=== PATIENT | male | born 1950 | race Caucasian/White ===

== ENCOUNTER 2020-04-24 17:21 | Inpatient (IN) | payer MEDICARE, SELFPAY ==
--- NOTE | ~2020-04-24 | XR_ITS ---
EXAMINATION: XR chest 1V portable DATE: 04/24/2020 18:13 INDICATION: COPD presenting with weakness and shortness of breath TECHNIQUE: frontal view of the chest was obtained. COMPARISON: Chest radiograph dated 03/04/2018 FINDINGS: New patchy airspace opacities in the bilateral mid and medial lower lung zones. No pleural effusion o r pneumothorax. The cardiomediastinal silhouette is normal. Multiple old healed bilateral rib fractur e deformities and old healed fracture deformity right clavicle. IMPRESSION: 1. Bilateral patchy airspace opacities concerning for pneumonia. Reviewed, dictated and finalized at location [facility]
--- NOTE | 2020-04-24 17:35 | PC.NURSE ---
EKG done at 1732, shown to LINCOLN
--- NOTE | 2020-04-24 17:36 | ECG_ITS ---
Measurements Intervals [place] Rate: 110 P: 75 SC: 117 QRS: -53 QRSD: 88 T: 56 QT: 301 QTc: 409 Interpretive Statements SINUS TACHYCARDIA WITH SHORT SC INTERVAL ATRIAL TRIPLET AND ATRIAL PREMATURE COMPLEXES LEFT AXIS DEVIATION INCOMPLETE RIGHT BUNDLE BRANCH BLOCK BASELINE ARTIFACT- I, II, V3 ABNORMAL ECG Electronically Signed On 04-25-2020 7:22:26 QUALITY ASSURANCE CLERK by Braden Pham D.O.
[2020-04-24 17:38] VITALS: BP 136/74; PULSE 106; RESP 27; TEMP 38.7; O2SAT 91
--- NOTE | 2020-04-24 17:47 | ED.GENADULT ---
HPI - General Adult General Chief complaint: Weakness Stated complaint: weakness Time Seen by Provider: 04/24/20 17:29 History of Present Illness HPI narrative: Patient is a 70 y/o male complaining of severe generalized weakness starting 5 days ago. There is no alleviating or exacerbating factor. He also has fever and increasing SOB. He states that he has chronic cough due to COPD. He tested for COVID recently and it was negative. Related Data Home Medications Medication Instructions Recorded Confirmed bupropion HCl 150 mg 24 hr tablet, 150 mg PO QAM 05/20/19 extended release clonazepam 0.5 mg tablet 0.5 mg PO DAILY 05/20/19 albuterol sulfate 90 mcg/actuation 1 puff INHALATION Q4H PRN 05/31/19 aerosol inhaler aspirin 81 mg tablet,delayed 81 mg PO DAILY 05/31/19 release Allergies Allergy/AdvReac Type Severity Reaction Status Date / Time neomycin AdvReac Unknown SLOWS Verified 04/24/20 19:06 HEALING, REDNESS Review of Systems Constitutional: Constitutional: Denies chills, Reports fever(s), Denies headache(s) and Reports weakness Eyes: Eyes: Denies blurry vision ENT: Denies headache(s) and Denies neck pain Cardiovascular: Cardiovascular: Denies chest pain and Reports dyspnea Respiratory: Respiratory: Reports cough and Reports dyspnea Gastrointestinal: Gastrointestinal: Denies abdominal pain, Denies diarrhea, Denies nausea and Denies vomiting Genitourinary: Genitourinary: Denies hematuria and Denies dysuria Musculoskeletal: Musculoskeletal: Denies back pain and Denies neck pain Neurologic: Denies headache(s) and Reports weakness [facility] Past Medical History Medical History (Updated 04/24/20 @ 19:46 by Bri Rodriguez MD) Abnormal finding of blood chemistry, unspecified Abnormal screening cardiac CT Aneurysm of infrarenal abdominal aorta Anxiety with depression BMI 24.0-24.9, adult Bruit Chest pain COPD (chronic obstructive pulmonary disease) Diarrhea Encounter for Medicare annual wellness exam Hx of compression fracture of spine On [facility] drug therapy Pain of finger of left hand Thoracic spondylosis Trigger finger, left ring finger Surgical History Surgical History Hx of cholecystectomy Hx of hernia repair 06/02/2001. Family History Family History Father Carcinoma of colon Social History Social History Smoking status: Former smoker Alcohol intake: current Exam Const: General: no acute distress and well developed Orientation/consciousness: oriented to person, oriented to place, oriented to time, patient oriented x3 and lethargic HENMT: Head: normocephalic Ears: external ears normal General nose exam: Normal external nose present Eyes: General: appearance normal, both eyes and all related structures Conjunctivae: conjunctivae normal Neck: Neck: normal visual inspection and full ROM Chest: Chest palpation & inspection: normal inspection of the chest and no tenderness Resp: Effort & Inspection: normal respiratory effort Auscultation: clear to auscultation bilaterally Cardio: Rate: tachycardic Rhythm: regular rhythm GI: GI Palp: No abdominal tenderness and Yes Soft to palpation Skin: General skin exam: normal color and turgor normal Neuro: General: oriented to person, oriented to place, oriented to time, patient oriented x3 and other (slow to respond) Cognition (Neuro): normal cognition Extrem: General: normal to inspection, full ROM and no pedal edema Psych: Appearance: grossly normal Mental Status: mental status grossly normal Affect: normal affect Course Consultations Consultation #1: Discussed with Dr. Haskins, who agrees to admit. Date: 04/24/20 Time: 18:55 Vital Signs Vital signs: Vital Signs Temperature 38.7 C H 04/24/20 17:38 Pulse Rate 106 H 04/24/20 17:38 Res
[2020-04-24 17:49] LABS: Hematocrit 39.4 % (42.0-52.0); Immature Platelet Fraction Pct 32.2 % (0.9-11.2); Mean Corpuscular Hemoglobin 32.3 pg (26-34); Mean Corpuscular Volume 97.8 fl (80-100); Red Blood Count 4.03 M/mm3 (4.6-6.20); Red Cell Distribution Width 14.4 % (11.5-14.5)
[2020-04-24 17:53] LABS: Alveolar/Arterial O2 Gradient 100.9 mmHg; Base Excess ABG 0.7 mEq/l (+/-2.0); Fractional Inspired Oxygen 28 %; HCO3 ABG 23.2 mEq/l (22.0-26.0); Oxygen Content ABG 17.2 %vol (16.0-22.0); Oxygen Saturation ABG 93.7 % (95.0-100.0); Oxyhemoglobin 91.8 % THb (90.0-100.0); PCO2 ABG 31.1 mmHg (35.0-45.0); PO2 FiO2 Ratio Arterial Blood 2.21 %; Total Hemoglobin 13.3 g/dL (12.0-18.0); pH ABG 7.491 (7.350-7.450)
[2020-04-24 17:54] LABS: Device NASAL CANNULA; Modified Allen's Test Pass; Site Drawn RIGHT RADIAL
[2020-04-24 17:59] LABS: Alanine Aminotransferase 91 U/L (4-50); Albumin Level 3.9 g/dL (3.5-5.1); Alkaline Phosphatase 119 U/L (38-126); Anion Gap 12 mmol/L (8-16); Aspartate Amino Transferase 138 U/L (17-59); Bilirubin,Total 0.6 mg/dL (0.2-1.3); Blood Urea Nitrogen 41 mg/dL (9-20); Calcium 8.2 mg/dL (8.4-10.2); Carbon Dioxide 25 mmol/L (22-30); Chloride 99 mmol/L (98-107); Estimated CRCL calculation 43 ml/min; Estimated Glomerular Filt Rate 40; Glucose 144 mg/dL (75-110); Sodium 136 mmol/L (137-145)
[2020-04-24 18:00] LABS: Lactic Acid Reflex 1.9 mmol/L (0.7-2.1)
[2020-04-24 18:08] LABS: NT Pro B Type Natriuretic Pept 525 PG/ML (5-100)
[2020-04-24 18:15] LABS: Platelet Count Result 18 k/mm3 (150-375)
[2020-04-24 18:19] LABS: Band Neutrophils Percent 11 % (0-6); Lymphocytes Absolute Manual 1.28 K/mm3 (1.1-4.5); Monocytes Absolute Manual 4.32 K/mm3 (0.1-0.90); Monocytes Percent Manual 27 % (3-9); Neutrophils Percent Manual 54 % (46-73); Total Cells Counted 100
[2020-04-24 18:20] LABS: Platelet Estimate Decreased (Adequate)
[2020-04-24] MEDS: SODIUM CHLORIDE 0.9% IV 1,000 ML 999 ML IV CONT (18:43)
--- NOTE | 2020-04-24 19:48 | PC.NURSE ---
Pt transfered to floor with antibiotic running.
[2020-04-24 19:55] VITALS: BP 109/67; PULSE 99; RESP 20; TEMP 36.7; O2SAT 92; BMI 23.6
--- NOTE | 2020-04-24 21:01 | PC.NURSE ---
This patient, Mendoza Stevens, was admitted to [facility] Surg Room 326-01. Patient/family oriented to hospital policies and general routines including ID bracelet, bed and alarms, visiting hours, pain management, procedures, bathroom and other care routines, personal items, smoking policy, room service/diet, and visiting hours. Information on how to activate the Rapid Response Team has been discussed. Patient/Family are encouraged to report perceived risks to care and to ask questions if they do not understand what they are told or what they should do.
[2020-04-24] MEDS: SODIUM CHLORIDE 0.9% IV 1,000 ML 125 ML IV CONT (21:50)
[2020-04-24 23:03] VITALS: BP 119/56; PULSE 101; RESP 24; TEMP 38.2; O2SAT 95
--- NOTE | 2020-04-24 23:25 | PM.IMHP ---
H&P: HPI History of Present Illness Date/Time: 04/24/20 23:25 Chief complaint: copd, pneumonia, sepsis Narrative: This is a 70 year old male with known history of COPD, depression, and chronic thrombocytopenia who presented to the hospital with a complaint of increased shortness of breath, fever, productive cough of brownish sputum, and generalized weakness for the past 6 days. His had mentioned to ER staff that the patient was tested for COVID-19 this past week and tested negative. It is not known which type of COVID-19 test he had. The patient was found to be septic in the ER tonight with fever, tachycardia, tachypnea, and leukocytosis. CXR demonstrated bilateral patchy airspace opacities. He has been treated with IV antibiotics and IV fluids. The patient was swabbed for COVID-19 in the ER tonight. ABG demonstrated hypoxemia. On my encounter with him he denies any headache, chest pain, palpitations, abdominal pain, dysuria, hematuria, diarrhea, vomiting, nausea, LE swelling or rectal bleeding. No other complaints. The patient was admitted to the hospital for further care. 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 Family History Family History Father Carcinoma of colon Social History Social History Smoking packs per day: 3 Smoking cigarettes per day: 60.0 Years smoked: 30 Smoking pack-years: 90.00 Smoking status: Former smoker Tobacco type: cigarettes Alcohol intake: never Substance use: never Gender identity (if verbalized by the patient): Male Spiritual care concerns: No Meds Home Medications and Allergies Home Medications Medication Instructions Recorded Confirmed Type bupropion HCl 150 mg 24 hr tablet, 150 mg PO QAM 05/20/19 04/24/20 History extended release clonazepam 0.5 mg tablet 0.5 mg PO DAILY 05/20/19 04/24/20 History albuterol sulfate 90 mcg/actuation 2 puff INHALATION Q4H PRN 05/31/19 04/24/20 History aerosol inhaler fluticasone fur. 100 mcg-umeclid 1 inhalation INHALATION DAILY #60 06/28/19 04/24/20 Rx 62.5 mcg-vilant 25 mcg each inhalat.powder Allergies Allergy/AdvReac Type Severity Reaction Status Date / Time neomycin AdvReac Unknown SLOWS Verified 04/24/20 21:15 HEALING, REDNESS Vital Signs Vital Signs - 24 hr 04/24/20 17:38 04/24/20 23:03 Temperature 38.7 C H 38.2 C H Pulse Rate 106 H 101 H Respiratory Rate 27 H 24 H Blood Pressure 136/74 119/56 L Pulse Oximetry 91 95 Exam Const: General: cooperative, ill appearing, tired appearing and uncomfortable Nutritional Appearance: well nourished Orientation/consciousness: Other orientation findings (somnolent but arousable+ ) HENMT: Head: normal to inspection General nose exam: Normal external nose present Face and sinus: normal facial exam Mouth: Yes Normal oral and palatal mucosa present and Yes oropharynx normal Eyes: Pupils: Equal, round and reactive pupils present EOM: EOMs intact bilaterally Neck: Neck: supple and no JVD Thyroid: thyroid normal Lymphatic: lymphadenopathy not noted Resp: Effort & Inspection: tachypneic Auscult
[2020-04-24 23:26] VITALS: TEMP 38.2
[2020-04-24] MEDS: ACETAMINOPHEN 325 MG TABLET 650 MG PO (23:26)
[2020-04-25] VITALS (14 sets, daily range): BP systolic 95–128; BP diastolic 46–68; PULSE 65–108; RESP 16–20; TEMP 36.4–37.1; O2SAT 92–97; BMI 23.6
[2020-04-25] MEDS: SODIUM CHLORIDE 0.9% IV 500 ML 999 ML IV CONT (00:40)
--- NOTE | 2020-04-25 01:36 | ECG_ITS ---
Measurements Intervals [place] Rate: 78 P: 80 MS: 139 QRS: -36 QRSD: 88 T: 29 QT: 390 QTc: 445 Interpretive Statements SINUS RHYTHM FREQUENT ATRIAL PREMATURE COMPLEXES LEFT AXIS DEVIATION CANNOT RULE OUT SEPTAL INFARCT, AGE INDETERMINATE BASELINE ARTIFACT- V5 ABNORMAL ECG Electronically Signed On 04-25-2020 7:27:48 AWARD CLERK by Braden Pham D.O.
[2020-04-25 02:10] LABS: Hematocrit 33.3 % (42.0-52.0); Hemoglobin 11.1 g/dL (14.0-18.0); Immature Platelet Fraction Pct 32.7 % (0.9-11.2); Mean Corpuscular HGB Conc 33.3 g/dl (32-36); Mean Corpuscular Hemoglobin 32.6 pg (26-34); Mean Corpuscular Volume 97.9 fl (80-100); Red Cell Distribution Width 14.6 % (11.5-14.5); White Blood Count 22.7 K/mm3 (4.5-10.0)
[2020-04-25 02:12] LABS: Alveolar/Arterial O2 Gradient 46.2 mmHg; Base Excess ABG -2.3 mEq/l (+/-2.0); Fractional Inspired Oxygen 28 %; HCO3 ABG 18.9 mEq/l (22.0-26.0); Oxygen Saturation ABG 98.8 % (95.0-100.0); Oxyhemoglobin 97.2 % THb (90.0-100.0); PCO2 ABG 24.6 mmHg (35.0-45.0); PO2 ABG 124.4 mmHg (80.0-100.0); PO2 FiO2 Ratio Arterial Blood 4.44 %; Total Hemoglobin 14.5 g/dL (12.0-18.0)
[2020-04-25] MEDS: SODIUM CHLORIDE 0.9% IV 1,000 ML 125 ML IV CONT ×2 (02:12→12:36)
[2020-04-25 02:14] LABS: pH ABG 7.504 (7.350-7.450)
[2020-04-25 02:15] LABS: Device NASAL CANNULA; Modified Allen's Test Unable to perform; Site Drawn RIGHT RADIAL
[2020-04-25 02:22] LABS: Anion Gap 8 mmol/L (8-16); Blood Urea Nitrogen 39 mg/dL (9-20); Calcium 7.2 mg/dL (8.4-10.2); Carbon Dioxide 22 mmol/L (22-30); Chloride 106 mmol/L (98-107); Estimated CRCL calculation 48 ml/min; Estimated Glomerular Filt Rate 50; Glucose 132 mg/dL (75-110); Magnesium 2.3 mg/dL (1.6-2.3); Potassium 3.4 mmol/L (3.4-5.0); Sodium 136 mmol/L (137-145)
[2020-04-25 02:52] LABS: Platelet Count Result 15 k/mm3 (150-375)
[2020-04-25 02:53] LABS: Band Neutrophils Percent 1 % (0-6); Monocytes Absolute Manual 4.76 K/mm3 (0.1-0.90); Monocytes Percent Manual 21 % (3-9); Neutrophils Absolute Manual 17.02 K/mm3 (1.3-6.7); Neutrophils Percent Manual 74 % (46-73); Platelet Estimate Decreased (Adequate); Total Cells Counted 100
[2020-04-25 05:30] LABS: Influenza Control Positive
[2020-04-25] MEDS: ALBUTEROL SULFATE (*SP) AEROSOL 1 PUFF 2 PUFF INHALATION ×3 (08:46→16:22)
--- NOTE | 2020-04-25 13:15 | PM.CNCAR ---
Assessment and Plan Assessment and plan (1) SVT (supraventricular tachycardia): Code(s): I47.1 - Supraventricular tachycardia Status: Acute Assessment and Plan: Likely Insignificant self-limiting SVT is noted and occasional PVCs. He is hypokalemia, will replace as below. All driven by his underlying likely COVID infection and high adrenaline state. Eventual echocardiogram is reasonable either after he rules out for Coronavirus or when he recovers. No need for echocardiogram at this point unless his arrhythmia becomes more significant (2) Chest pain: Qualifiers: Chest pain type: unspecified Qualified Code(s): R07.9 - Chest pain, unspecified Code(s): R07.9 - Chest pain, unspecified Status: Acute Assessment and Plan: This is noncardiac chest pain (3) Suspected 2019 novel coronavirus infection: Code(s): Z20.828 - Contact with and (suspected) exposure to other viral communicable diseases Status: Acute (4) Hypokalemia: Code(s): E87.6 - Hypokalemia Status: Acute Assessment and Plan: Will replace with 40 mEq p.o. x1 potassium chloride. (5) Aneurysm of infrarenal abdominal aorta: Code(s): I71.4 - Abdominal aortic aneurysm, without rupture Status: Acute History of Present Illness History of Present Illness Consult date/time: 04/25/20 13:15 Requesting physician: Aurora Up PA-C Consult reason: Other (SVT, bigeminy) Reason For Visit: copd, pneumonia, sepsis Narrative: Date of service 04/25/2020 History: Patient is a 70-year-old male who has COPD, depression, thrombocytopenia. Present hospital because of shortness of breath fever cough and weakness x6 days. Reportedly tested negative for COVID last week. Details of this are not known. Chest x-ray is concerning for infiltrate consistent with pneumonia. Presumed Coronavirus until proven otherwise. 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 He has short runs of what appears to be SVT. Patient states that last couple weeks he was having some left-sided chest pain as worse with moving his arm. Not worsened with cardio activity. He himself denies any chest pain at present. Does have shortness of breath and cough. No syncope, presyncope, paroxysmal nocturnal dyspnea, orthopnea, edema or palpitations. Review of Systems Review of Systems: All systems reviewed & are unremarkable except as noted in HPI and below Constitutional: Constitutional: Reports weakness Eyes: Eyes: Denies blurry vision ENT: Reports Normal hearing present Cardiovascular: Cardiovascular: Reports chest pain Respiratory: Respiratory: Reports dyspnea Gastrointestinal: Gastrointestinal: Denies abdominal pain Genitourinary: Genitourinary: Denies dysuria Musculoskeletal: Musculoskeletal: Denies neck pain Integumentary/Breasts: Skin/Breast: Denies dry skin Neurologic: Denies headache(s) Psychiatric: Psychiatric: Denies anxiety and Denies confusion Endocrine: Endocrine: Denies fatigue Hematologic/Lymphatic: Hematologic/Lymphatic: Denies easy bleeding Allergic/Immunologic: Allergic/Immunologic: Denies GI upset with certain foods PMFSH Past Medical History Medical History Abnormal finding of blood chemistry, unspecified Abnormal screening cardiac CT Aneurysm of infrarenal abdominal aorta Anxiety with depression BMI 24.0-24.9, adult Bruit Chest pain COPD (chronic obstructive pulmonary disease) Diarrhea Encounter for Medicare annual wellness exam Hx of compression fracture of spine On [employer] drug therapy Pain of finger of left hand Thoracic spondylosis Trigger finger, left ring finger Surgical History Surgical History Hx of cholecystectomy Hx of hernia repair 06/02/2001. Family History Family History (Reviewed 04/25/20 @ 1
--- NOTE | 2020-04-25 15:22 | WPDONCCN ---
Assessment and Plan Assessment and plan (1) Thrombocytopenia: Code(s): D69.6 - Thrombocytopenia, unspecified Status: Acute Assessment and Plan: Etiology is multifactorial that includes underlying viremia along with splenic sequestration and possibly autoimmune process. I will start him on dexamethasone with the 10 mg IV bolus now and then continue this every 6 hours at 4 mg. I will also provide ppi support. in addition, I will also check for DIC. (2) Leukocytosis: Code(s): D72.829 - Elevated white blood cell count, unspecified Status: Acute Assessment and Plan: Etiology is probably due to infection and inflammatory process. I will continue monitor CBC on daily basis and review the manual differential. (3) Normocytic anemia: Code(s): D64.9 - Anemia, unspecified Status: Acute Assessment and Plan: Due to current infection (4) Suspected 2019 novel coronavirus infection: Code(s): Z20.828 - Contact with and (suspected) exposure to other viral communicable diseases Status: Acute Assessment and Plan: he does have multiple classic symptoms of COVID-19 infection. Current viral test is pending. He continues to be in respiratory isolation HPI Data of Consult Date/Time: 04/25/20 15:22 Requesting Physician: Aurora Up PA-C Primary Care Provider: Javier Syed MD Consult Narrative Narrative: Mendoza Stevens is a 70 year old male presenting with Febrile illness, productive cough, shortness of breath. Upon my interview with the patient, he was complain of diffuse arthralgias, productive cough of yellow to white sputum and dyspnea on exertion. He is currently on oxygen at 2 liters/minute. At times he appears to be more drowsy and cannot get comfortable. He initially did not recognize me at the start. According to the record, he was admitted through the ER last night with viral pneumonia that may be consistent with COVID-19 infection/pneumonia. He has been ill for the past several days presenting with the above symptoms. He recently was exposed to his daughter who also had viral infection but he could not tell me if she was positive for COVID-19. They came together due to the patient's father dying. Historically, patient does have chronic thrombocytopenia with the platelet count ranging between 50 -60k with leukopenia and neutropenia. He did undergo extensive workup over the past 5 years including bone marrow biopsy, liver and spleen ultrasound and extensive laboratory workup. 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 He is currently on no medical therapy and only follows up with me twice a year. Review of Systems Review of Systems: All systems reviewed & are unremarkable except as noted in HPI and below Constitutional: Constitutional: Denies anorexia, Reports fatigue, Reports fever(s), Reports malaise, Reports night sweats, Reports snoring, Reports weakness and Denies weight loss Eyes: Eyes: Reports blurry vision ENT: Denies dysphagia, Denies epistaxis, Denies mouth lesions, Denies mouth pain, Denies odynophagia, Denies disequilibrium and Denies sore throat Cardiovascular: Cardiovascular: Reports chest pain, Denies leg edema, Reports dyspnea and Reports dyspnea on exertion Respiratory: Respiratory: Reports cough, Reports excessive phlegm production, Reports dyspnea and Reports snoring Gastrointestinal: Gastrointestinal: Denies abdominal pain, Denies constipation, Denies dysphagia, Denies diarrhea, Denies nausea, Denies odynophagia and Denies vomiting Genitourinary: Genitourinary: Denies hematuria and Denies dysuria Musculoskeletal: Musculoskeletal: Reports myalgias, Reports arthralgias and Reports muscle weakness Integumentary/Breasts: Skin/Breast: Denies rash and Denies unusual bruising Neurologic: Denies confusion, Denies disequilibrium and Reports weakness Psychiatr
--- NOTE | 2020-04-25 16:10 | PM.IMPN ---
Progress Note: A&P Assessment and Plan (1) Acute respiratory failure with hypoxemia: Code(s): J96.01 - Acute respiratory failure with hypoxia Status: Acute Assessment and Plan: Patient now on 1 L satting at 94% -due to pneumonia, differential bacterial verses COVID-19. Influenza negative -chest x-ray shows bilateral patchy airspace opacities concerning for pneumonia -patient has an increased white blood cell count and a lot of sputum production, continue ceftriaxone and azithromycin at this time -wean oxygen as tolerated -sputum culture sent -if he test negative for COVID-19, consider CTA of the chest (2) Pneumonia: Qualifiers: Laterality: bilateral Lung location: unspecified part of lung Pneumonia type: due to unspecified organism Qualified Code(s): J18.9 - Pneumonia, unspecified organism Code(s): J18.9 - Pneumonia, unspecified organism Status: Acute Assessment and Plan: Bacterial versus COVID-19 -await COVID swab -sputum cultures pending -continue ceftriaxone azithromycin this time -consider CTA if COVID-19 is negative (3) Sepsis: Code(s): A41.9 - Sepsis, unspecified organism Status: Acute Assessment and Plan: Due to pneumonia -patient had tachycardia, leukocytosis and fever on admission (4) JOE (acute kidney injury): Code(s): N17.9 - Acute kidney failure, unspecified Status: Acute Assessment and Plan: Improving with IV hydration -will stop fluids until COVID-19 test comes back since the patient has slight crackles on exam -blood pressure is stable now but if he becomes hypotensive may need to restart fluids (5) Leukocytosis: Code(s): D72.829 - Elevated white blood cell count, unspecified Status: Acute Assessment and Plan: Due to above (6) Normocytic anemia: Code(s): D64.9 - Anemia, unspecified Status: Acute Assessment and Plan: Hemoglobin stable, last hemoglobin 11.1 (7) Thrombocytopenia: Code(s): D69.6 - Thrombocytopenia, unspecified Status: Acute Assessment and Plan: He has a history of this according to Dr. Syed notes -sees Dr. Pardo -Will consult them since pt is down to 15,000 (8) Suspected 2019 novel coronavirus infection: Code(s): Z20.828 - Contact with and (suspected) exposure to other viral communicable diseases Status: Acute Assessment and Plan: As above (9) Elevated liver enzymes: Code(s): R74.8 - Abnormal levels of other serum enzymes Status: Acute Assessment and Plan: Likely d/t COVID -Trend -May consider hepatitis screen or imaging if COVID is negative -home meds reviewed (10) COPD (chronic obstructive pulmonary disease): Qualifiers: COPD type: unspecified COPD Qualified Code(s): J44.9 - Chronic obstructive pulmonary disease, unspecified Code(s): J44.9 - Chronic obstructive pulmonary disease, unspecified Status: Acute Assessment and Plan: No wheezing today -Will switch to xopenex since pt is having tachycardia (11) Anxiety with depression: Code(s): F41.8 - Other specified anxiety disorders Status: Acute Assessment and Plan: Chronic and stable (12) SVT (supraventricular tachycardia): Code(s): I47.1 - Supraventricular tachycardia Status: Acute Assessment and Plan: Could be due to acute infection and albuterol use -cardiology consulted, potassium replaced -patient has no palpitations or chest pain -continue telemetry -consider beta-blockade if he continues to have SVT (13) Bigeminy: Code(s): I49.8 - Other specified cardiac arrhythmias Status: Acute Assessment and Plan: Potassium replace, monitor on tele Time Spent With Patient Time with patient: 25 - 35 minutes Subjective Date/time seen: 04/25/20 16:10 Interval history: Pt is a
[2020-04-25] MEDS: buPROPion HCL XL (24 HR) 150 MG TABCR PO (16:16)
[2020-04-25] MEDS: POTASSIUM CHLORIDE 20 MEQ TABLET 40 MEQ PO (16:16)
[2020-04-25] MEDS: clonazePAM (*CRX) 0.5 MG TABLET PO (16:16)
[2020-04-25] MEDS: DEXAMETHASONE SOD PHOS INJ 4 MG/ML VIAL 10 MG IV PUSH (17:03)
[2020-04-25] MEDS: guaiFENesin/DEXTROMETHORPHAN 10 ML UDC 5 ML PO (20:28)
[2020-04-25] MEDS: PANTOPRAZOLE 40 MG TABLET PO (20:29)
[2020-04-25 21:15] LABS: SARS-CoV-2 RNA PCR Positive
[2020-04-25] MEDS: LEVALBUTEROL HFA (*SP) 15 GM INHALER 2 PUFF INHALATION (22:15)
[2020-04-26] VITALS (7 sets, daily range): BP systolic 92–117; BP diastolic 54–63; PULSE 70–98; RESP 18–20; TEMP 36.3–37.5; O2SAT 93–96
[2020-04-26] MEDS: guaiFENesin/DEXTROMETHORPHAN 10 ML UDC 5 ML PO (05:09)
[2020-04-26 07:08] LABS: Hematocrit 31.8 % (42.0-52.0); Hemoglobin 10.3 g/dL (14.0-18.0); Immature Reticulocyte Fraction 4.7 % (3.0-15.9); Mean Corpuscular HGB Conc 32.4 g/dl (32-36); Mean Corpuscular Hemoglobin 31.8 pg (26-34); Mean Corpuscular Volume 98.1 fl (80-100); Red Blood Count 3.24 M/mm3 (4.6-6.20); Red Cell Distribution Width 14.6 % (11.5-14.5); Reticulocyte Hemoglobin Conten 30.4 pg (28.2-35.7); Reticulocyte Percent 0.43 % (0.7-4.3); Reticulocytes Absolute 0.01 B/L (32.2-175.7); White Blood Count 10.7 K/mm3 (4.5-10.0)
[2020-04-26 07:10] LABS: Platelet Count Result 12 k/mm3 (150-375)
[2020-04-26 07:11] LABS: INR 1.2; Lactate Dehydrogenase 1131 U/L (313-618); Prothrombin Time 15.8 Seconds (11.1-14.7)
[2020-04-26 07:20] LABS: Alanine Aminotransferase 148 U/L (4-50); Alkaline Phosphatase 95 U/L (38-126); Anion Gap 8 mmol/L (8-16); Aspartate Amino Transferase 183 U/L (17-59); Bilirubin,Total 0.4 mg/dL (0.2-1.3); Blood Urea Nitrogen 41 mg/dL (9-20); Calcium 7.8 mg/dL (8.4-10.2); Carbon Dioxide 24 mmol/L (22-30); Chloride 106 mmol/L (98-107); Estimated CRCL calculation 55 ml/min; Estimated Glomerular Filt Rate 60; Glucose 154 mg/dL (75-110); Potassium 3.8 mmol/L (3.4-5.0); Sodium 138 mmol/L (137-145)
[2020-04-26 07:21] LABS: Immunoglobulin G 1589 mg/dL (700-1600)
[2020-04-26 07:32] LABS: Band Neutrophils Percent 3 % (0-6); Lymphocytes Absolute Manual 0.42 K/mm3 (1.1-4.5); Monocytes Absolute Manual 0.42 K/mm3 (0.1-0.90); Monocytes Percent Manual 4 % (3-9); Neutrophils Absolute Manual 9.84 K/mm3 (1.3-6.7); Neutrophils Percent Manual 89 % (46-73); Total Cells Counted 100
[2020-04-26 07:33] LABS: Platelet Estimate Decreased (Adequate)
[2020-04-26 07:49] LABS: Partial Thromboplastin Time 46.2 SECONDS (22.3-36.8)
[2020-04-26 07:59] LABS: Alanine Aminotransferase 150 U/L (4-50); Alkaline Phosphatase 93 U/L (38-126); Aspartate Amino Transferase 184 U/L (17-59); Bilirubin,Total 0.4 mg/dL (0.2-1.3); CRP 22.8 mg/dL (<1.0); Magnesium 2.9 mg/dL (1.6-2.3)
[2020-04-26 08:04] LABS: Fibrinogen 268 mg/dl (215-510)
[2020-04-26 08:05] LABS: Erythrocyte Sedimentation Rate > 140 mm/hr (0-20)
[2020-04-26] MEDS: buPROPion HCL XL (24 HR) 150 MG TABCR PO (08:13)
[2020-04-26] MEDS: PANTOPRAZOLE 40 MG TABLET PO ×2 (08:13→20:56)
[2020-04-26] MEDS: clonazePAM (*CRX) 0.5 MG TABLET PO ×2 (08:25→16:57)
[2020-04-26] MEDS: DEXAMETHASONE SOD PHOS INJ 4 MG/ML VIAL IV PUSH ×4 (08:27→23:32)
[2020-04-26] MEDS: LEVALBUTEROL HFA (*SP) 15 GM INHALER 2 PUFF INHALATION ×3 (08:46→16:20)
--- NOTE | 2020-04-26 10:34 | WPDONCPN ---
Progress Note: A&P Assessment and Plan (1) Thrombocytopenia: Code(s): D69.6 - Thrombocytopenia, unspecified Status: Acute Assessment and Plan: autoimmune vs myelosuppressive effects of COVID 19 viremia 1. Will order IVIG for treating thrombocytopenia 2. continue with Dex 4 q 6 for now 3. Daily CBC 4. Plt precautions 5. Cannot receive anticoagulation due to increase risk of hemorrhage with plt count of 12k 6. If IVIG not successful, will transfuse plts 7. NO signs of DIC or hemolysis (2) Leukocytosis: Code(s): D72.829 - Elevated white blood cell count, unspecified Status: Acute Assessment and Plan: improving continue to monitor (3) Normocytic anemia: Code(s): D64.9 - Anemia, unspecified Status: Chronic Assessment and Plan: stable continue to monitor no signs of hemolysis or bleeding due to COVID19 viremia Time Spent With Patient Time with patient: 15 - 25 minutes Review of Systems Review of Systems All systems reviewed & are unremarkable except as noted in HPI and below Constitutional Constitutional: Denies anorexia, Reports fatigue, Denies fever(s), Reports malaise, Reports night sweats, Denies snoring, Reports weakness and Denies weight loss Eyes Eyes: Reports blurry vision ENT Denies dysphagia, Denies epistaxis, Denies mouth lesions, Denies mouth pain, Denies odynophagia, Denies disequilibrium and Denies sore throat Cardiovascular Cardiovascular: Reports chest pain, Denies leg edema, Reports dyspnea and Reports dyspnea on exertion Respiratory Respiratory: Reports cough, Reports excessive phlegm production, Reports dyspnea, Reports dyspnea on exertion and Reports snoring Gastrointestinal Gastrointestinal: Denies abdominal pain, Denies constipation, Denies dysphagia, Denies diarrhea, Denies nausea, Denies odynophagia and Denies vomiting Genitourinary Genitourinary: Denies hematuria and Denies dysuria Musculoskeletal Musculoskeletal: Reports myalgias, Reports arthralgias and Reports muscle weakness Integumentary/Breasts Skin/Breast: Denies rash and Denies unusual bruising Neurologic Denies confusion, Denies disequilibrium and Reports weakness Psychiatric Psychiatric: Reports anxiety, Denies confusion and Reports depression Endocrine Endocrine: Reports fatigue Hematologic/Lymphatic Hematologic/Lymphatic: Denies easy bleeding, Denies easy bruising and Denies lymphadenopathy Exam Const: General: alert, awake, in distress, anxious, diaphoretic, ill appearing, tired appearing and uncomfortable; No healthy appearing, no acute distress or confusion Nutritional Appearance: well nourished Orientation/consciousness: patient oriented x3 and No confusion HENMT: Head: normocephalic and atraumatic Ears: external ears normal General nose exam: Normal external nose present and Normal nares present Face and sinus: sinuses nontender Mouth: Yes Normal oral and palatal mucosa present and Yes moist mucous membranes Teeth and gingiva: dentition normal Throat: uvula midline Eyes: Conjunctivae: conjunctivae normal Pupils: Equal, round and reactive pupils present EOM: EOMs intact bilaterally Neck: Neck: full ROM, no lymphadenopathy and supple Chest: Chest palpation & inspection: normal inspection of the chest Resp: Effort & Inspection: normal respiratory effort Auscultation: rhonchi Cardio: Rate: tachycardic Rhythm: regular rhythm Heart sounds: S1 normal heart sound present and S2 normal heart sound present Peripheral pulses: Peripheral pulses 2+ throughout GI: Auscultation: normal bowel sounds Rectal Exam: deferred : General: Yes no CVA tenderness Back/Spine/Pelvis: Back: no CVA tenderness Skin: General skin exam: no rashes or lesions noted, turgor normal and no ecchymosis Rashes: no rashes Neuro: General: patient oriented x3, gait normal, tone normal, moves all extremities and No confusion Cranial nerves: Yes CN's II-XII intact bilaterally and Yes Equal, round and re
[2020-04-26] MEDS: BENZONATATE 100 MG CAPSULE PO ×2 (12:18→16:55)
--- NOTE | 2020-04-26 13:25 | PM.IMPN ---
Progress Note: A&P Assessment and Plan (1) Pneumonia due to COVID-19 virus: Code(s): U07.1 - COVID-19; J12.89 - Other viral pneumonia Status: Acute Assessment and Plan: Tested positive 04/24/20 -symptoms started 04/19/20 -will continue Decadron -at this time, I am not going to start Remdesivir. The patient is improving on current treatment and is only on 1 L of oxygen I suspect this will be discontinued today. He is feeling much better today and recent studies have shown questionable efficacy of Remdesivir -wean oxygen as tolerated -pt had significant leukocytosis on admission which has improved with abx. Spoke with oncology, will continue abx at this time for possible bacterial infection (2) Acute respiratory failure with hypoxemia: Code(s): J96.01 - Acute respiratory failure with hypoxia Status: Acute Assessment and Plan: Patient now on 1 L satting at 94% -due to pneumonia -chest x-ray shows bilateral patchy airspace opacities concerning for pneumonia -patient has an increased white blood cell count and a lot of sputum production, continue ceftriaxone and azithromycin at this time -wean oxygen as tolerated -sputum culture reviewed. Moderate yeast--likelynot causing acute infx since he is improving with current therapy -if he test negative for COVID-19, consider CTA of the chest (3) Pneumonia: Qualifiers: Laterality: bilateral Lung location: unspecified part of lung Pneumonia type: due to unspecified organism Qualified Code(s): J18.9 - Pneumonia, unspecified organism Code(s): J18.9 - Pneumonia, unspecified organism Status: Acute Assessment and Plan: Bacterial versus COVID-19 -COVID + -continue ceftriaxone azithromycin this time (4) Sepsis: Code(s): A41.9 - Sepsis, unspecified organism Status: Acute Assessment and Plan: Resolved. Due to pneumonia -patient had tachycardia, leukocytosis and fever on admission (5) JOE (acute kidney injury): Code(s): N17.9 - Acute kidney failure, unspecified Status: Acute Assessment and Plan: Improved with IV hydration which has now been stopped (6) Leukocytosis: Code(s): D72.829 - Elevated white blood cell count, unspecified Status: Acute Assessment and Plan: Due to above (7) Normocytic anemia: Code(s): D64.9 - Anemia, unspecified Status: Chronic Assessment and Plan: Hemoglobin stable, last hemoglobin 10.3 (8) Thrombocytopenia: Code(s): D69.6 - Thrombocytopenia, unspecified Status: Chronic Assessment and Plan: He has a history of this according to Dr. Syed notes -sees Dr. Pardo -Plan for IVIG today -last count 12,000 but no bleeding (9) Suspected 2019 novel coronavirus infection: Code(s): Z20.828 - Contact with and (suspected) exposure to other viral communicable diseases Status: Acute Assessment and Plan: As above (10) Elevated liver enzymes: Code(s): R74.8 - Abnormal levels of other serum enzymes Status: Acute Assessment and Plan: Likely d/t COVID -Trend -home meds reviewed (11) COPD (chronic obstructive pulmonary disease): Qualifiers: COPD type: unspecified COPD Qualified Code(s): J44.9 - Chronic obstructive pulmonary disease, unspecified Code(s): J44.9 - Chronic obstructive pulmonary disease, unspecified Status: Chronic Assessment and Plan: No wheezing today -Will switch to xopenex since pt is having tachycardia (12) Anxiety with depression: Code(s): F41.8 - Other specified anxiety disorders Status: Acute Assessment and Plan: Chronic and stable (13) SVT (supraventricular tachycardia): Code(s): I47.1 - Supraventricular tachycardia Status: Acute Assessment and Plan: Could be due to acute infection and albuterol
[2020-04-26] MEDS: polyethylene glycoL 3350 17 GM POWD.PACK PO (13:45)
--- NOTE | 2020-04-26 19:39 | ECG_ITS ---
Measurements Intervals [place] Rate: 92 P: 24 LA: 100 QRS: -17 QRSD: 89 T: 43 QT: 335 QTc: 416 Interpretive Statements SINUS RHYTHM WITH SHORT LA INTERVAL CANNOT RULE OUT SEPTAL INFARCT, AGE INDETERMINATE ABNORMAL ECG Electronically Signed On 04-27-2020 8:03:28 [employer] by Braden Pham D.O.
[2020-04-26] MEDS: guaiFENesin 12 HR 600 MG TABCR PO (20:57)
[2020-04-27] VITALS (9 sets, daily range): BP systolic 99–120; BP diastolic 58–71; PULSE 64–92; RESP 16–18; TEMP 36.7–37.4; O2SAT 93–96
[2020-04-27] MEDS: DEXAMETHASONE SOD PHOS INJ 4 MG/ML VIAL IV PUSH ×3 (05:38→21:37)
[2020-04-27 06:40] LABS: Hematocrit 28.4 % (42.0-52.0); Hemoglobin 9.5 g/dL (14.0-18.0); Immature Platelet Fraction Pct 47.8 % (0.9-11.2); Mean Corpuscular HGB Conc 33.5 g/dl (32-36); Mean Corpuscular Hemoglobin 32.3 pg (26-34); Mean Corpuscular Volume 96.6 fl (80-100); Red Blood Count 2.94 M/mm3 (4.6-6.20); Red Cell Distribution Width 14.8 % (11.5-14.5)
[2020-04-27 06:55] LABS: Alanine Aminotransferase 148 U/L (4-50); Albumin Level 2.8 g/dL (3.5-5.1); Alkaline Phosphatase 98 U/L (38-126); Anion Gap 7 mmol/L (8-16); Aspartate Amino Transferase 156 U/L (17-59); Bilirubin,Total 0.4 mg/dL (0.2-1.3); Blood Urea Nitrogen 40 mg/dL (9-20); CRP 7.2 mg/dL (<1.0); Calcium 7.9 mg/dL (8.4-10.2); Carbon Dioxide 24 mmol/L (22-30); Chloride 105 mmol/L (98-107); Estimated CRCL calculation 60 ml/min; Estimated Glomerular Filt Rate > 60; Glucose 161 mg/dL (75-110); Magnesium 2.5 mg/dL (1.6-2.3); Sodium 136 mmol/L (137-145)
[2020-04-27 07:14] LABS: Platelet Count Result 20 k/mm3 (150-375)
[2020-04-27 07:19] LABS: Band Neutrophils Percent 3 % (0-6); Lymphocytes Absolute Manual 0.32 K/mm3 (1.1-4.5); Monocytes Absolute Manual 0.24 K/mm3 (0.1-0.90); Monocytes Percent Manual 3 % (3-9); Neutrophils Absolute Manual 7.44 K/mm3 (1.3-6.7); Neutrophils Percent Manual 90 % (46-73); Platelet Estimate Decreased (Adequate); Total Cells Counted 100
[2020-04-27 07:51] LABS: Erythrocyte Sedimentation Rate > 140 mm/hr (0-20)
[2020-04-27] MEDS: BENZONATATE 100 MG CAPSULE PO ×3 (09:34→17:45)
[2020-04-27] MEDS: guaiFENesin 12 HR 600 MG TABCR PO ×2 (09:34→21:37)
[2020-04-27] MEDS: PANTOPRAZOLE 40 MG TABLET PO ×2 (09:35→21:37)
[2020-04-27] MEDS: clonazePAM (*CRX) 0.5 MG TABLET PO ×2 (09:35→18:54)
[2020-04-27] MEDS: buPROPion HCL XL (24 HR) 150 MG TABCR PO (09:35)
[2020-04-27] MEDS: guaiFENesin/DEXTROMETHORPHAN 10 ML UDC 5 ML PO (09:42)
[2020-04-27] MEDS: LEVALBUTEROL HFA (*SP) 15 GM INHALER 2 PUFF INHALATION ×3 (10:04→22:10)
--- NOTE | 2020-04-27 10:31 | WPDONCPN ---
Progress Note: A&P Assessment and Plan (1) Pneumonia due to COVID-19 virus: Code(s): U07.1 - COVID-19; J12.89 - Other viral pneumonia Status: Acute Assessment and Plan: clinically improving CRP decreasing recheck LDH continue with supportive care and ABX (2) Thrombocytopenia: Code(s): D69.6 - Thrombocytopenia, unspecified Status: Chronic Assessment and Plan: improving after IVIG will redose another IVIG today to get plt count to his baseline will cut back on the steroids a bit (3) Normocytic anemia: Code(s): D64.9 - Anemia, unspecified Status: Chronic Assessment and Plan: stable recheck CBC in AM (4) Leukocytosis: Code(s): D72.829 - Elevated white blood cell count, unspecified Status: Acute Review of Systems Review of Systems All systems reviewed & are unremarkable except as noted in HPI and below Constitutional Constitutional: Denies anorexia, Reports fatigue, Denies fever(s), Reports malaise, Reports weakness and Denies weight loss ENT Denies dysphagia, Denies epistaxis, Denies mouth lesions, Denies mouth pain, Denies odynophagia, Denies disequilibrium and Denies sore throat Cardiovascular Cardiovascular: Denies leg edema and Reports dyspnea on exertion Respiratory Respiratory: Reports cough, Reports excessive phlegm production, Reports dyspnea, Reports dyspnea on exertion and Reports snoring Gastrointestinal Gastrointestinal: Denies abdominal pain, Denies constipation, Denies dysphagia, Denies diarrhea, Denies nausea, Denies odynophagia and Denies vomiting Genitourinary Genitourinary: Denies hematuria and Denies dysuria Musculoskeletal Musculoskeletal: Reports myalgias, Reports arthralgias and Reports muscle weakness Integumentary/Breasts Skin/Breast: Denies rash and Denies unusual bruising Neurologic Denies confusion, Denies disequilibrium and Reports weakness Psychiatric Psychiatric: Reports anxiety, Denies confusion and Reports depression Endocrine Endocrine: Reports fatigue Hematologic/Lymphatic Hematologic/Lymphatic: Denies easy bleeding, Denies easy bruising and Denies lymphadenopathy Exam Const: General: alert, awake, diaphoretic, ill appearing and tired appearing; No healthy appearing, no acute distress or confusion Nutritional Appearance: well nourished Orientation/consciousness: patient oriented x3 and No confusion HENMT: Head: normocephalic and atraumatic Ears: external ears normal General nose exam: Normal external nose present and Normal nares present Face and sinus: sinuses nontender Mouth: Yes Normal oral and palatal mucosa present and Yes moist mucous membranes Teeth and gingiva: dentition normal Throat: uvula midline Eyes: Conjunctivae: conjunctivae normal Pupils: Equal, round and reactive pupils present EOM: EOMs intact bilaterally Neck: Neck: full ROM, no lymphadenopathy and supple Chest: Chest palpation & inspection: normal inspection of the chest Resp: Effort & Inspection: normal respiratory effort Auscultation: rhonchi Cardio: Rhythm: regular rhythm Heart sounds: S1 normal heart sound present and S2 normal heart sound present Peripheral pulses: Peripheral pulses 2+ throughout GI: Auscultation: normal bowel sounds Rectal Exam: deferred : General: Yes no CVA tenderness Back/Spine/Pelvis: Back: no CVA tenderness Skin: General skin exam: no rashes or lesions noted, turgor normal and no ecchymosis Rashes: no rashes Neuro: General: patient oriented x3, gait normal, tone normal, moves all extremities and No confusion Cranial nerves: Yes CN's II-XII intact bilaterally and Yes Equal, round and reactive pupils present Cognition (Neuro): normal cognition Speech: normal speech Gait exam (Neuro): Normal gait present Motor exam (neuro): Abnormal motor strength present and Abnormal muscle tone present Sensory Exam: normal sensation Extrem: General: full ROM and no clubbing, cyanosis or edema Psych: Appearance: abigail
--- NOTE | 2020-04-27 13:29 | PM.IMPN ---
Progress Note: A&P Assessment and Plan (1) Pneumonia due to COVID-19 virus: Code(s): U07.1 - COVID-19; J12.89 - Other viral pneumonia Status: Acute Assessment and Plan: Tested positive 04/24/20 -symptoms started 04/19/20 -will continue Decadron -at this time, I am not going to start Remdesivir. The patient is improving on current off oxygen today. He is feeling much better today and recent studies have shown questionable efficacy of Remdesivir -home o2 tomorrow -pt had significant leukocytosis on admission which has improved with abx. Spoke with oncology, will continue abx at this time for possible bacterial infection (2) Acute respiratory failure with hypoxemia: Code(s): J96.01 - Acute respiratory failure with hypoxia Status: Acute Assessment and Plan: Pt now on room air -due to pneumonia -chest x-ray shows bilateral patchy airspace opacities concerning for pneumonia -patient had an increased white blood cell count and a lot of sputum production, continue ceftriaxone and azithromycin at this time -wean oxygen as tolerated -sputum culture reviewed. Moderate yeast--likely not causing acute infx since he is improving with current therapy (3) Pneumonia: Qualifiers: Laterality: bilateral Lung location: unspecified part of lung Pneumonia type: due to unspecified organism Qualified Code(s): J18.9 - Pneumonia, unspecified organism Code(s): J18.9 - Pneumonia, unspecified organism Status: Acute Assessment and Plan: Bacterial versus COVID-19 -COVID + -continue ceftriaxone azithromycin this time (4) Sepsis: Code(s): A41.9 - Sepsis, unspecified organism Status: Acute Assessment and Plan: Resolved. Due to pneumonia -patient had tachycardia, leukocytosis and fever on admission (5) JOE (acute kidney injury): Code(s): N17.9 - Acute kidney failure, unspecified Status: Acute Assessment and Plan: Improved with IV hydration which has now been stopped (6) Leukocytosis: Code(s): D72.829 - Elevated white blood cell count, unspecified Status: Acute Assessment and Plan: Due to above (7) Normocytic anemia: Code(s): D64.9 - Anemia, unspecified Status: Chronic Assessment and Plan: Hemoglobin stable, last hemoglobin 10.3 (8) Thrombocytopenia: Code(s): D69.6 - Thrombocytopenia, unspecified Status: Chronic Assessment and Plan: He has a history of this according to Dr. Syed notes -sees Dr. Pardo -Plan for IVIG again today -last count 20,000 but no bleeding (9) Suspected 2019 novel coronavirus infection: Code(s): Z20.828 - Contact with and (suspected) exposure to other viral communicable diseases Status: Acute Assessment and Plan: As above (10) Elevated liver enzymes: Code(s): R74.8 - Abnormal levels of other serum enzymes Status: Acute Assessment and Plan: Likely d/t COVID -Trend -home meds reviewed (11) COPD (chronic obstructive pulmonary disease): Qualifiers: COPD type: unspecified COPD Qualified Code(s): J44.9 - Chronic obstructive pulmonary disease, unspecified Code(s): J44.9 - Chronic obstructive pulmonary disease, unspecified Status: Chronic Assessment and Plan: No wheezing today -continue xopenex (12) Anxiety with depression: Code(s): F41.8 - Other specified anxiety disorders Status: Acute Assessment and Plan: Chronic and stable (13) SVT (supraventricular tachycardia): Code(s): I47.1 - Supraventricular tachycardia Status: Acute Assessment and Plan: Continues despite stopping albuterol and improvement with infection -completely asymptomatic -cardiology contacted, they plan to review the case -patient has no palpitations or chest pain -continue telemetry -consider bet
--- NOTE | 2020-04-27 14:08 | PM.PNCARD ---
Progress Note: A&P Additional Plan 70-year-old man with: Episodes of self-limited SVT by report. ( Not on the chart) As per Dr. Montoya note from consultation I would not have a reason to alter his plan to simply observe this and not initiate specific antiarrhythmic treatment. Primary service today was asking for a follow-up note in this regard. If there are further more problematic runs of SVT that might alter this plan the staff are asked to place them on the chart for review. Jass Olivares MD [facility] Subjective Date/time seen: Date of service:04/27/20 14:08 Interval history: Follow-up note in this 70-year-old man admitted with carballo virus pneumonia. Patient has by report episodes of asymptomatic SVT on telemetry. Because of the COVID infection patient was not seen and examined. Objective Data Vital Signs Vital Signs: Vital Signs - 24 hr 04/26/20 16:00 04/26/20 20:00 04/27/20 00:00 Temperature 37.1 C 37.5 C 37.3 C Pulse Rate 92 92 87 Respiratory Rate 20 18 18 Blood Pressure 107/54 L 108/59 L 99/58 L Pulse Oximetry 94 96 95 04/27/20 04:00 04/27/20 08:00 04/27/20 10:04 Temperature 36.8 C 36.9 C Pulse Rate 64 84 Respiratory Rate 16 18 Blood Pressure 110/64 108/65 Pulse Oximetry 94 94 94 04/27/20 12:00 Temperature 36.7 C Pulse Rate 84 Respiratory Rate 16 Blood Pressure 115/68 Pulse Oximetry 93 Intake/Output Intake/Output: Intake & Output 04/24/20 04/25/20 04/26/20 04/27/20 23:59 23:59 23:59 23:59 Intake Total 1300 3670 2460 720 Output Total 750 575 450 Balance 1300 2920 1885 270 Meds/Results Medications: Active Medications Generic Name Dose Route Start Last Admin Trade Name Freq PRN Reason Stop Dose Admin Acetaminophen 650 mg 04/24/20 23:05 04/24/20 23:26 Acetaminophen 325 Mg Tablet PO 650 mg Q4H PRN Administration Mild Pain (1-3) or Fever Benzonatate 100 mg 04/26/20 13:00 04/27/20 09:34 Benzonatate 100 Mg Capsule PO 100 mg TID MICHAELA Administration Bupropion HCl 150 mg 04/25/20 13:35 04/27/20 09:35 Bupropion Hcl Xl (24 Hr) 150 Mg Tabcr PO 150 mg QAM MICHAELA Administration Clonazepam 0.5 mg 04/26/20 09:00 04/27/20 09:35 Clonazepam (*Crx) 0.5 Mg Tablet PO 0.5 mg BID MICHAELA Administration Dexamethasone Sodium Phosphate 4 mg 04/27/20 14:00 Dexamethasone Sod Phos Inj 4 Mg/Ml Vial IV PUSH Q8HR MICHAELA Guaifenesin 600 mg 04/26/20 21:00 04/27/20 09:34 Guaifenesin 12 Hr 600 Mg Tabcr PO 600 mg Q12HR MICHAELA Administration Guaifenesin/Dextromethorphan 5 ml 04/24/20 23:07 04/27/20 09:42 Guaifenesin/Dextromethorphan 10 Ml Udc PO 5 ml Q4H PRN Administration Cough Ceftriaxone Sodium/Dextrose 1 gm in 50 mls @ 100 mls/hr 04/25/20 18:00 04/26/20 17:25 Rocephin 1 Gm/D5w 50 Ml IVPB Infused Q24H MICHAELA Infusion Azithromycin 500 mg in 250 mls @ 250 mls/hr 04/25/20 18:00 04/26/20 17:55 Zithromax IVPB Infused Q24H MICHAELA Infusion Immune Globulin 38 gm/ N/A 380 mls @ 23 mls/hr 04/27/20 14:00 IVPB 04/28/20 06:31 ONCE ONE Levalbuterol HCl 2 puff 04/25/20 15:01 04/26/20 08:46 Levalbuterol Hfa (*Sp) 15 Gm Inhaler INHALATION 2 puff Q6HRT PRN Administration Shortness Of Breath Levalbuterol HCl 2 puff 04/26/20 12:00 04/27/20 10:04 Levalbuterol Hfa (*Sp) 15 Gm Inhaler INHALATION 2 puff QIDRT MICHAELA Administration Pantoprazole Sodium 40 mg 04/25/20 21:00 04/27/20 09:35 Pantoprazole 40 Mg Tablet PO 40 mg Q12HR MICHAELA Administration Polyethylene Glycol 17 gm 04/26/20 13:45 04/27/20 09:36 Polyethylene Glycol 3350 17 Gm Powd.Pack PO Not Given QAM [facility] Radiology Results: ITS Impressions Chest X-Ray 04/24/20 18:14 IMPRESSION: 1. Bilateral patchy airspace opacities concerning for pneumonia. Labs Labs: Laboratory Results - last 24 hr 04/27/20 04/27/20 06:29 06:29 WBC 8.0 RBC 2.94 L Hgb 9.5 L Hct 28.4 L MCV 96.6 MCH 32.3
--- NOTE | 2020-04-27 14:44 | PCRCNOTE ---
Window of time for administration has passed. See next scheduled administration.
[2020-04-27 20:15] LABS: Legionella pneumophila Ag Ur Not Detected (Not Detected)
[2020-04-28] VITALS (8 sets, daily range): BP systolic 115–133; BP diastolic 68–78; PULSE 71–90; RESP 16–20; TEMP 36.3–37.1; O2SAT 93–97
--- NOTE | 2020-04-28 01:08 | PC.NURSE ---
Pt having asymptomatic runs of SVT between 15-20 beats. Vital signs stable. Copy of rhythms placed on chart per cardiology's request.
[2020-04-28] MEDS: DEXAMETHASONE SOD PHOS INJ 4 MG/ML VIAL IV PUSH (06:04)
[2020-04-28 06:31] LABS: Basophils Percent Auto 0.6 % (0.2-1.2); Hemoglobin 10.1 g/dL (14.0-18.0); Immature Granulocyte Absolute 0.39 K/mm3 (0.00-0.031); Immature Granulocyte Percent A 5.9 % (0-0.5); Immature Platelet Fraction Pct 43.2 % (0.9-11.2); Lymphocytes Percent Auto 7.5 % (18.3-44.2); Mean Corpuscular HGB Conc 33.7 g/dl (32-36); Mean Corpuscular Hemoglobin 32.7 pg (26-34); Mean Corpuscular Volume 97.1 fl (80-100); Monocytes Absolute Auto 0.6 K/mm3 (0.1-0.6); Monocytes Percent Auto 9.4 % (2.6-8.5); Neutrophils Absolute Auto 5.1 K/mm3 (1.3-6.7); Neutrophils Percent Auto 76.6 % (45.5-73.1); Platelet Count Result 35 k/mm3 (150-375); Red Blood Count 3.09 M/mm3 (4.6-6.20); Red Cell Distribution Width 14.9 % (11.5-14.5); White Blood Count 6.6 K/mm3 (4.5-10.0)
[2020-04-28 06:49] LABS: Alanine Aminotransferase 167 U/L (4-50); Alkaline Phosphatase 99 U/L (38-126); Anion Gap 6 mmol/L (8-16); Aspartate Amino Transferase 136 U/L (17-59); Bilirubin,Total 0.4 mg/dL (0.2-1.3); Blood Urea Nitrogen 35 mg/dL (9-20); CRP 4.3 mg/dL (<1.0); Calcium 8.1 mg/dL (8.4-10.2); Carbon Dioxide 26 mmol/L (22-30); Chloride 105 mmol/L (98-107); Estimated CRCL calculation 66 ml/min; Estimated Glomerular Filt Rate > 60; Glucose 164 mg/dL (75-110); Lactate Dehydrogenase 952 U/L (313-618); Magnesium 2.4 mg/dL (1.6-2.3); Sodium 137 mmol/L (137-145)
[2020-04-28] MEDS: LEVALBUTEROL HFA (*SP) 15 GM INHALER 2 PUFF INHALATION ×2 (08:43→12:14)
--- NOTE | 2020-04-28 10:16 | WPDONCPN ---
Progress Note: A&P Assessment and Plan (1) Pneumonia due to COVID-19 virus: Code(s): U07.1 - COVID-19; J12.89 - Other viral pneumonia Status: Acute Assessment and Plan: clinically improving CRP decreasing recheck LDH continue with supportive care and ABX (2) Thrombocytopenia: Code(s): D69.6 - Thrombocytopenia, unspecified Status: Chronic Assessment and Plan: improving after IVIG CBC not back at the time of this dictation continue with CBC will cut back on steroids to once a day when discharge, Dex 4 mg daily x 3 then stop (3) Normocytic anemia: Code(s): D64.9 - Anemia, unspecified Status: Chronic Assessment and Plan: stable recheck CBC in AM (4) Leukocytosis: Code(s): D72.829 - Elevated white blood cell count, unspecified Status: Acute (5) Thrush of mouth and esophagus: Code(s): B37.81 - Candidal esophagitis; B37.0 - Candidal stomatitis Status: Acute Assessment and Plan: due to steroids add nystatin Review of Systems Review of Systems All systems reviewed & are unremarkable except as noted in HPI and below Constitutional Constitutional: Denies anorexia, Reports fatigue, Denies fever(s), Reports malaise, Reports weakness and Denies weight loss Eyes Eyes: Reports blurry vision ENT Denies dysphagia, Reports hoarseness, Denies epistaxis, Reports mouth lesions, Denies mouth pain, Reports odynophagia, Denies disequilibrium and Denies sore throat Cardiovascular Cardiovascular: Denies leg edema, Reports dyspnea and Reports dyspnea on exertion Respiratory Respiratory: Reports cough, Reports excessive phlegm production, Reports dyspnea, Reports dyspnea on exertion and Reports snoring Gastrointestinal Gastrointestinal: Denies abdominal pain, Denies constipation, Denies dysphagia, Denies diarrhea, Denies nausea, Denies odynophagia and Denies vomiting Genitourinary Genitourinary: Denies hematuria and Denies dysuria Musculoskeletal Musculoskeletal: Reports myalgias, Reports arthralgias and Reports muscle weakness Integumentary/Breasts Skin/Breast: Denies rash and Denies unusual bruising Neurologic Denies confusion, Denies disequilibrium and Reports weakness Psychiatric Psychiatric: Reports anxiety, Denies confusion and Reports depression Endocrine Endocrine: Reports fatigue Hematologic/Lymphatic Hematologic/Lymphatic: Denies easy bleeding, Denies easy bruising and Denies lymphadenopathy Exam Const: General: alert, awake, diaphoretic, ill appearing and tired appearing; No healthy appearing, no acute distress or confusion Nutritional Appearance: well nourished Orientation/consciousness: patient oriented x3 and No confusion HENMT: Head: normocephalic and atraumatic Ears: external ears normal General nose exam: Normal external nose present and Normal nares present Face and sinus: sinuses nontender Mouth: Yes moist mucous membranes, Yes dry mucous membranes and Yes tongue abnormal with white coating Teeth and gingiva: dentition normal Throat: uvula midline and posterior oropharynx abnormal exudates Eyes: Conjunctivae: conjunctivae normal Pupils: Equal, round and reactive pupils present EOM: EOMs intact bilaterally Neck: Neck: full ROM, no lymphadenopathy and supple Chest: Chest palpation & inspection: normal inspection of the chest Resp: Effort & Inspection: normal respiratory effort Auscultation: rhonchi Cardio: Rate: tachycardic Rhythm: regular rhythm Heart sounds: S1 normal heart sound present and S2 normal heart sound present Peripheral pulses: Peripheral pulses 2+ throughout GI: Auscultation: normal bowel sounds Rectal Exam: deferred : General: Yes no CVA tenderness Back/Spine/Pelvis: Back: no CVA tenderness Skin: General skin exam: no rashes or lesions noted, turgor normal and no ecchymosis Rashes: no rashes Neuro: General: patient oriented x3, gait normal, tone normal, moves all extremities and No confusion Cranial ne
[2020-04-28] MEDS: clonazePAM (*CRX) 0.5 MG TABLET PO (10:18)
[2020-04-28] MEDS: guaiFENesin 12 HR 600 MG TABCR PO (10:19)
[2020-04-28] MEDS: PANTOPRAZOLE 40 MG TABLET PO (10:19)
[2020-04-28] MEDS: BENZONATATE 100 MG CAPSULE PO ×2 (10:19→14:40)
[2020-04-28] MEDS: buPROPion HCL XL (24 HR) 150 MG TABCR PO (10:19)
[2020-04-28] MEDS: guaiFENesin/DEXTROMETHORPHAN 10 ML UDC 5 ML PO (10:20)
--- NOTE | 2020-04-28 11:24 | PCRCNOTE ---
Home oxygen evaluation complete. Pt. does not require home oxygen. Yolanda and Aurora Up PA-C both notified of the results.
--- NOTE | 2020-04-28 12:45 | PM.PNCARD ---
Progress Note: A&P Assessment and Plan (1) SVT (supraventricular tachycardia): Code(s): I47.1 - Supraventricular tachycardia Status: Acute Assessment and Plan: Insignificant self-limiting SVT is noted and occasional PVCs/brief run of VT. All driven by his underlying likely COVID infection and high adrenaline state. Hypokalemia resolved. Eventual echocardiogram is reasonable when he recovers. No need for echocardiogram at this point unless his arrhythmia becomes more significant. If sustained SVT, or pt develops a fib, will treat arrhythmia more aggressively. (2) Chest pain: Qualifiers: Chest pain type: unspecified Qualified Code(s): R07.9 - Chest pain, unspecified Code(s): R07.9 - Chest pain, unspecified Status: Acute Assessment and Plan: This is noncardiac chest pain (3) Hypokalemia: Code(s): E87.6 - Hypokalemia Status: Acute Assessment and Plan: REsolved. (4) Pneumonia due to COVID-19 virus: Code(s): U07.1 - COVID-19; J12.89 - Other viral pneumonia Status: Acute Assessment and Plan: Improving, treatment per hospitalists. Subjective Date/time seen: 04/28/20 12:45 Interval history: Patient admitted with carballo pneumonia we are seeing him for his PSVT. 04/27/2020: Follow-up note in this 70-year-old man admitted with carballo virus pneumonia. Patient has by report episodes of asymptomatic SVT on telemetry. Because of the COVID infection patient was not seen and examined. Because the episodes are brief, no treatment recommended. 04/28/2020: On room air, steroids being weaned. Telemetry shows brief runs of SVT rate 160s, usually lasting 4-6 seconds. One brief run of nonsustained V-tach lasting about 6 beats. Review of Systems Review of Systems: Narrative: Review of systems obtained from the chart. ROS unobtainable: Yes unobtainable due to medical condition Constitutional: Constitutional: Reports fatigue Cardiovascular: Cardiovascular: Denies chest pain Respiratory: Respiratory: Reports cough, Reports dyspnea and Reports dyspnea on exertion Gastrointestinal: Gastrointestinal: Denies abdominal pain Genitourinary: Genitourinary: Denies dysuria Musculoskeletal: Musculoskeletal: Reports myalgias Neurologic: Denies confusion Psychiatric: Psychiatric: Reports anxiety Exam Narrative: Exam Narrative: Not personally examined; see the physical exams of hospitalist/Consultants. Objective Data Vital Signs Vital Signs: Vital Signs - 24 hr 04/27/20 16:00 04/27/20 16:29 04/27/20 20:00 Temperature 99.4 F 98.1 F Pulse Rate 81 83 76 Respiratory Rate 16 16 18 Blood Pressure 112/67 120/71 Pulse Oximetry 94 93 96 04/27/20 22:17 04/28/20 00:00 04/28/20 04:00 Temperature 98.8 F 97.8 F Pulse Rate 78 71 Respiratory Rate 18 16 Blood Pressure 121/76 123/71 Pulse Oximetry 96 94 95 04/28/20 08:00 04/28/20 08:44 04/28/20 11:00 Temperature 97.3 F L Pulse Rate 74 87 Respiratory Rate 20 Blood Pressure 115/68 Pulse Oximetry 95 95 95 04/28/20 11:03 04/28/20 11:05 04/28/20 12:00 Temperature 97.8 F Pulse Rate 90 80 76 Respiratory Rate 18 Blood Pressure 133/78 Pulse Oximetry 93 97 95 Intake/Output Intake/Output: Intake & Output 04/25/20 04/26/20 04/27/20 04/28/20 23:59 23:59 23:59 23:59 Intake Total 3670 2460 1270 820 Output Total 750 575 450 900 Balance 2920 1885 820 -80 Meds/Results Medications: Active Medications Generic Name Dose Route Start Last Admin Trade Name Freq PRN Reason Stop Dose Admin Acetaminophen 650 mg 04/24/20 23:05 04/24/20 23:26 Acetaminophen 325 Mg Tablet PO 650 mg Q4H PRN Administration Mild Pain (1-3) or Fever Benzonatate 100 mg 04/26/20 13:00 04/28/20 10:19 Benzonatate 100 Mg Capsule PO 100 m
--- NOTE | 2020-04-28 13:03 | PM.DS ---
DS: Admitting Diagnosis Admitting Diagnosis Admitting Diagnosis: copd, pneumonia, sepsis DS: Discharge Diagnosis Discharge Diagnosis (1) Pneumonia due to COVID-19 virus: Code(s): U07.1 - COVID-19; J12.89 - Other viral pneumonia Status: Acute Assessment and Plan: Tested positive 04/24/20 -symptoms started 04/19/20 -will continue Decadron outpatient x3 more days -no Remdesivir required during hospitalization -home o2 evaluation showed he did not need any oxygen at -pt had significant leukocytosis on admission which has improved with abx. Spoke with oncology, antibiotics continued after discharge (2) Acute respiratory failure with hypoxemia: Code(s): J96.01 - Acute respiratory failure with hypoxia Status: Acute Assessment and Plan: Patient required oxygen during his stay but now on room air and home oxygen evaluation does not show any need for O2. -due to pneumonia -chest x-ray shows bilateral patchy airspace opacities concerning for pneumonia -patient had an increased white blood cell count and a lot of sputum production, continue cefdinir and azithromycin -sputum culture reviewed. Moderate yeast--likely not causing acute infx since he is improving with current therapy (3) Pneumonia: Qualifiers: Laterality: bilateral Lung location: unspecified part of lung Pneumonia type: due to unspecified organism Qualified Code(s): J18.9 - Pneumonia, unspecified organism Code(s): J18.9 - Pneumonia, unspecified organism Status: Acute Assessment and Plan: Bacterial versus COVID-19 -COVID + -as above (4) Sepsis: Code(s): A41.9 - Sepsis, unspecified organism Status: Acute Assessment and Plan: Resolved. Due to pneumonia -patient had tachycardia, leukocytosis and fever on admission (5) JOE (acute kidney injury): Code(s): N17.9 - Acute kidney failure, unspecified Status: Acute Assessment and Plan: Improved with IV hydration which has now been stopped (6) Leukocytosis: Code(s): D72.829 - Elevated white blood cell count, unspecified Status: Acute Assessment and Plan: Due to above (7) Normocytic anemia: Code(s): D64.9 - Anemia, unspecified Status: Chronic Assessment and Plan: Hemoglobin stable, last hemoglobin 10.1 at discharge (8) Thrombocytopenia: Code(s): D69.6 - Thrombocytopenia, unspecified Status: Chronic Assessment and Plan: He has a history of this according to Dr. Syed notes -platelet counts was 18,000 on admission -sees Dr. Pardo who also saw him here in the hospital -received IVIG while hospitalized and platelets [id number] on discharge (9) Suspected 2019 novel coronavirus infection: Code(s): Z20.828 - Contact with and (suspected) exposure to other viral communicable diseases Status: Acute Assessment and Plan: As above (10) Elevated liver enzymes: Code(s): R74.8 - Abnormal levels of other serum enzymes Status: Acute Assessment and Plan: Likely d/t COVID -will likely improve as viral illness resolves (11) COPD (chronic obstructive pulmonary disease): Qualifiers: COPD type: unspecified COPD Qualified Code(s): J44.9 - Chronic obstructive pulmonary disease, unspecified Code(s): J44.9 - Chronic obstructive pulmonary disease, unspecified Status: Chronic Assessment and Plan: No wheezing today (12) Anxiety with depression: Code(s): F41.8 - Other specified anxiety disorders Status: Acute Assessment and Plan: Chronic and stable (13) SVT (supraventricular tachycardia): Code(s): I47.1 - Supraventricular tachycardia Status: Acute Assessment and Plan: Noted durring hospitalization and improved -completely asymptomatic -cardiology contacted, no additional tx needed -pat
[2020-04-28] MEDS: NYSTATIN 100,000 UNITS/ML SUSP 5 ML ORAL.SUSP PO (14:40)
[2020-04-30 04:15] LABS: Ionized Calcium 4.9 mg/dL (4.8-5.6)
[2020-04-30 11:03] LABS: Pneumococcal Antigen Urine Not Detected (Not Detected)
--- NOTE | 2020-05-01 11:15 | PC.NURSE ---
Blood cx are negative.
== END 2020-04-28 16:05 | disposition home or self-care (01) | DRG 871 ==
LOC: ANHED 17:53 → ANH3MEDSUR 19:45
PROVIDERS: Family Medicine; Internal Medicine Medical Oncology; Admitting Provider Internal Medicine; Emergency Provider Emergency Medicine; PCP Internal Medicine; Visit Provider Physician Assistant
DX: A41.89 Other specified sepsis (principal); J96.01 Acute respiratory failure with hypoxia; U07.1 COVID-19; J12.89 Other viral pneumonia; N17.9 Acute kidney failure, unspecified; I47.1 Supraventricular tachycardia; B37.81 Candidal esophagitis; B37.0 Candidal stomatitis; R65.20 Severe sepsis without septic shock; D69.6 Thrombocytopenia, unspecified; J44.9 Chronic obstructive pulmonary disease, unspecified; F41.8 Other specified anxiety disorders; E87.6 Hypokalemia
CPT/HCPCS: 36415; 36600; 71045; 80048; 80053; 80076; 82248; 82330; 82784; 82805; 83605; 83615; 83735; 83880; 85025; 85046; 85055; 85384; 85610; 85652; 85730; 86140; 87040; 87070; 87205; 87449; 87635; 87804; 87899; 93005; 94618; 94640; 96374; 97110; 97116; 97161; 97165; 99285; A9270; C9803; J0456; J0696; J1100; J1459; J7030; U0003

== ENCOUNTER 2020-05-02 16:52 | Emergency (ER) | payer MEDICARE, SELFPAY ==
[2020-05-02] VITALS (13 sets, daily range): BP systolic 98–117; BP diastolic 64–72; PULSE 77–83; RESP 13–20; TEMP 36.8; O2SAT 95–97
--- NOTE | ~2020-05-02 | XR_ITS ---
EXAMINATION: XR chest 1V portable DATE: 05/02/2020 18:17 INDICATION: COVID positive. Weakness and confusion. TECHNIQUE: frontal view of the chest was obtained. COMPARISON: Chest radiograph dated 04/24/2020 FINDINGS: Significant interval improvement in prior patchy airspace opacities in the bilateral mid and lower no pulmonary edema, pleural effusion or pneumothorax. Lung zones. New oblique bandlike opacity most con sistent with discoid atelectasis in the left lower lung zone. The cardiomediastinal silhouette is nor mal. Multiple old bilateral rib fracture deformities and old right clavicle fracture deformity. Plate and screw fixation for anterior spinal fusion in the lower cervical spine. IMPRESSION: 1. Significant improvement in bilateral lung disease with residual mild patchy opacity in the right m idlung zone most likely improving pneumonia. 2. New band of discoid atelectasis in the left lower lung zone. Reviewed, dictated and finalized at location A. [employer] IMPRESSION: 1. Significant improvement in bilateral lung disease with residual mild patchy opacity in the right midlung zone most likely improving pneumonia. 2. New band of discoid atelectasis in the left lower lung zone.
--- NOTE | 2020-05-02 17:32 | ECG_ITS ---
Measurements Intervals [place] Rate: 81 P: 25 WI: 107 QRS: -20 QRSD: 96 T: -74 QT: 379 QTc: 442 Interpretive Statements SINUS RHYTHM WITH SHORT WI INTERVAL INCOMPLETE RIGHT BUNDLE BRANCH BLOCK CANNOT RULE OUT SEPTAL INFARCT, AGE INDETERMINATE BORDERLINE ST-T WAVE ABNORMALITY- INF/HIGH LAT LEADS BASELINE ARTIFACT- I, II, AVR, AVL AVF, V3, V6 ABNORMAL ECG Electronically Signed On 05-02-2020 19:50:28 [employer] by Braden Pham D.O.
[2020-05-02 17:43] LABS: Hematocrit 31.3 % (42.0-52.0); Hemoglobin 10.4 g/dL (14.0-18.0); Immature Platelet Fraction Pct 25.4 % (0.9-11.2); Mean Corpuscular HGB Conc 33.2 g/dl (32-36); Mean Corpuscular Hemoglobin 32.7 pg (26-34); Mean Corpuscular Volume 98.4 fl (80-100); Mean Platelet Volume 14.1 fl (7.4-10.4); Platelet Count Result 122 k/mm3 (150-375); Red Blood Count 3.18 M/mm3 (4.6-6.20); White Blood Count 11.9 K/mm3 (4.5-10.0)
[2020-05-02 17:53] LABS: Atypical Lymphocytes Present; Lymphocytes Absolute Manual 2.97 K/mm3 (1.1-4.5); Metamyelocytes Percent 1 %; Monocytes Absolute Manual 2.14 K/mm3 (0.1-0.90); Monocytes Percent Manual 18 % (3-9); Neutrophils Percent Manual 56 % (46-73); Platelet Estimate Decreased (Adequate); Total Cells Counted 100
--- NOTE | 2020-05-02 17:55 | ED.GENADULT ---
HPI - General Adult General Chief complaint: Weakness Stated complaint: Weakness, Dark Stool Time Seen by Provider: 05/02/20 17:10 Source: patient History of Present Illness HPI narrative: Patient is a 70 y/o male complaining of severe weakness for last 4-5 days. He states that he was recently hospitalized for COVID and discharged on 04/28/20. He has been weak since he left the hospital. There is no alleviating or exacerbating factor. He has no chest pain, SOB or abdominal pain. He did notice dark stool for several days. Related Data Home Medications Medication Instructions Recorded Confirmed bupropion HCl 150 mg 24 hr tablet, 150 mg PO QAM 05/20/19 04/24/20 extended release clonazepam 0.5 mg tablet 0.5 mg PO BID 05/20/19 04/26/20 albuterol sulfate 90 mcg/actuation 2 puff INHALATION Q4H PRN 05/31/19 04/24/20 aerosol inhaler Allergies Allergy/AdvReac Type Severity Reaction Status Date / Time neomycin AdvReac Unknown SLOWS Verified 05/02/20 17:18 HEALING, REDNESS Review of Systems Constitutional: Constitutional: Denies chills, Denies fever(s), Denies headache(s) and Reports weakness Eyes: Eyes: Denies blurry vision ENT: Denies headache(s) and Denies neck pain Cardiovascular: Cardiovascular: Denies chest pain and Denies dyspnea Respiratory: Respiratory: Reports cough and Denies dyspnea Gastrointestinal: Gastrointestinal: Denies abdominal pain, Reports melena, Denies diarrhea, Denies nausea and Denies vomiting Genitourinary: Genitourinary: Denies hematuria and Denies dysuria Musculoskeletal: Musculoskeletal: Denies back pain and Denies neck pain Neurologic: Denies headache(s) and Reports weakness [facility] Past Medical History Medical History Abnormal finding of blood chemistry, unspecified Abnormal screening cardiac CT Aneurysm of infrarenal abdominal aorta Anxiety with depression BMI 24.0-24.9, adult Bruit Chest pain COPD (chronic obstructive pulmonary disease) Diarrhea Encounter for Medicare annual wellness exam Hx of compression fracture of spine On [facility]p drug therapy Pain of finger of left hand Thoracic spondylosis Trigger finger, left ring finger Surgical History Surgical History Hx of cholecystectomy Hx of hernia repair 06/02/2001. Family History Family History Father Carcinoma of colon Social History Social History Smoking packs per day: 3 Smoking cigarettes per day: 60.0 Years smoked: 30 Smoking pack-years: 90.00 Smoking status: Former smoker Tobacco type: cigarettes Alcohol intake: never Substance use: never Gender identity (if verbalized by the patient): Male Spiritual care concerns: No Exam Const: General: no acute distress and well developed Orientation/consciousness: oriented to person, oriented to place, oriented to time and patient oriented x3 HENMT: Head: normocephalic Ears: external ears normal General nose exam: Normal external nose present Eyes: General: appearance normal, both eyes and all related structures Conjunctivae: conjunctivae normal Neck: Neck: normal visual inspection and full ROM Chest: Chest palpation & inspection: normal inspection of the chest and no tenderness Resp: Effort & Inspection: normal respiratory effort Auscultation: clear to auscultation bilaterally Cardio: Rate: regular rate Rhythm: regular rhythm GI: GI Palp: No abdominal tenderness and Yes Soft to palpation Skin: General skin exam: normal color and turgor normal Neuro: General: oriented to person, oriented to place, oriented to time and patient oriented x3 Cognition (Neuro): normal cognition Extrem: General: normal to inspection, full ROM and no pedal edema Psych: Appearance: grossly normal Mental Status: mental status grossly
[2020-05-02 17:56] LABS: Alanine Aminotransferase 165 U/L (4-50); Albumin Level 2.9 g/dL (3.5-5.1); Alkaline Phosphatase 97 U/L (38-126); Anion Gap 6 mmol/L (8-16); Aspartate Amino Transferase 84 U/L (17-59); Bilirubin,Total 0.4 mg/dL (0.2-1.3); Blood Urea Nitrogen 30 mg/dL (9-20); Calcium 7.9 mg/dL (8.4-10.2); Carbon Dioxide 25 mmol/L (22-30); Chloride 105 mmol/L (98-107); Estimated CRCL calculation 61 ml/min; Estimated Glomerular Filt Rate > 60; Glucose 163 mg/dL (75-110); Sodium 136 mmol/L (137-145)
[2020-05-02] MEDS: SODIUM CHLORIDE 0.9% IV 1,000 ML 999 ML IV CONT (18:21)
[2020-05-02 19:15] LABS: Hematocrit 31.2 % (42.0-52.0); Hemoglobin 10.1 g/dL (14.0-18.0)
[2020-05-02 20:11] LABS: Add Urine Microscopic? NO; Appearance Urine Clear (Clear); Bilirubin Urine Negative (Negative); Blood Urine Negative (Negative); Color Urine Yellow (Yellow); Glucose Urine UA Negative (Negative); Ketones Urine Negative (Negative); Leukocyte Esterase Ur Negative LEU/UL (Negative); Nitrate Urine Negative (Negative); Protein Urine Negative (Negative); Specific Grav Ur 1.017 (1.001-1.035); Urobilinogen Urine Negative mg/dL (<2.0)
== END 2020-05-02 21:31 | disposition home or self-care (01) ==
PROVIDERS: Emergency Provider Emergency Medicine; PCP Internal Medicine
DX: U07.1 COVID-19 (principal); R53.1 Weakness; R19.5 Other fecal abnormalities; F41.9 Anxiety disorder, unspecified; F32.9 Major depressive disorder, single episode, unspecified; J44.9 Chronic obstructive pulmonary disease, unspecified
CPT/HCPCS: 36415; 71045; 80053; 81003; 85014; 85018; 85025; 85055; 93005; 96360; 96361; 99283; J7030

== ENCOUNTER 2020-08-07 16:09 | Emergency (ER) | payer MEDICARE, SELFPAY ==
[2020-08-07 16:16] VITALS: BP 114/67; PULSE 62; RESP 20; TEMP 36.4; O2SAT 100
[2020-08-07 16:30] LABS: Hematocrit 32.8 % (42.0-52.0); Hemoglobin 10.8 g/dL (14.0-18.0); Immature Platelet Fraction Pct 31.6 % (0.9-11.2); Mean Corpuscular HGB Conc 32.9 g/dl (32-36); Mean Corpuscular Hemoglobin 33.1 pg (26-34); Mean Corpuscular Volume 100.6 fl (80-100); Platelet Count Result 36 k/mm3 (150-375); Red Blood Count 3.26 M/mm3 (4.6-6.20); Red Cell Distribution Width 14.6 % (11.5-14.5); White Blood Count 5.8 K/mm3 (4.5-10.0)
[2020-08-07 16:45] LABS: Neutrophils Percent Manual 62 % (46-73); Total Cells Counted 100
[2020-08-07 16:46] LABS: Lymphocytes Absolute Manual 1.33 K/mm3 (1.1-4.5); Lymphocytes Percent Manual 23 % (18-44); Monocytes Absolute Manual 0.87 K/mm3 (0.1-0.90); Monocytes Percent Manual 15 % (3-9); Neutrophils Absolute Manual 4.93 K/mm3 (1.3-6.7); Platelet Estimate Decreased (Adequate)
--- NOTE | 2020-08-07 18:48 | PC.NURSE ---
pt noted to have left the waiting room, not found in waiting room when rounding on patients.
== END 2020-08-07 22:00 | disposition left against medical advice (07) ==
LOC: ANHED 19:00
PROVIDERS: Emergency Medicine; PCP Internal Medicine
DX: D69.6 Thrombocytopenia, unspecified (principal)
CPT/HCPCS: 36415; 85025; 85055; 99199

== ENCOUNTER 2020-09-29 08:44 | Emergency (ER) | payer MEDICARE, SELFPAY ==
--- NOTE | ~2020-09-29 | XR_ITS ---
XR chest 2V DATE: 09/29/2020 09:06 INDICATION: Midsternal chest pain TECHNIQUE: AP and lateral views COMPARISON: 05/02/2020 portable AP chest FINDINGS: Multiple old bilateral healed fracture deformities and old healed fracture deformity of the right clavicular shaft. Status post anterior cervical spine surgical fusion. Prominent degenerative spurring of the thoracic spine. Cardiomegaly. Aortic calcification and mild tortuosity. No hilar or mediastinal enlargement. There is discoid atelectasis or more likely scarring in the lung bases. No pulmonary infiltrate or consolidation, pleural effusion or pulmonary vascular congestion or pneumo thorax. IMPRESSION: Cardiomegaly Discoid atelectasis or scarring at the lung bases Reviewed, dictated and finalized at location A.
[2020-09-29 08:48] VITALS: BP 145/75; PULSE 67; RESP 15; TEMP 36.4; O2SAT 99
--- NOTE | 2020-09-29 08:51 | ECG_ITS ---
Measurements Intervals [place] Rate: 66 P: 75 WV: 118 QRS: -21 QRSD: 90 T: 22 QT: 412 QTc: 433 Interpretive Statements SINUS RHYTHM WITH SHORT [place] INTERVAL INCOMPLETE RIGHT BUNDLE BRANCH BLOCK BASELINE ARTIFACT- I, III, AVR, AVL, AVF, V1, V3-V4 BORDERLINE ECG Electronically Signed On 09-29-2020 8:59:13 CDT by Braden Pham D.O.
[2020-09-29 09:05] LABS: Basophils Absolute Auto 0.1 K/mm3 (0.0-0.1); Basophils Percent Auto 2.2 % (0.2-1.2); Eosinophils Percent Auto 0.5 % (0-4.4); Hematocrit 35.3 % (42.0-52.0); Hemoglobin 11.3 g/dL (14.0-18.0); Immature Granulocyte Absolute 0.03 K/mm3 (0.00-0.031); Immature Granulocyte Percent A 0.5 % (0-0.5); Lymphocytes Absolute Auto 1.84 K/mm3 (0.9-3.2); Lymphocytes Percent Auto 31.2 % (18.3-44.2); Mean Corpuscular Hemoglobin 32.8 pg (26-34); Mean Corpuscular Volume 102.6 fl (80-100); Monocytes Absolute Auto 1.4 K/mm3 (0.1-0.6); Monocytes Percent Auto 24.1 % (2.6-8.5); Neutrophils Absolute Auto 2.4 K/mm3 (1.3-6.7); Neutrophils Percent Auto 41.5 % (45.5-73.1); Platelet Count Result 45 k/mm3 (150-375); Red Blood Count 3.44 M/mm3 (4.6-6.20); Red Cell Distribution Width 15.4 % (11.5-14.5); White Blood Count 5.9 K/mm3 (4.5-10.0)
--- NOTE | 2020-09-29 09:06 | PC.NURSE ---
Pt returned from CXR via cart, c/o epigastric pain following eating this am, +upper abd pain and tenderness, denies N/V/hx GERD. Hx COPD, denies heart conditions. NSR on monitor, no resp distress
[2020-09-29 09:09] VITALS: BP 156/87; PULSE 63; RESP 14; O2SAT 100
[2020-09-29 09:09] LABS: Anion Gap 4 mmol/L (8-16); Blood Urea Nitrogen 28 mg/dL (9-20); Calcium 8.4 mg/dL (8.4-10.2); Carbon Dioxide 28 mmol/L (22-30); Chloride 107 mmol/L (98-107); Estimated CRCL calculation 62 ml/min; Estimated Glomerular Filt Rate > 60; Glucose 100 mg/dL (75-110); Potassium 4.4 mmol/L (3.4-5.0); Sodium 139 mmol/L (137-145)
[2020-09-29 09:14] LABS: Partial Thromboplastin Time 31.8 SECONDS (22.3-36.8)
[2020-09-29 09:15] LABS: Anisocytosis 1+ (NORMAL); Platelet Estimate Decreased (Adequate); Poikilocytosis 1+ (NORMAL)
--- NOTE | 2020-09-29 09:15 | ED.CHESTPAIN ---
HPI - Chest Pain General Chief Complaint: Chest Pain Stated Complaint: chest pain Time Seen by Provider: 09/29/20 08:49 Source: patient Mode of arrival: ambulatory Limitations: no limitations History of Present Illness HPI narrative: This is a 70 year old male with history of COPD and anxiety who presents for evaluation of tightness across his lower chest. This pain started 1 hour ago after he finished eating. His pain has been constant but nonradiating. HE has not taken anything for pain. His denies associated sob, cough,fever, nausea or vomiting. His PCP reports he had a negative cardiac evaluation 1 year ago. Patient states he has never had pain like this before. Pain is 6/10. Related Data Home Medications Medication Instructions Recorded Confirmed bupropion HCl 150 mg 24 hr tablet, 150 mg PO QAM 05/20/19 05/22/20 extended release cholecalciferol (vitamin D3) 25 25 mcg PO DAILY 05/22/20 05/22/20 mcg (1,000 unit) capsule Allergies Allergy/AdvReac Type Severity Reaction Status Date / Time neomycin AdvReac Unknown SLOWS Verified 09/29/20 13:07 HEALING, REDNESS Review of Systems Review of Systems: All systems reviewed & are unremarkable except as noted in HPI and below PMFSH Past Medical History Medical History Abnormal finding of blood chemistry, unspecified Abnormal screening cardiac CT Acute kidney injury due to COVID-19 Aneurysm of infrarenal abdominal aorta Anxiety Anxiety with depression BMI 22.0-22.9, adult BMI 24.0-24.9, adult Bruit Chest pain COPD (chronic obstructive pulmonary disease) Diarrhea Encounter for Medicare annual wellness exam Hearing loss Hx of compression fracture of spine On mcfp drug therapy Pain of finger of left hand Thoracic spondylosis Trigger finger, left ring finger Uses hearing aid Surgical History Surgical History Hx of cholecystectomy Hx of hernia repair 06/02/2001. Family History Family History Father Carcinoma of colon Social History Social History Smoking packs per day: 3 Smoking cigarettes per day: 60.0 Years smoked: 30 Smoking pack-years: 90.00 Smoking status: Former smoker (quit >30 years ago) Tobacco type: cigarettes Alcohol intake: never Substance use: never Gender identity (if verbalized by the patient): Male Spiritual care concerns: No Exam Const: General: alert Orientation/consciousness: patient oriented x3 Eyes: Pupils: Equal, round and reactive pupils present EOM: EOMs intact bilaterally Resp: Effort & Inspection: normal respiratory effort and no retractions Auscultation: clear to auscultation bilaterally Cardio: Rate: regular rate Rhythm: regular rhythm Heart sounds: no murmurs GI: GI Palp: Yes Soft to palpation, Yes Tenderness to palpation present (GI) (RUQ, epigastric, LUQ, worse at LUQ) and No Guarding due to palpation present (GI) Auscultation: normal bowel sounds Skin: General skin exam: normal color Rashes: no rashes Neuro: General: patient oriented x3, moves all extremities and CN's II-XI intact bilaterally Extrem: General: no pedal edema Course Reevaluation(s) Reevaluation #1: I went to reassess patient and he was asleep. He states his pain has completely subsided. I discussed with patient labs. He is aware of his thrombocytopenia. I discussed that he will need to 3 hour troponin. I explained that I am unable to rule out CT completely without repeat troponin and he states he understands. He states he has to leave to go to his father's . He wants to come back for 3 hour. I discussed it will be another ER visit. I also spoke with Dr. Syed who states he can follow up with patient on Thursday. Patient states he is going to be out of town on Mo
[2020-09-29] MEDS: BELLADONNA ALK/PHENOB ELIX 10 ML, MAG HYDROX/ALUMINUM HYD/SIMETH 30 ML, LIDOCAINE HCL 2... PO (09:16)
[2020-09-29 09:19] LABS: D Dimer 0.42 ug/mL (<0.48)
[2020-09-29] MEDS: ONDANSETRON INJ 4 MG/2 ML VIAL IV PUSH (09:20)
[2020-09-29] MEDS: SODIUM CHLORIDE 0.9% IV 1,000 ML 999 ML IV CONT (09:20)
[2020-09-29] MEDS: PANTOPRAZOLE SODIUM IV 40 MG VIAL IV PUSH (09:20)
[2020-09-29 09:22] LABS: Troponin I < 0.012 ng/mL (0.000-0.034)
[2020-09-29 09:31] LABS: Alanine Aminotransferase 16 U/L (4-50); Albumin Level 4.1 g/dL (3.5-5.1); Alkaline Phosphatase 70 U/L (38-126); Aspartate Amino Transferase 25 U/L (17-59); Bilirubin,Total 0.4 mg/dL (0.2-1.3); Lipase 197 U/L (23-300)
[2020-09-29 10:35] VITALS: BP 131/70; PULSE 61; RESP 16; O2SAT 99
== END 2020-09-29 10:43 | disposition left against medical advice (07) ==
LOC: ANHED 09:18
PROVIDERS: Emergency Provider General Practice; PCP Internal Medicine
DX: R07.89 Other chest pain (principal); R10.13 Epigastric pain; J44.9 Chronic obstructive pulmonary disease, unspecified; Z86.16 Personal history of COVID-19; Z87.891 Personal history of nicotine dependence; D69.6 Thrombocytopenia, unspecified; I45.10 Unspecified right bundle-branch block
CPT/HCPCS: 36415; 71046; 80048; 80076; 83690; 84484; 85025; 85055; 85380; 85610; 85730; 93005; 96361; 96374; 96375; 99284; A9270; C9113; J2405; J7030

== ENCOUNTER 2020-09-29 13:02 | Emergency (ER) | payer MEDICARE, SELFPAY ==
[2020-09-29] VITALS (8 sets, daily range): BP systolic 99–109; BP diastolic 49–62; PULSE 63–71; RESP 13–19; TEMP 36.3; O2SAT 93–98
--- NOTE | 2020-09-29 13:14 | ECG_ITS ---
Measurements Intervals [place] Rate: 66 P: 72 MS: 125 QRS: -23 QRSD: 88 T: 4 QT: 409 QTc: 430 Interpretive Statements SINUS RHYTHM INCOMPLETE RIGHT BUNDLE BRANCH BLOCK BORDERLINE ST-T WAVE ABNORMALITY- INFERIOR LEADS BORDERLINE ECG Electronically Signed On 09-29-2020 17:14:44 CDT by Braden Pham D.O.
--- NOTE | 2020-09-29 13:29 | PC.NURSE ---
Pt was here earlier for cardiac workup, had to leave to attend father's , here for repeat trop and EKG per Dr. Greer. Pt is asymptomatic at this time, denies CP/SOB/N/V, NSR on monitor
--- NOTE | 2020-09-29 13:29 | ED.GENADULT ---
HPI - General Adult General Chief complaint: Unspecified Stated complaint: returning for additional blood work Time Seen by Provider: 09/29/20 13:14 Source: patient Mode of arrival: ambulatory Limitations: no limitations History of Present Illness HPI narrative: This is a 70 year old male who presents for additional blood work. He was seen in ER early today for evaluation of substernal , epigastric abdominal pain. His pain subsided during his last ED stay. His pain has not returned. It was recommended that he get additional labs prior to discharge of last ED visit, but he had to leave to get this his father's . He has returned for additional evaluation. He has no complaints currently. Related Data Home Medications Medication Instructions Recorded Confirmed bupropion HCl 150 mg 24 hr tablet, 150 mg PO QAM 05/20/19 05/22/20 extended release cholecalciferol (vitamin D3) 25 25 mcg PO DAILY 05/22/20 05/22/20 mcg (1,000 unit) capsule Allergies Allergy/AdvReac Type Severity Reaction Status Date / Time neomycin AdvReac Unknown SLOWS Verified 09/29/20 13:07 HEALING, REDNESS Review of Systems Review of Systems: All systems reviewed & are unremarkable except as noted in HPI and below PMFSH Past Medical History Medical History Abnormal finding of blood chemistry, unspecified Abnormal screening cardiac CT Acute kidney injury due to COVID-19 Aneurysm of infrarenal abdominal aorta Anxiety Anxiety with depression BMI 22.0-22.9, adult BMI 24.0-24.9, adult Bruit Chest pain COPD (chronic obstructive pulmonary disease) Diarrhea Encounter for Medicare annual wellness exam Hearing loss Hx of compression fracture of spine On half-way drug therapy Pain of finger of left hand Thoracic spondylosis Trigger finger, left ring finger Uses hearing aid Surgical History Surgical History Hx of cholecystectomy Hx of hernia repair 06/02/2001. Family History Family History Father Carcinoma of colon Social History Social History Smoking packs per day: 3 Smoking cigarettes per day: 60.0 Years smoked: 30 Smoking pack-years: 90.00 Smoking status: Former smoker (quit >30 years ago) Tobacco type: cigarettes Alcohol intake: never Substance use: never Gender identity (if verbalized by the patient): Male Spiritual care concerns: No Exam Narrative: Exam Narrative: GENERAL: Well-appearing, well-nourished, and in no acute distress. HEAD: Normocephalic, atraumatic EYES: PERRLA and EOMI, conjunctiva clear without discharge THROAT:Mucous membranes moist, Oropharynx normal without erythema, exudate, peritonsillar swelling or fluctuance RESPIRATORY: No respiratory distress, Airway patent, Respirations non-labored, Clear to auscultation without rales, rhonchi or wheeze HEART: Regular rate and rhythm. No murmur heard. Normal peripheral pulses. ABDOMEN: Soft, nontender, nondistended, normal active bowel sounds. No masses. No rebound or guarding, No organomegaly. EXTREMITIES: No edema, normal strength with full range of motion. SKIN: Warm, dry, normal color without rash NEURO: Alert and oriented x3. CN 2-12 grossly intact. No focal deficits. PSYCH: Normal mood and affect. Course Reevaluation(s) Reevaluation #1: PAtient states he has no pain or complaints. He will follow up with PCP Date: 09/29/20 Time: 14:38 Vital Signs Vital signs: Vital Signs Temperature 97.3 F L 09/29/20 13:08 Pulse Rate 71 09/29/20 13:08 Respiratory Rate 18 09/29/20 13:08 Blood Pressure 109/55 L 09/29/20 13:08 Pulse Oximetry 98 09/29/20 13:08 Temperature 97.3 F L 09/29/20 13:08 Pulse Rate 67 09/29/20 14:45 Respiratory Rate 18 09/29/20 14:45 Blood Pressure 109
[2020-09-29 14:08] LABS: Troponin I < 0.012 ng/mL (0.000-0.034)
== END 2020-09-29 15:04 | disposition home or self-care (01) ==
PROVIDERS: Emergency Provider General Practice; PCP Internal Medicine
DX: K21.9 Gastro-esophageal reflux disease without esophagitis (principal); R07.9 Chest pain, unspecified; J44.9 Chronic obstructive pulmonary disease, unspecified; Z86.16 Personal history of COVID-19; F41.8 Other specified anxiety disorders; Z87.891 Personal history of nicotine dependence; I45.10 Unspecified right bundle-branch block; R94.31 Abnormal electrocardiogram [ECG] [EKG]
CPT/HCPCS: 36415; 71046; 80048; 80076; 83690; 84484; 85025; 85055; 85380; 85610; 85730; 93005; 96361; 96374; 96375; 99284; A9270; C9113; J2405; J7030

== ENCOUNTER → 2020-10-20 07:57 | Outpatient (CLI) | payer MEDICARE, SELFPAY ==
--- NOTE | ~2020-10-20 | US_ITS ---
EXAMINATION: US abdomen limited DATE: 10/20/2020 08:18 INDICATION: Indigestion, abdominal aortic aneurysm without rupture TECHNIQUE: Multiple grayscale and Doppler ultrasound images of the abdomen were obtained. COMPARISON: 05/08/2015 FINDINGS: The head and body of the pancreas are normal. The pancreatic tail is obscured by bowel gas. The liver is normal with normal echogenicity and echotexture. No surface nodularity. Normal hepatope doris flow in the main portal vein. The normal common bile duct measures 5 mm. Incidental note is made of cysts of the right kidney measuring up to 4.9 cm. IMPRESSION: 1. Fusiform aneurysm of the distal abdominal aorta measuring up to 3.2 cm. Reviewed, dictated and finalized at location A.
== END ==
PROVIDERS: Visit Provider Internal Medicine
DX: I71.4 Abdominal aortic aneurysm, without rupture (principal)
CPT/HCPCS: 76705

== ENCOUNTER 2020-11-01 07:42 | Outpatient (CLI) | payer MEDICARE, SELFPAY ==
--- NOTE | 2020-11-01 07:58 | ECHO_ITS ---
Patient Info Name: Mendoza Stevens Age: 70 years : 1950 Gender: Male Ht: 72 in Wt: 195 lbs BSA: 2.13 m2 HR: 61 bpm BP: 135 / 86 mmHg Technical Quality: Good Exam Date: 11/01/2020 8:17 AM Exam Location: [facility] Patient Status: Outpatient Admit Date: 11/01/2020 Staff Ordering Physician: Javier Syed MD Marine Electronics Repairer: Maricarmen Faustin RDCS Attending Provider: Javier Syed MD Referring Physician: Kunal POWER; Exam Type: CA echo doppler color flow Study Info Indications R07.9 - Chest pain, unspecified Complete two-dimensional, color flow and Doppler transthoracic echocardiogram is performed. Summary 1. Complete two-dimensional, color flow and Doppler transthoracic echocardiogram is performed. 2. Left ventricular chamber dimension is normal. 3. Left ventricular systolic function is normal, estimated at 60-65%. 4. The left ventricular diastolic function is normal. 5. E/e' 7 is not elevated. 6. Global longitudinal strain is normal at -19.4%. 7. Left atrial chamber dimension is mildly enlarged. 8. Right atrial chamber dimension is mildly enlarged. 9. There is trace mitral valve regurgitation. 10. There is mild tricuspid valve regurgitation. 11. Mild pulmonary hypertension, estimated pulmonary arterial systolic pressure is 43 mmHg. 12. There is trace pulmonic regurgitation. Left Ventricle E/e' 7 is not elevated. Global longitudinal strain is normal at -19.4%. Left ventricular chamber dimension is normal. Left ventricular systolic function is normal, estimated at 60-65%. The left ventricular diastolic function is normal. Right Ventricle Right ventricular systolic function is normal and with normal TAPSE 3.0 cm. Right ventricular chamber dimension is normal. Left Atria Left atrial chamber dimension is mildly enlarged. Right Atria Right atrial chamber dimension is mildly enlarged. Aortic Valve The aortic valve is trileaflet. There is no aortic valve stenosis. There is no aortic valve regurgitation. Pulmonic Valve There is trace pulmonic regurgitation. Mitral Valve There is no mitral valve stenosis. There is trace mitral valve regurgitation. Tricuspid Valve There is mild tricuspid valve regurgitation. Mild pulmonary hypertension, estimated pulmonary arterial systolic pressure is 43 mmHg. Pericardium/Pleural There is no pericardial effusion. Inferior Vena Cava Normal inferior vena cava with >50% collapse upon inspiration consistent with normal right atrial pressure, 5 mmHg. Aorta The aortic root size at the sinus of Valsalva is normal. Left Ventricular Outflow Tract Name Value Normal LVOT 2D LVOT Diameter 2.2 cm LVOT Doppler LVOT Peak Gradient 3 mmHg LVOT Mean Gradient 2 mmHg LVOT VTI 22 cm LVOT VTI/AV VTI Ratio 0.9 LVOT Stroke Volume 85 ml LVOT CO 4.9 l/min LVOT CI 2.3 l/min/m2 Pulmonic Valve
== END 2020-11-01 07:43 | disposition home or self-care (01) ==
LOC: ANHCARD 07:45
PROVIDERS: PCP Internal Medicine; Visit Provider Internal Medicine
DX: R07.9 Chest pain, unspecified (principal); I27.20 Pulmonary hypertension, unspecified; I07.1 Rheumatic tricuspid insufficiency
CPT/HCPCS: 93306

== ENCOUNTER 2020-11-06 08:01 | Outpatient (CLI) | payer MEDICARE, SELFPAY ==
--- NOTE | ~2020-11-06 | NM_ITS ---
EXAMINATION: NM donna stress w perfusion DATE: 11/06/2020 10:56 CDT INDICATION: Chest pain TECHNIQUE: Rest images were obtained following intravenous administration of 11.2 mCi Tc99m tetrofosm in (Myoview). The patient was infused intravenously with Lexiscan (regadenoson). Then, 33 mCi Tc99m t etrofosmin (Myoview) was administered intravenously, and stress images were obtained. Data was recons tructed into short axis and horizontal and vertical long axis SPECT images. Gated SPECT images were a lso obtained. COMPARISON: 06/06/2019. FINDINGS: There is no definite reversible or fixed perfusion abnormality to suggest ischemia or infar ction. There is no segmental wall motion abnormality. Left ventricular ejection fraction measures 7 2%. IMPRESSION: 1. No definite ischemia or infarct. 2. Normal left ventricular ejection fraction measuring 72%. Reviewed, dictated and finalized at location B.
--- NOTE | 2020-11-06 08:37 | EST_ITS ---
Patient Info Name: Mendoza Stevens Age: 70 years : 1950 Gender: Male Ht: 72 in Wt: 190 lbs BSA: 2.10 m2 Exam Date: 11/06/2020 9:11 AM Exam Location: [facility] Patient Status: Outpatient Admit Date: 11/06/2020 Staff Ordering Physician: Javier Syed MD Attending Provider: Javier Syed MD Exercise Technologist: Esperanza Jimenez CT Exercise Physician: Braden Pham DO Exam Type: CA stress donna w NM Study Info A regadenoson stress test was performed. Summary 1. 1. Negative lexiscan stress test for ischemic ST changes by ECG criteria. 2. 2. Baseline hypertension. 3. 3. Nuclear scan to follow and will be reported separately. Please correlate with it. 4. 4. Patient informed of the above results. Protocol: Lexiscan Stress ECG Details Stage: REST Duration (min): 0 min : 12 sec HR (bpm): --- SBP (mmHg): --- DBP (mmHg): --- Stage: REST Duration (min): 0 min : 54 sec HR (bpm): 54 SBP (mmHg): 151 DBP (mmHg): 90 Stage: REST Duration (min): 8 min : 8 sec HR (bpm): 60 SBP (mmHg): 151 DBP (mmHg): 90 Stage: STAGE 1 Duration (min): 0 min : 59 sec HR (bpm): 77 SBP (mmHg): 147 DBP (mmHg): 90 Stage: RECOVERY Duration (min): 1 min : 0 sec HR (bpm): 84 SBP (mmHg): 147 DBP (mmHg): 90 Stage: RECOVERY Duration (min): 2 min : 0 sec HR (bpm): 79 SBP (mmHg): 147 DBP (mmHg): 90 Stage: RECOVERY Duration (min): 2 min : 22 sec HR (bpm): 75 SBP (mmHg): 138 DBP (mmHg): 83 Rest HR: 60 bpm Peak HR: 85 bpm Rest Sys BP: 151 mmHg Peak Sys BP: 147 mmHg Max Pred HR: 151 bpm % Max Pred HR: 56 % Target HR: 128 bpm Max RPP: 12,495 bpm*mmHg Termination Reason: Completed protocol Cardiac Symptoms: Shortness of breath Total Time: 1 min : 0 sec Rest Lee BP: 90 mmHg Peak Lee BP: 90 mmHg Total Dose: 0.4 mg Resting ECG Sinus rhythm, IRBBB. Stress ECG No ST changes. Arrhythmias None. Report Signatures
== END 2020-11-06 08:02 | disposition home or self-care (01) ==
PROVIDERS: PCP Internal Medicine; Visit Provider Internal Medicine
DX: R07.9 Chest pain, unspecified (principal)
CPT/HCPCS: 78452; 93017; A9502; J2785

== ENCOUNTER 2021-03-06 07:52 | Outpatient (CLI) | payer MEDICARE, SELFPAY ==
--- NOTE | ~2021-03-06 | MR_ITS ---
EXAMINATION: MR lumbar spine wo con DATE: 03/06/2021 08:33 INDICATION: Lumbago TECHNIQUE: Magnetic resonance imaging (MRI) of the lumbar spine was performed without intravenous con trast. Sequences included sagittal T2-weighted FSE, sagittal T2-weighted FS FSE, sagittal T1-weighted FSE, and axial T2-weighted FSE. COMPARISON: None FINDINGS: There is prominent metallic magnetic field artifact centered at the left side of the upper sacrum whi ch is of indeterminate etiology. Alignment is normal. Normal bone marrow signal. Chronic compression fracture with 30% anterior vertebral body height loss at T12, 20% anterior vertebral body height loss at L1 and L2. Moderate disc height loss at L2-L3, T11-T12 and T12-L1, mild disc height loss with an nular fissure at L5-S1 and minimal disc height loss at L3-L4 also with annular fissure. Additional an nular fissure without significant disc height loss at L4-L5. The conus medullaris terminates at L2. T here is normal signal in the caudal spinal cord. Severe central canal stenosis at L3-L4 with taut lizbeth earance to the nerve roots of the cauda equina cephalad to the stenosis and with lax appearance cauda l to the stenosis. Bilateral renal cysts, the largest on the right measuring 5 cm . Paravertebral sof t tissues are otherwise unremarkable. The following disc levels are specifically discussed: T12-L1: Disc is mildly bulging. There is mild bilateral facet joint osteoarthritis. There is mild lef t and minimal right neural foraminal stenosis. There is minimal central canal stenosis. L1-L2: Disc is mildly bulging. There is mild bilateral facet joint osteoarthritis. There is mild bila teral neural foraminal stenosis. There is mild central canal stenosis. L2-L3: Disc is mildly bulging. There is mild bilateral facet joint osteoarthritis. There is moderate right and mild to moderate left neural foraminal stenosis. There is mild central canal stenosis. L3-L4: Disc is bulging no right foraminal zone to annular fissure. There is moderate left and severe right facet joint osteoarthritis. There is moderate to severe bilateral, right greater than left neur al foraminal stenosis. There is severe central canal stenosis. L4-L5: Disc is mildly bulging. There is mild left and moderate right facet joint osteoarthritis. Ther e is moderate bilateral neural foraminal stenosis. There is mild central canal stenosis. L5-S1: Disc is minimally bulging with annular fissure. There is mild left and moderate right facet felipa int osteoarthritis. There is mild left and moderate right neural foraminal stenosis. There is no cent ral canal stenosis. IMPRESSION: 1. Moderate lumbar spondylosis most notable for severe central canal and moderate to severe bilateral neural foraminal stenosis at L3-L4. Reviewed, dictated and finalized at location B. IMPRESSION: 1. Moderate lumbar spondylosis most notable for severe central canal and modera te to severe bilateral neural foraminal stenosis at L3-L4.
== END 2021-03-06 07:53 | disposition home or self-care (01) ==
PROVIDERS: PCP Internal Medicine; Visit Provider Nurse Practitioner Family
DX: M47.817 Spondylosis without myelopathy or radiculopathy, lumbosacral region (principal); M48.07 Spinal stenosis, lumbosacral region; M47.815 Spondylosis without myelopathy or radiculopathy, thoracolumbar region; M48.05 Spinal stenosis, thoracolumbar region
CPT/HCPCS: 72148

== ENCOUNTER 2022-04-11 10:30 | Outpatient (CLI) | payer MEDICARE, SELFPAY ==
[2022-04-11 11:24] LABS: SARS-CoV-2 RNA PCR Negative
[2022-04-12 09:39] LABS: Influenza A QL RT-PCR Negative (Negative); Influenza B QL RT-PCR Negative (Negative)
== END 2022-04-11 10:31 | disposition home or self-care (01) ==
PROVIDERS: PCP Internal Medicine; Visit Provider Internal Medicine
DX: R50.9 Fever, unspecified (principal); Z20.822 Contact with and (suspected) exposure to COVID-19
CPT/HCPCS: 36415; 86710; 87502; U0003; U0005

== ENCOUNTER 2022-12-24 07:34 | Outpatient (CLI) | payer MEDICARE, SELFPAY ==
--- NOTE | ~2022-12-24 | US_ITS ---
Ultrasound of the Abdominal Aorta INDICATION: Abdominal aortic aneurysm TECHNIQUE: Grayscale, color Doppler, and pulsed Doppler images of the aorta and common iliac arteries were obtained. COMPARISON: 06/08/2019 FINDINGS: Maximum vascular dimensions are as follows: Proximal aorta: 3.0 cm Mid aorta: Not visualized due to overlying bowel gas Distal aorta: 2.2 cm Right common iliac artery: 1.0 cm Left common iliac artery: 1.0 cm There is an abdominal aortic aneurysm which measures 3.2 cm in maximum diameter. IMPRESSION: Abdominal aortic aneurysm measures 3.2 cm in maximum diameter, similar to prior exam. Reviewed, dictated and finalized at [facility].
== END 2022-12-24 07:35 | disposition home or self-care (01) ==
PROVIDERS: PCP Internal Medicine; Visit Provider Internal Medicine
DX: I71.40 Abdominal aortic aneurysm, without rupture, unspecified (principal)
CPT/HCPCS: 76775

== ENCOUNTER → 2023-04-16 09:16 | Outpatient (CLI) | payer MEDICARE, SELFPAY ==
--- NOTE | ~2023-04-16 | US_ITS ---
EXAMINATION: US abdomen limited DATE: 04/16/2023 09:29 INDICATION: Splenomegaly. TECHNIQUE: Multiple grayscale and Doppler ultrasound images of the abdomen were obtained. COMPARISON: Abdomen ultrasound 10/20/2020 FINDINGS: The spleen measures 10.8 x 4.5 cm. Calcifications in the spleen are consistent with old gra nulomatous disease. IMPRESSION: 1. Normal size of the spleen. Reviewed, dictated and finalized at location A. 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
== END ==
PROVIDERS: PCP Internal Medicine; Visit Provider Internal Medicine Medical Oncology
DX: R16.1 Splenomegaly, not elsewhere classified (principal)
CPT/HCPCS: 76705

== ENCOUNTER 2023-06-09 03:57 | Day surgery (SDC) | payer MEDICARE, SELFPAY ==
[2023-05-18 11:29] VITALS: BMI 26.6
--- NOTE | 2023-06-05 10:17 | SUR.PREOP ---
Patient called regarding upcoming procedure. Message left on voicemail regarding appointment times.
--- NOTE | 2023-06-08 15:00 | PM.HPGS ---
History of Present Illness History of Present Illness Consent: Risks, benefits, and alternatives have been discussed and questions answered. Patient agrees to proceed with procedure. Chief complaint: hx of colon polyps Narrative: Mendoza Stevens is a 73 year old male Referred for colon cancer screening. His last colonoscopy was 5 or 6 years ago. He has a history of having had polyps prior to that. Review of Systems Review of Systems: All systems reviewed & are unremarkable except as noted in HPI and below PMFSH Past Medical History Medical History Abnormal finding of blood chemistry, unspecified Abnormal screening cardiac CT Acute kidney injury due to COVID-19 Aneurysm of infrarenal abdominal aorta Anxiety Anxiety with depression Bigeminy BMI 25.0-25.9,adult BMI 26.0-26.9,adult Bruit Chest pain Chronic low back pain COPD (chronic obstructive pulmonary disease) COVID-19 virus infection Diarrhea Elevated glucose Elevated liver enzymes Encounter for Medicare annual wellness exam Encounter for routine adult health examination without abnormal findings Fever Generalized weakness Hearing loss Hx of colonic polyps Hx of compression fracture of spine Hx of multiple trauma Leukocytosis Myelodysplasia (myelodysplastic syndrome) Normocytic anemia 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 Family History Family History Father Carcinoma of colon Social History Social History Smoking packs per day: 3 Smoking cigarettes per day: 60.0 Years smoked: 30 Smoking pack-years: 90.00 Smoking status: Never smoker Tobacco type: cigarettes Second hand tobacco smoke exposure: Yes Alcohol intake: never Substance use: never Substance use type: does not use Lack of Transportation: No Lack of Food: Never True Current Housing: I Have Housing Concerned About Future Housing: No Difficulty Paying Gas/Electric Bills: No Difficulty Paying for Meds: No Currently Unemployed: No Living arrangements: other Additional living arrangements comments: with sp Gender identity (if verbalized by the patient): Male Spiritual care concerns: No Meds Home Medications and Allergies Home Medications Medication Instructions Recorded Confirmed Type Home Nebulizer Machine #1 ea 05/28/22 06/09/23 Rx albuterol sulfate 90 mcg/actuation 2 puff inhalation Q4H PRN 09/04/22 06/09/23 Rx aerosol inhaler shortness of breath or wheezing #8.5 grams umeclidinium 62.5 mcg-vilanterol 1 inh inhalation DAILY 12/12/22 06/09/23 History 25 mcg/actuation powdr for inhalation (Anoro Ellipta) clonazepam 0.5 mg tablet 0.5 mg PO BID PRN anxiety #60 tabs 04/06/23 06/09/23 Rx bupropion HCl 150 mg 24 hr tablet, 150 mg PO QAM #90 tabs 04/13/23 06/09/23 Rx extended release trazodone 100 mg tablet See Rx Instructions PO QHS #90 tabs 06/09/23 06/09/23 Rx Allergies Allergy/AdvReac Type Severity Reaction Status Date / Time neomycin AdvReac Unknown SLOWS Verified 06/09/23 08:42 HEALING, REDNESS Exam Resp: Auscultation: clear to auscultation bilaterally Cardio: Rate: regular rate Rhythm: regular rhythm GI: GI Palp: Yes Soft to palpation and No Tenderness to palpation present (GI) Assessment and Plan Assessment and plan (1) Hx of colonic polyps: Code(s): Z86.010 - Personal history of colonic poly
[2023-06-09 08:31] VITALS: BP 133/72; PULSE 67; RESP 20; TEMP 36.2; O2SAT 95
[2023-06-09] MEDS: LACTATED RINGERS 1,000 ML 150 ML IV CONT (08:41)
--- NOTE | 2023-06-09 08:54 | WPDANESEPPF ---
Anes - Initial Pre Proc Eval Procedure: Operation Date: 06/09/23 09:30 Proposed Procedures p Colonoscopy - Antoni Li MD Date/Time: 06/09/23 08:54 Surgeon: Antoni Li MD Pre Op Diagnosis: hx of colon polyps Patient Data Age: 73 Gender: M Height: 1.8 m Weight: 87.5 kg Last Vital Signs Temp 97.1 F L 06/09/23 08:31 Pulse 67 06/09/23 08:31 Resp 20 06/09/23 08:31 BP 133/72 06/09/23 08:31 Pulse Ox 95 06/09/23 08:31 O2 Del Method Room Air 06/09/23 08:31 Allergies Allergy/AdvReac Type Severity Reaction Status Date / Time neomycin AdvReac Unknown SLOWS Verified 06/09/23 08:42 HEALING, REDNESS Home Medications Medication Instructions Recorded Confirmed Type Home Nebulizer Machine #1 ea 05/28/22 06/09/23 Rx albuterol sulfate 90 mcg/actuation 2 puff inhalation Q4H PRN 09/04/22 06/09/23 Rx aerosol inhaler shortness of breath or wheezing #8.5 grams umeclidinium 62.5 mcg-vilanterol 1 inh inhalation DAILY 12/12/22 06/09/23 History 25 mcg/actuation powdr for inhalation (Anoro Ellipta) clonazepam 0.5 mg tablet 0.5 mg PO BID PRN anxiety #60 tabs 04/06/23 06/09/23 Rx bupropion HCl 150 mg 24 hr tablet, 150 mg PO QAM #90 tabs 04/13/23 06/09/23 Rx extended release trazodone 100 mg tablet See Rx Instructions PO QHS #90 tabs 06/09/23 06/09/23 Rx Patient hx anesthesia problems: none Family hx anesthesia problems: none Results Review: All pre-operative results and documents have been reviewed as part of the pre-operative evaluation. [facility] Past Medical History Medical History (Updated 04/28/23 @ 09:[address] [facility]) Abnormal finding of blood chemistry, unspecified Abnormal screening cardiac CT Acute kidney injury due to COVID-19 Aneurysm of infrarenal abdominal aorta Anxiety Anxiety with depression Bigeminy BMI 25.0-25.9,adult BMI 26.0-26.9,adult Bruit Chest pain Chronic low back pain COPD (chronic obstructive pulmonary disease) COVID-19 virus infection Diarrhea Elevated glucose Elevated liver enzymes Encounter for Medicare annual wellness exam Encounter for routine adult health examination without abnormal findings Fever Generalized weakness Hearing loss Hx of colonic polyps Hx of compression fracture of spine Hx of multiple trauma Leukocytosis Myelodysplasia (myelodysplastic syndrome) Normocytic anemia 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 Family History Family History Father Carcinoma of colon Social History Social History Smoking packs per day: 3 Smoking cigarettes per day: 60.0 Years smoked: 30 Smoking pack-years: 90.00 Smoking status: Never smoker Tobacco type: cigarettes Second hand tobacco smoke exposure: Yes Alcohol intake: never Substance use: never Substance use type: does not use Lack of Transportation: No Lack of Food: Never True Current Housing: I Have Housing Concerned About Future Housing: No Difficulty Paying Gas/Electric Bills: No Difficulty Paying for Meds: No Currently Unemployed: No Living arrangements: other Additional living arrangements comments: with sp Gender identity (if verbalized by the patient): Male Spiritual care concerns: No Anes - Eval Final PreProcedure Day of Procedure 06/09/23 08:54 Patient weight: normal Heart: regular rate and rhythm Lungs: clear to auscultation Airway: Mallampati scal
[2023-06-09 09:38] VITALS: BP 95/65; PULSE 64; RESP 20; O2SAT 96
[2023-06-09 09:48] VITALS: BP 101/60; PULSE 59; RESP 20; O2SAT 59
[2023-06-09 09:58] VITALS: BP 115/60; PULSE 60; RESP 26; O2SAT 96
== END 2023-06-09 10:07 | disposition home or self-care (01) ==
PROVIDERS: PCP Internal Medicine; Visit Provider Internal Medicine Gastroenterology
PROC: 0DJD8ZZ Inspection of Lower Intestinal Tract, Via Natural or Artificial Opening Endoscopic (ICD-10-PCS; CPT 45378; principal; 2023-06-09 09:30)
DX: Z12.11 Encounter for screening for malignant neoplasm of colon (principal); K63.5 Polyp of colon; K57.30 Diverticulosis of large intestine without perforation or abscess without bleeding; F41.8 Other specified anxiety disorders; J44.9 Chronic obstructive pulmonary disease, unspecified; D46.9 Myelodysplastic syndrome, unspecified; Z79.51 Long term (current) use of inhaled steroids
CPT/HCPCS: 45385; 88305; J2704; J7120

== ENCOUNTER 2024-01-25 07:58 | Outpatient (CLI) | payer MEDICARE, SELFPAY ==
--- NOTE | ~2024-01-25 | NM_ITS ---
EXAMINATION: NM donna stress w perfusion DATE: 01/25/2024 10:40 INDICATION: Shortness of breath. Abnormal findings on diagnostic imaging. TECHNIQUE: Rest images were obtained following intravenous administration of 10.3 mCi Tc99m tetrofosm in (Myoview). The patient was infused intravenously with Lexiscan (Regadenoson). Then, 31.5 mCi Tc99m tetrofosmin (Myoview) was administered intravenously, and stress images were obtained initially in t he supine position with repeat stress images obtained in the prone position. Data was reconstructed i nto short axis and horizontal and vertical long axis SPECT images. Gated SPECT images were also obtai armando. COMPARISON: None. FINDINGS: There is likely attenuation artifact most prominent along the posterior wall and to a lesse r degree along the anterior wall both which normalize on the post stress imaging obtained in the pron e position with there are no definite perfusion defects to suggest ischemia or infarction. There is normal left ventricular chamber size, wall motion and ejection fraction. Left ventricular ejection f raction measures 67%. IMPRESSION: 1. Normal myocardial perfusion during stress. 2. Left ventricular ejection fraction measuring 67%. Reviewed, dictated and finalized at location A.
--- NOTE | 2024-01-25 08:03 | EST_ITS ---
Patient Info Name: Mendoza Stevens Age: 73 years : 1950 Gender: Male Ht: 71 in Wt: 190 lbs BSA: 2.09 m2 HR: 51 bpm BP: 123 / 80 mmHg Exam Date: 01/25/2024 9:16 AM Exam Location: [facility] Patient Status: Outpatient Admit Date: 01/25/2024 Staff Ordering Physician: Javier Syed MD Attending Provider: Javier Syed MD Exercise Technologist: Rahel Redmond [facility] Exercise Physician: Braden Pham DO Exam Type: CA stress donna w NM Study Info A regadenoson stress test was performed. Summary 1. 1. Negative lexiscan stress test for ischemic ST changes by ECG criteria. 2. 2. Stable hemodynamics throughout the test. 3. 3. Nuclear scan to follow and will be reported separately. Please correlate with it. 4. 4. Patient informed of the above results. Protocol: Lexiscan Stress ECG Details Stage: REST Duration (min): 1 min : 10 sec HR (bpm): 52 SBP (mmHg): 123 DBP (mmHg): 80 Stage: REST Duration (min): 7 min : 35 sec HR (bpm): 55 SBP (mmHg): 123 DBP (mmHg): 80 Stage: STAGE 1 Duration (min): 1 min : 0 sec HR (bpm): 66 SBP (mmHg): 130 DBP (mmHg): 67 Stage: RECOVERY Duration (min): 1 min : 0 sec HR (bpm): 75 SBP (mmHg): 130 DBP (mmHg): 67 Stage: RECOVERY Duration (min): 2 min : 0 sec HR (bpm): 74 SBP (mmHg): 130 DBP (mmHg): 67 Stage: RECOVERY Duration (min): 3 min : 0 sec HR (bpm): 73 SBP (mmHg): 117 DBP (mmHg): 68 Stage: RECOVERY Duration (min): 3 min : 9 sec HR (bpm): 73 SBP (mmHg): 117 DBP (mmHg): 68 Rest HR: 55 bpm Peak HR: 76 bpm Rest Sys BP: 123 mmHg Peak Sys BP: 130 mmHg Max Pred HR: 148 bpm % Max Pred HR: 51 % Target HR: 126 bpm Max RPP: 9,880 bpm*mmHg Termination Reason: Completed protocol Cardiac Symptoms: Shortness of breath Total Time: 1 min : 0 sec Rest Lee BP: 80 mmHg Peak Lee BP: 67 mmHg Total Dose: 0.4 mg Resting ECG Sinus bradycardia, cannot r/o septal infarct, age indeterminate. Stress ECG No ST changes. Arrhythmias None. Report Signatures
== END 2024-01-25 07:59 | disposition home or self-care (01) ==
PROVIDERS: PCP Internal Medicine; Visit Provider Internal Medicine
DX: R93.1 Abnormal findings on diagnostic imaging of heart and coronary circulation (principal)
CPT/HCPCS: 78452; 93017; A9502; J2785

== ENCOUNTER 2024-08-12 08:57 | Outpatient (CLI) | payer MEDICARE, SELFPAY ==
--- NOTE | ~2024-08-12 | XR_ITS ---
Clinical Indication: Shortness of breath PA and lateral views of the chest: Comparison: 09/29/2020 Findings: There are linear areas of bibasilar scarring. The lungs are otherwise clear, without eviden ce of focal consolidation or pleural effusion. Cardiomediastinal silhouette is within normal limits. Probable chronic bilateral rib fracture deformities. Impression: Linear bibasilar scarring, otherwise clear lungs. Probable chronic bilateral rib fracture deformities. Correlate for history of recent trauma or acute pain. Reviewed, dictated and finalized at location . Impression: Linear bibasilar scarring, otherwise clear lungs. Probable chronic bilateral rib fracture deformities. Correlate for history of r ecent trauma or acute pain.
--- OUTSIDE RECORDS SUMMARY | 2024-08-12 09:24 | XMS_ITS | Clinical Summary ---
Author Organization [facility] Address [address] [place] [address] Care Team Providers Care Mixer Wet Pour Name Role Phone Javier Syed MD Primary Care Provider [phone] Immunizations Name Administration Dates Next Due MODERNA COVID-19 (12+) MRNA, LNP-S, PF, 100 MCG/ 0.5 ML DOSE 08/10/2020,07/13/2020 Social History Tobacco Use Types Packs/Day Years Used Date Smoking Tobacco: Never Assessed Sex and Gender Information Value Date Recorded Sex Assigned at Not on file Legal Sex Male 4:03 PM CDT Gender Identity Not on file Sexual Orientation Not on file Plan of Treatment Health Maintenance Due Date Last Done Comments Colorectal Cancer Screening Colonoscopy (10 Years) 1950 Hepatitis C 1968 Zoster Vaccines (1 of 2) 2001 COVID-19 Vaccine ( season) 2024 08/10/2020, 07/13/2020 Influenza Adult (#1) 2024 04/29/2023, 05/18/2019, 06/08/2018, Additional history exists DTaP, Tdap and Td Vaccines (2 - Td or Tdap) 10/21/2025 10/22/2015 RSV Immunization or 60+ Years (1 - 1-dose 75+ series) 2026 Pneumococcal Vaccine: 65+ Years Completed 04/29/2023, 04/18/2016 Meningococcal B Vaccine Aged Out No l onger eligible based on patient's age to complete this topic Meningococcal Vaccine Aged Out No miroslava sridhar eligible based on patient's age to complete this topic RSV Immunizations Under 20 Months Aged Out No longer eligible based on patient's age to complete this topic Care Teams Mixer Wet Pour Relationship Specialty Start Date End Date Javier Syed MD [address] [place] [id number] PCP - General INTERNAL MEDICINE 01/14/24
--- OUTSIDE RECORDS SUMMARY | 2024-08-12 09:25 | XMS_ITS | Referral Summary ---
Author Organization [facility] al Address [address] [place] [address] Care Team Providers Care School Attendance Secretary Name Role Phone Javier Syed MD Primary Care Provider [phone] Teo Pardo DO Unavailable [phone] Allergies Active Allergy Reactions Criticality Noted Date Comments Neomycin Other (See comments) Reaction: EXFOLIATIVE DERMAT, Medications buPROPion XL (WELLBUTRIN XL) 150 mg 24 hr tablet TK 1 T PO QD 3 01/02/2018 Active albuterol HFA (PROVENTIL HFA,VENTOLIN HFA,PROAIR HFA) 90 mcg/actuation inhaler Inhale 2 puffs every 6 (six) hours as needed 04/23/2020 Active clonazePAM (KlonoPIN) 0.5 mg tablet TAKE 1 TABLET BY MOUTH EVERY DAY NEEDED FOR ANXIETY 05/02/2020 Active traZODone (DESYREL) 100 mg tablet Take 1 tablet (100 mg total) by mouth 2 (two) times a day 05/22/2020 Active umeclidinium-vi lanteroL (ANORO ELLIPTA) 62.5-25 mcg/actuation blister with device Inhale 1 puff daily 09/24/2022 Active Active Problems Problem Noted Date Diagnosed Date Pancytopenia 04/17/2019 Other hemochromatosis 03/02/2018 Immunizations Immunization Administration Dates Next Due Influenza, Trivalent, High D ose, Split, Preservative Free, Intramuscular 06/08/2018,04/17/2016 Moderna SARS-CoV-2 Monovalent Vaccination (12+ Y RS) 07/13/2020 Pneumococcal Polysaccharide PPV23 04/18/2016 Tdap 10/22/2015 Social History Tobacco Use Types Packs/Day Years Used Date Smoking Tobacco: Former Smokeless Tobacco: Never AUDIT-C Answer Date Recorded Q1: How often do you have a drink containing alcohol? Never 04/08/2024 Q2: How many drinks containi ng alcohol do you have on a typical day when you are drinking? Patient does not drink Q3: How often do you have si x or more drinks on one occasion? Never 04/08/2024 Sex and Gender Information Value Date Recorded Sex Assigned at Not on file Legal Sex Male 8:46 PM PLEATING MACHINE OPERATOR Gender Identity Male 03/08/2018 10:31 AM CDT Sexual Orientation Not on file Last Filed Vital Signs Vital Sign Reading Time Taken Comments Blood Pressure 111/71 04/08/2024 11:12 AM PLEATING MACHINE OPERATOR Pulse 76 04/08/2024 11:12 AM PLEATING MACHINE OPERATOR Temperature 36.5 C (97.7 F) 04/08/2024 11:12 AM PLEATING MACHINE OPERATOR Respiratory Rate 18 04/08/2024 11:1 2 AM PLEATING MACHINE OPERATOR Oxygen Saturation 93% 04/08/2024 11: 12 AM PLEATING MACHINE OPERATOR Inhaled Oxygen Concentration - - Weight 90.6 kg (199 lb 11.8 oz) 024 11:12 AM PLEATING MACHINE OPERATOR Height 180.3 cm (5' 11 ) 04/10/2023 1:09 PM PLEATING MACHINE OPERATOR Body Mass Index 27.86 04/10/2023 1:09 PM PLEATING MACHINE OPERATOR Plan of Treatment Not on file Insurance MEDICARE AETNA MEDICARE Care Teams School Attendance Secretary Relationship Specialty Start Date End Date Javier Syed MD [address] [facility] [address] [facility] [address] [place] [address] PCP - General 07/24/16 Teo Pardo DO [address] [place] [address] Medical Oncologist/Pig Handler Hematology and Oncology 07/13/20
--- OUTSIDE RECORDS SUMMARY | 2024-08-12 09:25 | XMS_ITS | Encounter Summary ---
Author Organization [facility] Address [address] [facility] [place] [address] Care Team Providers Care Information Director Name Role Phone Javier Syed MD Primary Care Provider [phone] Joanne Kaba RN Unavailable Unavailable Reason for Visit * Reason Onset Date Comments Appointment 04/13/2023 Encounter Details Date Type Department Care Team (Late st Contact Info) Description 04/13/2023 Telephone [facility] - Pulmonology [address] [place] [address], [facility] [place] [id number] Alicia Herrera, DO [address] [place] [address] OF [facility] [place] [address] Appointment Social History Tobacco Use Types Packs/Day Years Used Date Smoking Tobacco: Former Cigarettes 2 27 0 06/01/1969 - 06/01/1996 Smokeless Tobacco: Never Alcohol Use Standard Drinks/Week Comments Not Currently 0 (1 standard drink = 0.6 oz pur e alcohol) Sex and Gender Information Value Date Recorded Sex Assigned at Not on file Gender Identity Not on file Sexual Orientation Not on file documented as of this encounter Miscellaneous Notes * Telephone Encounter - Maira Mathis - 04/13/2023 9:35 AM CST Current Provider name: Alicia Herrera Reason for call: Pt would like a call back regarding a sooner appt due to coughing up redish/brown del cid over the past week. Patient Call Back number: [phone] E REDUCTION COORDINATOR documented in this encounter Plan of Treatment Not on file documented as of this encounter Goals Goal Patient Goal Type Associated Problems Recent Progress Patient-Stated? Author Medication Management General On track( 1:35 PM CDT) No Joanne Kaba, RN Note: Expected end date: ongoing Interventions: Take all medications as prescribed Let your doctor know right away about any changes in your medications Make sure to request a refill of your medication at least one week prior to your last dose Safety General On track( 1:35 PM CDT) No Joanne Kaba, RN Note: Expected end date: ongoing Interventions: Your nurse will assess your risk for falls/injury each visit Make sure appropriate safety devices are available and within reach Be aware of medications that could predispose you to falling Wear non-skid/rubber sole footwear Use some light at night in your room documented as of this encounter Visit Diagnoses Not on filedocumented in this encounter Care Teams Information Director Relationship Specialty Start Date End Date Javier Syed MD [address] [place] [address] PCP - General 06/04/18 Joanne Kaba, RN Registered Nurse 11/01/19 documented as of this encounter
--- OUTSIDE RECORDS SUMMARY | 2024-08-12 09:25 | XMS_ITS | Referral Summary ---
Author Organization [facility] Address [address] [facility] [place] [address] Care Team Providers Care Treasury Specialist Name Role Phone Javier Syed MD Primary Care Provider [phone] Joanne Kaba RN Unavailable Unavailable Source Comments [facility],non-owned Affiliates and Associated Physician Practices is amultiple site organization consisting of ambulatory clinics and hospital sitesin [place], [place], [place] and [place]. This disclosure is being madepursuant to the Care Everywhere program and may not contain all information available regarding this patient. Last updated 18.[facility] Encounters Date Type Department Care Team Description 06/07/2024 Travel 06/07/2024 2:00 PM AUTOMOBILE LEASING SUPERVISOR Office Visit [facility] - Pulmonology [address] [place] [address] [place] [address] Camilla Purvis MD Mixed simple and mucopurulent chronic bronchitis (HCC) (Primary Dx); Encounter for vaccination; Former smoker; Ggtmy-5-glfejakdgvd deficiency carrier from Last 3 Months Allergies Active Allergy Reactions Criticality Noted Date Comments Neomycin Swelling 06/08/2018 Medications * Be aware that medications may not be up to date on this document. Alwaysverify current medications with the patient. Medication Sig Dispensed Refills Start Date End Date Status buPROPion XL 24hr (WELLBUTRIN-XL) 150 MG tablet Take 1 (one) tablet by mouth once daily 1 04/07/2018 Active clonazePAM (KLONOPIN) 0.5 MG tablet 1 (one) tablet 2 times daily as needed 11/21/2019 Active traZODone (DESYREL) 50 MG tablet TAKE 1 TO 3 TABLETS BY MOUTH AT BEDTIME 07/13/2020 Active ibuprofen (MOTRIN) 600 MG tablet Take 1 (one) tablet by mouth as needed 08/07/2020 Active umeclidinium-vilantero l (Anoro Ellipta) 62.5-25 MCG/ACT inhaler Inhale 1 (one) puff by mouth once daily 60 Each 11 06/07/2024 Active albuterol HFA (Proventil; Ventolin; Proair) 108 (90 Base) MCG/ACT inhaler Inhale 2 (two) puffs by mouth every 6 hours as needed 18 g 11 06/07/2024 Active Active Problems Problem Noted Date Diagnosed Date Other urticaria 10/15/2020 Overview (10/16/2020): PMHx: Asthma-COPD overlap syndrome, Autoimmune thrombocytopenia, 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 Assessment & Plan (10/16/2020 8:51 AM CDT): - Ongoing for years, flaring several times a month with no obvious identifiable triggers, could be related to underlying hemotologic disease, will work up additional possible triggers - Lab workup as below - Once lab work completed, start Zyrtec 10 mg bid - Will hold off on topical steroid for now given patient complaint of thin skin, easy bruising at baseline - Recommend OTC CeraVe anti-itch cream Acute respiratory disease due to COVID-19 virus 05/03/2020 Nwpuw-3-mdnhuqdfhxi deficiency carrier 0 Overview (11/01/2019): SZ Elevated liver enzymes 11/01/2019 Resolved Problems Problem Noted Date Diagnosed Date Resolved Date Asthma-COPD overlap syndrome 07/23/2018 03/05/2021 Immunizations Name Administration Dates Next Due Covid Moderna primary monova lent 12+ yr 0.5mL 07/13/2020 INFLUENZA VACCINE 05/18/2019,06/08/2018 INFLUENZA VACCINE, HIGH-DOSE , QUADR. (FLUZONE HIGH-DOSE QUADRIVALENT; 65Y+), 0.7 ML (HD-IIV4) 05/18/2019,06/08/2018,04/17/2016 INFLUENZA VACCINE, QUADR. (F LUZONE; FLULAVAL; FLUARIX; AFLURIA QUADRIVALENT; 6MO+), 0.5 ML (IIV4) 04/29/2023 PNEUMOCOCCAL PCV20 CONJ VAC IM 04/29/2023 PNEUMOCOCCAL PPSV23 04/18/2016 TDAP (7yrs+) 10/22/2015 Social History Tobacco Use Types Packs/Day Years Used Date Smoking Tobacco: Former Cigarettes 2 27 0 06/01/1969 - 06/01/1996 Smokeless Tobacco: Never Tobacco Cessation:Counseling Given: Not Answered Alcohol Use Standard Drinks/Week Comments Not Currently 0 (1 standard drink = 0.6 oz pur e alcohol) Sex and Gender Information Value Date Recorded Sex Assigned at Not on file Gender Identity Not on file Sexual Orientation Not on file Last Filed Vital Signs Vital Sign Reading Time Taken Comments Blood Pressure 128/79 06/07/2024 1:50 PM AUTOMOBILE LEASING SUPERVISOR Pulse 73 06/07/2024 1:50 PM AUTOMOBILE LEASING SUPERVISOR Temperature 36.6 C (97.8 F) 03/05/2021 2:21 PM CDT Respiratory Rate 17 06/07/2024 1:50 PM AUTOMOBILE LEASING SUPERVISOR Oxygen Saturation 94% 06/07/2024 1:50 PM AUTOMOBILE LEASING SUPERVISOR Inhaled Oxygen Concentration - - Weight 92.3 kg (203 lb 6.4 oz) 06/07/2024 1:50 P M AUTOMOBILE LEASING SUPERVISOR Height 180.3 cm (5' 11 ) 06/07/2024 1:50 PM AUTOMOBILE LEASING SUPERVISOR Body Mass Index 28.37 06/07/2024 1:50 PM AUTOMOBILE LEASING SUPERVISOR Plan of Treatment Not on file Goals Goal Patient Goal Type Associated Problems [...] to your last dose Safety General On track(06/02/2 020 1:35 PM CDT) No Joanne Kaba, RN Note: Expected end date: ongoing Interventions: Your nurse will assess your risk for falls/injury each visit Make sure appropriate safety devices are available and within reach Be aware of medications that could predispose you to falling Wear non-skid/rubber sole footwear Use some light at night in your room Care Teams Treasury Specialist Relationship Specialty Start Date End Date Javier Syed MD [address] [place] [id number] PCP - General 06/04/18 Joanne Kaba, RN Registered Nurse 11/01/19
--- OUTSIDE RECORDS SUMMARY | 2024-08-12 09:25 | XMS_ITS | Clinical Summary ---
Author Organization [facility] al Address [address] [place] [address] Care Team Providers Care Simulation Tech Name Role Phone Javier Syed MD Primary Care Provider [phone] Teo Pardo DO Unavailable [phone] Allergies Active Allergy Reactions Criticality Noted Date [...] 07/13/2020 Pneumococcal Polysaccharide PPV23 04/18/2016 Tdap 10/22/2015 Family History Medical History Relation Name Comments Cancer Father Family history of malignant neoplasm - (Added by TW Conv) Heart disease Father Family history of cardiac disorder - (Added by TW Conv) Heart disease Mother Family history of cardiac disorder - (Added by TW Conv) Relation Name Status Comments Father Mother Social History Tobacco Use Types Packs/Day Years [...] on file Legal Sex Male 8:46 PM TABLE WORKER PACKAGER Gender Identity Male 03/08/2018 10:31 AM CDT Sexual Orientation Not on file Obstetrics History Last Filed Vital Signs Vital Sign Reading Time Taken Comments Blood Pressure 111/71 04/08/2024 11:12 AM TABLE WORKER PACKAGER Pulse 76 04/08/2024 11:12 AM TABLE WORKER PACKAGER Temperature 36.5 C (97.7 F) 04/08/2024 11:12 AM TABLE WORKER PACKAGER Respiratory Rate 18 04/08/2024 11:1 2 AM TABLE WORKER PACKAGER Oxygen Saturation 93% 04/08/2024 11: 12 AM TABLE WORKER PACKAGER Inhaled Oxygen Concentration - - Weight 90.6 kg (199 lb 11.8 oz) 024 11:12 AM TABLE WORKER PACKAGER Height 180.3 cm (5' 11 ) 04/10/2023 1:09 PM TABLE WORKER PACKAGER Body Mass Index 27.86 04/10/2023 1:09 PM TABLE WORKER PACKAGER Plan of Treatment Health Maintenance Due Date Last Done Comments Colon Cancer Screening-Colonoscopy 1950 Depression Screening 1950 Fall Risk Assessment 1950 Hepatitis C Screening 1950 Hepatitis B Screening 1969 Zoster Vaccine (1 of 2) 2001 Abdominal Aortic Aneurysm (A AA) Screen 2016 10/22/2015 Well Visit 65+ 2016 Pneumococcal vaccine 65+ (2 of 2 - PCV) 04/18/2017 04/18/2016 Covid-19 Vaccine (3 - 2024-25 season) 01/31/202405/2021, 07/13/2020 Influenza Vaccine (#1) 2024 , 06/08/2018, 04/17/2016 DTaP/Tdap/Td Vaccine (2 - Td or Tdap) 10/21/2025 Insurance MEDICARE AET MEDICARE Care Teams Simulation Tech Relationship Specialty Start Date End Date Javier Syed MD [address] [facility] [address] [facility] [address] [place] [address] PCP - General 07/24/16 Teo Pardo DO [address] [place] [address] Medical Oncologist/Movers Hematology and Oncology 07/13/20
--- OUTSIDE RECORDS SUMMARY | 2024-08-12 09:25 | XMS_ITS | Clinical Summary ---
Author Organization [facility] Address [address] [place] [address] Care Team Providers Care Certified Medication Technician Name Role Phone Javier Syed MD Primary Care Provider [phone] Joanne Kaba RN Unavailable Unavailable Source Comments [facility],non-owned Affiliates and Associated Physician Practices is amultiple site organization consisting of ambulatory clinics and hospital sitesin [place], [place], [place] and [place]. This disclosure is being madepursuant to the Care Everywhere program and may not contain all information available regarding this patient. Last updated 18.[facility] Allergies Active Allergy Reactions Criticality Noted Date [...] respiratory disease due to COVID-19 virus 05/03/2020 Uiowj-7-dxrctuyezio deficiency carrier 0 Overview (11/01/2019): SZ Elevated liver enzymes 11/01/2019 Resolved Problems Problem Noted Date Diagnosed Date Resolved Date Asthma-COPD overlap syndrome 07/23/2018 03/05/2021 Encounters Date Type Department Care Team Description 06/07/2024 2:00 PM CASH MANAGER Office Visit [facility] - Pulmonology [address] [place] [address], [place] [id number] Camilla Purvis MD Mixed simple and mucopurulent chronic bronchitis (HCC) (Primary Dx); Encounter for vaccination; Former smoker; Qdfqh-5-yjfsejpnxok deficiency carrier 06/07/2024 Travel from Last 3 Months Immunizations Name Administration Dates Next Due Covid Moderna primary monova lent 12+ yr 0.5mL 07/13/2020 INFLUENZA VACCINE 05/18/2019,06/08/2018 INFLUENZA VACCINE, HIGH-DOSE , QUADR. (FLUZONE HIGH-DOSE QUADRIVALENT; 65Y+), 0.7 ML (HD-IIV4) 05/18/2019,06/08/2018,04/17/2016 INFLUENZA VACCINE, QUADR. (F LUZONE; FLULAVAL; FLUARIX; AFLURIA QUADRIVALENT; 6MO+), 0.5 ML (IIV4) 04/29/2023 PNEUMOCOCCAL PCV20 CONJ VAC IM 04/29/2023 PNEUMOCOCCAL PPSV23 04/18/2016 TDAP (7yrs+) 10/22/2015 Family History Medical History Relation Name Comments None Known Brother None Known Father None Known Maternal Aunt None Known Maternal Grandfather None Known Maternal Grandmother None Known Maternal Uncle None Known Mother None Known Other None Known Paternal Aunt None Known Paternal Grandfather None Known Paternal Grandmother None Known Paternal Uncle None Known Sister Asthma Neg Hx CVA Neg Hx Cancer - Breast Neg Hx Cancer - Other Neg Hx Cancer - Skin, Melanoma Neg Hx Cancer - Skin, Non Melanoma Neg Hx Eczema Neg Hx Hemophilia Neg Hx Psoriasis Neg Hx Relation Name Status Comments Brother Father Maternal Aunt Maternal Grandfather Maternal Grandmother Maternal Uncle Mother Other Paternal Aunt Paternal Grandfather Paternal Grandmother Paternal Uncle Sister Social History Tobacco Use Types Packs/Day Years [...] Comments Blood Pressure 128/79 06/07/2024 1:50 PM CASH MANAGER Pulse 73 06/07/2024 1:50 PM CASH MANAGER Temperature 36.6 C (97.8 F) 03/05/2021 2:21 PM CDT Respiratory Rate 17 06/07/2024 1:50 PM CASH MANAGER Oxygen Saturation 94% 06/07/2024 1:50 PM CASH MANAGER Inhaled Oxygen Concentration - - Weight 92.3 kg (203 lb 6.4 oz) 06/07/2024 1:50 P M CASH MANAGER Height 180.3 cm (5' 11 ) 06/07/2024 1:50 PM CASH MANAGER Body Mass Index 28.37 06/07/2024 1:50 PM CASH MANAGER Plan of Treatment Health Maintenance Due Date Last Done Comments COLOGUARD (AGES 45-75) - COLON CA SCREENING 1951 COLON MONITORING 1951 COLONOSCOPY - COLON CA SCREENING 1951 CT COLONOGRAPHY - COLON CA SCREENING 1950 Colorectal Cancer Screening 1950 FIT - COLON CA SCREENING 1950 FLEX SIG - COLON CA SCREENING 1950 LIPID TESTING 1950 MEDICARE AWV 12 MONTHS 1950 HEPATITIS C SCREENING 03/08/1969 ZOSTER VACCINE (1 of 2) 2001 Respiratory Syncytial Virus (RSV) Vaccine Pt: or over 60 yrs (1 - Risk 60-74 years 1-dose series) 2011 AAA SCREENING 2016 COVID-19 VACCINE ( season) 2024 08/10/2020, 07/13/2020 INFLUENZA VACCINE (#1) 2024 , 05/18/2019, 05/18/2019, Additional history exists DEPRESSION SCREENING 06/01/2024 DTAP/TDAP/TD VACCINES (2 - Td or Tdap) 10/21/2025 10/22/2015 PNEUMOCOCCAL VACCINE 50+ Completed 04/29/2023, 04/01 HEPATITIS B VACCINE Aged Out No longe r eligible based on patient's age to complete this topic HIB VACCINE Aged Out No longer eligi ble based on patient's age to complete this topic HPV VACCINE Aged Out No longer eligi ble based on patient's age to complete this topic MENINGOCOCCAL (Group B) VACCINE SHARED DECISION-MAKING Aged Out No longer eligible based on patient's age to complete this topic MENINGOCOCCAL GROUPS A/C/Y/W VACCINE Aged Out No longer eligible based on patient's age to complete this topic Goals Goal Patient Goal Type Associated Problems Recent Progress Patient-Stated? Author Medication Management General On track( 020 1:35 PM CDT) No Joanne Kaba, RN Note: Expected end date: ongoing Interventions: Take all medications as prescribed Let your doctor know right away about any changes in your medications Make sure to request a refill of your medication at least one week prior to your last dose Safety General On track( 020 1:35 PM CDT) Joanne Lemos RN Note: Expected end date: ongoing Interventions: Your nurse will assess your risk for falls/injury each visit Make sure appropriate safety devices are available and within reach Be aware of medications that could predispose you to falling Wear non-skid/rubber sole footwear Use some light at night in your room Care Teams Certified Medication Technician Relationship Specialty Start Date End Date Javier Syed MD [address] [place] [address] PCP - General 06/04/18 Joanne Kaba, RN Registered Nurse 11/01/19
--- OUTSIDE RECORDS SUMMARY | 2024-08-12 09:25 | XMS_ITS | Patient Health Summary ---
Author Organization [facility] Address [address] [place] [address] Care Team Providers Care General Warehouse Worker Name Role Phone Javier Syed MD Primary Care Provider [phone] Joanne Kaba RN Unavailable Unavailable Note from [facility] [place],non-owned Affiliates and Associated Physician Practices is amultiple site organization consisting of ambulatory clinics and hospital sitesin [place], [place], [place] and [place]. This disclosure is being madepursuant to the Care Everywhere program and may not contain all information available regarding this patient. Last updated 18.[facility] Allergies * Neomycin(Swelling) Medications * Be aware that medications may not be up to date on this document. Alwaysverify current medications with the patient. * buPROPion XL 24hr (WELLBUTRIN-XL) 150 MG tablet(Started 04/07/2018) Take 1 (one) tablet by mouth once daily 1 refill left * clonazePAM (KLONOPIN) 0.5 MG tablet(Started 11/21/2019) 1 (one) tablet 2 times daily as needed * traZODone (DESYREL) 50 MG tablet(Started 07/13/2020) TAKE 1 TO 3 TABLETS BY MOUTH AT BEDTIME * ibuprofen (MOTRIN) 600 MG tablet(Started 08/07/2020) Take 1 (one) tablet by mouth as needed * umeclidinium-vilanterol (Anoro Ellipta) 62.5-25 MCG/ACT inhaler(Started 06/07/2024) Inhale 1 (one) puff by mouth once daily 11 refills by 06/07/2025 * albuterol HFA (Proventil; Ventolin; Proair) 108 (90 Base) MCG/ACT inhaler (Started 06/07/2024) Inhale 2 (two) puffs by mouth every 6 hours as needed 11 refills by 06/07/2025 Active Problems Problem Noted Date Diagnosed Date Other urticaria 10/15/2020 Acute respiratory disease due to COVID-19 virus 05/03/2020 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 (FLUZONE HIGH-DOSE QUADRIVALENT; 65Y+), 0.7 ML (HD-IIV4)(Given 05/18/2019, 06/08/2018, 04/17/2016) * INFLUENZA VACCINE, QUADR. (FLUZONE; FLULAVAL; FLUARIX; AFLURIA QUADRIVALENT; 6MO+), 0.5 ML (IIV4)(Given 04/29/2023) * PNEUMOCOCCAL PCV20 CONJ VAC IM(Given 04/29/2023) * PNEUMOCOCCAL PPSV23(Given 04/18/2016) * TDAP (7yrs+)(Given 10/22/2015) Social History Tobacco Use Types Packs/Day Years [...] Comments Blood Pressure 128/79 06/07/2024 1:50 PM MARKET DEVELOPMENT MANAGER Pulse 73 06/07/2024 1:50 PM MARKET DEVELOPMENT MANAGER Temperature 36.6 C (97.8 F) 03/05/2021 2:21 PM CDT Respiratory Rate 17 06/07/2024 1:50 PM MARKET DEVELOPMENT MANAGER Oxygen Saturation 94% 06/07/2024 1:50 PM MARKET DEVELOPMENT MANAGER Inhaled Oxygen Concentration - - Weight 92.3 kg (203 lb 6.4 oz) 06/07/2024 1:50 P M MARKET DEVELOPMENT MANAGER Height 180.3 cm (5' 11 ) 06/07/2024 1:50 PM MARKET DEVELOPMENT MANAGER Body Mass Index 28.37 06/07/2024 1:50 PM MARKET DEVELOPMENT MANAGER Procedures * SIX MINUTE WALK(Performed 12/17/2022) Performed for Chronic obstructive pulmonary disease, unspecified COPD type (HCC) * COMPLETE PFT W/WO BRONCHODILATOR(Performed 12/17/2022) Performed for Chronic obstructive pulmonary disease, unspecified COPD type (HCC) * XR LUMBAR SPINE 2 OR 3VW(Performed 10/22/2021) Performed for Chronic right-sided low back pain, unspecified whether sciatica present * CT NERVE BLOCK L OR S UNILAT(Performed 08/09/2021) Performed for Foraminal stenosis of lumbar region * CT LUMBAR SPINE WO CONTRAST(Performed 05/14/2021) Performed for Chronic right SI joint pain * XR LUMBAR SPINE 2 OR 3VW(Performed 04/16/2021) Performed for Back pain, unspecified back location, unspecified back pain laterality, unspecified chronicity * XR CHEST 2VW(Performed 11/23/2019) Performed for Chronic cough * FERRITIN(Performed 11/01/2019) Performed for Eaost-0-rrsunlgkamw deficiency carrier, Elevated liver enzymes * TRANSFERRIN(Performed 11/01/2019) Performed for Ideoe-9-jfglasfkspc deficiency carrier, Elevated liver enzymes * IRON BLOOD(Performed 11/01/2019) Performed for Nxioa-0-aohsdwpbnhc deficiency carrier, Elevated liver enzymes * GGT(Performed 11/01/2019) Performed for Tabmy-7-hzacszoykwc deficiency carrier, Elevated liver enzymes * CBC W AUTO DIFFERENTIAL(Performed 11/01/2019) Performed for Zvpox-0-gkpguwxskdn deficiency carrier, Elevated liver enzymes * COMPREHENSIVE METABOLIC PANEL(Performed 11/01/2019) Performed for Rrymk-6-scqttmebvlk deficiency carrier * COMPREHENSIVE METABOLIC PANEL(Performed 05/19/2019) * PT-INR(Performed 05/19/2019) Performed for Abnormal LFTs * XR PELVIS AP W INLET OUTLET(Performed 07/16/2016) * XR CLAVICLE RIGHT 2VW(Performed 07/16/2016) * CT CHEST WO CONTRAST(Performed 05/22/2016) * XR CLAVICLE RIGHT 2VW(Performed 04/16/2016) * XR PELVIS AP W INLET OUTLET(Performed 04/16/2016) * XR THORACIC SPINE 2VW(Performed 04/14/2016) * BASIC METABOLIC PANEL (CALCIUM TOTAL)(Performed 04/02/2016) * CBC W AUTO DIFFERENTIAL(Performed 04/02/2016) * CBC W AUTO DIFFERENTIAL(Performed 04/02/2016) * FL DUNG SURGERY(Performed 04/01/2016) * PT-INR [facility](Performed 04/01/2016) * TYPE + SCREEN PANEL(Performed 04/01/2016) * BASIC METABOLIC PANEL (CALCIUM TOTAL)(Performed 03/25/2016) * CBC W AUTO DIFFERENTIAL(Performed 03/25/2016) * CBC W AUTO DIFFERENTIAL(Performed 03/25/2016) * XR THORACIC SPINE 2VW(Performed 03/04/2016) * XR CLAVICLE RIGHT 2VW(Performed 01/23/2016) * XR PELVIS AP W INLET OUTLET(Performed 01/23/2016) * XR THORACOLUMBAR SPINE 2VW(Performed 01/02/2016) * XR CLAVICLE RIGHT 2VW(Performed 12/12/2015) * XR PELVIS AP W INLET OUTLET(Performed 12/12/2015) * PT-INR [facility](Performed 11/27/2015) * PTT [facility](Performed 11/26/2015) * CBC W AUTO DIFFERENTIAL(Performed 11/26/2015) * CBC W AUTO DIFFERENTIAL(Performed 11/26/2015) * XR THORACOLUMBAR SPINE 2VW(Performed 11/26/2015) * TYPE + SCREEN PANEL(Performed 11/26/2015) * BASIC METABOLIC PANEL (CALCIUM TOTAL)(Performed 11/26/2015) * PHOSPHORUS BLOOD(Performed 11/26/2015) * MAGNESIUM BLOOD(Performed 11/26/2015) * BASIC METABOLIC PANEL (CALCIUM TOTAL)(Performed 11/25/2015) * PHOSPHORUS BLOOD(Performed 11/25/2015) * MAGNESIUM BLOOD(Performed 11/25/2015) * POTASSIUM BLOOD(Performed 11/24/2015) * BASIC METABOLIC PANEL (CALCIUM TOTAL)(Performed 11/24/2015) * PHOSPHORUS BLOOD(Performed 11/24/2015) * MAGNESIUM BLOOD(Performed 11/24/2015) * VAS BILATERAL VENOUS DUPLEX LE(Performed 11/23/2015) * BASIC METABOLIC PANEL (CALCIUM TOTAL)(Performed 11/23/2015) * PHOSPHORUS BLOOD(Performed 11/23/2015) * MAGNESIUM BLOOD(Performed 11/23/2015) * XR ABDOMEN KUB PORTABLE(Performed 11/22/2015) * XR CLAVICLE RIGHT 2VW(Performed 11/22/2015) * XR PELVIS 3VW OR MORE(Performed 11/22/2015) * BASIC METABOLIC PANEL (CALCIUM TOTAL)(Performed 11/22/2015) * PHOSPHORUS BLOOD(Performed 11/22/2015) * MAGNESIUM BLOOD(Performed 11/22/2015) * BASIC METABOLIC PANEL (CALCIUM TOTAL)(Performed 11/21/2015) * CBC W/O DIFFERENTIAL(Performed 11/21/2015) * XR CHEST 1VW PORTABLE(Performed 11/20/2015) * XR CHEST 1VW PORTABLE(Performed 11/20/2015) * PHOSPHORUS BLOOD(Performed 11/20/2015) * MAGNESIUM BLOOD(Performed 11/20/2015) * BASIC METABOLIC PANEL (CALCIUM TOTAL)(Performed 11/20/2015) * PHOSPHORUS BLOOD(Performed 11/20/2015) * MAGNESIUM BLOOD(Performed 11/20/2015) * BASIC METABOLIC PANEL (CALCIUM TOTAL)(Performed 11/20/2015) * XR CHEST 1VW PORTABLE(Performed 11/19/2015) * BASIC METABOLIC PANEL (CALCIUM TOTAL)(Performed 11/19/2015) * XR ABDOMEN KUB PORTABLE(Performed 11/18/2015) * XR CHEST 1VW PORTABLE(Performed 11/18/2015) * BASIC METABOLIC PANEL (CALCIUM TOTAL)(Performed 11/18/2015) * XR CHEST 1VW PORTABLE(Performed 11/18/2015) * XR CHEST 1VW PORTABLE(Performed 11/17/2015) * BASIC METABOLIC PANEL (CALCIUM TOTAL)(Performed 11/17/2015) * CBC W AUTO DIFFERENTIAL(Performed 11/17/2015) * CBC W AUTO DIFFERENTIAL(Performed 11/17/2015) * XR CHEST 1VW PORTABLE(Performed 11/17/2015) * XR ABDOMEN KUB PORTABLE(Performed 11/16/2015) * VAS BILATERAL VENOUS DUPLEX LE(Performed 11/16/2015) * XR CHEST 1VW PORTABLE(Performed 11/16/2015) * EKG 12-LEAD(Performed 11/16/2015) * BASIC METABOLIC PANEL (CALCIUM TOTAL)(Performed 11/15/2015) * PHOSPHORUS BLOOD(Performed 11/15/2015) * MAGNESIUM BLOOD(Performed 11/15/2015) * CBC W/O DIFFERENTIAL(Performed 11/15/2015) * XR CLAVICLE RIGHT 2VW(Performed 11/15/2015) * XR PELVIS 3VW OR MORE(Performed 11/15/2015) * XR CHEST 1VW PORTABLE(Performed 11/15/2015) * BASIC METABOLIC PANEL (CALCIUM TOTAL)(Performed 11/15/2015) * PHOSPHORUS BLOOD(Performed 11/15/2015) * MAGNESIUM BLOOD(Performed 11/15/2015) * CBC W/O DIFFERENTIAL(Performed 11/15/2015) * XR CHEST 1VW PORTABLE(Performed 11/14/2015) * BASIC METABOLIC PANEL (CALCIUM TOTAL)(Performed 11/14/2015) * PHOSPHORUS BLOOD(Performed 11/14/2015) * MAGNESIUM BLOOD(Performed 11/14/2015) * CBC W/O DIFFERENTIAL(Performed 11/14/2015) * XR ABDOMEN KUB PORTABLE(Performed 11/13/2015) * XR CHEST 1VW PORTABLE(Performed 11/13/2015) * BASIC METABOLIC PANEL (CALCIUM TOTAL)(Performed 11/13/2015) * MAGNESIUM BLOOD(Performed 11/13/2015) * PHOSPHORUS BLOOD(Performed 11/13/2015) * CBC W/O DIFFERENTIAL(Performed 11/13/2015) * XR CHEST 1VW PORTABLE(Performed 11/12/2015) * XR CHEST 1VW PORTABLE(Performed 11/12/2015) * BASIC METABOLIC PANEL (CALCIUM TOTAL)(Performed 11/12/2015) * PHOSPHORUS BLOOD(Performed 11/12/2015) * MAGNESIUM BLOOD(Performed 11/12/2015) * CBC W/O DIFFERENTIAL(Performed 11/12/2015) * XR CHEST 1VW PORTABLE(Performed 11/11/2015) * XR CHEST 1VW PORTABLE(Performed 11/11/2015) * BASIC METABOLIC PANEL (CALCIUM TOTAL)(Performed 11/11/2015) * PHOSPHORUS BLOOD(Performed 11/11/2015) * MAGNESIUM BLOOD(Performed 11/11/2015) * CBC W/O DIFFERENTIAL(Performed 11/11/2015) * XR CHEST 1VW PORTABLE(Performed 11/10/2015) * BASIC METABOLIC PANEL (CALCIUM TOTAL)(Performed 11/10/2015) * BASIC METABOLIC PANEL (CALCIUM TOTAL)(Performed 11/09/2015) * PHOSPHORUS BLOOD(Performed 11/09/2015) * MAGNESIUM BLOOD(Performed 11/09/2015) * CBC W/O DIFFERENTIAL(Performed 11/09/2015) * XR CHEST 1VW PORTABLE(Performed 11/09/2015) * VAS BILATERAL VENOUS DUPLEX LE(Performed 11/09/2015) * XR CHEST 1VW PORTABLE(Performed 11/09/2015) * BASIC METABOLIC PANEL (CALCIUM TOTAL)(Performed 11/09/2015) * MAGNESIUM BLOOD(Performed 11/09/2015) * PHOSPHORUS BLOOD(Performed 11/09/2015) * CBC W/O DIFFERENTIAL(Performed 11/09/2015) * XR CHEST 1VW PORTABLE(Performed 11/08/2015) * XR THORACOLUMBAR SPINE 2VW(Performed 11/08/2015) * CT CHEST W CONTRAST(Performed 11/08/2015) * XR CLAVICLE RIGHT 2VW(Performed 11/08/2015) * XR PELVIS 3VW OR MORE(Performed 11/08/2015) * XR CHEST 1VW PORTABLE(Performed 11/08/2015) * BASIC METABOLIC PANEL (CALCIUM TOTAL)(Performed 11/08/2015) * PHOSPHORUS BLOOD(Performed 11/08/2015) * MAGNESIUM BLOOD(Performed 11/08/2015) * CBC W/O DIFFERENTIAL(Performed 11/08/2015) * XR ABDOMEN KUB PORTABLE(Performed 11/07/2015) * VAS BILATERAL VENOUS DUPLEX LE(Performed 11/07/2015) * XR CHEST 1VW PORTABLE(Performed 11/07/2015) * BASIC METABOLIC PANEL (CALCIUM TOTAL)(Performed 11/07/2015) * PHOSPHORUS BLOOD(Performed 11/07/2015) * MAGNESIUM BLOOD(Performed 11/07/2015) * CBC W/O DIFFERENTIAL(Performed 11/07/2015) * XR CHEST 1VW PORTABLE(Performed 11/06/2015) * BASIC METABOLIC PANEL (CALCIUM TOTAL)(Performed 11/06/2015) * MAGNESIUM BLOOD(Performed 11/06/2015) * PHOSPHORUS BLOOD(Performed 11/06/2015) * CBC W/O DIFFERENTIAL(Performed 11/06/2015) * CALCIUM IONIZED WHOLE BLOOD(Performed 11/06/2015) * BLOOD GASES ARTERIAL(Performed 11/06/2015) * XR CHEST 1VW PORTABLE(Performed 11/05/2015) * BASIC METABOLIC PANEL (CALCIUM TOTAL)(Performed 11/05/2015) * PHOSPHORUS BLOOD(Performed 11/05/2015) * MAGNESIUM BLOOD(Performed 11/05/2015) * CBC W/O DIFFERENTIAL(Performed 11/05/2015) * CALCIUM IONIZED WHOLE BLOOD(Performed 11/05/2015) * BLOOD GASES ARTERIAL(Performed 11/05/2015) * BLOOD GASES ARTERIAL(Performed 11/04/2015) * XR CHEST 1VW PORTABLE(Performed 11/04/2015) * PHOSPHORUS BLOOD(Performed 11/04/2015) * BASIC METABOLIC PANEL (CALCIUM TOTAL)(Performed 11/04/2015) * MAGNESIUM BLOOD(Performed 11/04/2015) * CBC W/O DIFFERENTIAL(Performed 11/04/2015) * CALCIUM IONIZED WHOLE BLOOD(Performed 11/04/2015) * BLOOD GASES ARTERIAL(Performed 11/04/2015) * BLOOD GASES ARTERIAL(Performed 11/03/2015) * XR CHEST 1VW PORTABLE(Performed 11/03/2015) * BASIC METABOLIC PANEL (CALCIUM TOTAL)(Performed 11/03/2015) * MAGNESIUM BLOOD(Performed 11/03/2015) * PHOSPHORUS BLOOD(Performed 11/03/2015) * CBC W/O DIFFERENTIAL(Performed 11/03/2015) * BLOOD GASES ARTERIAL(Performed 11/03/2015) * CALCIUM IONIZED WHOLE BLOOD(Performed 11/03/2015) * EKG 12-LEAD(Performed 11/03/2015) * XR CHEST 1VW PORTABLE(Performed 11/02/2015) * XR ABDOMEN KUB PORTABLE(Performed 11/02/2015) * XR CHEST 1VW PORTABLE(Performed 11/02/2015) * BASIC METABOLIC PANEL (CALCIUM TOTAL)(Performed 11/02/2015) * MAGNESIUM BLOOD(Performed 11/02/2015) * PHOSPHORUS BLOOD(Performed 11/02/2015) * CBC W/O DIFFERENTIAL(Performed 11/02/2015) * CALCIUM IONIZED WHOLE BLOOD(Performed 11/02/2015) * BLOOD GASES ARTERIAL(Performed 11/02/2015) * CBC W/O DIFFERENTIAL(Performed 11/01/2015) * XR CLAVICLE RIGHT 2VW(Performed 11/01/2015) * XR PELVIS 3VW OR MORE(Performed 11/01/2015) * XR CHEST 1VW PORTABLE(Performed 11/01/2015) * BASIC METABOLIC PANEL (CALCIUM TOTAL)(Performed 11/01/2015) * PHOSPHORUS BLOOD(Performed 11/01/2015) * MAGNESIUM BLOOD(Performed 11/01/2015) * CALCIUM IONIZED WHOLE BLOOD(Performed 11/01/2015) * BLOOD GASES ARTERIAL(Performed 11/01/2015) * CBC W/O DIFFERENTIAL(Performed 11/01/2015) * XR THORACIC SPINE 3VW(Performed 10/31/2015) * XR CHEST 1VW PORTABLE(Performed 10/31/2015) * PHOSPHORUS BLOOD(Performed 10/31/2015) * BASIC METABOLIC PANEL (CALCIUM TOTAL)(Performed 10/31/2015) * MAGNESIUM BLOOD(Performed 10/31/2015) * CALCIUM IONIZED WHOLE BLOOD(Performed 10/31/2015) * BLOOD GASES ARTERIAL(Performed 10/31/2015) * CBC W/O DIFFERENTIAL(Performed 10/31/2015) * XR CHEST 1VW PORTABLE(Performed 10/30/2015) * TYPE + SCREEN PANEL(Performed 10/30/2015) * CROSSMATCH RBC LEUKOREDUCED(Performed 10/30/2015) * BASIC METABOLIC PANEL (CALCIUM TOTAL)(Performed 10/30/2015) * PHOSPHORUS BLOOD(Performed 10/30/2015) * MAGNESIUM BLOOD(Performed 10/30/2015) * CBC W/O DIFFERENTIAL(Performed 10/30/2015) * CALCIUM IONIZED WHOLE BLOOD(Performed 10/30/2015) * BLOOD GASES ARTERIAL(Performed 10/30/2015) * CT HEAD WO CONTRAST(Performed 10/29/2015) * CULTURE SPUTUM+GRAM STAIN(Performed 10/29/2015) * CULTURE BLOOD(Performed 10/29/2015) * CULTURE BLOOD(Performed 10/29/2015) * CULTURE URINE(Performed 10/29/2015) * CBC W/O DIFFERENTIAL(Performed 10/29/2015) * XR CHEST 1VW PORTABLE(Performed 10/29/2015) * BASIC METABOLIC PANEL (CALCIUM TOTAL)(Performed 10/29/2015) * PHOSPHORUS BLOOD(Performed 10/29/2015) * MAGNESIUM BLOOD(Performed 10/29/2015) * CBC W/O DIFFERENTIAL(Performed 10/29/2015) * CALCIUM IONIZED WHOLE BLOOD(Performed 10/29/2015) * BLOOD GASES ARTERIAL(Performed 10/29/2015) * XR CHEST 1VW PORTABLE(Performed 10/28/2015) * VITAMIN B12(Performed 10/28/2015) * HEPATIC FUNCTION PANEL(Performed 10/28/2015) * BASIC METABOLIC PANEL (CALCIUM TOTAL)(Performed 10/28/2015) * PHOSPHORUS BLOOD(Performed 10/28/2015) * MAGNESIUM BLOOD(Performed 10/28/2015) * CBC W/O DIFFERENTIAL(Performed 10/28/2015) * BLOOD GASES ARTERIAL(Performed 10/28/2015) * CALCIUM IONIZED WHOLE BLOOD(Performed 10/28/2015) * XR CHEST 1VW PORTABLE(Performed 10/27/2015) * XR ABDOMEN KUB PORTABLE(Performed 10/27/2015) * BLOOD GASES ARTERIAL(Performed 10/27/2015) * XR CHEST 1VW PORTABLE(Performed 10/27/2015) * XR CHEST 1VW PORTABLE(Performed 10/27/2015) * XR CHEST 1VW PORTABLE(Performed 10/27/2015) * BASIC METABOLIC PANEL (CALCIUM TOTAL)(Performed 10/27/2015) * MAGNESIUM BLOOD(Performed 10/27/2015) * PHOSPHORUS BLOOD(Performed 10/27/2015) * CALCIUM IONIZED WHOLE BLOOD(Performed 10/27/2015) * CBC W/O DIFFERENTIAL(Performed 10/27/2015) * BLOOD GASES ARTERIAL(Performed 10/27/2015) * BLOOD GASES ARTERIAL(Performed 10/26/2015) * XR CHEST 1VW PORTABLE(Performed 10/26/2015) * XR CHEST 1VW PORTABLE(Performed 10/26/2015) * BASIC METABOLIC PANEL (CALCIUM TOTAL)(Performed 10/26/2015) * CBC W AUTO DIFFERENTIAL(Performed 10/26/2015) * CBC W AUTO DIFFERENTIAL(Performed 10/26/2015) * BLOOD GASES ARTERIAL(Performed 10/26/2015) * CROSSMATCH RBC LEUKOREDUCED(Performed 10/26/2015) * CROSSMATCH RBC LEUKOREDUCED(Performed 10/26/2015) * TYPE + SCREEN PANEL(Performed 10/26/2015) * XR CHEST 1VW PORTABLE(Performed 10/26/2015) * MAGNESIUM BLOOD(Performed 10/25/2015) * PHOSPHORUS BLOOD(Performed 10/25/2015) * BASIC METABOLIC PANEL (CALCIUM TOTAL)(Performed 10/25/2015) * CBC W/O DIFFERENTIAL(Performed 10/25/2015) * CALCIUM IONIZED WHOLE BLOOD(Performed 10/25/2015) * BLOOD GASES ARTERIAL(Performed 10/25/2015) * XR CHEST 1VW PORTABLE(Performed 10/25/2015) * CULTURE SPUTUM+GRAM STAIN(Performed 10/25/2015) * XR PELVIS 1 OR 2VW(Performed 10/25/2015) * BASIC METABOLIC PANEL (CALCIUM TOTAL)(Performed 10/25/2015) * CBC W/O DIFFERENTIAL(Performed 10/25/2015) * BLOOD GASES ARTERIAL(Performed 10/25/2015) * FL DUNG SURGERY(Performed 10/25/2015) * BLOOD GASES ART COMPLETE [facility] OR(Performed 10/25/2015) * BLOOD GASES ART COMPLETE [facility] OR(Performed 10/25/2015) * BASIC METABOLIC PANEL (CALCIUM TOTAL)(Performed 10/25/2015) * PTT [facility](Performed 10/25/2015) * PT-INR [facility](Performed 10/25/2015) * CBC W/O DIFFERENTIAL(Performed 10/25/2015) * BLOOD GASES ARTERIAL(Performed 10/25/2015) * XR CHEST 1VW PORTABLE(Performed 10/25/2015) * BASIC METABOLIC PANEL (CALCIUM TOTAL)(Performed 10/25/2015) * MAGNESIUM BLOOD(Performed 10/25/2015) * PHOSPHORUS BLOOD(Performed 10/25/2015) * CBC W/O DIFFERENTIAL(Performed 10/25/2015) * CALCIUM IONIZED WHOLE BLOOD(Performed 10/25/2015) * BLOOD GASES ARTERIAL(Performed 10/25/2015) * BASIC METABOLIC PANEL (CALCIUM TOTAL)(Performed 10/24/2015) * CBC W/O DIFFERENTIAL(Performed 10/24/2015) * BLOOD GASES ARTERIAL(Performed 10/24/2015) * XR ABDOMEN KUB PORTABLE(Performed 10/24/2015) * US RETROPERITONEAL COMPLETE(Performed 10/24/2015) * CREATININE URINE RANDOM(Performed 10/24/2015) * URINALYSIS REFLEX TO MICROSCOPIC NO CULTURE(Performed 10/24/2015) * OSMOLALITY URINE(Performed 10/24/2015) * SODIUM URINE RANDOM(Performed 10/24/2015) * OSMOLALITY BLOOD(Performed 10/24/2015) * CK + CKMB PANEL(Performed 10/24/2015) * TROPONIN I(Performed 10/24/2015) * BASIC METABOLIC PANEL (CALCIUM TOTAL)(Performed 10/24/2015) * CBC W/O DIFFERENTIAL(Performed 10/24/2015) * BLOOD GASES ARTERIAL(Performed 10/24/2015) * CK + CKMB PANEL(Performed 10/24/2015) * TROPONIN I(Performed 10/24/2015) * BASIC METABOLIC PANEL (CALCIUM TOTAL)(Performed 10/24/2015) * CBC W/O DIFFERENTIAL(Performed 10/24/2015) * BLOOD GASES ARTERIAL(Performed 10/24/2015) * XR CHEST 1VW PORTABLE(Performed 10/24/2015) * CK + CKMB PANEL(Performed 10/24/2015) * TROPONIN I(Performed 10/24/2015) * BASIC METABOLIC PANEL (CALCIUM TOTAL)(Performed 10/24/2015) * MAGNESIUM BLOOD(Performed 10/24/2015) * PHOSPHORUS BLOOD(Performed 10/24/2015) * CBC W/O DIFFERENTIAL(Performed 10/24/2015) * BLOOD GASES ARTERIAL(Performed 10/24/2015) * CALCIUM IONIZED WHOLE BLOOD(Performed 10/24/2015) * BASIC METABOLIC PANEL (CALCIUM TOTAL)(Performed 10/23/2015) * TROPONIN I(Performed 10/23/2015) * CK + CKMB PANEL(Performed 10/23/2015) * CBC W/O DIFFERENTIAL(Performed 10/23/2015) * BLOOD GASES ARTERIAL(Performed 10/23/2015) * TROPONIN I(Performed 10/23/2015) * CBC W/O DIFFERENTIAL(Performed 10/23/2015) * CK + CKMB PANEL(Performed 10/23/2015) * BASIC METABOLIC PANEL (CALCIUM TOTAL)(Performed 10/23/2015) * BLOOD GASES ARTERIAL(Performed 10/23/2015) * BASIC METABOLIC PANEL (CALCIUM TOTAL)(Performed 10/23/2015) * XR ABDOMEN KUB PORTABLE(Performed 10/23/2015) * BLOOD GASES ARTERIAL(Performed 10/23/2015) * URINALYSIS REFLEX TO MICROSCOPIC NO CULTURE(Performed 10/23/2015) * DRUG ABUSE PANEL 10-20+ETHANOL URINE NO CONFIRM(Performed 10/23/2015) * XR CHEST 1VW PORTABLE(Performed 10/23/2015) * BLOOD GASES ARTERIAL(Performed 10/23/2015) * XR CHEST 1VW PORTABLE(Performed 10/23/2015) * BASIC METABOLIC PANEL (CALCIUM TOTAL)(Performed 10/23/2015) * LACTIC ACID BLOOD(Performed 10/23/2015) * MAGNESIUM BLOOD(Performed 10/23/2015) * PHOSPHORUS BLOOD(Performed 10/23/2015) * DIFFERENTIAL MANUAL(Performed 10/23/2015) * CBC W AUTO DIFFERENTIAL(Performed 10/23/2015) * CBC W AUTO DIFFERENTIAL(Performed 10/23/2015) * BLOOD GASES ARTERIAL(Performed 10/23/2015) * CALCIUM IONIZED WHOLE BLOOD(Performed 10/23/2015) * XR CHEST 1VW PORTABLE(Performed 10/23/2015) * ECHO COMPLETE(Performed 10/23/2015) * EKG 12-LEAD(Performed 10/23/2015) * CT CHEST WO CONTRAST(Performed 10/22/2015) * XR PELVIS AP W INLET OUTLET(Performed 10/22/2015) * XR TIBIA FIBULA RIGHT 2VW(Performed 10/22/2015) * XR TIBIA FIBULA LEFT 2VW(Performed 10/22/2015) * XR PELVIS 1 OR 2VW(Performed 10/22/2015) * XR CHEST 1VW PORTABLE(Performed 10/22/2015) * CT THORACIC SPINE WO CONTRAST(Performed 10/22/2015) * CT CERVICAL SPINE WO CONTRAST(Performed 10/22/2015) * CT FACIAL BONES WO CONTRAST(Performed 10/22/2015) * CT HEAD WO CONTRAST(Performed 10/22/2015) * CT CHEST ABDOMEN PELVIS W CONT(Performed 10/22/2015) * CT LUMBAR SPINE WO CONTRAST(Performed 10/22/2015) * TYPE + SCREEN PANEL(Performed 10/22/2015) * CROSSMATCH RBC LEUKOREDUCED(Performed 10/22/2015) * PREPARE PLATELET PHERESIS UNIT(S)(Performed 10/22/2015) * TROPONIN I(Performed 10/22/2015) * DIFFERENTIAL MANUAL(Performed 10/22/2015) * CBC W AUTO DIFFERENTIAL(Performed 10/22/2015) * PT-INR [facility](Performed 10/22/2015) * ALCOHOL ETHYL BLOOD(Performed 10/22/2015) * BASIC METABOLIC PANEL (CALCIUM TOTAL)(Performed 10/22/2015) * LACTIC ACID BLOOD(Performed 10/22/2015) * CBC W AUTO DIFFERENTIAL(Performed 10/22/2015) * EKG 12-LEAD(Performed 10/22/2015) Results * Six Minute Walk Test [facility] PFT Lab (12/17/2022 2:49 PM CDT) Impressions David Orozco MD - 12/17/2022 2:49 PM CDT [facility] DEPARTMENT OF PULMONARY, CRITICAL CARE, AND SLEEP MEDICINE SIX MINUTE WALK TEST Mendoza Stevens 12/17/2022 Interpretation: The patient walked for 6 minutes on room air and covered total distance of 509 meters. On the Jemima scale at baseline, reported dyspnea was 0 and fatigue was 0. At the end of the study, the Jemima reported dyspnea was 3 and fatigue was 2. There were additional symptoms of leg pain reported and oxygen saturation remained above 95% throughout the test. IMPRESSION: 1. Total 6 minute walk distance is 509 meters, which is above the lower limit of normal of 396 meters for this patient. 2. There is no available study for comparison. Eliana Ho MD Pulmonary & Critical Care Fellow, PGY-4 Division of Pulmonary, Critical Care and Sleep Medicine [facility] I have personally reviewed the pulmonary function test data and made adjustment to the interpretation where necessary. David Orozco MD 12/26/2022 Narrative David Orozco MD - 12/17/2022 2:49 PM CDT Eliana Ho MD 12/17/2022 3:59 PM Meka Hinojosa MD RESPIRATORY THERAPY ORDERABLES * Complete PFT w/wo Bronchodilator [facility] PFT Lab (12/17/2022 2:42 PM CDT) Impressions David Orozco MD - 12/17/2022 2:42 PM CDT [facility] DEPARTMENT OF PULMONARY, CRITICAL CARE, AND SLEEP MEDICINE PULMONARY FUNCTION TEST Please see technologist's comments mentioned in the report. INTERPRETATION: SPIROMETRY: FVC: normal. FEV1: decreased. FEV1/FVC ratio is decreased. BRONCHODILATOR RESPONSE: There is no significant response to bronchodilator therapy, however this does not mean the patient would not benefit from bronchodilator therapy. FLOW-VOLUME LOOPS: Inspection of the flow-volume loops shows scooping of the expiratory limbs. LUNG VOLUMES: Lung volumes by body plethysmography show normal total lung volume and normal residual volume DIFFUSION CAPACITY DLCO: Unadjusted for Hb and COHb is decreased (58% predicted). DLCO: Corrected for Hb and COHb is not performed. IMPRESSION: 1. Mild obstructive ventilatory limitation. 2. There is moderately decreased uncorrected DLCO. 3. No significant bronchodilator response, however this does not preclude the use of bronchodilators. 4. There is no previous study available for comparison. Eliana Ho MD Pulmonary & Critical Care Fellow, PGY-4 Division of Pulmonary, Critical Care and Sleep Medicine [facility] I have personally reviewed the pulmonary function test data and made adjustment to the interpretation where necessary. David Orozco MD 12/26/2022 Narrative David Orozco MD - 12/17/2022 2:42 PM CDT Eliana Ho MD 12/17/2022 3:58 PM Meka Hinojosa MD RESPIRATORY THERAPY ORDERABLES * XR LUMBAR SPINE 2 OR 3VW (10/22/2021 9:18 AM CDT) Only the most recent of2 resultswithin the time period is included. Anatomical Region Laterality Modality Spine Radiographic Zayda ging 10/22/2021 9:18 AM CDT Impressions 10/22/2021 9:25 AM CDT Impression: Degenerative changes. Report dictated by Sae Ibrahim DO (assistant professor of radiology) IDr. JULIUS MD have personally reviewed and interpreted this examination/study. This report was electronically signed by JULIUS STACY MD on 10/22/2021 9:25 AM . Narrative 10/22/2021 9:25 AM CDT Exam: XR LUMBAR SPINE 2 OR 3VW Date: 10/22/2021 9:18 AM History: M54.50: Chronic right-sided low back pain, unspecified whether sciatica present G89.29: Chronic right-sided low back pain, unspecified whether sciatica present COMPARISON: Radiograph of the lumbar spine dated 04/16/2021. CT of the lumbar spine dated 05/14/2020 Findings: Redemonstrated screw fixation of the left sacroiliac joint, the screw appears intact. There is no fracture or subluxation. There is mild disc space narrowing at L5-S1 and mild to moderate narrowing at L2-3 with endplate sclerosis. There are large bridging osteophytes/syndesmophytes at L2-3 and smaller 1's at other levels. Facet arthropathy in the mid to lower lumbar spine. Baastrup's disease is present. Right upper quadrant cholecystectomy clips are present. Procedure Note Julius Stacy MD - 10/22/2021 Exam: XR LUMBAR SPINE 2 OR 3VW Date: 10/22/2021 9:18 AM History: M54.50: Chronic right-sided low back pain, unspecified whether sciatica present G89.29: Chronic right-sided low back pain, unspecified whether sciatica present COMPARISON: Radiograph of the lumbar spine dated 04/16/2021. CT of the lumbar spine dated 05/14/2020 Findings: Redemonstrated screw fixation of the left sacroiliac joint, the screw appears intact. There is no fracture or subluxation. There is mild disc space narrowingat L5-S1 and mild to moderate narrowing at L2-3 with endplate sclerosis. There are large bridging osteophytes/syndesmophytes at L2-3 and smaller 1's at other levels. Facet arthropathy in the mid to lower lumbar spine. Baastrup's disease is present. Right upper quadrant cholecystectomyclips are present. Impression: Degenerative changes. Report dictated by Sae Ibrahim DO (assistant professor of radiology) IDr. JULIUS MD have personally reviewed and interpreted this examination/study. This report was electronically signed by JULIUS STACY MD on10/22/2021 9:25 AM . Burt Pemberton MD DIAGNOSTIC IMAGING O RDERABLES * CT NERVE BLOCK L OR S UNILAT (08/09/2021 11:40 AM MARKET DEVELOPMENT MANAGER) Anatomical Region Laterality Modality Spine Computed Tomogra phy Narrative 08/16/2021 4:50 PM CDT History: Patient with mass effect neck pain radiating to the right L5-S1 site for transforaminal nerve root injection Operators: 1. Dr. Perez, Attending Physician Anesthesia: Local with 3 mL of 1% lidocaine. Procedure: 1. CT guided right L5-S1 transforaminal nerve root steroid injection. Procedure details: The procedure, risks, and possible complications were explained to the patient in detail, and informed consent was obtained. The patient was placed prone on the procedure table. The lower back was prepped and draped in the usual sterile manner. Pre-procedure CT scan was done in the region of interest, and the needle entry site was marked on the neck. After injection of 1% lidocaine for local anesthesia, a 22-gauge 3.5-inch spinal needle was advanced below the pedicle. Contrast was injected and confirmed proper positioning as it was seen outlining the nerve root with no vascular filling. Subsequently, a mixture of 1 mL dexamethasone (10 mg/mL) was injected. The needle was removed, and sterile dressing was applied. The patient tolerated the procedure well and was transferred to the holding area in stable condition. There were no immediate complications associated with the procedure. Impression: Right L5-S1 transforaminal nerve root steroid injection under CT scan guidance. IDr. Perez performed/was present throughout the procedure. *Reading Radiologist: Camilo Perez on 08/16/2021 at 4:50 PM Burt Pemberton MD CT ORDERABLES * CT LUMBAR SPINE WO CONTRAST (05/14/2021 9:34 AM MARKET DEVELOPMENT MANAGER) Only the most recent of2 resultswithin the time period is included. Anatomical Region Laterality Modality Spine Computed Tomogra phy 05/14/2021 3:51 PM MARKET DEVELOPMENT MANAGER Impressions 05/14/2021 5:16 PM MARKET DEVELOPMENT MANAGER IMPRESSION: 1.No acute fracture of the lumbar spine. 2.Severe degenerative spinal canal stenosis at the level of L3-4. 3.Advanced neural foraminal stenosis of the lower lumbar spine most prominent at L5-S1 on the right. 4.Post surgical changes of the left SI joint. Report dictated by Sae Ibrahim DO (assistant professor of radiology) This report was approved by Sae Ibrahim on 05/14/2021 5:16 PM . IDr. PASCALE have personally reviewed and interpreted this examination/study. This report was electronically signed by PASCALE DUMONT on 05/14/2021 5:16 PM . 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 G89.29: Chronic right SI joint pain TECHNIQUE: CT of the lumbar spine was performed without contrast according to standard protocol. FINDINGS: CT lumbar spine dated 10/22/2015 A cannulated screw traverses the left sacroiliac joint. Trace retrolisthesis of L2 on L3 and possibly L4 on L5. Vertebral bodies are normal in height without evidence of acute fracture. There is advanced degenerative disc disease. Severe degenerative spinal canal stenosis at the level of L3-4 secondary to broad-based posterior disc bulge, ligamentum flavum thickening, and facet arthropathy. There is advanced facet osteoarthritis at multiple levels. Moderate neural foraminal stenosis at L3-4 and L4-5 bilaterally. Moderate left and severe right neural foraminal stenosis at L5-S1 on the right. Multiple bilateral large renal cysts, largest measuring 3.1 cm in the anterior right renal midpole (series 4, image 49). Nonspecific perinephric fat stranding is present. The abdominal aorta and its branches are atherosclerotic. Procedure Note Pascale Dumont MD - 05/14/2021 CT LUMBAR SPINE WO CONTRAST DATE: 05/14/2021 9:35 AM EXAMINATION: Computed tomography (CT) of the lumbar spine withoutcontrast HISTORY: M53.3: Chronic right SI joint pain. G89.29: Chronic right SI joint pain TECHNIQUE: CT of the lumbar spine was performed without contrastaccording to standard protocol. FINDINGS: CT lumbar spine dated 10/22/2015 A cannulated screw traverses the left sacroiliac joint. Trace retrolisthesis of L2 on L3 and possibly L4 on L5. Vertebral bodies are normal in height without evidence of acute fracture. There isadvanced degenerative disc disease. Severe degenerative spinal canal stenosis at the level of L3-4 secondary to broad-based posterior disc bulge, ligamentum flavum thickening, and facet arthropathy. There is advanced facet osteoarthritis at multiple levels. Moderate neural foraminal stenosis at L3-4 and L4-5 bilaterally. Moderate left and severe right neural foraminal stenosis at L5-S1 on the right. Multiple bilaterallarge renal cysts, largest measuring 3.1 cm in the anterior right renalmidpole (series 4, image 49). Nonspecific perinephric fat stranding is present. The abdominal aorta and its branches are atherosclerotic. IMPRESSION: 1.No acute fracture of the lumbar spine. 2.Severe degenerative spinal canal stenosis at the level of L3-4. 3.Advanced neural foraminal stenosis of the lower lumbar spine most prominent at L5-S1 on the right. 4.Post surgical changes of the left SI joint. Report dictated by Sae Ibrahim DO (assistant professor of radiology) This report was approved by Sae Ibrahim on 05/14/2021 5:16 PM. I, Dr. PASCALE DUMONT have personally reviewed and interpreted this examination/study. This report was electronically signed by PASCALE DUMONT on 05/14/2021 5:16 PM . Burt Pemberton MD CT ORDERABLES * XR CHEST 2VW (11/23/2019 2:59 PM CDT) Anatomical Region Laterality Modality Chest Radiographic Zayda ging 11/23/2019 3:01 PM CDT Impressions 11/24/2019 3:47 PM CDT IMPRESSION: No acute pulmonary process. Report dictated by Nyla Yeager MD (assistant professor of radiology). Dr. SOBIA Benjamin M.D. have personally reviewed and interpreted this examination/study. This report was electronically signed by SOBIA SADLER M.D. on 11/24/2019 3:47 PM . Narrative 11/24/2019 3:47 PM CDT EXAMINATION: XR CHEST 2VW, 11/23/2019 2:59 PM HISTORY: R05: Chronic cough COMPARISON: Chest radiograph dated 11/20/2015; CT chest dated 05/22/2016 FINDINGS: Interval removal of the thoracic spinal fusion hardware. Cervical spinal hardware is partially visualized. Mild right lower lung atelectasis/fibrosis is noted. There is no focal consolidation, pleural effusion, or pneumothorax. The cardiac silhouette is normal. The aorta is atherosclerotic and tortuous. Degenerative changes are noted in the thoracic spine and shoulders. Bilateral chronic rib fractures are noted. Procedure Note Sobia Sadler MD - 11/24/2019 EXAMINATION: XR CHEST 2VW, 11/23/2019 2:59 PM HISTORY: R05: Chronic cough COMPARISON: Chest radiograph dated 11/20/2015; CT chest dated 05/22/2016 FINDINGS: Interval removal of the thoracic spinal fusion hardware. Cervical spinal hardware is partially visualized. Mild right lower lung atelectasis/fibrosis is noted. There is no focal consolidation, pleural effusion, or pneumothorax. The cardiac silhouette is normal. The aorta is atherosclerotic and tortuous. Degenerativechanges are noted in the thoracic spine and shoulders. Bilateral chronic rib fractures are noted. IMPRESSION: No acute pulmonary process. Report dictated by Nyla Yeager MD (assistant professor of radiology). I, Dr. SOBIA SADLER M.D. have personally reviewed and interpretedthis examination/study. This report was electronically signed by SOBIA SADLER M.D. on 11/24/2019 3:47 PM . Jonh Lemus MD DIAGNOSTIC IMAGI NG ORDERABLES * TRANSFERRIN (11/01/2019 11:11 AM CDT) [facility] Transferrin 192 174 - 382 mg/dL 11/01/2019 12:25 PM [facility] Transferrin Saturation % 47 16 - 50 % 11/01/2019 12:25 PM [facility] Blood BLOOD SPECIMEN / Unknown Lab Venipuncture / Unknown 11/01/2019 11:11 AM CDT 11/01/2019 11:41 AM CDT Arron Manzanares MD LAB - CHEMISTRY [facility]HEL[facility]ILLARREAL [facility] Organization Address City/State/ZIP Co de Phone Number [address] [address] [phone] * (ABNORMAL) CBC WITH DIFFERENTIAL (11/01/2019 11:11 AM CDT) Only the most recent of15 resultswithin the time period is included. [facility] WBC 3.5 3.5 - 10.5 10 3/uL 11/01/2019 12:19 PM [facility] RBC 3.42(L) 4.30 - 5.70 10 6/uL 11/01/2019 12:19 PM [facility] Hemoglobin 11.1(L) 13.5 - 17.5 g/dL 11/01/2019 12:19 PM [facility] Hematocrit 34.4(L) 39.0 - 50.0 % 11/01/2019 12:19 PM [facility] MCV 100.6(H) 81.0 - 97.0 fL 11/01/2019 12:19 PM [facility] MCH 32.5 28.0 - 34.0 pg 11/01/2019 12:19 PM [facility] MCHC 32.3 32.0 - 36.0 g/dL 11/01/2019 12:19 PM [facility] Platelet Count 50(L) 150 - 400 10 3/uL 11/01/2019 12:19 PM [facility] Comment:Checked by periphera l smear. RDW-SD 51.1(H) 36.0 - 50.0 fL 11/01/2019 12:19 PM [facility] RDW-CV 14.0 11.2 - 14.8 % 11/01/2019 12:19 PM [facility] MPV 14.2(H) 9.3 - 12.8 fL 11/01/2019 12:19 PM [facility] nRBC Absolute 0.00 0 10 3/uL 11/01/2019 12:19 PM [facility] nRBC Auto 0.0 0 /100 WBC 11/01/2019 12:19 PM [facility] Neutrophils % 48.2 35.0 - 70.0 % 11/01/2019 12:19 PM [facility] Lymphocytes % 29.3 19.7 - 55.1 % 11/01/2019 12:19 PM [facility] Monocytes % 18.5(H) 3.0 - 15.0 % 11/01/2019 12:19 PM [facility] Eosinophils % 0.6 0.0 - 6.0 % 11/01/2019 12:19 PM [facility] Basophil % 2.8(H) 0.0 - 1.5 % 11/01/2019 12:19 PM [facility] Neutrophils Absolute 1.7 1.6 - 7.0 10 3/uL 11/01/2019 12:19 PM [facility] Lymphocyte Absolute 1.0 0.8 - 2.9 10 3/uL 11/01/2019 12:19 PM [facility] Monocytes Absolute 0.65 0.14 - 0.66 10 3/uL 11/01/2019 12:19 PM [facility] Eosinophils Absolute 0.02 0.00 - 0.45 10 3/uL 11/01/2019 12:19 PM [facility] Basophils Absolute 0.10(H) 0.00 - 0.06 10 3/uL 11/01/2019 12:19 PM [facility] Immature Granulocytes % 0.6 0.0 - 1.0 % 11/01/2019 12:19 PM [facility] Blood BLOOD SPECIMEN / Unknown Lab Venipuncture / Unknown 11/01/2019 11:11 AM CDT 11/01/2019 11:41 AM CDT Arron Manzanares MD LAB - HEMATOLOGY ORD ERABLES [facility] [address] [place] [address] [phone] * (ABNORMAL) COMPREHENSIVE METABOLIC PANEL (11/01/2019 11:11 AM CDT) Only the most recent of2 resultswithin the time period is included. BUN 19 7 - 26 mg/dL 11/01/2019 12:37 PM [facility] Creatinine 1.0 0.6 - 1.2 mg/dL 11/01/2019 12:37 PM [facility] Sodium 140 136 - 145 mmol/L 11/01/2019 12:37 PM [facility] Potassium 4.4 3.5 - 4.5 mmol/L 11/01/2019 12:37 PM [facility] Chloride 109(H) 98 - 107 mmol/L 11/01/2019 12:37 PM [facility] CO2 24 22 - 29 mmol/L 11/01/2019 12:37 PM [facility] Glucose 88 70 - 115 mg/dL 11/01/2019 12:37 PM [facility] Calcium 8.8 8.4 - 10.2 mg/dL 11/01/2019 12:37 PM [facility] Protein Total 7.8 6.0 - 8.3 g/dL 11/01/2019 12:37 PM [facility] Albumin 3.6 3.4 - 5.0 g/dL 11/01/2019 12:37 PM [facility] Bilirubin Total 0.6 0.2 - 1.2 mg/dL 11/01/2019 12:37 PM [facility] Alkaline Phosphatase 120 40 - 150 Units/L 11/01/2019 12:37 PM [facility] ALT 14 0 - 55 Units/L 11/01/2019 12:37 PM T [facility] AST 20 5 - 34 Units/L 11/01/2019 12:37 PM [facility] Anion Gap 11 8 - 18 11/01/2019 12:37 PM [facility] BUN/Creatinine Ratio 19 7 - 23 11/01/2019 12:37 PM [facility] Osmolality Calculated 292 270 - 300 mOsm/kg 11/01/2019 12:37 PM [facility] Albumin/Globulin Ratio 0.9(L) 1.1 - 2.3 11/01/2019 12:37 PM [facility] eGFR >60 >60 mL/min/1.7 3 m2 11/01/2019 12:37 PM [facility] Blood BLOOD SPECIMEN / Unknown Lab Venipuncture / Unknown 11/01/2019 11:11 AM CDT 11/01/2019 11:41 AM CDT Jonh Lemus MD LAB - CHEMISTRY ORDERABLES [address] [address], [facility] [phone] * IRON BLOOD (11/01/2019 11:11 AM CDT) Iron 113 50 - 175 mcg/dL 11/01/2019 12:25 PM T [facility] Blood BLOOD SPECIMEN / Unknown Lab Venipuncture / Unknown 11/01/2019 11:11 AM CDT 11/01/2019 11:41 AM CDT Arron Manzanares MD LAB - CHEMISTRY MICHELLE VILLARREAL [address] [address], [facility] [phone] * GGT (11/01/2019 11:11 AM CDT) GGT 23 9 - 64 Units/L 11/01/2019 12:37 PM T [facility] Blood BLOOD SPECIMEN / Unknown Lab Venipuncture / Unknown 11/01/2019 11:11 AM CDT 11/01/2019 11:41 AM CDT Arron Manzanares MD LAB - CHEMISTRY MICHELLE VILLARREAL [address] [address], [facility] [phone] * FERRITIN (11/01/2019 11:11 AM CDT) Ferritin 160 22 - 275 ng/mL 11/01/2019 12:45 PM CDT [facility] Blood BLOOD SPECIMEN / Unknown Lab Venipuncture / Unknown 11/01/2019 11:11 AM CDT 11/01/2019 11:41 AM CDT Arron Manzanares MD LAB - CHEMISTRY MICHELLE VILLARREAL Performing Organization Address [facility] Co de Phone Number [address] [address], [facility] [phone] * PT-INR (05/19/2019 2:02 PM MARKET DEVELOPMENT MANAGER) INR 1.0 0.8 - 1.2 [facility] INSURANCE BILL Comment: Reference interval is for non-anticoagulated patients. . Suggested INR therapeutic range for Vitamin K antagonist therapy: Standard Dose (moderate intensity therapeutic range): 2.0 - 3.0 Higher intensity therapeutic range 2.5 - 3.5 PT 10.7 9.1 - 12.0 sec [facility] INSURANCE BILL Blood BLOOD SPECIMEN / Unknown 05/19/2019 2:02 PM MARKET DEVELOPMENT MANAGER 05/19/2019 Narrative [facility] INSURANCE BILL - 05/20/2019 7:08 AM MARKET DEVELOPMENT MANAGER A courtesy copy of this report has been sent to [facility] in [place] *I*KunalP Resulting Agency Comment Lab Testing performed at: [facility] [address] [facility] [phone] Jonh Lemus MD LAB - COAGULATIO N ORDERABLES [facility] INSURANCE BILL [address] [place] [address] * XR PELVIS AP W INLET OUTLET (07/16/2016 9:41 AM MARKET DEVELOPMENT MANAGER) Only the most recent of5 resultswithin the time period is included. Anatomical Region Laterality Modality Other Impressions 07/16/2016 10:09 AM MARKET DEVELOPMENT MANAGER IMPRESSION: 1. Status post closed reduction and percutaneous pinning of a left sacral alar fracture and left sacroiliac joint, unchanged in alignment. 2. Healed left superior and inferior pubic rami fractures. 3. Unchanged piece of heterotopic ossification adjacent to the left greater trochanter. This report was electronically signed by JULIUS STACY MD on 07/16/2016 10:09 AM . Narrative 07/16/2016 10:09 AM MARKET DEVELOPMENT MANAGER Exam: XR PELVIS AP W INLET/OUTLET VIEWS History: Pelvic Ring Injury Comparison: 04/16/2016 Findings: The patient has undergone closed reduction and percutaneous pinning of the left sacroiliac joint and a left sacral alar fracture with a single intact screw. Left superior and inferior pubic rami fractures are unchanged in alignment and appear healed with bridging callus. A piece of bone consistent with heterotopic ossification measuring 4.4 cm in diameter is again seen adjacent to the greater tuberosity of the left femur. There is mild degenerative change in both hips. No acute pelvic fracture is seen. The sacroiliac joints and pubic symphysis are not widened. Procedure Note Julius Stacy MD - 08/28/2017 Exam: XR PELVIS AP W INLET/OUTLET VIEWS History: Pelvic Ring Injury Comparison: 04/16/2016 Findings: The patient has undergone closed reduction and percutaneous pinning of theleft sacroiliac joint and a left sacral alar fracture with a single intactscrew. Left superior and inferior pubic rami fractures are unchanged inalignment and appear healed with bridging callus. A piece of bone consistent with heterotopic ossificationmeasuring 4.4 cm in diameter is again seen adjacent to the greatertuberosity of the left femur. There is mild degenerative change in bothhips. No acute pelvic fracture is seen. The sacroiliac joints and pubic symphysis are not widened. IMPRESSION IMPRESSION: 1. Status post closed reduction and percutaneous pinning of a left sacralalar fracture and left sacroiliac joint, unchanged in alignment. 2. Healed left superior and inferior pubic rami fractures. 3. Unchanged piece of heterotopic ossification adjacent to the leftgreater trochanter. This report was electronically signed by JULIUS STACY MD on 07/16/201610:09 AM . Sahra Mcintyre MD DIAGNOSTIC IMAGING O RDERABLES * XR CLAVICLE RIGHT 2VW (07/16/2016 9:40 AM MARKET DEVELOPMENT MANAGER) Only the most recent of8 resultswithin the time period is included. Anatomical Region Laterality Modality Upper Extremity, Chest Other Impressions 07/16/2016 10:53 AM MARKET DEVELOPMENT MANAGER IMPRESSION: Healing right clavicle mid shaft fracture, unchanged. Report dictated by Simone Hernandes M.D. (resident). This report was approved by Simone Hernandes M.D. on 07/16/2016 10:47 AM . IDr. JULIUS MD have personally reviewed and interpreted this examination/study. This report was electronically signed by JULIUS STACY MD on 07/16/2016 10:53 AM . Narrative 07/16/2016 10:53 AM MARKET DEVELOPMENT MANAGER EXAMINATION: XR CLAVICLE RIGHT DATE: 07/16/2016 9:41 AM HISTORY: Right Clavicle Fracture COMPARISON: Right clavicle radiographs dated 04/16/2016. FINDINGS: A right mid shaft clavicle fracture is unchanged in alignment with progressive callus formation indicative of healing. No new fracture is identified. Instrumented spinal fusion hardware is seen in the cervical spine. Osteoarthritis is seen at the acromioclavicular joint and glenohumeral joint. Healing right-sided rib fractures are noted. Procedure Note Julius Stacy MD - 08/28/2017 EXAMINATION: XR CLAVICLE RIGHT DATE: 07/16/2016 9:41 AM HISTORY: Right Clavicle Fracture COMPARISON: Right clavicle radiographs dated 04/16/2016. FINDINGS: A right mid shaft clavicle fracture is unchanged in alignment withprogressive callus formation indicative of healing. No new fracture isidentified. Instrumented spinal fusion hardware is seen in the cervicalspine. Osteoarthritis is seen at the acromioclavicular joint and glenohumeral joint. Healing right-sided ribfractures are noted. IMPRESSION IMPRESSION: Healing right clavicle mid shaft fracture, unchanged. Report dictated by Simone Hernandes M.D. (resident). This report was approved by Simone Hernandes M.D. on 07/16/2016 10:47 AM. I, Dr. JULIUS STACY MD have personally reviewed and interpreted thisexamination/study. This report was electronically signed by JULIUS STACY MD on 07/16/201610:53 AM . Sahra Mcintyre MD DIAGNOSTIC IMAGING O RDERABLES * CT CHEST WO CONTRAST (05/22/2016 11:48 AM MARKET DEVELOPMENT MANAGER) Only the most recent of2 resultswithin the time period is included. Anatomical Region Laterality Modality Chest Other Impressions 05/22/2016 12:42 PM MARKET DEVELOPMENT MANAGER Impression: 1. Resolution of ground glass opacities and nodular opacities within the lungs consistent with resolved traumatic or inflammatory process. Pneumothorax and effusions have also resolved and there is minimal residual pleural parenchymal scarring. 2. Multiple healing fractures throughout the ribs and spine. This report was electronically signed by LIZABETH KITCHEN M.D. on 05/22/2016 12:42 PM . Narrative 05/22/2016 12:42 PM MARKET DEVELOPMENT MANAGER Exam: CT CHEST WO CONTRAST Date: 05/22/2016 11:49 AM History: f/u on ggo and lung nodule Technique: Multislice helical without intravenous contrast using the standard protocol of the chest. Findings: Comparison is made to 11/08/2015. Linear atelectasis or scarring is present within both lower lobes as well as minimal subpleural scarring in the left upper lobe. No pulmonary nodule, mass or consolidation is seen. Pneumothorax and effusions from the prior trauma have resolved. The airway is patent. The heart size is normal without pericardial effusion. Mild atherosclerotic calcification is present within the coronary arteries and thoracic aorta. The thoracic aorta is normal in caliber. No significant adenopathy is seen within the chest. Minimal gynecomastia is noted. Limited images of the upper abdomen reveal surgical clips from prior cholecystectomy. Simple cysts are seen within both kidneys. Visualized portions of the spleen, pancreas and bowel are normal. Multiple healing rib fractures are seen bilaterally. Healing right clavicle fracture is also partially imaged. Since the prior CT examination, spinal fusion hardware has been removed. T3 and T4 compression fractures are more sclerotic, consistent with evolution. Deformity of the T8 vertebral body is also indicative of healing fracture. The T9 vertebral body fractures not as well seen, also consistent with healing. Multiple screw ghosts are seen within the thoracic spine. Degenerative changes are seen throughout the thoracic spine. Procedure Note Liza Kitchen MD - 08/28/2017 Exam: CT CHEST WO CONTRAST Date: 05/22/2016 11:49 AM History: f/u on ggo and lung nodule Technique: Multislice helical without intravenous contrast using thestandard protocol of the chest. Findings: Comparison is made to 11/08/2015. Linear atelectasis or scarring is present within both lower lobes as wellas minimal subpleural scarring in the left upper lobe. No pulmonarynodule, mass or consolidation is seen. Pneumothorax and effusions from theprior trauma have resolved. The airway is patent. The heart size is normal without pericardial effusion. Mildatherosclerotic calcification is present within the coronary arteries andthoracic aorta. The thoracic aorta is normal in caliber. No significantadenopathy is seen within the chest. Minimal gynecomastia is noted. Limited images of the upper abdomen reveal surgical clips from priorcholecystectomy. Simple cysts are seen within both kidneys. Visualizedportions of the spleen, pancreas and bowel are normal. Multiple healing rib fractures are seen bilaterally. Healing rightclavicle fracture is also partially imaged. Since the prior CTexamination, spinal fusion hardware has been removed. T3 and S8pgwuwfrxjxn fractures are more sclerotic, consistent with evolution. Deformity of the T8 vertebral body is also indicative ofhealing fracture. The T9 vertebral body fractures not as well seen, alsoconsistent with healing. Multiple screw ghosts are seen within thethoracic spine. Degenerative changes are seen throughout the thoracic spine. IMPRESSION Impression: 1. Resolution of ground glass opacities and nodular opacities within thelungs consistent with resolved traumatic or inflammatory process.Pneumothorax and effusions have also resolved and there is minimalresidual pleural parenchymal scarring. 2. Multiple healing fractures throughout the ribs and spine. This report was electronically signed by LIZABETH KITCHEN M.D. on05/22/2016 12:42 PM . Meka Hinojosa MD CT ORDERABLES * XR THORACIC SPINE 2VW (04/14/2016 9:04 AM MARKET DEVELOPMENT MANAGER) Only the most recent of2 resultswithin the time period is included. Anatomical Region Laterality Modality Spine Other Impressions 04/14/2016 9:47 AM MARKET DEVELOPMENT MANAGER IMPRESSION: Interval removal of spinal fusion hardware from the thoracic spine. This report was electronically signed by JULIUS STACY MD on 04/14/2016 9:47 AM . Narrative 04/14/2016 9:47 AM MARKET DEVELOPMENT MANAGER Exam: XR SPINE THORACIC 2 VWS History: s/p hardware removal Comparison: 03/04/2016 Findings: Since the prior study, there has been removal of instrumented posterior thoracic spinal fusion hardware from T6 to T10. Previously described T8 and T9 vertebral body fractures dating back to 10/22/2015 are grossly unchanged in alignment. No new fracture is seen. There is no subluxation. There is anterior flowing ossification across multiple disc spaces. Procedure Note Julius Stacy MD - 08/29/2017 Exam: XR SPINE THORACIC 2 VWS History: s/p hardware removal Comparison: 03/04/2016 Findings: Since the prior study, there has been removal of instrumented posteriorthoracic spinal fusion hardware from T6 to T10. Previously described T8and T9 vertebral body fractures dating back to 10/22/2015 are grosslyunchanged in alignment. No new fracture is seen. There is no subluxation. There is anterior flowing ossificationacross multiple disc spaces. IMPRESSION IMPRESSION: Interval removal of spinal fusion hardware from the thoracicspine. This report was electronically signed by JULIUS STACY MD on04/14/2016 9:47 AM . Jeremy Solorio DO DIAGNOSTIC IMAGING O RDERABLES * (ABNORMAL) BASIC METABOLIC PANEL (CALCIUM TOTAL) (04/02/2016 2:52 AM CDT) Only the most recent of49 resultswithin the time period is included. BUN 22 7 - 26 mg/dL [facility] Creatinine 1.0 0.6 - 1.2 mg/dL [facility] Sodium 136 136 - 145 mmol/L [facility] Potassium 3.9 3.5 - 4.5 mmol/L [facility] Chloride 104 98 - 107 mmol/L [facility] CO2 24 22 - 29 mmol/L [facility] Glucose 111 70 - 115 mg/dL [facility] Calcium 8.2(L) 8.4 - 10.2 mg/dL [facility] Anion Gap 12 8 - 18 [facility] BUN/Creatinine Ratio 22 7 - 23 [facility] Osmolality Calculated 286 270 - 300 mOsm/kg [facility] eGFR >60 >60 mL/min/1.7 3 m2 [facility] Blood specimen (specimen) BLOOD SPECIMEN / Unknown 04/02/2016 2:52 AM CDT 04/02/2016 3:19 AM CDT Leno Roca MD LAB - CHEMISTRY MICHELLE VILLARREAL [facility] Organization Address City/State/ZIP Co de Phone Number [facility] [address] [place] [address] * [place] DUNG SURGERY (04/01/2016 3:49 PM CDT) Only the most recent of2 resultswithin the time period is included. Anatomical Region Laterality Modality Other Narrative 04/01/2016 3:51 PM CDT Fluoroscopy was used for this exam. Please see the Operative report. Procedure Note ProviderSkyler MD - 08/29/2017 Fluoroscopy was used for this exam. Please see the Operative report. Leno Roca MD FLUOROSCOPY ORDERABL ES * PT-INR [facility] (04/01/2016 11:58 AM CDT) Only the most recent of4 resultswithin the time period is included. PT 13.7 12.1 - 14.8 Seconds [facility] INR 1.1 See Comment [facility] Comment: Suggested therapeutic range for low-intensity coumadin therapy for venous thromboembolism prophylaxis is an INR of 2.0-3.0. For high risk patients (Mitral Valve Prosthesis, Atrial Fibrillation, history of TIA/stroke), suggested prophylactic therapeutic range is an INR of 2.5-3.5. Blood specimen (specimen) BLOOD SPECIMEN / Unknown 04/01/2016 11:58 AM CDT 04/01/2016 12:07 PM CDT Narrative [facility] - 04/01/2016 12:26 PM CDT Is patient on Heparin, Argatroban or Dabigatran?->N Leno Roca MD LAB - COAGULATION OR DERABLES [address] [phone] * TYPE + SCREEN PANEL (04/01/2016 11:58 AM CDT) Only the most recent of5 resultswithin the time period is included. Typem O POS [facility] Antibody Screen NEG [facility] Comment: RESULTS NOT CROSSING LIS INTERFACE This is an appended report. These results have been appended to a previously final verified report. Blood specimen (specimen) 04/01/2016 11:58 AM CDT 04/01/2016 12:17 PM CDT Leno Roca MD LAB - BLOOD BANK ORD ERABLES Performing Organization Address City/[facility] Co de Phone Number [facility] [address] [place] [address] * XR THORACOLUMBAR SPINE 2VW (01/02/2016 3:08 PM CDT) Only the most recent of3 resultswithin the time period is included. Anatomical Region Laterality Modality Spine Other Impressions 01/03/2016 8:42 AM CDT Impression: Unchanged appearance of spinal fusion from T6 to T10 for T8 and T9 vertebral body fractures. Unchanged mild anterior compression deformity of T12. Report dictated by Kal Rosario MD (resident). This report was approved by Kal Rosario on 01/03/2016 8:26 AM . I, Dr. JULIUS STACY MD have personally reviewed and interpreted this examination/study. This report was electronically signed by JULIUS STACY MD on 01/03/2016 8:42 AM . Narrative 01/03/2016 8:42 AM CDT Exam: XR SPINE THORACOLUMBAR 2 VWS Exam Date: 01/02/2016 3:08 PM History: FOLLOW UP Comparison: Thoracolumbar radiographs dated 11/26/2015. Findings: The patient is status post instrumented posterior spinal fusion from T6 to T10. The hardware appears intact and unchanged in configuration. The known T8 and T9 vertebral body fractures are not well-seen on this study. No new fracture or subluxation is identified. There is an unchanged mild anterior compression deformity of T12. Multilevel degenerative disc disease and bridging ossification anteriorly across multiple disc spaces consistent with diffuse idiopathic skeletal hyperostosis. Surgical clips overlie the gallbladder fossa. Procedure Note Guillermo Sutton MD - 08/29/2017 Exam: XR SPINE THORACOLUMBAR 2 VWS Exam Date: 01/02/2016 3:08 PM History: FOLLOW UP Comparison: Thoracolumbar radiographs dated 11/26/2015. Findings: The patient is status post instrumented posterior spinal fusion from T6 toT10. The hardware appears intact and unchanged in configuration. The knownT8 and T9 vertebral body fractures are not well-seen on this study. No newfracture or subluxation is identified. There is an unchanged mild anterior compression deformity ofT12. Multilevel degenerative disc disease and bridging ossificationanteriorly across multiple disc spaces consistent with diffuse idiopathicskeletal hyperostosis. Surgical clips overlie the gallbladder fossa. IMPRESSION Impression: Unchanged appearance of spinal fusion from T6 to T10 for T8 and Z2mmoldlmxc body fractures. Unchanged mild anterior compression deformity of T12. Report dictated by Kal Rosario MD (resident). This report was approved by Kal Rosario on 01/03/2016 8:26 AM . I, Dr. JULIUS STACY MD have personally reviewed and interpreted thisexamination/study. This report was electronically signed by JULIUS STACY MD on 01/03/20168:42 AM . Leno Roca MD DIAGNOSTIC IMAGING O RDERABLES * (ABNORMAL) PTT [facility] (11/26/2015 11:52 PM CDT) Only the most recent of2 resultswithin the time period is included. APTT 41.2(H) 23.0 - 38.4 Seconds [facility] Comment:Suggested therapeuti c range for full dose I.V. heparin therapy for venous thromboembolism is 66.0-91.0 seconds. Blood specimen (specimen) BLOOD SPECIMEN / Unknown 11/26/2015 11:52 PM CDT 11/27/2015 12:08 AM CDT Narrative [facility] - 11/27/2015 12:30 AM CDT Is patient on Heparin, Argatroban or Dabigatran?->N lovenox Jayy Lobato MD LAB - COAGULATIO N ORDERABLES Performing Organization Address City/[facility]/ZIP Co de Phone Number [address] [phone] * PHOSPHORUS BLOOD (11/26/2015 3:24 AM CDT) Only the most recent of32 resultswithin the time period is included. Phosphorus 4.0 2.3 - 4.7 mg/dL [facility] Blood specimen (specimen) BLOOD SPECIMEN / Unknown 11/26/2015 3:24 AM CDT 11/26/2015 3:52 AM CDT Jayy Lobato MD LAB - CHEMISTRY ORDERABLES Performing Organization Address [facility]/ZIP Co de Phone Number [address] [phone] * MAGNESIUM BLOOD (11/26/2015 3:24 AM CDT) Only the most recent of32 resultswithin the time period is included. Magnesium 2.1 1.6 - 2.6 mg/dL [facility] Blood specimen (specimen) BLOOD SPECIMEN / Unknown 11/26/2015 3:24 AM CDT 11/26/2015 3:52 AM CDT Jayy Lobato MD LAB - CHEMISTRY ORDERABLES Performing Organization Address City/[facility]/ZIP Co de Phone Number [address] [phone] * POTASSIUM BLOOD (11/24/2015 7:39 AM CDT) Potassium 4.3 3.5 - 4.5 mmol/L [facility] Blood specimen (specimen) BLOOD SPECIMEN / Unknown 11/24/2015 7:39 AM CDT 11/24/2015 7:41 AM CDT Jayy Lobato MD LAB - CHEMISTRY ORDERABLES [address] [phone] * VAS BILATERAL VENOUS DUPLEX LE (11/23/2015 10:14 AM CDT) Only the most recent of4 resultswithin the time period is included. Anatomical Region Laterality Modality Other Jayy Lobato MD VASCULAR LAB ORD ERABLES * XR ABDOMEN KUB PORTABLE (11/22/2015 5:40 PM CDT) Only the most recent of9 resultswithin the time period is included. Anatomical Region Laterality Modality Other Impressions 11/23/2015 9:21 AM CDT IMPRESSION: A feeding tube terminates in the pylorus/proximal duodenum. Dictated by Baldo Dorsey MD (assistant professor of radiology). Dr. DAVION Benjamin M.D. have personally reviewed and interpreted this examination/study. This report was electronically signed by DAVION GAMEZ M.D. on 11/23/2015 9:21 AM . Narrative 11/23/2015 9:21 AM CDT EXAMINATION: Abdomen, AP view HISTORY: Feeding tube placement. COMPARISON: Comparison is made with a study from 11/18/2015. FINDINGS/ Procedure Note Davion Gamez MD - 08/29/2017 EXAMINATION: Abdomen, AP view HISTORY: Feeding tube placement. COMPARISON: Comparison is made with a study from 11/18/2015. FINDINGS/ IMPRESSION IMPRESSION: A feeding tube terminates in the pylorus/proximal duodenum. Dictated by Baldo Dorsey MD (assistant professor of radiology). Dr. DAVION Benjamin M.D. have personally reviewed and interpreted thisexamination/study. This report was electronically signed by DAVION GAMEZ M.D. on 11/23/20159:21 AM . Jayy Lobato MD DIAGNOSTIC IMAGI NG ORDERABLES * XR PELVIS 3VW OR MORE (11/22/2015 8:40 AM CDT) Only the most recent of4 resultswithin the time period is included. Anatomical Region Laterality Modality Pelvis Other Impressions 11/22/2015 4:16 PM CDT Impression: The patient is status post internal fixation of a left sacroiliac fixation screw for a left sacroiliac fracture. The left inferior pubic ramus fracture and a left puboacetabular fracture are grossly unchanged. The left L5 transverse process fracture is not well seen. Hip joint spaces are preserved. There is no diastasis at the pubic symphysis. Heterotopic ossification at the left greater trochanter is redemonstrated. The chronic fracture deformity of the proximal left femoral shaft is unchanged. No new fracture identified. Hardware is intact without evidence of failure. Report dictated by Tyra Fang MD (assistant professor of radiology). This report was approved by Tyra Fang M.D. on 11/22/2015 2:[address] SAHRA Benjamin M.D. have personally reviewed and interpreted this examination/study. This report was electronically signed by SAHRA TILLEY M.D. on 11/22/2015 4:16 PM . Narrative 11/22/2015 4:16 PM CDT Exam: PX PELVIS 3 VW MIN Date: 11/22/2015 8:40 AM History: Fracture follow-up Comparison: 11/15/2015. Findings/ Procedure Note Sahra Tilley MD - 08/29/2017 Exam: PX PELVIS 3 VW MIN Date: 11/22/2015 8:40 AM History: Fracture follow-up Comparison: 11/15/2015. Findings/ IMPRESSION Impression: The patient is status post internal fixation of a left sacroiliac fixationscrew for a left sacroiliac fracture. The left inferior pubic ramusfracture and a left puboacetabular fracture are grossly unchanged. Theleft L5 transverse process fracture is not well seen. Hip joint spaces are preserved. There is no diastasis atthe pubic symphysis. Heterotopic ossification at the left greatertrochanter is redemonstrated. The chronic fracture deformity of theproximal left femoral shaft is unchanged. No new fracture identified. Hardware is intact without evidence of failure. Report dictated by Tyra Fang MD (assistant professor of radiology). This report was approved by Tyra Fang M.D. on 11/22/2015 2:39 PM. I, Dr. SAHRA TILLEY M.D. have personally reviewed and interpreted thisexamination/study. This report was electronically signed by SAHRA TILLEY M.D. on 11/22/20154:16 PM . Jayy Lobato MD DIAGNOSTIC IMAGI NG ORDERABLES * (ABNORMAL) CBC W/O DIFFERENTIAL (11/21/2015 7:38 AM CDT) Only the most recent of34 resultswithin the time period is included. WBC 6.4 3.5 - 10.5 10 3/uL [facility] RBC 2.75(L) 4.30 - 5.70 10 6/uL [facility] Hemoglobin 8.6(L) 13.5 - 17.5 g/dL [facility] Hematocrit 26.2(L) 39.0 - 50.0 % [facility] MCV 95.3 81.0 - 97.0 fL [facility] MCH 31.3 28.0 - 34.0 pg [facility] MCHC 32.8 32.0 - 36.0 g/dL [facility] Platelet Count 312 150 - 400 10 3/uL [facility] RDW-SD 54.4(H) 36.0 - 50.0 fL [facility] RDW-CV 15.5(H) 11.2 - 14.8 % [facility] MPV 10.1 9.3 - 12.8 fL [facility] Blood specimen (specimen) BLOOD SPECIMEN / Unknown 11/21/2015 7:38 AM CDT 11/21/2015 7:44 AM CDT Jayy Lobato MD LAB - HEMATOLOGY ORDERABLES [address] [phone] * XR CHEST 1VW PORTABLE (11/20/2015 4:04 PM CDT) Only the most recent of46 resultswithin the time period is included. Anatomical Region Laterality Modality Chest Other Impressions 11/21/2015 4:43 PM CDT IMPRESSION: The tracheostomy tube, anterior cervical and posterior thoracic spinal fusion instrumentation, and enteric tubes are in unchanged position. Left basilar atelectasis/airspace disease with an associated small left pleural effusion has decreased. Bilateral linear opacities, right greater than left, are unchanged and likely represent atelectasis/airspace disease. A small right pleural effusion/pleural hematoma is unchanged. There is no pneumothorax. The cardiomediastinal silhouette is normal. Multiple bilateral rib fractures are redemonstrated. Dictated by Baldo Dorsey MD (assistant professor of radiology). This report was approved by Baldo Dorsey on 11/21/2015 3:48 PM . I, Dr. NEGRA ZAVALA M.D. have personally reviewed and interpreted this examination/study. This report was electronically signed by NEGRA ZAVALA M.D. on 11/21/2015 4:43 PM . Narrative 11/21/2015 4:43 PM CDT EXAMINATION: Chest, AP portable view HISTORY: History of being run over by a tractor with prior chest tube. COMPARISON: Comparison is made with chest radiograph from 11/20/2015. FINDINGS/ Procedure Note Negra Zavala MD - 08/29/2017 EXAMINATION: Chest, AP portable view HISTORY: History of being run over by a tractor with prior chest tube. COMPARISON: Comparison is made with chest radiograph from 11/20/2015. FINDINGS/ IMPRESSION IMPRESSION: The tracheostomy tube, anterior cervical and posterior thoracic spinalfusion instrumentation, and enteric tubes are in unchanged position. Left basilar atelectasis/airspace disease with an associated small leftpleural effusion has decreased. Bilateral linear opacities, right greaterthan left, are unchanged and likely represent atelectasis/airspacedisease. A small right pleural effusion/pleural hematoma is unchanged. There is no pneumothorax. Thecardiomediastinal silhouette is normal. Multiple bilateral rib fracturesare redemonstrated. Dictated by Baldo Dorsey MD (assistant professor of radiology). This report was approved by Baldo Dorsey on 11/21/2015 3:48 PM . I, Dr. NEGRA ZAVALA M.D. have personally reviewed and interpreted thisexamination/study. This report was electronically signed by NEGRA ZAVALA M.D. on 11/21/20154:43 PM . Jayy Lobato MD DIAGNOSTIC IMAGI NG ORDERABLES * EKG 12-LEAD (11/16/2015 12:00 AM CDT) Only the most recent of4 resultswithin the time period is included. EKG [facility] Comment: Exam Date/Time: Nov 16 2015 08:36:58 Test Reason : To Check QTc interval Blood Pressure : / mmHG Vent. Rate : 090 BPM Atrial Rate : 090 BPM P-R Int : 106 ms QRS Dur : 072 ms QT Int : 368 ms P-R-T Axes : 069 000 013 degrees QTc Int : 450 ms Sinus rhythm with short RI Otherwise normal ECG When compared with ECG of 03-NOV-2015 08:56, No significant change was found nstchanges has resolved Confirmed by Gen Rogers, Mahogany ([id number]), editorial writer Angie Cortes ([id number]) on 12/08/2015 7:30:36 AM Referred By: REFERRING NO Confirmed By:Mahogany Rogers M.D. 11/16/2015 Jayy Lobato MD ECG ORDERABLES [facility] * CT CHEST W CONTRAST (11/08/2015 5:20 PM CDT) Anatomical Region Laterality Modality Chest Other Impressions 11/09/2015 9:50 AM CDT IMPRESSION: 1. No evidence of traumatic aortic injury. 2. Small right pneumothorax. New apically directed right chest tube. 3. Increased large left pleural effusion and slight decrease in small right pleural effusion with associated atelectasis. 4. Mild pulmonary edema, new since the prior study. 5. Multiple spinal and rib fractures. Interval instrumented posterior spinal fusion from T6 through T10. Dictated by Mariia Pineda M.D. (assistant professor of radiology). I, Dr. DAVION GAMEZ M.D. have personally reviewed and interpreted this examination/study. This report was electronically signed by DAVION GAMEZ M.D. on 11/09/2015 9:50 AM . Narrative 11/09/2015 9:50 AM CDT EXAMINATION: Computed tomography (CT) of the chest with contrast HISTORY: thoracic aortic hematoma, follow up from original trauma. Was run over by a tractor on 10/22/2015. TECHNIQUE: CT of the chest was performed following the uneventful administration of 100 mL of Omnipaque 350 intravenous contrast according to standard protocol. COMPARISON: Comparison is made with a prior study dated 10/22/2015. FINDINGS: A tracheostomy tube ends in the proximal thoracic trachea. There has been interval placement of an apically directed right chest tube. A small right pneumothorax is present. There is no left pneumothorax. A small right pleural effusion with associated atelectasis is decreased. A large left pleural effusion with associated atelectasis has increased. There has been interval development of groundglass opacities with smooth septal line thickening bilaterally indicative of pulmonary edema. A nodular opacity in the left upper lobe measuring 9 mm is likely inflammatory (series 6 image 28). There is no supraclavicular, axillary, mediastinal or hilar lymphadenopathy. There are few locules of gas within the right anterior inferior mediastinal fat (series 5 image 84). The left-sided aortic arch is normal in course and caliber. There is no evidence of traumatic aortic injury. The pulmonary arteries are normal in course and caliber. The remaining enhanced vascular structures are normal. The heart size is normal. There is no pericardial effusion. The visualized portions of the liver, spleen, pancreas, adrenal glands, and stomach are normal. The gallbladder is surgically absent. Bilateral renal cysts are present. An enteric tube ends in the body of the stomach. Fractures of the right 1st-12th ribs and left 1st through seventh ribs are unchanged. Multiple of these rib fractures are segmental. A comminuted right midclavicular fracture is unchanged. A fracture of the right T1 transverse process is redemonstrated. A mild T4 compression fracture with less than 25 percent vertebral height loss as well as a possible minimal compression fracture of the T3 vertebral body are not changed. There has been interval instrumented posterior spinal fusion from T6 through T10 across oblique fractures involving the T8 and T9 vertebral bodies. Flowing ossification along the anterior longitudinal ligament in the thoracic spine is consistent with diffuse intrahepatic skeletal hyperostosis (DISH). Procedure Note Davion Gamez MD - 08/29/2017 EXAMINATION: Computed tomography (CT) of the chest with contrast HISTORY: thoracic aortic hematoma, follow up from original trauma. Was runover by a tractor on 10/22/2015. TECHNIQUE: CT of the chest was performed following the uneventfuladministration of 100 mL of Omnipaque 350 intravenous contrast accordingto standard protocol. COMPARISON: Comparison is made with a prior study dated 10/22/2015. FINDINGS: A tracheostomy tube ends in the proximal thoracic trachea. There has beeninterval placement of an apically directed right chest tube. A smallright pneumothorax is present. There is no left pneumothorax. A smallright pleural effusion with associated atelectasis is decreased. A large left pleural effusion with associatedatelectasis has increased. There has been interval development ofgroundglass opacities with smooth septal line thickening bilaterallyindicative of pulmonary edema. A nodular opacity in the left upper lobe measuring 9 mm is likely inflammatory(series 6 image 28). There is no supraclavicular, axillary, mediastinal orhilar lymphadenopathy. There are few locules of gas within the rightanterior inferior mediastinal fat (series 5 image 84). The left-sided aortic arch is normal in course and caliber. There is noevidence of traumatic aortic injury. The pulmonary arteries are normal incourse and caliber. The remaining enhanced vascular structures are normal.The heart size is normal. There is no pericardial effusion. The visualized portions of the liver, spleen, pancreas, adrenal glands,and stomach are normal. The gallbladder is surgically absent. Bilateralrenal cysts are present. An enteric tube ends in the body of thestomach. Fractures of the right 1st-12th ribs and left 1st through seventh ribs areunchanged. Multiple of these rib fractures are segmental. A comminutedright midclavicular fracture is unchanged. A fracture of the right [id number] process is redemonstrated. A mild T4 compression fracture with less than 25 percent vertebral heightloss as well as a possible minimal compression fracture of the S0jpmbyruoo body are not changed. There has been interval instrumentedposterior spinal fusion from T6 through T10 across oblique fractures involving the T8 and T9 vertebral bodies. Flowingossification along the anterior longitudinal ligament in the thoracicspine is consistent with diffuse intrahepatic skeletal hyperostosis(DISH). IMPRESSION IMPRESSION: 1. No evidence of traumatic aortic injury. 2. Small right pneumothorax. New apically directed right chest tube. 3. Increased large left pleural effusion and slight decrease in smallright pleural effusion with associated atelectasis. 4. Mild pulmonary edema, new since the prior study. 5. Multiple spinal and rib fractures. Interval instrumented posteriorspinal fusion from T6 through T10. Dictated by Mariia Pineda M.D. (assistant professor of radiology). I, Dr. DAVION GAMEZ M.D. have personally reviewed and interpreted thisexamination/study. This report was electronically signed by DAVION GAMEZ M.D. on 11/09/20159:50 AM . Jayy Lobato MD CT ORDERABLES * (ABNORMAL) CALCIUM IONIZED WHOLE BLOOD (11/06/2015 12:36 AM CDT) Only the most recent of15 resultswithin the time period is included. Ionized Calcium Whole Blood 1.14 mmol/L [facility] Adjusted Ionized Calcium 1.18(L) 1.19 - 1.34 mmol/L [facility] pH Whole Blood 7.48(H) 7.35 - 7.45 [facility] Blood specimen (specimen) BLOOD SPECIMEN / Unknown 11/06/2015 12:36 AM CDT 11/06/2015 12:40 AM CDT Jayy Lobato MD LAB - CHEMISTRY ORDERABLES [address] [phone] * (ABNORMAL) BLOOD GASES ART (11/06/2015 12:36 AM CDT) Only the most recent of29 resultswithin the time period is included. pH Arterial 7.46(H) 7.35 - 7.45 [facility] pCO2 Arterial 34(L) 35 - 45 mmHg [facility] pO2 Arterial 206(H) 71 - 95 mmHg [facility] HCO3 Arterial 23.5 22.0 - 26.0 mmol/L [facility] TCO2 Arterial 24.5(L) 25.0 - 29.0 mmol/L [facility] Base Excess Arterial -0.2 -2.0 - 2.0 mmol/L [facility] Hemoglobin Arterial 6.8(L) 13.5 - 17.5 g/dL [facility] Oxyhemoglobin Arterial 98.6 95.0 - 100.0 % [facility] Carboxyhemoglobin 0.3 0.0 - 3.0 % [facility] Methemoglobin 0.3 0.0 - 2.0 % [facility] FI O2 Arterial 70.0 % [facility] Blood specimen (specimen) BLOOD SPECIMEN / Unknown 11/06/2015 12:36 AM CDT 11/06/2015 12:40 AM CDT Narrative [facility] - 11/06/2015 12:43 AM CDT FIO2->70 Jayy Lobato MD LAB - BLOOD GASE S ORDERABLES Performing Organization Address City/State/[facility] Co de Phone Number [address] [phone] * XR THORACIC SPINE 3VW (10/31/2015 8:40 AM CDT) Anatomical Region Laterality Modality Spine Other Impressions 10/31/2015 4:05 PM CDT IMPRESSION: The image quality is poor, particularly on the lateral images. T6-T10 posterior instrumented spinal fusion with pedicle screws and paired vertical rods is demonstrated for T8 and T9 fractures. The instrumentation is intact. Skin wily superimpose the thoracic spine. The anterior aspects of the mid to lower thoracic spine are grossly aligned. The posterior aspects of the vertebral bodies are not clearly imaged on the lateral views. The patient's known T8 and T9 vertebral body fractures are better characterized on a CT thoracic spine dated 10/22/2015. Multilevel bridging syndesmophytes are seen. Dictated by Sahra Mehta MD (assistant professor of radiology). This report was approved by Sahra Mehta on 10/31/2015 3:[address] JULIUS Benjamin MD have personally reviewed and interpreted this examination/study. This report was electronically signed by JULIUS STACY MD on 10/31/2015 4:05 PM . Narrative 10/31/2015 4:05 PM CDT EXAMINATION: PX SPINE THORACIC 3 VWS DATE: 10/31/2015 8:40 AM HISTORY: Thoracic fixation COMPARISON: CT thoracic spine dated 10/22/2015. FINDINGS/ Procedure Note Julius Stacy MD - 08/29/2017 EXAMINATION: PX SPINE THORACIC 3 VWS DATE: 10/31/2015 8:40 AM HISTORY: Thoracic fixation COMPARISON: CT thoracic spine dated 10/22/2015. FINDINGS/ IMPRESSION IMPRESSION: The image quality is poor, particularly on the lateral images. T6-[id number] instrumented spinal fusion with pedicle screws and pairedvertical rods is demonstrated for T8 and T9 fractures. The instrumentationis intact. Skin wily superimpose the thoracic spine. The anterior aspects of the mid to lower thoracic spine are grosslyaligned. The posterior aspects of the vertebral bodies are not clearlyimaged on the lateral views. The patient's known T8 and T9 vertebral bodyfractures are better characterized on a CT thoracic spine dated 10/22/2015. Multilevel bridging syndesmophytes areseen. Dictated by Sahra Mehta MD (assistant professor of radiology). This report was approved by Sahra Mehta on 10/31/2015 3:[address] JULIUS Benjamin MD have personally reviewed and interpreted thisexamination/study. This report was electronically signed by JULIUS STACY MD on 10/31/20154:05 PM . Jayy Lobato MD DIAGNOSTIC IMAGI NG ORDERABLES * CROSSMATCH RBC LEUKOREDUCED (10/30/2015 12:58 AM CDT) Only the most recent of4 resultswithin the time period is included. Unit RBC-WBCD [id number] returned [facility]LO[facility] [employer] [employer] (BEAKER) Unit RBC-WBCD [id number] returned [facility] [employer] [employer] [employer] (BEAKER) 10/30/2015 12:5 8 AM CDT 10/30/2015 1:20 AM CDT Narrative [facility] [employer] (BEAKER) - 10/30/2015 12:58 AM CDT # of Units->2 Jayy Lobato MD LAB - BLOOD BANK ORDERABLES [facility]LO[facility] [employer] [employer] (BEAKER) * CT HEAD WO CONTRAST (10/29/2015 10:46 PM CDT) Only the most recent of2 resultswithin the time period is included. Anatomical Region Laterality Modality Head Other Impressions 10/30/2015 12:05 PM CDT IMPRESSION: 1. No acute intracranial process. If altered mental status persists, brain MRI could be considered for further evaluation. 2. Moderate diffuse paranasal sinus disease and bilateral mastoid effusions. This report was approved by Jess Reynolds M.D. on 10/30/2015 9:29 AM . I, Dr. BLADE LLAMAS M.D. have personally reviewed and interpreted this examination/study. This report was electronically signed by BLADE LLAMAS M.D. on 10/30/2015 12:05 PM . Narrative 10/30/2015 12:05 PM CDT EXAMINATION: Computed tomography (CT) of the head without contrast HISTORY: 65-year-old male with altered mental status. TECHNIQUE: CT of the head was performed without contrast according to standard protocol. FINDINGS: The comparison was made to prior head CT from 10/22/2015. No acute intra- or extra-axial fluid collections are identified. There is mild cerebral volume loss with associated ex vacuo ventricular dilatation. The basilar cisterns are patent. No mass effect or midline shift is seen. The louise-white matter differentiation is normal. Periventricular white matter hypoattenuation is indicative of chronic small vessel ischemic disease. There is vascular calcification of the carotid siphons. Other than moderate diffuse paranasal sinus disease and bilateral mastoid effusions, the visualized portions of the orbits, paranasal sinuses, and mastoids appear normal. No acute fracture is identified. Procedure Note Tran, Blade N, MD - 08/29/2017 EXAMINATION: Computed tomography (CT) of the head without contrast HISTORY: 65-year-old male with altered mental status. TECHNIQUE: CT of the head was performed without contrast according tostandard protocol. FINDINGS: The comparison was made to prior head CT from 10/22/2015. No acute intra- or extra-axial fluid collections are identified. There ismild cerebral volume loss with associated ex vacuo ventricular dilatation.The basilar cisterns are patent. No mass effect or midline shift is seen.The louise-white matter differentiation is normal. Periventricular white matter hypoattenuation isindicative of chronic small vessel ischemic disease. There is vascularcalcification of the carotid siphons. Other than moderate diffuseparanasal sinus disease and bilateral mastoid effusions, the visualized portions of the orbits, paranasalsinuses, and mastoids appear normal. No acute fracture is identified. IMPRESSION IMPRESSION: 1. No acute intracranial process. If altered mental status persists, brainMRI could be considered for further evaluation. 2. Moderate diffuse paranasal sinus disease and bilateral mastoideffusions. This report was approved by Jess Reynolds M.D. on 10/30/2015 9:29 AM. I, Dr. BLADE LLAMAS M.D. have personally reviewed and interpreted thisexamination/study. This report was electronically signed by BLADE LLAMAS M.D. on 10/30/201512:05 PM . Jayy Lobato MD CT ORDERABLES * (ABNORMAL) CULTURE SPUTUM+GRAM STAIN (10/29/2015 9:11 PM CDT) Only the most recent of2 resultswithin the time period is included. Culture Sputum PSEUDOMONAS AERUGINOSA(A) [facility] Comment:Moderate Growth Pseu domonas Aeruginosa Gram Stain Few Epithelial Cells [facility] Gram Stain Many Polymorphonuclear Cells [facility] Gram Stain Rare Gram Positive bacilli [facility] Sputum specimen (specimen) SPUTUM / Unknown 10/29/2015 9:11 PM CDT 10/29/2015 9:16 PM CDT Narrative [facility] - 11/01/2015 11:15 AM CDT Specimen Type->Sputum Gram Stains are routinely screened for the presence of Polymorphonuclear Cells. Organism Antibiotic Method Susceptibility Pseudomonas aeruginosa Amikacin SUSCEPTIBILITY <=2: Sensitive Pseudomonas aeruginosa Cefepime SUSCEPTIBILITY 2: Sensitive Pseudomonas aeruginosa Ceftazidime SUSCEPTIBILITY 4: Sensitive Pseudomonas aeruginosa Ciprofloxacin SUSCEPTIBILITY <=0.25: Sensitive Pseudomonas aeruginosa Gentamicin SUSCEPTIBILITY <=1: Sensitive Pseudomonas aeruginosa Imipenem SUSCEPTIBILITY <=0.25: Sensitive Pseudomonas aeruginosa Piperacillin-tazobactam SUSCEPT IBILITY 8: Sensitive Pseudomonas aeruginosa Tobramycin SUSCEPTIBILITY <=1: Sensitive Jayy Lobato MD LAB - MICROBIOLO GY ORDERABLES Performing Organization Address [facility] Co de Phone Number [address] [phone] * CULTURE BLOOD (10/29/2015 9:00 PM CDT) Only the most recent of2 resultswithin the time period is included. Culture Blood No Growth at 5 days [facility] Blood specimen (specimen) (Venous, Peripheral) 10/29/2015 9:00 PM CDT 10/29/2015 9:13 PM CDT Narrative [facility] - 11/03/2015 9:15 PM CDT Draw 15 minutes after Culture 1 from a different site Jayy Lobato MD LAB - MICROBIOLO GY ORDERABLES Performing Organization Address [facility] Co de Phone Number [address] [phone] * CULTURE URINE (10/29/2015 8:52 PM CDT) Culture Urine No Growth of >100 CFU/ml after 48 Hours [facility] Urine specimen (specimen) (Urine, Escamilla Cath) 10/29/2015 8:52 PM CDT 10/29/2015 9:09 PM CDT Narrative [facility] - 11/01/2015 11:51 AM CDT Specimen Type->Urine Jayy Lobato MD LAB - MICROBIOLO GY ORDERABLES Performing Organization Address [facility]/ZIP Co de Phone Number [address] [phone] * (ABNORMAL) HEPATIC FUNCTION PANEL (10/28/2015 12:28 AM CDT) Protein Total 5.1(L) 6.0 - 8.3 g/dL [facility] Albumin 2.1(L) 3.4 - 5.0 g/dL [facility] Bilirubin Total 0.5 0.2 - 1.2 mg/dL [facility] Bilirubin Conjugated 0.2 0.0 - 0.5 mg/dL [facility] Bilirubin Unconjugated 0.3 Unconjugated Bilirubin is a calculated value: Reference ranges have not been established. mg/dL [facility] Alkaline Phosphatase 72 40 - 150 Units/L [facility] ALT 9 0 - 55 Units/L [facility] AST 26 5 - 34 Units/L [facility] Albumin/Globulin Ratio 0.7(L) 1.1 - 2.3 [facility] Blood specimen (specimen) BLOOD SPECIMEN / Unknown 10/28/2015 12:28 AM CDT 10/28/2015 2:26 AM CDT Jayy Lobato MD LAB - CHEMISTRY ORDERABLES [address] [phone] * (ABNORMAL) VITAMIN B12 (10/28/2015 12:28 AM CDT) Pathologist [facility] Vitamin B12 852(H) 213 - 816 pg/mL [facility] Blood specimen (specimen) BLOOD SPECIMEN / Unknown 10/28/2015 12:28 AM CDT 10/28/2015 2:26 AM CDT Jayy Lobato MD LAB - CHEMISTRY ORDERABLES Performing Organization Address City/[facility]/ZIP Co de Phone Number [address] [phone] * XR PELVIS 1 OR 2VW (10/25/2015 2:59 PM CDT) Only the most recent of2 resultswithin the time period is included. Anatomical Region Laterality Modality Pelvis Other Impressions 10/25/2015 4:06 PM CDT Impression: There has been interval internal fixation of a left sacral alar fracture with a surgical screw traversing the left sacroiliac joint. A left inferior pubic ramus fracture, a left L5 transverse process fracture, and a left puboacetabular fracture are redemonstrated. Heterotopic ossification related to prior intramedullary nailing or a chronic fracture of the left greater trochanter is again seen at the superior aspect of the left greater trochanter. The hip joint spaces are preserved. There is no diastasis at the pubic symphysis. The bones are osteopenic. Dictated by Miguel Mathew MD (assistant professor of radiology) This report was approved by Jonh Mathew on 10/25/2015 3:[address] NEGRA Benjamin M.D. have personally reviewed and interpreted this examination/study. This report was electronically signed by NEGRA ZAVALA M.D. on 10/25/2015 4:06 PM . Narrative 10/25/2015 4:06 PM CDT Exam: PX PELVIS 1 OR 2 VW Date: 10/25/2015 2:59 PM History: post op Comparison: 10/22/2015 Findings/ Procedure Note Negra Zavala MD - 08/29/2017 Exam: PX PELVIS 1 OR 2 VW Date: 10/25/2015 2:59 PM History: post op Comparison: 10/22/2015 Findings/ IMPRESSION Impression: There has been interval internal fixation of a left sacral alar fracturewith a surgical screw traversing the left sacroiliac joint. A leftinferior pubic ramus fracture, a left L5 transverse process fracture, thelma left puboacetabular fracture are redemonstrated. Heterotopic ossification related to prior intramedullarynailing or a chronic fracture of the left greater trochanter is again seenat the superior aspect of the left greater trochanter. The hip jointspaces are preserved. There is no diastasis at the pubic symphysis. The bones are osteopenic. Dictated by Miguel Mathew MD (assistant professor of radiology) This report was approved by Jonh Mathew on 10/25/2015 3:18 PM . I, Dr. NEGRA ZAVALA M.D. have personally reviewed and interpreted thisexamination/study. This report was electronically signed by NEGRA ZAVALA M.D. on 10/25/20154:06 PM . Jayy Lobato MD DIAGNOSTIC IMAGI NG ORDERABLES * (ABNORMAL) BLOOD GASES ART COMPLETE [facility] OR (10/25/2015 9:35 AM CDT) Only the most recent of2 resultswithin the time period is included. pH Arterial 7.32(L) 7.35 - 7.45 [facility] pCO2 Arterial 49(H) 35 - 45 mmHg [facility] pO2 Arterial 73 71 - 95 mmHg [facility] HCO3 Arterial 24.7 22.0 - 26.0 mmol/L [facility] TCO2 Arterial 26.2 25.0 - 29.0 mmol/L [facility] Base Excess Arterial -1.5 -2.0 - 2.0 mmol/L [facility] Hemoglobin Arterial 7.9(L) 13.5 - 17.5 g/dL [facility] Oxyhemoglobin Arterial 92.6(L) 95.0 - 100.0 % [facility] Carboxyhemoglobin 0.1 0.0 - 3.0 % [facility] Methemoglobin 0.1 0.0 - 2.0 % [facility] FI O2 Arterial 60.0 % [facility] Ionized Calcium Whole Blood 1.13 mmol/L [facility] Adjusted Ionized Calcium 1.09(L) 1.19 - 1.34 mmol/L [facility] Sodium Whole Blood 138 135 - 145 mmol/L [facility] Potassium Whole Blood 4.3 3.5 - 5.5 mmol/L [facility] Chloride Whole Blood 107 101 - 111 mmol/L [facility] Glucose Whole Blood 125(H) 70 - 110 mg/dL [facility] Lactic Acid Whole Blood 0.8 0.5 - 3.4 mmol/L [facility] Blood specimen (specimen) 10/25/2015 9:35 AM CDT 10/25/2015 9:35 AM CDT Narrative [facility] - 10/25/2015 9:37 AM CDT FIO2->100 Jayy Lobato MD LAB - BLOOD GASE S ORDERABLES [facility] [address] [place] [address], [facility] [phone] * US RETROPERITONEAL COMPLETE (10/24/2015 3:03 PM CDT) Anatomical Region Laterality Modality Abdomen Other Impressions 10/24/2015 3:09 PM CDT IMPRESSION: Normal renal size without hydronephrosis. Dictated by Sobia Whitlock MD. (Resident) This report was approved by Sobia Whitlock M.D. on 10/24/2015 3:08 PM . I, Dr. BRIGITTE JUDGE M.D. have personally reviewed and interpreted this examination/study. This report was electronically signed by BRIGITTE JUDGE M.D. on 10/24/2015 3:09 PM . Narrative 10/24/2015 3:09 PM CDT EXAMINATION: Retroperitoneal ultrasound HISTORY: 65-year-old male with elevated creatinine. COMPARISON: Comparison is made with CT of the chest, abdomen, and pelvis dated 10/22/2015. TECHNIQUE: Real time ultrasound of the kidneys FINDINGS: Right kidney: 12.3 cm in length. Left kidney: 13.3 cm in length. The kidneys have normal echogenicity without evidence of hydronephrosis, calculus, or solid renal mass. 2 simple cysts are present in the right kidney measuring up to 3.5 cm. An additional simple cyst is seen in the left inferior kidney measuring 4.2 cm. The urinary bladder is decompressed by a Escamilla catheter. Procedure Note Provider, MD Skyler - 08/29/2017 EXAMINATION: Retroperitoneal ultrasound HISTORY: 65-year-old male with elevated creatinine. COMPARISON: Comparison is made with CT of the chest, abdomen, and pelvisdated 10/22/2015. TECHNIQUE: Real time ultrasound of the kidneys FINDINGS: Right kidney: 12.3 cm in length. Left kidney: 13.3 cm in length. The kidneys have normal echogenicity without evidence of hydronephrosis,calculus, or solid renal mass. 2 simple cysts are present in the rightkidney measuring up to 3.5 cm. An additional simple cyst is seen in theleft inferior kidney measuring 4.2 cm. The urinary bladder is decompressed by a Escamilla catheter. IMPRESSION IMPRESSION: Normal renal size without hydronephrosis. Dictated by Sobia Whitlock MD. (Resident) This report was approved by Sobia Whitlock M.D. on 10/24/2015 3:08 PM . I, Dr. BRIGITTE JUDGE M.D. have personally reviewed and interpreted thisexamination/study. This report was electronically signed by BRIGITTE JUDGE M.D. on 10/24/20153:09 PM . Jayy Lobato MD US ORDERABLES * CREATININE URINE RANDOM (10/24/2015 1:05 PM CDT) Creatinine Urine 160 Not Established mg/dL [facility] Comment:Result obtained by gianni ji. Urine specimen (specimen) (Urine, unspecified source) 10/24/2015 1:05 PM CDT 10/24/2015 1:05 PM CDT Rodri Cordova MD LAB - URINE CHEMISTR Y ORDERABLES [address] [phone] * (ABNORMAL) URINALYSIS REFLEX TO MICROSCOPIC NO CULTURE (10/24/2015 12:30 PM CDT) Only the most recent of2 resultswithin the time period is included. Color UA Yellow Straw, Yellow, Colorless, Light Yellow [facility] Clarity UA Cloudy(A) Clear [facility] Specific [place] UA 1.019 1.001 - 1.030 [facility] pH UA 5.0 5.0 - 8.0 [facility] Protein UA 20 <=20 mg/dL [facility] Glucose UA Negative Negative mg/dL [facility] Ketone UA Negative Negative mg/dL [facility] Bilirubin UA Negative Negative mg/dL [facility] Blood UA Small(A) Negative [facility] Nitrite UA Negative Negative [facility] Leukocyte Esterase Negative Negative [facility] Urobilinogen UA <2.0 <2.0 mg/dL [facility] RBC UA 2 0 - 8 /HPF [facility] WBC UA 1 0 - 2 /HPF [facility] Bacteria UA Few(A) Rare, Occasional, None /HPF [facility] Squamous Epithelial Cells UA <1 0 - 1 /HPF [facility] Mucus UA Many(A) None /LPF [facility] Hyaline Casts UA 2 0 - 2 /LPF [facility] Uric Acid Crystals UA Many(A) Rare, Occasional, Few, None /HPF [facility] Urine specimen (specimen) 10/24/2015 12:30 PM CDT 10/24/2015 3:38 PM CDT Jayy Lobato MD LAB - URINALYSIS ORDERABLES Performing Organization Address [facility]/ZIP Co de Phone Number [address] [phone] * SODIUM URINE RANDOM (10/24/2015 12:09 PM CDT) Sodium Urine 42 Not Established mmol/L [facility] Urine specimen (specimen) URINE SPECIMEN COLLECTION, CATHETERIZED / Unknown 10/24/2015 12:09 PM CDT 10/24/2015 12:40 PM CDT Jayy Lobato MD LAB - URINE CHEM ISTRY ORDERABLES Performing Organization Address [facility] Co de Phone Number [address] [phone] * OSMOLALITY URINE (10/24/2015 12:09 PM CDT) Osmolality Urine 631 500 - 800 mOsm/kg [facility] Urine specimen (specimen) URINE SPECIMEN COLLECTION, CATHETERIZED / Unknown 10/24/2015 12:09 PM CDT 10/24/2015 12:40 PM CDT Jayy Lobato MD LAB - URINE CHEM ISTRY ORDERABLES Performing Organization Address [facility] [place] [address], [facility] [phone] * OSMOLALITY BLOOD (10/24/2015 11:51 AM CDT) [facility] Osmolality 298 270 - 300 mOsm/kg [facility] Blood specimen (specimen) 10/24/2015 11:51 AM CDT 10/24/2015 2:39 PM CDT Rodri Cordova MD LAB - CHEMISTRY MICHELLE VILLARREAL Performing Organization Address City/[facility]/ZIP Co de Phone Number [address] [phone] * TROPONIN I (10/24/2015 11:51 AM CDT) Only the most recent of6 resultswithin the time period is included. [facility] Troponin I 0.014 <0.032 ng/mL [facility] Blood specimen (specimen) BLOOD SPECIMEN / Unknown 10/24/2015 11:51 AM CDT 10/24/2015 12:01 PM CDT Jayy Lobato MD LAB - CHEMISTRY ORDERABLES Performing Organization Address [facility] Co de Phone Number [address] [phone] * (ABNORMAL) CK + CKMB PANEL (10/24/2015 11:51 AM CDT) Only the most recent of5 resultswithin the time period is included. [facility] CK Total 524(H) 30 - 200 Units/L [facility] CK-MB 3.6 0.0 - 6.6 ng/mL [facility] Blood specimen (specimen) BLOOD SPECIMEN / Unknown 10/24/2015 11:51 AM CDT 10/24/2015 12:01 PM CDT Jayy Lobato MD LAB - CHEMISTRY ORDERABLES Performing Organization Address [facility] Co de Phone Number [address] [phone] * (ABNORMAL) DRUG ABUSE PANEL 10-20+ETHANOL URINE NO CONFIRM (10/23/2015 7:01 AM CDT) [facility] Amphetamines Screen Urine Negative Negative : < 1000 ng/mL [facility] Barbiturates Screen Urine Negative Negative : < 200 ng/mL [facility] Benzodiazepine Screen Urine Negative Negative : < 200 ng/mL [facility] [facility] Opiates Urine Positive(A) Negative : < 300 ng/mL [facility] Comment: Positive urine opiate screening results should be confirmed by another generally accepted non-immunological method such as gas chromatography or mass spectrometry. Cocaine Metabolites Urine Negative Negative : < 300 ng/mL [facility] Phencyclidine Screen Urine Negative Negative : < 25 ng/ml [facility] Cannabinoids Screen Urine Negative Negative : <50 ng/mL [facility] Methadone Screen Urine Negative Negative : < 300 ng/mL [facility] Urine specimen (specimen) URINE SPECIMEN COLLECTION, CATHETERIZED / Unknown 10/23/2015 7:01 AM CDT 10/23/2015 7:23 AM CDT Narrative [facility] - 10/23/2015 7:38 AM CDT The Urine Toxicology Screening Panel does not screen for Propoxyphene, Meprobamate, Carisoprodol, Trazodone, [id number] medications and/or volatiles (Acetone, Isopropanol, Methanol or Ethylene Glycol). Ethanol, Salicylate, Acetaminophen, Tricyclic Antidepressants and several therapeutic drugs may be individually assayed in serum or plasma specimen. Toxicology testing by the [facility] is an aid to medical diagnosis and treatment of patients. No documented chain of custody was maintained. Results are intended to be used for clinical purposes only. Jayy Lobato MD LAB - URINE CHEM ISTRY ORDERABLES [facility] [address] [place] [address] * (ABNORMAL) DIFFERENTIAL MANUAL (10/23/2015 4:38 AM CDT) Only the most recent of2 resultswithin the time period is included. [facility] WBC (corrected for NRBC) 23.4 10 3/uL [facility] Total Cell Count 100 [facility] Neutrophils Absolute Manual 20.59(H) 1.60 - 7.00 10 3/uL [facility] Comment:(BANDS+SEGS) x WBC = NEUT # (ANC) Lymphocyte Absolute Manual 0.23(L) 0.80 - 2.90 10 3/uL [facility] Monocytes Absolute Manual 2.57(H) 0.14 - 0.66 10 3/uL [facility] Band % Manual 2 0 - 10 % [facility] Neutrophil % Manual 86(H) 30 - 60 % [facility] Lymphocyte % Manual 1(L) 20 - 45 % [facility] Monocytes % Manual 11(H) 2 - 10 % [facility] Platelet Estimate Decreased (A) Adequate [facility] Anisocytosis 1+(A) None [facility] Macrocytosis 1+(A) None [facility] Blood specimen (specimen) BLOOD SPECIMEN / Unknown 10/23/2015 4:38 AM CDT 10/23/2015 4:55 AM CDT Jayy Lobato MD LAB - HEMATOLOGY ORDERABLES Performing Organization Address City/[facility]/ZIP Co de Phone Number [address] [phone] * (ABNORMAL) LACTIC ACID BLOOD (10/23/2015 4:38 AM CDT) Only the most recent of2 resultswithin the time period is included. Lactic Acid-Stat 2.3(H) 0.5 - 2.2 mmol/L [facility] Blood specimen (specimen) BLOOD SPECIMEN / Unknown 10/23/2015 4:38 AM CDT 10/23/2015 4:42 AM CDT Jayy Lobato MD LAB - CHEMISTRY ORDERABLES [address] [phone] * ECHO W DOPPLER AND COLOR FLOW (10/23/2015 12:00 AM CDT) Anatomical Region Laterality Modality Other 10/23/2015 Jayy Lobato MD ECHOCARDIOGRAPHY RADIANT * XR TIBIA FIBULA RIGHT 2VW (10/22/2015 3:12 PM CDT) Anatomical Region Laterality Modality Lower Extremity Other Impressions 10/22/2015 4:57 PM CDT Impression: No acute osseous injury. Dictated by Miguel Mathew MD (assistant professor of radiology) Dr. Harris Benjamin M.D. have personally reviewed and interpreted this examination/study. This report was electronically signed by Harris BHAKTA M.D. on 10/22/2015 4:57 PM . Narrative 10/22/2015 4:57 PM CDT Exam: XR TIBIA AND FIBULA RIGHT 2 VW Date: 10/22/2015 3:12 PM History: trauma Comparison: None Findings: The osseous structures are intact and well aligned without acute fracture or dislocation. The joint spaces are preserved. Bone density and texture are normal. There is no soft tissue swelling. Faint calcific densities are seen in the soft tissues posterior to the knee, and may represent heterotopic ossification or calcification secondary to prior trauma. Procedure Note Ese Bhakta MD - 08/29/2017 Exam: XR TIBIA AND FIBULA RIGHT 2 VW Date: 10/22/2015 3:12 PM History: trauma Comparison: None Findings: The osseous structures are intact and well aligned without acute fractureor dislocation. The joint spaces are preserved. Bone density and textureare normal. There is no soft tissue swelling. Faint calcific densities areseen in the soft tissues posterior to the knee, and may represent heterotopic ossification orcalcification secondary to prior trauma. IMPRESSION Impression: No acute osseous injury. Dictated by Miguel Mathew MD (assistant professor of radiology) Dr. Harris Benjamin M.D. have personally reviewed and interpreted thisexamination/study. This report was electronically signed by Harris BHAKTA M.D. on10/22/2015 4:57 PM . Linda Balderrama MD DIAGNOSTIC IMAGING O RDERABLES * XR TIBIA FIBULA LEFT 2VW (10/22/2015 3:11 PM CDT) Anatomical Region Laterality Modality Lower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 and joint disease throughout thethoracic spine. No central canal stenosis is seen. The facets appearnormal. No neural foraminal stenosis is seen. Small bilateral pneumothoraces are present. Soft tissue gas is seentracking from the left lung apex to the left cervical neck. Tiny pleuraleffusion/hemothorax is seen in the right hemithorax. Please see theconcurrent body CT report for further characterization. Lumbar spine: The alignment is normal. There is a moderately displaced left [id number] process fracture. Vertebral bodies are normal in height withoutevidence of acute fracture. There is a longitudinally-oriented, moderately displaced, comminuted leftsacral ala fracture extending into the left sacroiliac joint and left S1,S2, and S3 sacral foramina. There is possible slight widening of the leftsacroiliac joint. There is advanced multilevel degenerative disc and joint disease withSchmorl's node formation throughout the lumbar spine resulting in up tomoderate central canal and neural foraminal stenosis. Atherosclerosis is seen in the abdominal aorta and its branch vessels.Multiple renal cysts are partially imaged bilaterally. Please see theconcurrent body CT report for further characterization. IMPRESSION IMPRESSION: 1. No acute intracranial process. 2. No acute facial bone fractures identified. 3. No evidence of acute fracture in the cervical spine. 4. Soft tissue gas tracking from the left lung apex to the left cervicalneck to the level of C2. 5. Mildly displaced right T1 transverse process fracture. 6. Cortical step-off of the right superolateral aspect of the T3 vertebralbody which likely represents a minimally displaced fracture. 7. Mildly displaced T4 compression fracture with less than 25 percentheight loss and associated soft tissue swelling without retropulsion. 8. Moderately displaced oblique fracture involving the T8 and T9 vertebralbodies with associated soft tissue swelling/hematoma withoutretropulsion. 9. Mild to moderately displaced posterior right 1st and 2nd and left 1st,2nd, and 4th rib fractures with associated soft tissue gas andhematoma/swelling. 10. Moderately displaced left L5 transverse process fracture. 11. Moderately displaced, comminuted left sacral ala fracture extendinginto the left sacroiliac joint and left S1, S2, and S3 sacral foramina.There is possible slight widening of the left sacroiliac joint. Preliminary results were discussed with Dr. Gupta by Dr. Dorsey on10/22/2015 at 3:19 PM. This report was approved by Baldo Dorsey on 10/22/2015 3:51 PM . I, Dr. ELISEO ROD M.D. have personally reviewed and interpreted thisexamination/study. This report was electronically signed by ELISEO ROD M.D. on 10/22/20154:15 PM . Jayy Lobato MD CT ORDERABLES * CT CERVICAL SPINE WO CONTRAST (10/22/2015 1:58 PM CDT) Anatomical Region Laterality Modality Spine Other Impressions 10/22/2015 4:15 PM CDT IMPRESSION: 1. No acute intracranial process. 2. No acute facial bone fractures identified. 3. No evidence of acute fracture in the cervical spine. 4. Soft tissue gas tracking from the left lung apex to the left cervical neck to the level of C2. 5. Mildly displaced right T1 transverse process fracture. 6. Cortical step-off of the right superolateral aspect of the T3 vertebral body which likely represents a minimally displaced fracture. 7. Mildly displaced T4 compression fracture with less than 25 percent height loss and associated soft tissue swelling without retropulsion. 8. Moderately displaced oblique fracture involving the T8 and T9 vertebral bodies with associated soft tissue swelling/hematoma without retropulsion. 9. Mild to moderately displaced posterior right 1st and 2nd and left 1st, 2nd, and 4th rib fractures with associated soft tissue gas and hematoma/swelling. 10. Moderately displaced left L5 transverse process fracture. 11. Moderately displaced, comminuted left sacral ala fracture extending into the left sacroiliac joint and left S1, S2, and S3 sacral foramina. There is possible slight widening of the left sacroiliac joint. Preliminary results were discussed with Dr. Gupta by Dr. Dorsey on 10/22/2015 at 3:19 PM. This report was approved by Baldo Dorsey on 10/22/2015 3:51 PM . I, Dr. ELISEO ROD M.D. have personally reviewed and interpreted this examination/study. This report was electronically signed by ELISEO ROD M.D. on 10/22/2015 4:15 PM . Narrative 10/22/2015 4:15 PM CDT EXAMINATION: 1. Computed tomography (CT) of the head without contrast 2. CT of the maxillofacial bones, orbits, and paranasal sinuses without contrast 3. CT of the cervical spine without contrast 4. CT of the thoracic spine without contrast 5. CT of the lumbar spine without contrast HISTORY: Head, neck, and back pain after being run over by a yard tractor. TECHNIQUE: CT of the head, cervical spine, and maxillofacial bones, orbits, and paranasal sinuses was performed without contrast according to standard protocol. Reformatted axial, sagittal, and coronal images of the thoracic and lumbar spine were obtained by the technologist from a concurrently performed body CT and sent to the workstation for review. FINDINGS: No prior study is available for comparison. Head: No acute intra- or extra-axial fluid collections are identified. There is mild cerebral volume loss with associated ex vacuo ventricular dilatation. The basilar cisterns are patent. No mass effect or midline shift is seen. Other than bilateral basal ganglia calcifications, the louise-white matter differentiation is normal. Periventricular white matter hypoattenuation is indicative of chronic small vessel ischemic disease. There is vascular calcification of the carotid siphons. No acute calvarial fracture is identified. There is a right parietal scalp hematoma. Maxillofacial: There are tiny locules of gas in the left periorbital soft tissues with mild soft tissue swelling consistent with laceration. The orbits otherwise appear normal. The paranasal sinuses are clear. The hard palate, mandible, and temporomandibular joints appear normal. No acute facial bone fractures are identified. The mastoid air cells are clear. Punctate calcifications in the regions of the palatine tonsils are likely sequelae of prior inflammation/infection. Cervical spine: The alignment is normal. Postoperative appearance of anterior cervical discectomy and fusion of C4-C6 with plate, screws, and interbody spacers is seen. The instrumentation appears intact. Vertebral bodies are normal in height without evidence of acute fracture. The craniocervical junction is normal. There is advanced degenerative disc disease at C3-4. Mild central canal stenosis is seen. There is mild to moderate facet osteoarthritis, more prominent in the lower cervical spine with advanced uncovertebral osteoarthritis at C4-5 and C5-6 resulting in up to moderate neural foraminal stenosis at these levels. Soft tissue gas is seen tracking along the fascial planes of the left neck extending from the level of C2 to the upper left chest. Atherosclerosis is seen at the carotid bifurcations. Thoracic spine: There is mild levocurvature of the upper thoracic spine which may be positional. Cortical step-off is seen along the right superolateral aspect of the T3 vertebral body which may represent a minimally displaced fracture. There is a mildly displaced T4 compression fracture with an acute fracture line extending anteriorly from the inferior endplate with less than 25 percent height loss and associated soft tissue swelling without retropulsion. The T4 posterior elements are intact. There is a moderately displaced oblique fracture involving the anterior inferior aspect of the T8 vertebral body which extends to the superior posterior aspect of the T9 vertebral body with associated soft tissue swelling/hematoma without retropulsion. The T8 and T9 posterior elements remain intact. There is fracture of the calcifications along the anterior longitudinal ligament at this level. There is a mildly displaced right T1 transverse process fracture. There are mildly to moderately displaced posterior bilateral first and second rib fractures with associated soft tissue gas and hematoma. A mildly displaced posterior left fourth rib fracture is seen. Additional known rib fractures are not visualized on this exam. There is advanced degenerative disc and joint disease throughout the thoracic spine. No central canal stenosis is seen. The facets appear normal. No neural foraminal stenosis is seen. Small bilateral pneumothoraces are present. Soft tissue gas is seen tracking from the left lung apex to the left cervical neck. Tiny pleural effusion/hemothorax is seen in the right hemithorax. Please see the concurrent body CT report for further characterization. Lumbar spine: The alignment is normal. There is a moderately displaced left L5 transverse process fracture. Vertebral bodies are normal in height without evidence of acute fracture. There is a longitudinally-oriented, moderately displaced, comminuted left sacral ala fracture extending into the left sacroiliac joint and left S1, S2, and S3 sacral foramina. There is possible slight widening of the left sacroiliac joint. There is advanced multilevel degenerative disc and joint disease with Schmorl's node formation throughout the lumbar spine resulting in up to moderate central canal and neural foraminal stenosis. Atherosclerosis is seen in the abdominal aorta and its branch vessels. Multiple renal cysts are partially imaged bilaterally. Please see the concurrent body CT report for further characterization. Procedure Note Eliseo Rod MD - 08/29/2017 EXAMINATION: 1. Computed tomography (CT) of the head without contrast 2. CT of the maxillofacial bones, orbits, and paranasal sinuses withoutcontrast 3. CT of the cervical spine without contrast 4. CT of the thoracic spine without contrast 5. CT of the lumbar spine without contrast HISTORY: Head, neck, and back pain after being run over by a yardtractor. TECHNIQUE: CT of the head, cervical spine, and maxillofacial bones,orbits, and paranasal sinuses was performed without contrast according tostandard protocol. Reformatted axial, sagittal, and coronal images of thethoracic and lumbar spine were obtained by the technologist from a concurrently performed body CT andsent to the workstation for review. FINDINGS: No prior study is available for comparison. Head: No acute intra- or extra-axial fluid collections are identified. There ismild cerebral volume loss with associated ex vacuo ventricular dilatation.The basilar cisterns are patent. No mass effect or midline shift is seen.Other than bilateral basal ganglia calcifications, the louise-white matter differentiation is normal.Periventricular white matter hypoattenuation is indicative of chronicsmall vessel ischemic disease. There is vascular calcification of thecarotid siphons. No acute calvarial fracture is identified. There is a right parietal scalp hematoma. Maxillofacial: There are tiny locules of gas in the left periorbital soft tissues withmild soft tissue swelling consistent with laceration. The orbits otherwiseappear normal. The paranasal sinuses are clear. The hard palate, mandible,and temporomandibular joints appear normal. No acute facial bone fractures are identified. The mastoidair cells are clear. Punctate calcifications in the regions of thepalatine tonsils are likely sequelae of prior inflammation/infection. Cervical spine: The alignment is normal. Postoperative appearance of anterior cervicaldiscectomy and fusion of C4-C6 with plate, screws, and interbody spacersis seen. The instrumentation appears intact. Vertebral bodies are normalin height without evidence of acute fracture. The craniocervical junction is normal. There is advanceddegenerative disc disease at C3-4. Mild central canal stenosis is seen.There is mild to moderate facet osteoarthritis, more prominent in thelower cervical spine with advanced uncovertebral osteoarthritis at C4-5 and C5-6 resulting in up to moderateneural foraminal stenosis at these levels. Soft tissue gas is seen tracking along the fascial planes of the left neckextending from the level of C2 to the upper left chest. Atherosclerosis isseen at the carotid bifurcations. Thoracic spine: There is mild levocurvature of the upper thoracic spine which may bepositional. Cortical step-off is seen along the right superolateral aspect of the O2vowrovlwa body which may represent a minimally displaced fracture. Thereis a mildly displaced T4 compression fracture with an acute fracture lineextending anteriorly from the inferior endplate with less than 25 percent height loss and associatedsoft tissue swelling without retropulsion. The T4 posterior elements areintact. There is a moderately displaced oblique fracture involving the anteriorinferior aspect of the T8 vertebral body which extends to the superiorposterior aspect of the T9 vertebral body with associated soft tissueswelling/hematoma without retropulsion. The T8 and T9 posterior elements remain intact. There is fracture of thecalcifications along the anterior longitudinal ligament at this level. There is a mildly displaced right T1 transverse process fracture. Thereare mildly to moderately displaced posterior bilateral first and secondrib fractures with associated soft tissue gas and hematoma. A mildlydisplaced posterior left fourth rib fracture is seen. Additional known rib fractures are not visualized onthis exam. There is advanced degenerative disc and joint disease throughout thethoracic spine. No central canal stenosis is seen. The facets appearnormal. No neural foraminal stenosis is seen. Small bilateral pneumothoraces are present. Soft tissue gas is seentracking from the left lung apex to the left cervical neck. Tiny pleuraleffusion/hemothorax is seen in the right hemithorax. Please see theconcurrent body CT report for further characterization. Lumbar spine: The alignment is normal. There is a moderately displaced left [id number] process fracture. Vertebral bodies are normal in height withoutevidence of acute fracture. There is a longitudinally-oriented, moderately displaced, comminuted leftsacral ala fracture extending into the left sacroiliac joint and left S1,S2, and S3 sacral foramina. There is possible slight widening of the leftsacroiliac joint. There is advanced multilevel degenerative disc and joint disease withSchmorl's node formation throughout the lumbar spine resulting in up tomoderate central canal and neural foraminal stenosis. Atherosclerosis is seen in the abdominal aorta and its branch vessels.Multiple renal cysts are partially imaged bilaterally. Please see theconcurrent body CT report for further characterization. IMPRESSION IMPRESSION: 1. No acute intracranial process. 2. No acute facial bone fractures identified. 3. No evidence of acute fracture in the cervical spine. 4. Soft tissue gas tracking from the left lung apex to the left cervicalneck to the level of C2. 5. Mildly displaced right T1 transverse process fracture. 6. Cortical step-off of the right superolateral aspect of the T3 vertebralbody which likely represents a minimally displaced fracture. 7. Mildly displaced T4 compression fracture with less than 25 percentheight loss and associated soft tissue swelling without retropulsion. 8. Moderately displaced oblique fracture involving the T8 and T9 vertebralbodies with associated soft tissue swelling/hematoma withoutretropulsion. 9. Mild to moderately displaced posterior right 1st and 2nd and left 1st,2nd, and 4th rib fractures with associated soft tissue gas andhematoma/swelling. 10. Moderately displaced left L5 transverse process fracture. 11. Moderately displaced, comminuted left sacral ala fracture extendinginto the left sacroiliac joint and left S1, S2, and S3 sacral foramina.There is possible slight widening of the left sacroiliac joint. Preliminary results were discussed with Dr. Gupta by Dr. Dorsey on10/22/2015 at 3:19 PM. This report was approved by Baldo Dorsey on 10/22/2015 3:51 PM . I, Dr. ELISEO ROD M.D. have personally reviewed and interpreted thisexamination/study. This report was electronically signed by ELISEO ROD M.D. on 10/22/20154:15 PM . Jayy Lobato MD CT ORDERABLES * CT FACIAL BONES WO CONTRAST (10/22/2015 1:58 PM CDT) Anatomical Region Laterality Modality Head Other Impressions 10/22/2015 4:15 PM CDT IMPRESSION: 1. No acute intracranial process. 2. No acute facial bone fractures identified. 3. No evidence of acute fracture in the cervical spine. 4. Soft tissue gas tracking from the left lung apex to the left cervical neck to the level of C2. 5. Mildly displaced right T1 transverse process fracture. 6. Cortical step-off of the right superolateral aspect of the T3 vertebral body which likely represents a minimally displaced fracture. 7. Mildly displaced T4 compression fracture with less than 25 percent height loss and associated soft tissue swelling without retropulsion. 8. Moderately displaced oblique fracture involving the T8 and T9 vertebral bodies with associated soft tissue swelling/hematoma without retropulsion. 9. Mild to moderately displaced posterior right 1st and 2nd and left 1st, 2nd, and 4th rib fractures with associated soft tissue gas and hematoma/swelling. 10. Moderately displaced left L5 transverse process fracture. 11. Moderately displaced, comminuted left sacral ala fracture extending into the left sacroiliac joint and left S1, S2, and S3 sacral foramina. There is possible slight widening of the left sacroiliac joint. Preliminary results were discussed with Dr. Gupta by Dr. Dorsey on 10/22/2015 at 3:19 PM. This report was approved by Baldo Dorsey on 10/22/2015 3:51 PM . I, Dr. ELISEO ROD M.D. have personally reviewed and interpreted this examination/study. This report was electronically signed by ELISEO ROD M.D. on 10/22/2015 4:15 PM . Narrative 10/22/2015 4:15 PM CDT EXAMINATION: 1. Computed tomography (CT) of the head without contrast 2. CT of the maxillofacial bones, orbits, and paranasal sinuses without contrast 3. CT of the cervical spine without contrast 4. CT of the thoracic spine without contrast 5. CT of the lumbar spine without contrast HISTORY: Head, neck, and back pain after being run over by a yard tractor. TECHNIQUE: CT of the head, cervical spine, and maxillofacial bones, orbits, and paranasal sinuses was performed without contrast according to standard protocol. Reformatted axial, sagittal, and coronal images of the thoracic and lumbar spine were obtained by the technologist from a concurrently performed body CT and sent to the workstation for review. FINDINGS: No prior study is available for comparison. Head: No acute intra- or extra-axial fluid collections are identified. There is mild cerebral volume loss with associated ex vacuo ventricular dilatation. The basilar cisterns are patent. No mass effect or midline shift is seen. Other than bilateral basal ganglia calcifications, the louise-white matter differentiation is normal. Periventricular white matter hypoattenuation is indicative of chronic small vessel ischemic disease. There is vascular calcification of the carotid siphons. No acute calvarial fracture is identified. There is a right parietal scalp hematoma. Maxillofacial: There are tiny locules of gas in the left periorbital soft tissues with mild soft tissue swelling consistent with laceration. The orbits otherwise appear normal. The paranasal sinuses are clear. The hard palate, mandible, and temporomandibular joints appear normal. No acute facial bone fractures are identified. The mastoid air cells are clear. Punctate calcifications in the regions of the palatine tonsils are likely sequelae of prior inflammation/infection. Cervical spine: The alignment is normal. Postoperative appearance of anterior cervical discectomy and fusion of C4-C6 with plate, screws, and interbody spacers is seen. The instrumentation appears intact. Vertebral bodies are normal in height without evidence of acute fracture. The craniocervical junction is normal. There is advanced degenerative disc disease at C3-4. Mild central canal stenosis is seen. There is mild to moderate facet osteoarthritis, more prominent in the lower cervical spine with advanced uncovertebral osteoarthritis at C4-5 and C5-6 resulting in up to moderate neural foraminal stenosis at these levels. Soft tissue gas is seen tracking along the fascial planes of the left neck extending from the level of C2 to the upper left chest. Atherosclerosis is seen at the carotid bifurcations. Thoracic spine: There is mild levocurvature of the upper thoracic spine which may be positional. Cortical step-off is seen along the right superolateral aspect of the T3 vertebral body which may represent a minimally displaced fracture. There is a mildly displaced T4 compression fracture with an acute fracture line extending anteriorly from the inferior endplate with less than 25 percent height loss and associated soft tissue swelling without retropulsion. The T4 posterior elements are intact. There is a moderately displaced oblique fracture involving the anterior inferior aspect of the T8 vertebral body which extends to the superior posterior aspect of the T9 vertebral body with associated soft tissue swelling/hematoma without retropulsion. The T8 and T9 posterior elements remain intact. There is fracture of the calcifications along the anterior longitudinal ligament at this level. There is a mildly displaced right T1 transverse process fracture. There are mildly to moderately displaced posterior bilateral first and second rib fractures with associated soft tissue gas and hematoma. A mildly displaced posterior left fourth rib fracture is seen. Additional known rib fractures are not visualized on this exam. There is advanced degenerative disc and joint disease throughout the thoracic spine. No central canal stenosis is seen. The facets appear normal. No neural foraminal stenosis is seen. Small bilateral pneumothoraces are present. Soft tissue gas is seen tracking from the left lung apex to the left cervical neck. Tiny pleural effusion/hemothorax is seen in the right hemithorax. Please see the concurrent body CT report for further characterization. Lumbar spine: The alignment is normal. There is a moderately displaced left L5 transverse process fracture. Vertebral bodies are normal in height without evidence of acute fracture. There is a longitudinally-oriented, moderately displaced, comminuted left sacral ala fracture extending into the left sacroiliac joint and left S1, S2, and S3 sacral foramina. There is possible slight widening of the left sacroiliac joint. There is advanced multilevel degenerative disc and joint disease with Schmorl's node formation throughout the lumbar spine resulting in up to moderate central canal and neural foraminal stenosis. Atherosclerosis is seen in the abdominal aorta and its branch vessels. Multiple renal cysts are partially imaged bilaterally. Please see the concurrent body CT report for further characterization. Procedure Note Eliseo Rod MD - 08/29/2017 EXAMINATION: 1. Computed tomography (CT) of the head without contrast 2. CT of the maxillofacial bones, orbits, and paranasal sinuses withoutcontrast 3. CT of the cervical spine without contrast 4. CT of the thoracic spine without contrast 5. CT of the lumbar spine without contrast HISTORY: Head, neck, and back pain after being run over by a yardtractor. TECHNIQUE: CT of the head, cervical spine, and maxillofacial bones,orbits, and paranasal sinuses was performed without contrast according tostandard protocol. Reformatted axial, sagittal, and coronal images of thethoracic and lumbar spine were obtained by the technologist from a concurrently performed body CT andsent to the workstation for review. FINDINGS: No prior study is available for comparison. Head: No acute intra- or extra-axial fluid collections are identified. There ismild cerebral volume loss with associated ex vacuo ventricular dilatation.The basilar cisterns are patent. No mass effect or midline shift is seen.Other than bilateral basal ganglia calcifications, the louise-white matter differentiation is normal.Periventricular white matter hypoattenuation is indicative of chronicsmall vessel ischemic disease. There is vascular calcification of thecarotid siphons. No acute calvarial fracture is identified. There is a right parietal scalp hematoma. Maxillofacial: There are tiny locules of gas in the left periorbital soft tissues withmild soft tissue swelling consistent with laceration. The orbits otherwiseappear normal. The paranasal sinuses are clear. The hard palate, mandible,and temporomandibular joints appear normal. No acute facial bone fractures are identified. The mastoidair cells are clear. Punctate calcifications in the regions of thepalatine tonsils are likely sequelae of prior inflammation/infection. Cervical spine: The alignment is normal. Postoperative appearance of anterior cervicaldiscectomy and fusion of C4-C6 with plate, screws, and interbody spacersis seen. The instrumentation appears intact. Vertebral bodies are normalin height without evidence of acute fracture. The craniocervical junction is normal. There is advanceddegenerative disc disease at C3-4. Mild central canal stenosis is seen.There is mild to moderate facet osteoarthritis, more prominent in thelower cervical spine with advanced uncovertebral osteoarthritis at C4-5 and C5-6 resulting in up to moderateneural foraminal stenosis at these levels. Soft tissue gas is seen tracking along the fascial planes of the left neckextending from the level of C2 to the upper left chest. Atherosclerosis isseen at the carotid bifurcations. Thoracic spine: There is mild levocurvature of the upper thoracic spine which may bepositional. Cortical step-off is seen along the right superolateral aspect of the O3pxtlimrrc body which may represent a minimally displaced fracture. Thereis a mildly displaced T4 compression fracture with an acute fracture lineextending anteriorly from the inferior endplate with less than 25 percent height loss and associatedsoft tissue swelling without retropulsion. The T4 posterior elements areintact. There is a moderately displaced oblique fracture involving the anteriorinferior aspect of the T8 vertebral body which extends to the superiorposterior aspect of the T9 vertebral body with associated soft tissueswelling/hematoma without retropulsion. The T8 and T9 posterior elements remain intact. There is fracture of thecalcifications along the anterior longitudinal ligament at this level. There is a mildly displaced right T1 transverse process fracture. Thereare mildly to moderately displaced posterior bilateral first and secondrib fractures with associated soft tissue gas and hematoma. A mildlydisplaced posterior left fourth rib fracture is seen. Additional known rib fractures are not visualized onthis exam. There is advanced degenerative disc and joint disease throughout thethoracic spine. No central canal stenosis is seen. The facets appearnormal. No neural foraminal stenosis is seen. Small bilateral pneumothoraces are present. Soft tissue gas is seentracking from the left lung apex to the left cervical neck. Tiny pleuraleffusion/hemothorax is seen in the right hemithorax. Please see theconcurrent body CT report for further characterization. Lumbar spine: The alignment is normal. There is a moderately displaced left S3ostxbsyhfv process fracture. Vertebral bodies are normal in height withoutevidence of acute fracture. There is a longitudinally-oriented, moderately displaced, comminuted leftsacral ala fracture extending into the left sacroiliac joint and left S1,S2, and S3 sacral foramina. There is possible slight widening of the leftsacroiliac joint. There is advanced multilevel degenerative disc and joint disease withSchmorl's node formation throughout the lumbar spine resulting in up tomoderate central canal and neural foraminal stenosis. Atherosclerosis is seen in the abdominal aorta and its branch vessels.Multiple renal cysts are partially imaged bilaterally. Please see theconcurrent body CT report for further characterization. IMPRESSION IMPRESSION: 1. No acute intracranial process. 2. No acute facial bone fractures identified. 3. No evidence of acute fracture in the cervical spine. 4. Soft tissue gas tracking from the left lung apex to the left cervicalneck to the level of C2. 5. Mildly displaced right T1 transverse process fracture. 6. Cortical step-off of the right superolateral aspect of the T3 vertebralbody which likely represents a minimally displaced fracture. 7. Mildly displaced T4 compression fracture with less than 25 percentheight loss and associated soft tissue swelling without retropulsion. 8. Moderately displaced oblique fracture involving the T8 and T9 vertebralbodies with associated soft tissue swelling/hematoma withoutretropulsion. 9. Mild to moderately displaced posterior right 1st and 2nd and left 1st,2nd, and 4th rib fractures with associated soft tissue gas andhematoma/swelling. 10. Moderately displaced left L5 transverse process fracture. 11. Moderately displaced, comminuted left sacral ala fracture extendinginto the left sacroiliac joint and left S1, S2, and S3 sacral foramina.There is possible slight widening of the left sacroiliac joint. Preliminary results were discussed with Dr. Gupta by Dr. Dorsey on10/22/2015 at 3:19 PM. This report was approved by Baldo Dorsey on 10/22/2015 3:51 PM . I, Dr. ELISEO ROD M.D. have personally reviewed and interpreted thisexamination/study. This report was electronically signed by ELISEO ROD M.D. on 10/22/20154:15 PM . Jayy Lobato MD CT ORDERABLES * PREPARE PLATELET PHERESIS UNIT(S) (10/22/2015 1:19 PM CDT) Unit Platelet Pheresis [id number] transfused [facility] BLOOD BANK PRODUCTS (BEAKER) Unit ABO O [facility]LOOD [facility] PRODU[facility] (BEAKER) Unit Rh POS [facility]LOOD [facility]ODU[facility] (BEAKER) Unit Number [id number] [facility]LOOD [facility] (BEAKER) Unit Status Transfused [facility] BLO OD BANK PRODUCTS (BEAKER) Unit Platelet Pheresis [id number] transfused [facility]LOOD [facility] (BEAKER) Unit ABO O [facility] BLOOD [facility]ANK PRODU[facility] (BEAKER) Unit Rh POS [facility] BLOOD BANK PRODU[facility] (BEAKER) Unit Number [id number] [facility]LOOD [facility] (BEAKER) Unit Status Transfused [facility] BLO OD BANK PRODUCTS (BEAKER) 10/22/2015 1:19 PM CDT 10/22/2015 1:42 PM CDT Narrative [facility] BLOOD BANK PRODUCTS (BEAKER) - 10/22/2015 1:19 PM CDT Hold for OR # of Units->2 Jayy Lobato MD LAB - BLOOD BANK ORDERABLES [facility] BLOOD BANK PRODUCTS (BEAKER) * ALCOHOL ETHYL BLOOD (10/22/2015 1:12 PM CDT) Interpretation Ethanol None Detected None Detected mg/dL [facility] Comment:Ethanol levels less than 10 mg/dL are resulted as None detected . Blood specimen (specimen) BLOOD SPECIMEN / Unknown 10/22/2015 1:12 PM CDT 10/22/2015 1:26 PM CDT Jayy Lobato MD LAB - CHEMISTRY ORDERABLES [address] [phone] Care Teams General Warehouse Worker Relationship Specialty Start Date End Date [place] [id number] PCP - General 06/04/18 Joanne Kaba, RN Registered Nurse 11/01/19
[2024-08-12 09:35] LABS: Hematocrit 34.8 % (42.0-52.0); Hemoglobin 11.3 g/dL (14.0-18.0); Immature Platelet Fraction Pct 28.2 % (0.9-11.2); Mean Corpuscular HGB Conc 32.5 g/dl (32-36); Mean Corpuscular Hemoglobin 31.3 pg (26-34); Mean Corpuscular Volume 96.4 fl (80-100); Platelet Count Result 61 k/mm3 (150-375); Red Blood Count 3.61 M/mm3 (4.6-6.20); Red Cell Distribution Width 15.4 % (11.5-14.5); White Blood Count 3.8 K/mm3 (4.5-10.0)
[2024-08-12 09:42] LABS: Anion Gap 9 mmol/L (4-12); Blood Urea Nitrogen 35 mg/dL (9-20); Carbon Dioxide 25 mmol/L (22-30); Chloride 106 mmol/L (98-107); Estimated Glomerular Filt Rate 58; Glucose 88 mg/dL (65-110); Potassium 4.3 mmol/L (3.4-5.0); Sodium 140 mmol/L (137-145)
[2024-08-12 09:51] LABS: NT Pro B Type Natriuretic Pept 408 pg/mL (19.9-100)
[2024-08-12 10:22] LABS: Band Neutrophils Percent 2 % (0-6); Basophils Absolute Manual 0.19 K/mm3 (0.0-0.1); Basophils Percent Manual 5 % (0-1); Eosinophils Absolute Manual 0.07 K/mm3 (0.02-0.50); Eosinophils Percent Manual 2 % (0-4); Lymphocytes Absolute Manual 1.25 K/mm3 (1.1-4.5); Lymphocytes Percent Manual 33 % (18-44); Monocytes Absolute Manual 0.64 K/mm3 (0.1-0.90); Monocytes Percent Manual 17 % (3-9); Neutrophils Absolute Manual 1.63 K/mm3 (1.3-6.7); Neutrophils Percent Manual 41 % (46-73); Total Cells Counted 100
[2024-08-12 10:23] LABS: Anisocytosis 1+; Hypochromasia 1+; Platelet Estimate Decreased (Adequate)
[2024-08-12 10:24] LABS: Schistocytes None Seen
== END 2024-08-12 08:58 | disposition home or self-care (01) ==
LOC: ANHLAB 08:59
PROVIDERS: PCP Internal Medicine; Visit Provider Internal Medicine
DX: J84.10 Pulmonary fibrosis, unspecified (principal)
CPT/HCPCS: 36415; 71046; 80048; 83880; 85025; 85055

== ENCOUNTER 2024-08-17 09:51 | Outpatient (CLI) | payer MEDICARE, SELFPAY ==
--- NOTE | ~2024-08-17 | NM_ITS ---
EXAMINATION: NM donna stress w perfusion DATE: 08/17/2024 11:55 INDICATION: Other forms of dyspnea TECHNIQUE: Rest images were obtained following intravenous administration of 10.4 mCi Tc99m tetrofosm in (Myoview). The patient was infused intravenously with Lexiscan (Regadenoson). Then, 32.5 mCi Tc99m tetrofosmin (Myoview) was administered intravenously, and stress images were obtained. Data was ike nstructed into short axis and horizontal and vertical long axis SPECT images. Gated SPECT images were also obtained. COMPARISON: 01/25/2024 FINDINGS: There is no definite reversible or fixed perfusion abnormality to suggest ischemia or infar ction. There is normal left ventricular chamber size, wall motion and ejection fraction. Left ventr icular ejection fraction measures 65%. IMPRESSION: 1. Normal myocardial perfusion at rest and during stress. 2. Left ventricular ejection fraction measuring 65%. Reviewed, dictated and finalized at location A.
--- OUTSIDE RECORDS SUMMARY | 2024-08-17 11:08 | XMS_ITS | Referral Summary ---
Author Organization [facility] al Address [address] [place] [address] Care Team Providers Care Vehicle Check In Clerk Name Role Phone Javier Syed MD Primary Care Provider [phone] Teo Pardo DO Unavailable [phone] Allergies Active Allergy Reactions Criticality Noted Date [...] on file Legal Sex Male 8:46 PM EDUCATION DIRECTOR Gender Identity Male 03/08/2018 10:31 AM CDT Sexual Orientation Not on file Last Filed Vital Signs Vital Sign Reading Time Taken Comments Blood Pressure 111/71 04/08/2024 11:12 AM EDUCATION DIRECTOR Pulse 76 04/08/2024 11:12 AM EDUCATION DIRECTOR Temperature 36.5 C (97.7 F) 04/08/2024 11:12 AM EDUCATION DIRECTOR Respiratory Rate 18 04/08/2024 11:1 2 AM EDUCATION DIRECTOR Oxygen Saturation 93% 04/08/2024 11: 12 AM EDUCATION DIRECTOR Inhaled Oxygen Concentration - - Weight 90.6 kg (199 lb 11.8 oz) 024 11:12 AM EDUCATION DIRECTOR Height 180.3 cm (5' 11 ) 04/10/2023 1:09 PM EDUCATION DIRECTOR Body Mass Index 27.86 04/10/2023 1:09 PM EDUCATION DIRECTOR Plan of Treatment Not on file Insurance MEDICARE AETNA MEDICARE Care Teams Vehicle Check In Clerk Relationship Specialty Start Date End Date Javier Syed MD [address] [facility] [address] [facility] [address] [place] [address] PCP - General 07/24/16 Teo Pardo DO [address] [place] [address] Medical Oncologist/Office Employee Hematology and Oncology 07/13/20
--- OUTSIDE RECORDS SUMMARY | 2024-08-17 11:08 | XMS_ITS | Clinical Summary ---
Author Organization [facility] Address [address] [place] [address] Care Team Providers Care Shirt Turner Name Role Phone Javier Syed MD Primary Care Provider [phone] Joanne Kaba RN Unavailable Unavailable Source Comments [facility],non-owned Affiliates and Associated Physician Practices is amultiple site organization consisting of ambulatory clinics and hospital sitesin [place], [place], [place] and [place]. This disclosure is being madepursuant to the Care Everywhere program and may not contain all information available regarding this patient. 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 Elevated liver enzymes 11/01/2019 Resolved Problems Problem Noted Date Diagnosed Date Resolved Date Asthma-COPD overlap syndrome 07/23/2018 03/05/2021 Encounters Date Type Department Care Team Description 06/07/2024 2:00 PM HOME SUPPORT WORKER Office Visit [facility] - Pulmonology [address] [place] [address], [place] [phone] Camilla Purvis MD Mixed simple and mucopurulent chronic bronchitis (Primary Dx); Encounter for vaccination; Former smoker; 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 Travel from Last 3 [...] Comments Blood Pressure 128/79 06/07/2024 1:50 PM HOME SUPPORT WORKER Pulse 73 06/07/2024 1:50 PM HOME SUPPORT WORKER Temperature 36.6 C (97.8 F) 03/05/2021 2:21 PM CDT Respiratory Rate 17 06/07/2024 1:50 PM HOME SUPPORT WORKER Oxygen Saturation 94% 06/07/2024 1:50 PM HOME SUPPORT WORKER Inhaled Oxygen Concentration - - Weight 92.3 kg (203 lb 6.4 oz) 06/07/2024 1:50 P M HOME SUPPORT WORKER Height 180.3 cm (5' 11 ) 06/07/2024 1:50 PM HOME SUPPORT WORKER Body Mass Index 28.37 06/07/2024 1:50 PM HOME SUPPORT WORKER Plan of Treatment Health Maintenance Due Date [...] at night in your room Care Teams Shirt Turner Relationship Specialty Start Date End Date Javier Syed MD [address] [place] [address] PCP - General 06/04/18 Joanne Kaba, RN Registered Nurse 11/01/19
--- OUTSIDE RECORDS SUMMARY | 2024-08-17 11:08 | XMS_ITS | Clinical Summary ---
Author Organization [facility] Address [address] [place] [address] Care Team Providers Care Launchman Name Role Phone Javier Syed MD Primary Care Provider [phone] Immunizations Name Administration Dates Next Due MODERNA [...] age to complete this topic Care Teams Launchman Relationship Specialty Start Date End Date Javier Syed MD [address] [place] [id number] PCP - General INTERNAL MEDICINE 01/14/24
--- OUTSIDE RECORDS SUMMARY | 2024-08-17 11:08 | XMS_ITS | Encounter Summary ---
Author Organization [facility] Address [address] [place] [address] Care Team Providers Care Database Programmer Analyst Name Role Phone Javier Syed MD Primary Care Provider [phone] Joanne Kaba RN Unavailable Unavailable Reason for Visit * Reason Onset Date Comments Appointment 04/13/2023 Encounter Details Date Type Department Care Team (Late st Contact Info) Description 04/13/2023 Telephone [facility] - Pulmonology [address] [place] [address], [facility] [place] [phone] Alicia Herrera, DO [address] [place] [address] OF [facility] [place] [address] Appointment Social History Tobacco Use Types Packs/Day [...] the past week. Patient Call Back number: [phone] E ANALYST documented in this encounter Plan of Treatment [...] on filedocumented in this encounter Care Teams Database Programmer Analyst Relationship Specialty Start Date End Date Javier Syed MD [address] [place] [address] PCP - General 06/04/18 Joanne Kaba, RN Registered Nurse 11/01/19 documented as of this encounter
--- OUTSIDE RECORDS SUMMARY | 2024-08-17 11:08 | XMS_ITS | Clinical Summary ---
Author Organization [facility] al Address [address] [place] [address] Care Team Providers Care Headhunter Name Role Phone Javier Syed MD Primary Care Provider [phone] Teo Pardo DO Unavailable [phone] Allergies Active Allergy Reactions Criticality Noted Date [...] on file Legal Sex Male 8:46 PM OUTSIDE MACHINIST SUPERVISOR Gender Identity Male 03/08/2018 10:31 AM CDT Sexual Orientation Not on file Obstetrics History Last Filed Vital Signs Vital Sign Reading Time Taken Comments Blood Pressure 111/71 04/08/2024 11:12 AM OUTSIDE MACHINIST SUPERVISOR Pulse 76 04/08/2024 11:12 AM OUTSIDE MACHINIST SUPERVISOR Temperature 36.5 C (97.7 F) 04/08/2024 11:12 AM OUTSIDE MACHINIST SUPERVISOR Respiratory Rate 18 04/08/2024 11:1 2 AM OUTSIDE MACHINIST SUPERVISOR Oxygen Saturation 93% 04/08/2024 11: 12 AM OUTSIDE MACHINIST SUPERVISOR Inhaled Oxygen Concentration - - Weight 90.6 kg (199 lb 11.8 oz) 024 11:12 AM OUTSIDE MACHINIST SUPERVISOR Height 180.3 cm (5' 11 ) 04/10/2023 1:09 PM OUTSIDE MACHINIST SUPERVISOR Body Mass Index 27.86 04/10/2023 1:09 PM OUTSIDE MACHINIST SUPERVISOR Plan of Treatment Health Maintenance Due Date [...] 10/21/2025 Insurance MEDICARE AET MEDICARE Care Teams Headhunter Relationship Specialty Start Date End Date Javier Syed MD [address] [facility] [address] [facility] [address] [place] [address] PCP - General 07/24/16 Teo Pardo DO [address] [place] [id number] Medical Oncologist/Revenue Accounting Manager Hematology and Oncology 07/13/20
== END 2024-08-17 09:52 | disposition home or self-care (01) ==
PROVIDERS: PCP Internal Medicine; Visit Provider Internal Medicine
DX: I47.10 Supraventricular tachycardia, unspecified (principal)
CPT/HCPCS: 78452; A9502; J2785

== ENCOUNTER 2024-09-02 13:20 | Outpatient (CLI) | payer MEDICARE, SELFPAY ==
--- OUTSIDE RECORDS SUMMARY | 2024-09-02 13:23 | XMS_ITS | Clinical Summary ---
Author Organization [facility] Address [address] [place] [address] Care Team Providers Care Briquette Molder Name Role Phone Javier Syed MD Primary Care Provider [phone] Joanne Kaba RN Unavailable Unavailable Source Comments [facility],non-owned Affiliates and Associated Physician Practices is amultiple site organization consisting of ambulatory clinics and hospital sitesin [place], [place], [place] and [place]. 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 Elevated liver enzymes 11/01/2019 Resolved Problems Problem Noted Date Diagnosed Date Resolved Date Asthma-COPD overlap syndrome 07/23/2018 03/05/2021 Encounters Date Type Department Care Team Description 06/07/2024 2:00 PM SALES AND MARKETING ADMINISTRATOR Office Visit [facility] - Pulmonology [address] [place] [address], [place] [phone] Camilla Purvis MD Mixed simple and mucopurulent chronic bronchitis (Primary Dx); Encounter for vaccination; Former smoker; Mejyn-4-owmuulivrfd deficiency carrier 06/07/2024 Travel from Last 3 [...] Comments Blood Pressure 128/79 06/07/2024 1:50 PM SALES AND MARKETING ADMINISTRATOR Pulse 73 06/07/2024 1:50 PM SALES AND MARKETING ADMINISTRATOR Temperature 36.6 C (97.8 F) 03/05/2021 2:21 PM CDT Respiratory Rate 17 06/07/2024 1:50 PM SALES AND MARKETING ADMINISTRATOR Oxygen Saturation 94% 06/07/2024 1:50 PM SALES AND MARKETING ADMINISTRATOR Inhaled Oxygen Concentration - - Weight 92.3 kg (203 lb 6.4 oz) 06/07/2024 1:50 P M SALES AND MARKETING ADMINISTRATOR Height 180.3 cm (5' 11 ) 06/07/2024 1:50 PM SALES AND MARKETING ADMINISTRATOR Body Mass Index 28.37 06/07/2024 1:50 PM SALES AND MARKETING ADMINISTRATOR Plan of Treatment Health Maintenance Due Date [...] COVID-19 VACCINE ( season) 2024 08/10/2020, 07/13/2020 DEPRESSION SCREENING 06/01/2024 INFLUENZA VACCINE (Season Ended) 2025 04/29/2023, 05/18/2019, 05/18/2019, Additional history exists DTAP/TDAP/TD VACCINES (2 - Td or Tdap) [...] at night in your room Care Teams Briquette Molder Relationship Specialty Start Date End Date Javier Syed MD [address] [place] [address] PCP - General 06/04/18 Joanne Kaba, RN Registered Nurse 11/01/19
--- OUTSIDE RECORDS SUMMARY | 2024-09-02 13:23 | XMS_ITS | Encounter Summary ---
Author Organization [facility] Address [address] [place] [address] Care Team Providers Care Saw Repairer Name Role Phone Javier Syed MD Primary Care Provider [phone] Joanne Kaba RN Unavailable Unavailable Reason for Visit * Reason Onset Date Comments Appointment 04/13/2023 Encounter Details Date Type Department Care Team (Late st Contact Info) Description 04/13/2023 Telephone [facility] - Pulmonology [address] [place] [address], [place] [id number] Alicia Herrera, DO [address] [place] [address] OF [facility] [place] [address] Appointment Social History Tobacco Use Types Packs/Day [...] the past week. Patient Call Back number: [phone] TY HOME DEMONSTRATOR documented in this encounter Plan of Treatment [...] on filedocumented in this encounter Care Teams Saw Repairer Relationship Specialty Start Date End Date Javier Syed MD [address] [place] [address] PCP - General 06/04/18 Joanne Kaba, RN Registered Nurse 11/01/19 documented as of this encounter
--- OUTSIDE RECORDS SUMMARY | 2024-09-02 13:23 | XMS_ITS | Referral Summary ---
Author Organization [facility] Address [address] [place] [address] Care Team Providers Care Airline Security Representative Name Role Phone Javier Syed MD Primary Care Provider [phone] Teo Pardo DO Unavailable [phone] Allergies Active Allergy Reactions Criticality Noted Date [...] on file Legal Sex Male 8:46 PM MILLROOM SUPERVISOR Gender Identity Male 03/08/2018 10:31 AM CDT Sexual Orientation Not on file Last Filed Vital Signs Vital Sign Reading Time Taken Comments Blood Pressure 111/71 04/08/2024 11:12 AM MILLROOM SUPERVISOR Pulse 76 04/08/2024 11:12 AM MILLROOM SUPERVISOR Temperature 36.5 C (97.7 F) 04/08/2024 11:12 AM MILLROOM SUPERVISOR Respiratory Rate 18 04/08/2024 11:1 2 AM MILLROOM SUPERVISOR Oxygen Saturation 93% 04/08/2024 11: 12 AM MILLROOM SUPERVISOR Inhaled Oxygen Concentration - - Weight 90.6 kg (199 lb 11.8 oz) 024 11:12 AM MILLROOM SUPERVISOR Height 180.3 cm (5' 11 ) 04/10/2023 1:09 PM MILLROOM SUPERVISOR Body Mass Index 27.86 04/10/2023 1:09 PM MILLROOM SUPERVISOR Plan of Treatment Not on file Insurance MEDICARE AETNA MEDICARE Care Teams Airline Security Representative Relationship Specialty Start Date End Date Javier Syed MD [address] [facility] [address] [facility] [address] [place] [address] PCP - General 07/24/16 Teo Pardo DO [address] [place] [address] Medical Oncologist/Elastic Cutter Hematology and Oncology 07/13/20
--- OUTSIDE RECORDS SUMMARY | 2024-09-02 13:23 | XMS_ITS | Clinical Summary ---
Author Organization [facility] Address [address] [place] [address] Care Team Providers Care Laboratory Animal Care Veterinarian Name Role Phone Javier Syed MD Primary Care Provider [phone] Immunizations Name Administration Dates Next Due MODERNA [...] age to complete this topic Care Teams Laboratory Animal Care Veterinarian Relationship Specialty Start Date End Date Javier Syed MD [address] [place] [address] PCP - General INTERNAL MEDICINE 01/14/24
--- OUTSIDE RECORDS SUMMARY | 2024-09-02 13:23 | XMS_ITS | Clinical Summary ---
Author Organization [facility] al Address [address] [place] [address] Care Team Providers Care Manager Of Environmental Services Name Role Phone Javier Syed MD Primary Care Provider Teo Pardo DO Unavailable [phone] Allergies Active Allergy Reactions Criticality Noted Date [...] on file Legal Sex Male 8:46 PM DRYWALL HANGER HELPER Gender Identity Male 03/08/2018 10:31 AM CDT Sexual Orientation Not on file Obstetrics History Last Filed Vital Signs Vital Sign Reading Time Taken Comments Blood Pressure 111/71 04/08/2024 11:12 AM DRYWALL HANGER HELPER Pulse 76 04/08/2024 11:12 AM DRYWALL HANGER HELPER Temperature 36.5 C (97.7 F) 04/08/2024 11:12 AM DRYWALL HANGER HELPER Respiratory Rate 18 04/08/2024 11:1 2 AM DRYWALL HANGER HELPER Oxygen Saturation 93% 04/08/2024 11: 12 AM DRYWALL HANGER HELPER Inhaled Oxygen Concentration - - Weight 90.6 kg (199 lb 11.8 oz) 024 11:12 AM DRYWALL HANGER HELPER Height 180.3 cm (5' 11 ) 04/10/2023 1:09 PM DRYWALL HANGER HELPER Body Mass Index 27.86 04/10/2023 1:09 PM DRYWALL HANGER HELPER Plan of Treatment Health Maintenance Due Date Last Done Comments Colon Cancer Screening-Colonoscopy 1950 Depression Screening 1950 Fall Risk Assessment 1950 Hepatitis C Screening 1950 Hepatitis B Screening 1969 Zoster Vaccine (1 of 2) 2001 Abdominal Aortic Aneurysm (A AA) Screen 2016 10/22/2015 Well Visit 65+ 2016 Pneumococcal vaccine 65+ (2 of 2 - PCV) 04/18/2017 04/18/2016 Covid-19 Vaccine (3 - season) 01/31/202405/2021, 07/13/2020 Influenza Vaccine (Season Ended) 2025 04/29/2023, 06/08/2018, 04/17/2016 DTaP/Tdap/Td Vaccine (2 - Td or Tdap) 10/21/2025 Insurance MEDICARE AET MEDICARE Care Teams Manager Of Environmental Services Relationship Specialty Start Date End Date Javier Syed MD [address] [facility] [address] [facility] [address] [place] [address] PCP - General 07/24/16 Teo Pardo DO [address] [place] [id number] Medical Oncologist/Chemistry Intern Hematology and Oncology 07/13/20
--- NOTE | 2024-09-02 17:38 | WPDPFTINT ---
PFT Procedure Performed PFT Procedure Performed Spirometry with Pre/Post Bronchodilator Plethysmography (Lung Vol) Diffusing Cap (DLCO) Flow Vol Loop PFT Interpretation This is a pulmonary function test with pre and post-bronchodilator spirometry, plethysmography and diffusing capacity. The test was performed and results interpreted in accordance with the 2019 and 2005 ATS/ERS Task Force guidelines respectively using the Global Lung Function Initiative-2012 reference equations. Patient demonstrated good effort and cooperation. Reproducibility criteria were met. The quality of the pre bronchodilator spirometry maneuver was Grade A and post bronchodilator spirometry maneuver was Grade A. Findings: Spirometry: There is decreased maximal expiratory airflow at all lung volumes with concave expiratory flow tracing. The contour the inspiratory flow tracing is normal. The pre bronchodilator FVC is 3.58 L, 81% predicted. The pre bronchodilator FEV1 is 1.68 L, 51% predicted. The pre bronchodilator FEV1: FVC ratio is 47%. The post bronchodilator FVC is 3.85 L, representing an 8% increase. The post bronchodilator FEV1 is 1.62 L, representing a 4% decrease. The post bronchodilator FEV1: FVC ratio is 42%. Plethysmography: The total lung capacity is 7.13 L, 96% predicted. The functional residual capacity is 4.60 L, 115% predicted. The residual volume is 3.56 L, 135% predicted. The residual volume: Total lung capacity ratio is 50%. Diffusing capacity: The diffusing capacity unadjusted for hemoglobin and carboxyhemoglobin is 12.6, 48% predicted. The diffusing capacity adjusted for alveolar volume is 2.48, 67% predicted. In comparison to previous pulmonary function testing on 03/19/2018 the post bronchodilator FVC is unchanged from 3.81 L to 3.85 L. The post bronchodilator FEV1 is decreased from 2.02 L to 1.62 L. The total lung capacity is unchanged from 7.69 L to 7.13 L. The functional residual capacity is decreased from 5.65 L to 4.60 L. The residual volume is decreased from 4.21 L to 3.56 L. The diffusing capacity unadjusted for hemoglobin and carboxyhemoglobin is unchanged from 13.2 to 12.6. The diffusing capacity adjusted for alveolar volume is unchanged from 2.82 to 2.48. Impression: There is a moderately severe obstructive abnormality. There is no significant improvement after inhaling a single dose of albuterol. The increase in residual volume to total lung volume ratio is consistent with hyperinflation from an obstructive abnormality. The diffusing capacity unadjusted for hemoglobin and carboxyhemoglobin is moderately decreased and remains mildly decreased when adjusted for alveolar volume. In comparison to previous pulmonary function testing on 03/19/2018 there has been a greater than anticipated time dependent decrease in the FEV1, functional residual capacity, and residual volume with no significant change in the FVC, total lung capacity or diffusing capacity. Clinical correlation is recommended.
== END 2024-09-02 13:21 | disposition home or self-care (01) ==
LOC: ANHPFT 13:21
PROVIDERS: PCP Internal Medicine; Visit Provider Internal Medicine
DX: R94.2 Abnormal results of pulmonary function studies (principal); R06.02 Shortness of breath
CPT/HCPCS: 94060; 94726; 94729

== ENCOUNTER 2024-11-17 14:56 | Emergency (ER) | payer MEDICARE, SELFPAY ==
--- NOTE | ~2024-11-17 | XR_ITS ---
EXAMINATION: XR chest 2V DATE: 11/17/2024 15:44 INDICATION: Chest pain TECHNIQUE: frontal and lateral views of the chest were obtained. COMPARISON: Chest radiograph dated 08/12/2024 FINDINGS: Multiple old healed bilateral rib fractures with unchanged pattern of linear atelectasis/scarring at the bilateral mid and lower lung zones. No new airspace opacities, pulmonary edema, pleural effusion or pneumothorax. Heart size is normal. Anterior plate-screw fixation at the lower cervical spine. Cho lecystectomy clips in right upper quadrant. Mild thoracic spondylosis with matter disease bridging os teophytes at multiple levels consistent with diffuse idiopathic skeletal hyperostosis (DISH). Mild li jg physiologic anterior wedging at a few lower thoracic vertebral bodies. Old healed right clavicle fracture deformity. IMPRESSION: 1. Multiple old healed bilateral rib fractures with stable appearance of linear atelectasis/scarring in the bilateral mid and lower lung zones. Reviewed, dictated and finalized at location B.
[2024-11-17 14:53] VITALS: BP 142/75; PULSE 75; RESP 18; TEMP 36.6; O2SAT 95
--- NOTE | 2024-11-17 14:59 | ECG_ITS ---
Test Date: 2024-11-17 14:59:36 Measurements Intervals [place] Rate: 72 P: 83 [place]: 115 QRS: -36 QRSD: 106 T: 27 QT: 375 QTc: 412 Interpretive Statements SINUS RHYTHM WITH SHORT OH INTERVAL LEFT AXIS DEVIATION INCOMPLETE RIGHT BUNDLE BRANCH BLOCK CANNOT R/O SEPTAL INFARCT, AGE INDETERMINATE BASELINE ARTIFACT- I, II, III, AVR, AVL ABNORMAL ECG No previous ECG available for comparison Electronically Signed On 11-18-2024 13:32:02 CDT by Braden Pham D.O.
[2024-11-17 15:21] VITALS: BP 130/72; PULSE 74; RESP 18; O2SAT 95
--- NOTE | 2024-11-17 15:21 | ED_ITS ---
HPI - Chest Pain General Chief Complaint: Chest Pain Stated Complaint: CP since 1100 History of Present Illness HPI narrative: Pt was eating pudding around 1100 and developed left sided chest pressure 9/10 that persisted for around 4 hrs until he got asa per EMS in route to ER. Pt says pain is 1/10 now. Pt denies SOB. Pt says had pain like this one other time years ago and was told it was indigestion. Related Data Home Medications ?Medication ?Instructions ?Recorded ?Confirmed ?Last Taken ?Type thiamine HCl (vitamin B1) 100 mg 100 mg PO DAILY 07/21/24 08/12/24 Unknown History tablet aspirin 81 mg tablet,delayed 81 mg PO DAILY 08/12/24 08/12/24 Unknown History release (Adult Low Dose Aspirin) Allergies Allergy/AdvReac Type Severity Reaction Status Date / Time neomycin AdvReac Unknown SLOWS Verified 08/12/24 08:04 HEALING, REDNESS Review of Systems 2 Review of Systems: All systems reviewed & are unremarkable except as noted in HPI and below PMFSH Past Medical History Medical History (Updated 11/17/24 @ 17:11 by Jarett Kenny III, DO) DIAZ (dyspnea on exertion) BMI 27.0-27.9,adult Prostate cancer screening Fatigue Encounter for routine adult health examination without abnormal findings BMI 26.0-26.9,adult BMI 25.0-25.9,adult Encounter for Medicare annual wellness exam URI (upper respiratory infection) Fever Skin cancer of nose Myelodysplasia (myelodysplastic syndrome) Personal history of COVID-19 Hx of colonic polyps Elevated glucose Chronic low back pain Pancytopenia Hx of multiple trauma Anxiety Uses hearing aid Hearing loss Generalized weakness Acute kidney injury due to COVID-19 COVID-19 virus infection Thrush of mouth and esophagus Pneumonia due to COVID-19 virus Bigeminy Elevated liver enzymes Thrombocytopenia Normocytic anemia Leukocytosis Sepsis Sepsis Pneumonia Trigger finger, left ring finger Pain of finger of left hand Aneurysm of infrarenal abdominal aorta Bruit Hx of compression fracture of spine Chest pain Abnormal screening cardiac CT Abnormal finding of blood chemistry, unspecified COPD (chronic obstructive pulmonary disease) Diarrhea Thoracic spondylosis On senior living drug therapy Anxiety with depression Surgical History Surgical History Hx of hernia repair 06/02/2001. Hx of cholecystectomy Family History Family History Father Carcinoma of colon Social History Social History Smoking packs per day: 3 Smoking cigarettes per day: 60.0 Years smoked: 30 Smoking pack-years: 90.00 Smoking status: Former smoker Tobacco type: cigarettes Second hand tobacco smoke exposure: Yes Smoking end date: 06/01/06 Alcohol intake: never Substance use: never Substance use type: does not use Lack of Transportation: No Lack of Food: Never True Current Housing: I Have Housing Concerned About Future Housing: No Difficulty Paying Gas/Electric Bills: No Difficulty Paying for Meds: No Currently Unemployed: No Living arrangements: other Additional living arrangements comments: with sp Gender identity (if verbalized by the patient): Male Spiritual care concerns: No Exam 2 Const: General: healthy appearing and no acute distress Nutritional Appearance: well nourished Orientation/consciousness: patient oriented x3 Limitations: no limitations Chest: Chest palpation & inspection: normal inspection of the chest and abnormal inspection of the chest Resp: Effort & Inspection: normal respiratory effort Auscultation: clear to auscultation bilaterally Cardio: Rate: regular rate Rhythm: regular rhythm GI: GI Palp: Yes Soft to palpation and No Tenderness to palpation present (GI) Auscultation: normal bowel sounds Skin: General skin exam: normal color Rashes: no rashes Wounds: no wounds Neuro: General: patient oriented x3, moves all extremities, no meningeal signs and no focal motor deficits Speech: normal speech Extrem: General: normal to inspection and no clubbing, cyanosis or edema Psych: Mental Status: mental status grossly normal Affect: normal affect Attitude: cooperative Course Vital Signs Vital signs: Vital Signs Temperature 97.9 F 11/17/24 14:53 Pulse Rate 75 11/17/24 14:53 Respiratory Rate 18 11/17/24 14:53 Blood Pressure 142/75 H 11/17/24 14:53 Pulse Oximetry 95 11/17/24 14:53 Oxygen Delivery Room Air 11/17/24 14:53 Temperature 97.9 F 11/17/24 14:53 Pulse Rate 74 11/17/24 15:21 Respiratory Rate 18 11/17/24 15:21 Blood Pressure 130/72 11/17/24 15:21 Pulse Oximetry 95 11/17/24 15:21 Oxygen Delivery Room Air 11/17/24 14:53 MDM - Chest Pain MDM Narrative Medical decision making narrative: pt presents with l chest pain for 4 hrs. now nearly resolved. will get ekg and labs and cxr to rule out cad. labs and cxr including trop normal. home on naprosyn and robaxin Lab Data 11/17/24 15:35 11/17/24 15:35 Labs: Lab Results 11/17/24 Range/Units 15:35 WBC 8.4 (4.5-10.0) K/mm3 RBC 3.63 L (4.6-6.20) M/mm3 Hgb 11.1 L (14.0-18.0) g/dL Hct 34.5 L (42.0-52.0) % MCV 95.0 (80-100) fl MCH 30.6 (26-34) pg MCHC 32.2 (32-36) g/dl RDW 15.8 H (11.5-14.5) % Plt Count 58 L (150-375) k/mm3 MPV Not Reportable Immature Gran % (Auto) Not Reportable Neut % (Auto) Not Reportable Lymph % (Auto) Not Reportable Pitt % (Auto) Not Reportable Eos % (Auto) Not Reportable Baso % (Auto) Not Reportable Lymph # (Auto) Not Reportable Pitt # (Auto) Not Reportable Eos # (Auto) Not Reportable Baso # (Auto) Not Reportable Abs Immat Gran (auto) Not Reportable Absolute Neuts (auto) Not Reportable Absolute Nucleated RBC Not Reportable Total Counted 100 Neutrophils % (Manual) 58 (46-73) % Band Neutrophils % 0 (0-6) % Lymphocytes % (Manual) 13 L (18-44) % Monocytes % (Manual) 29 H (3-9) % Nucleated RBC % Not Reportable Abs Neuts (Manual) 4.87 (1.3-6.7) K/mm3 Abs Lymphs (Manual) 1.09 L (1.1-4.5) K/mm3 Abs Monocytes (Manual) 2.43 H (0.1-0.90) K/mm3 Platelet Estimate Decreased (Adequate) % Immature Plt Fraction 27.1 H (0.9-11.2) % Schistocytes None seen PT 15.6 H (11.1-14.7) Seconds INR 1.2 APTT 35.3 (22.3-36.8) Seconds Sodium 137 (137-145) mmol/L Potassium 4.1 (3.4-5.0) mmol/L Chloride 106 (98-107) mmol/L Carbon Dioxide 24 (22-30) mmol/L Anion Gap 7 (4-12) mmol/L BUN 25 H D (9-20) mg/dL Creatinine 0.95 (0.7-1.3) mg/dL Estim Creat Clear Calc 67 ml/min Estimated GFR > 60 (59 - ) Glucose 89 (65-110) mg/dL Calcium 8.8 (8.4-10.2) mg/dL Total Bilirubin 0.8 (0.2-1.3) mg/dL AST 39 (17-59) U/L ALT 29 (6-50) U/L Alkaline Phosphatase 109 (38-126) U/L Troponin I < 0.012 (0.000-0.034) ng/mL Total Protein 7.9 (6.3-8.2) g/dL Albumin 3.9 (3.5-5.1) g/dL Lipase 49 (23-300) U/L Discharge Plan Discharge Clinical Impression: Anterior chest wall pain Patient Disposition: Home Condition: Stable Instructions: Antibiotic Form, Chest Wall Pain (ED) Patient Language: Australian Prescriptions: New naproxen [Naprosyn] 500 mg tablet 500 mg PO BID Qty: 20 0RF methocarbamol 750 mg tablet 750 mg PO TID Qty: 30 0RF No Action (DME) Home Nebulizer Machine See Rx Instructions .Route .MEDSUPPLY Qty: 1 0RF Rx Instructions: As directed aspirin [Adult Low Dose Aspirin] 81 mg tablet,delayed release (DR/EC) 81 mg PO DAILY albuterol sulfate 90 mcg/actuation HFA aerosol inhaler 2 puff INHALATION Q4H PRN (Reason: shortness of breath or wheezing) Qty: 8.5 1RF bupropion HCl 150 mg tablet extended release 24 hr See Rx Instructions .ROUTE .COMPLEX Qty: 90 1RF Dose Instruction: TAKE 1 TABLET BY MOUTH IN THE MORNING Rx Instructions: TAKE 1 TABLET BY MOUTH IN THE MORNING thiamine HCl (vitamin B1) 100 mg tablet 100 mg PO DAILY trazodone 100 mg tablet See Rx Instructions .ROUTE .COMPLEX Qty: 90 0RF Dose Instruction: TAKE 1 TO 3 TABLETS BY MOUTH EVERY DAY AT BEDTIME Rx Instructions: TAKE 1 TO 3 TABLETS BY MOUTH EVERY DAY AT BEDTIME Marshaltri Aerosphere 160-9-4.8 mcg/actuation HFA aerosol inhaler 2 inh inhalation BID Qty: 5.9 0RF clonazepam 0.5 mg tablet 0.5 mg PO BID PRN (Reason: anxiety) Qty: 60 1RF ibuprofen 800 mg tablet 800 mg PO TID PRN (Reason: pain) Qty: 30 2RF Follow-up/Referrals: Javier Syed MD [Primary Care Provider] - Quality HEART score for chest pain patients History: slightly suspicious ECG: normal Age: > or = to 65 years Risk factors: no risk factors known Troponin: < or = to 1x normal limit Heart score: 2
--- NOTE | 2024-11-17 15:34 | CONSULT_PTH ---
PATIENT: Mendoza Stevens LOC: [facility]#:[id number] AGE/SX: 74/M ROOM: RE11/17/[address]: Jarett Kenny III, DO : 1950 BED: DIS: 11/17/2024 SPEC #: [id number] RECD: 11/17/24 16:40 STATUS: CELSA REQ #: [id number] DARRIN: 11/17/24 15:[address]: Jarett Kenny III DEPT: [facility] Consult RECD BY: Akash Potter MLT, ([facility]) ENTERED: 11/17/24 16:42 SP TYPE: Consult OTHR DR: Javier Syed MD Tissues: A - Peripheral Smear Procedures: Hematology Consult
[2024-11-17 15:44] LABS: Hematocrit 34.5 % (42.0-52.0); Hemoglobin 11.1 g/dL (14.0-18.0); Immature Platelet Fraction Pct 27.1 % (0.9-11.2); Mean Corpuscular HGB Conc 32.2 g/dl (32-36); Mean Corpuscular Hemoglobin 30.6 pg (26-34); Platelet Count Result 58 k/mm3 (150-375); Red Blood Count 3.63 M/mm3 (4.6-6.20); Red Cell Distribution Width 15.8 % (11.5-14.5); White Blood Count 8.4 K/mm3 (4.5-10.0)
[2024-11-17 15:53] LABS: Alanine Aminotransferase 29 U/L (6-50); Albumin Level 3.9 g/dL (3.5-5.1); Alkaline Phosphatase 109 U/L (38-126); Anion Gap 7 mmol/L (4-12); Aspartate Amino Transferase 39 U/L (17-59); Bilirubin,Total 0.8 mg/dL (0.2-1.3); Blood Urea Nitrogen 25 mg/dL (9-20); Calcium 8.8 mg/dL (8.4-10.2); Carbon Dioxide 24 mmol/L (22-30); Chloride 106 mmol/L (98-107); Estimated CRCL calculation 67 ml/min; Estimated Glomerular Filt Rate > 60; Glucose 89 mg/dL (65-110); Lipase 49 U/L (23-300); Potassium 4.1 mmol/L (3.4-5.0); Sodium 137 mmol/L (137-145); Total Protein 7.9 g/dL (6.3-8.2)
[2024-11-17 15:55] LABS: INR 1.2; Prothrombin Time 15.6 Seconds (11.1-14.7)
[2024-11-17 15:56] LABS: Partial Thromboplastin Time 35.3 Seconds (22.3-36.8)
[2024-11-17 16:04] LABS: Troponin I < 0.012 ng/mL (0.000-0.034)
--- OUTSIDE RECORDS SUMMARY | 2024-11-17 16:08 | XMS_ITS | Clinical Summary ---
Author Organization [facility] Address [address] [place] [address] Care Team Providers Care Weight Tester Name Role Phone Javier Syed MD Primary Care Provider [phone] Immunizations Immunization Administration Dates Next Due MODERNA COVID-19 (12+) [...] Vaccines (1 of 2) 2001 COVID-19 Vaccine (3 - 2023-2 5 season) 2024 08/10/2020, 07/13/2020 DTaP, Tdap and Td Vaccines ( 2 - Td or Tdap) 10/21/2025 10/22/2015 RSV Immunization or 60+ Years (1 - 1-dose 75+ series) 2026 Pneumococcal Vaccine: 50+ Years Completed 04/29/2023, 04/18/2016 Meningococcal B Vaccine Aged Out No l onger eligible based on patient's age to complete this topic Meningococcal Vaccine Aged Out No miroslava sridhar eligible based on patient's age to complete this topic RSV Immunizations Under 20 Months Aged Out No longer eligible b ased on patient's age to complete this topic Care Teams Weight Tester Relationship Specialty Start Date End Date Javier Syed MD [address] - [facility] [address] [place] [address] PCP - General INTERNAL MEDICINE 01/14/24
--- OUTSIDE RECORDS SUMMARY | 2024-11-17 16:08 | XMS_ITS | Encounter Summary ---
Author Organization [facility] Address [address] [facility] [place] [address] Care Team Providers Care Is Manager Name Role Phone Javier Syed MD Primary Care Provider [phone] Joanne Kaba RN Unavailable Unavailable Reason for Visit * Reason Onset Date Comments Appointment 04/13/2023 Encounter Details Date Type Department Care Team (Late st Contact Info) Description 04/13/2023 Telephone [facility] - Pulmonology [address] [place] [address], [facility] [place] [id number] Alicia Herrera, DO [address] [place] [address] OF [facility] [place] [address] Appointment Social History Tobacco Use Types Packs/Day Years Used Date Smoking Tobacco: Former Cigarettes 2 27 0 06/01/1969 - 06/01/1996 Smokeless Tobacco: Never Alcohol Use Standard Drinks/Week Comments Not Currently 0 (1 standard drink = 0.6 oz pur e alcohol) Sex and Gender Information Value Date Recorded Sex Assigned at Not on file 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 Patient Call Back number: [phone] TAL PUBLISHING SPECIALIST documented in this encounter Plan of Treatment Upcoming Encounters Date Type Department Care Team (Late st Contact Info) Description 01/17/2025 4:00 PM CDT Office Visit [facility] - Pulmonology [address] [place] [address] Camilla Purvis MD [address] [place] [address] documented as of this encounter Goals Goal [...] on filedocumented in this encounter Care Teams Is Manager Relationship Specialty Start Date End Date Javier Syed MD [address] [place] [address] PCP - General 06/04/18 Joanne Kaba, RN Registered Nurse 11/01/19 documented as of this encounter
--- OUTSIDE RECORDS SUMMARY | 2024-11-17 16:08 | XMS_ITS | Encounter Summary ---
Author Organization [facility] Address [address] [facility] [place] [address] Care Team Providers Care Site Manager Name Role Phone Javier Syed MD Primary Care Provider [phone] Joanne Kaba RN Unavailable Unavailable Reason for Visit * Reason Onset Date Comments Refill Request 10/18/2024 Encounter Details Date Type Department Care Team (Late st Contact Info) Description 10/18/2024 Telephone [facility] - Pulmonology [address] [facility], [facility] [place] [id number] Camilla Purvis MD [address] [place] [address] Refill Request Social History Tobacco Use Types Packs/Day Years Used Date Smoking Tobacco: Former Cigarettes 2 27 0 06/01/1969 - 06/01/1996 Smokeless Tobacco: Never Alcohol Use Standard Drinks/Week Comments Not Currently 0 (1 standard drink = 0.6 oz pur e alcohol) Sex and Gender Information Value Date Recorded Sex Assigned at Not on file 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 Drug type:sndciza-otjrgdkjkwl-mafzmhiyif (Breztri Aerosphere) Pharmacy:[facility] in [place], [place] Patient call back number: [phone] Patients JULITA : 09/20/24 Upcoming appointment scheduled for : 01/17/25 documented in this encounter Plan of Treatment Upcoming Encounters Date Type Department Care Team (Late st Contact Info) Description 01/17/2025 4:00 PM CDT Office Visit [facility] - Pulmonology [address] [facility], [place] [address] Camilla Purvis MD [address] [place] [address] documented as of this encounter Goals Goal [...] track( 1:35 PM CDT) No Joanne Kaba, RAND Note: Expected end date: ongoing Interventions: Your nurse will assess your risk for falls/injury each visit Make sure appropriate safety devices are available and within reach Be aware of medications that could predispose you to falling Wear non-skid/rubber sole footwear Use some light at night in your room documented as of this encounter Visit Diagnoses Not on filedocumented in this encounter Care Teams Site Manager Relationship Specialty Start Date End Date Javier Syed MD [address] [place] [address] PCP - General 06/04/18 Joanne Kaba, RN Registered Nurse 11/01/19 documented as of this encounter
--- OUTSIDE RECORDS SUMMARY | 2024-11-17 16:08 | XMS_ITS | Clinical Summary ---
Author Organization [facility] Address [address] [place] [address] Care Team Providers Care Concaver Name Role Phone Javier Syed MD Primary Care Provider [phone] Joanne Kaba RN Unavailable Unavailable Source Comments [facility],non-owned Affiliates and Associated Physician Practices is amultiple site organization consisting of ambulatory clinics and hospital sitesin [place], [place], [place] and [place]. This disclosure is being madepursuant to the Care Everywhere program and may not contain all information available regarding this patient. Last updated 18.[facility] Allergies Active Allergy Reactions Criticality Noted Date Comments Neomycin Swelling 06/08/2018 Medications * Be aware that medications may not be up to date on this document. Alwaysverify current medications with the patient. buPROPion XL 24hr (WELLBUTRIN-XL) 150 MG tablet [...] tablet by mouth as needed 08/07/2020 Active umeclidinium-vi lanterol (Anoro Ellipta) 62.5-25 MCG/ACT inhaler Inhale 1 (one) puff by mouth once daily 60 Each 11 06/07/2024 Active albuterol HFA (Proventil; Ventolin; Proair) 108 (90 Base) MCG/ACT inhaler Inhale 2 (two) puffs by mouth every 6 hours as needed 18 g 11 06/07/2024 Active budeson-glycopy rrol-formoterol (Breztri Aerosphere) 160-9-4.8 MCG/ACT inhaler Inhale 2 (two) puffs by mouth 2 times daily 12 g 10 10/20/2024 6 Active budeson-glycopy rrol-formoterol (Breztri Aerosphere) 160-9-4.8 MCG/ACT inhaler Inhale 2 (two) puffs by mouth 2 times daily 12 g 10 10/19/2024 6 Active Active Problems Problem Noted Date Diagnosed Date Mixed simple and mucopurulent chronic bronchitis 09/20/2024 Other urticaria 10/15/2020 Overview (10/16/2020): PMHx: Asthma-COPD [...] respiratory disease due to COVID-19 virus 05/03/2020 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 0 Overview (11/01/2019): SZ Elevated liver enzymes 11/01/2019 Resolved Problems Problem Noted Date Diagnosed Date Resolved Date Asthma-COPD overlap syndrome 07/23/2018 03/05/2021 Encounters Date Type Department Care Team Description 10/18/2024 Refill [facility] - Pulmonology [address] [place] [address], [place] [address] Camilla Purvis MD MEDICATION REFILL 10/18/2024 Telephone [facility] - Pulmonology [address] [place] [phone] Camilla Purvis MD Refill Request 10/17/2024 Orders Only [facility] - Pulmonology [address] [place] [address], [place] [address] Cherri Ontiveros RN 09/27/2024 Telephone [facility] - Pulmonology [address] [place] [address], [place] [address] Camilla Purvis MD Follow-up (pft) 09/20/2024 3:30 PM CDT Office Visit [facility] - Pulmonology [address] [place] [address], [place] [address] Camilla Purvis MD Dyspnea on exertion (Primary Dx); Mixed simple and mucopurulent chronic bronchitis (HCC); History of smoking; Vwdzk-3-xuktcdlwudc deficiency carrier 09/20/2024 Travel from Last 3 Months Immunizations Immunization Administration Dates Next Due Covid Moderna primary [...] on file 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[employer] Gender Identity Not on file Sexual Orientation Not on file Last Filed Vital Signs Vital Sign Reading Time Taken Comments Blood Pressure 133/71 09/20/2024 3:17 PM CDT Pulse 62 09/20/2024 3:17 PM CDT Temperature 36.6 C (97.8 F) 03/05/2021 2:21 PM CDT Respiratory Rate 17 09/20/2024 3:17 PM CDT Oxygen Saturation 96% 09/20/2024 3:17 PM CDT Inhaled Oxygen Concentration - - Weight 93.4 kg (206 lb) 09/20/2024 3:17 PM CDT Height 180.3 cm (5' 11) 09/20/2024 3:17 PM CDT Body Mass Index 28.73 09/20/2024 3:17 PM CDT Plan of Treatment Upcoming Encounters Date Type Department Care Team (Late st Contact Info) Description 01/17/2025 4:00 PM CDT Office Visit [facility] - Pulmonology [address] [facility] [place] [address] Camilla Purvis MD [address] [place] [address] Health Maintenance Due Date Last Done Comments [...] General On track(06/02/2 020 1:35 PM CDT) Joanne Lemos RN Note: Expected end date: ongoing Interventions: Your nurse will assess your risk for falls/injury each visit Make sure appropriate safety devices are available and within reach Be aware of medications that could predispose you to falling Wear non-skid/rubber sole footwear Use some light at night in your room Insurance AETNA MEDICARE AETNA * Guarantor: ANOOP STEVENS Account Type Relation to Patient Date of Phone Billing Address Personal/Family Spouse Care Teams Concaver Relationship Specialty Start Date End Date Javier Syed MD [address] [place] [address] PCP - General 06/04/18 Joanne Kaba, RN Registered Nurse 11/01/19
--- OUTSIDE RECORDS SUMMARY | 2024-11-17 16:08 | XMS_ITS | Referral Summary ---
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 Gender Identity Male 03/08/2018 10:31 AM CDT Sexual Orientation Not on file Last Filed Vital Signs Vital Sign Reading Time Taken Comments Blood Pressure 111/71 04/08/2024 11:12 AM SHADER AND TONER Pulse 76 04/08/2024 11:12 AM SHADER AND TONER Temperature 36.5 C (97.7 F) 04/08/2024 11:12 AM SHADER AND TONER Respiratory Rate 18 04/08/2024 11:1 2 AM SHADER AND TONER Oxygen Saturation 93% 04/08/2024 11: 12 AM SHADER AND TONER Inhaled Oxygen Concentration - - Weight 90.6 kg (199 lb 11.8 oz) 024 11:12 AM SHADER AND TONER Height 180.3 cm (5' 11) 04/10/2023 1:09 PM SHADER AND TONER Body Mass Index 27.86 04/10/2023 1:09 PM SHADER AND TONER Plan of Treatment Not on file Insurance MEDICARE AETNA MEDICARE Care Teams Flour Tester Relationship Specialty Start Date End Date Jvaier Syed MD [address] [facility] [address] [facility] [address] [place] [address] PCP - General 07/24/16 Teo Pardo DO [address] [place] [id number] Medical Oncologist/Commissioning Manager Hematology and Oncology 07/13/20
--- OUTSIDE RECORDS SUMMARY | 2024-11-17 16:08 | XMS_ITS | Clinical Summary ---
Author Organization [facility] al Address [address] [place] [address] Care Team Providers Care Outbound Telemarketer Name Role Phone Javier Syed MD Primary Care Provider [phone] Teo Pardo DO Unavailable [phone] Allergies Active Allergy Reactions Criticality Noted Date [...] on file Legal Sex Male 8:46 PM SOFT CRAB SHEDDER Gender Identity Male 03/08/2018 10:31 AM CDT Sexual Orientation Not on file Obstetrics History Last Filed Vital Signs Vital Sign Reading Time Taken Comments Blood Pressure 111/71 04/08/2024 11:12 AM SOFT CRAB SHEDDER Pulse 76 04/08/2024 11:12 AM SOFT CRAB SHEDDER Temperature 36.5 C (97.7 F) 04/08/2024 11:12 AM SOFT CRAB SHEDDER Respiratory Rate 18 04/08/2024 11:1 2 AM SOFT CRAB SHEDDER Oxygen Saturation 93% 04/08/2024 11: 12 AM SOFT CRAB SHEDDER Inhaled Oxygen Concentration - - Weight 90.6 kg (199 lb 11.8 oz) 024 11:12 AM SOFT CRAB SHEDDER Height 180.3 cm (5' 11) 04/10/2023 1:09 PM SOFT CRAB SHEDDER Body Mass Index 27.86 04/10/2023 1:09 PM SOFT CRAB SHEDDER Plan of Treatment Health Maintenance Due Date [...] 10/21/2025 Insurance MEDICARE AET MEDICARE Care Teams Outbound Telemarketer Relationship Specialty Start Date End Date Javier Syed MD [address] [facility] [address] [facility] [address] [place] [address] PCP - General 07/24/16 Teo Pardo DO [address] [place] [id number] Medical Oncologist/Oil Furnace Installer Hematology and Oncology 07/13/20
[2024-11-17 16:14] LABS: Band Neutrophils Percent 0 % (0-6); Lymphocytes Absolute Manual 1.09 K/mm3 (1.1-4.5); Lymphocytes Percent Manual 13 % (18-44); Monocytes Absolute Manual 2.43 K/mm3 (0.1-0.90); Monocytes Percent Manual 29 % (3-9); Neutrophils Absolute Manual 4.87 K/mm3 (1.3-6.7); Neutrophils Percent Manual 58 % (46-73); Total Cells Counted 100
[2024-11-17 16:15] LABS: Platelet Estimate Decreased (Adequate); Schistocytes None Seen
== END 2024-11-17 17:46 | disposition home or self-care (01) ==
PROVIDERS: Emergency Provider Emergency Medicine; PCP Internal Medicine
DX: R07.89 Other chest pain (principal); D46.9 Myelodysplastic syndrome, unspecified; J44.9 Chronic obstructive pulmonary disease, unspecified; F41.8 Other specified anxiety disorders; Z85.828 Personal history of other malignant neoplasm of skin; Z86.16 Personal history of COVID-19; Z86.0100 Personal history of colon polyps, unspecified; Z87.01 Personal history of pneumonia (recurrent); Z87.891 Personal history of nicotine dependence; Z90.49 Acquired absence of other specified parts of digestive tract; Z79.82 Long term (current) use of aspirin; Z79.899 Other long term (current) drug therapy; R94.31 Abnormal electrocardiogram [ECG] [EKG]; I45.10 Unspecified right bundle-branch block
CPT/HCPCS: 36415; 71046; 80053; 83690; 84484; 85025; 85055; 85610; 85730; 93005; 99284

== ENCOUNTER 2024-11-22 08:21 | Emergency (ER) | payer MEDICARE, SELFPAY ==
[2024-11-22] VITALS (18 sets, daily range): BP systolic 108–121; BP diastolic 69–91; PULSE 70–111; RESP 11–26; TEMP 36.6; O2SAT 96–99
--- NOTE | ~2024-11-22 | XR_ITS ---
XR chest 2V Ordering provider: Jayy Tomas MD History: 74 years Male with . SOB, palpitations, A-FIB . Comparison: November 17, 2024 FINDINGS: MEDIASTINUM: The cardiac silhouette is not enlarged. LUNGS: No infiltrates, effusions or pneumothorax. OTHER: No free air under the diaphragm. Degenerative changes of the spine. Bilateral ribs healing fra ctures. IMPRESSION: No acute cardiopulmonary pathology. Reviewed, dictated and finalized at location A.
--- NOTE | 2024-11-22 08:23 | ECG_ITS ---
Test Date: 2024-11-22 08:27:40 Measurements Intervals [place] Rate: 100 P: 0 WV: 0 QRS: -40 QRSD: 110 T: 12 QT: 332 QTc: 429 Interpretive Statements ATRIAL FIBRILLATION WITH RAPID VENTRICULAR RESPONSE LEFT AXIS DEVIATION INCOMPLETE RIGHT BUNDLE BRANCH BLOCK CANNOT R/O SEPTAL INFARCT, AGE INDETERMINATE ABNORMAL ECG Compared to ECG 11/17/2024 14:59:36 Sinus rhythm no longer present Electronically Signed On 11-22-2024 08:36:56 CDT by Braden Pham D.O.
[2024-11-22] MEDS: ASPIRIN 81 MG CHEWABLE TABLET 324 MG PO (08:33)
[2024-11-22 08:56] LABS: Hematocrit 34.7 % (42.0-52.0); Immature Platelet Fraction Pct 33.8 % (0.9-11.2); Mean Corpuscular HGB Conc 31.7 g/dl (32-36); Mean Corpuscular Hemoglobin 30.4 pg (26-34); Mean Corpuscular Volume 95.9 fl (80-100); Platelet Count Result 71 k/mm3 (150-375); Red Blood Count 3.62 M/mm3 (4.6-6.20); Red Cell Distribution Width 15.9 % (11.5-14.5); White Blood Count 5.5 K/mm3 (4.5-10.0)
[2024-11-22 09:06] LABS: Alanine Aminotransferase 32 U/L (6-50); Albumin Level 3.6 g/dL (3.5-5.1); Alkaline Phosphatase 88 U/L (38-126); Anion Gap 9 mmol/L (4-12); Aspartate Amino Transferase 37 U/L (17-59); Bilirubin,Total 0.6 mg/dL (0.2-1.3); Blood Urea Nitrogen 29 mg/dL (9-20); Calcium 8.7 mg/dL (8.4-10.2); Carbon Dioxide 22 mmol/L (22-30); Chloride 110 mmol/L (98-107); Estimated CRCL calculation 64 ml/min; Estimated Glomerular Filt Rate > 60; Glucose 137 mg/dL (65-110); Lipase 59 U/L (23-300); Potassium 3.9 mmol/L (3.4-5.0); Sodium 141 mmol/L (137-145)
[2024-11-22 09:17] LABS: INR 1.2; Prothrombin Time 15.2 Seconds (11.1-14.7)
[2024-11-22 09:18] LABS: Troponin I < 0.012 ng/mL (0.000-0.034)
[2024-11-22] MEDS: METOPROLOL TARTRATE INJ 5 MG/5 ML VIAL IV PUSH (09:23)
[2024-11-22 09:35] LABS: Band Neutrophils Percent 5 % (0-6); Basophils Absolute Manual 0.05 K/mm3 (0.0-0.1); Basophils Percent Manual 1 % (0-1); Eosinophils Percent Manual 0 % (0-4); Lymphocytes Absolute Manual 1.59 K/mm3 (1.1-4.5); Lymphocytes Percent Manual 29 % (18-44); Monocytes Absolute Manual 0.99 K/mm3 (0.1-0.90); Monocytes Percent Manual 18 % (3-9); Neutrophils Absolute Manual 2.86 K/mm3 (1.3-6.7); Neutrophils Percent Manual 47 % (46-73); Total Cells Counted 100
[2024-11-22 09:36] LABS: Anisocytosis 1+; Giant Platelets Present; Hypochromasia 1+; Large Platelets Present; Platelet Estimate Decreased (Adequate)
[2024-11-22 09:37] LABS: Atypical Lymphocytes Present; Schistocytes None Seen
--- NOTE | 2024-11-22 10:31 | ED_ITS ---
HPI - SOB/Dyspnea General Chief Complaint: Shortness of Breath/Dyspnea Stated Complaint: AFIB Time Seen by Provider: 11/22/24 08:33 History of Present Illness HPI Narrative: Patient is a 74-year-old male who presents ER and atrial fibrillation. He has been having intermittent dyspnea on exertion over last few months. He has had a negative outpatient stress test. He was seen in the ER just in the last week. Followed up with PCP today and found to be in new atrial fibrillation with exertional heart rate in the 130s and resting heart rate in the low 100s. Related Data Home Medications ?Medication ?Instructions ?Recorded ?Confirmed ?Last Taken ?Type thiamine HCl (vitamin B1) 100 mg 100 mg PO DAILY 07/21/24 08/12/24 Unknown History tablet aspirin 81 mg tablet,delayed 81 mg PO DAILY 08/12/24 08/12/24 Unknown History release (Adult Low Dose Aspirin) Allergies Allergy/AdvReac Type Severity Reaction Status Date / Time neomycin AdvReac Unknown SLOWS Verified 11/22/24 07:44 HEALING, REDNESS Review of Systems 2 Review of Systems: All systems reviewed & are unremarkable except as noted in HPI and below Constitutional: Constitutional: Reports no additional constitutional complaints ENT: Reports system reviewed and no additional complaints, except as documented Cardiovascular: Cardiovascular: Reports no additional cardiovascular complaints Respiratory: Respiratory: Reports no additional respiratory complaints Gastrointestinal: Gastrointestinal: Reports no additional gastrointestinal complaints [facility] Past Medical History Medical History (Updated 11/22/24 @ 11:25 by Jayy Tomas MD) Hospital discharge follow-up Left-sided chest pain DIAZ (dyspnea on exertion) BMI 27.0-27.9,adult Prostate cancer screening Fatigue Encounter for routine adult health examination without abnormal findings BMI 26.0-26.9,adult BMI 25.0-25.9,adult Encounter for Medicare annual wellness exam URI (upper respiratory infection) Fever Skin cancer of nose Myelodysplasia (myelodysplastic syndrome) Personal history of COVID-19 Hx of colonic polyps Elevated glucose Chronic low back pain Pancytopenia Hx of multiple trauma Anxiety Uses hearing aid Hearing loss Generalized weakness Acute kidney injury due to COVID-19 COVID-19 virus infection Thrush of mouth and esophagus Pneumonia due to COVID-19 virus Bigeminy Elevated liver enzymes Thrombocytopenia Normocytic anemia Leukocytosis Sepsis Sepsis Pneumonia Trigger finger, left ring finger Pain of finger of left hand Aneurysm of infrarenal abdominal aorta Bruit Hx of compression fracture of spine Chest pain Abnormal screening cardiac CT Abnormal finding of blood chemistry, unspecified COPD (chronic obstructive pulmonary disease) Diarrhea Thoracic spondylosis 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 Hx of cholecystectomy Family History Family History Father Carcinoma of colon Social History Social History Smoking packs per day: 3 Smoking cigarettes per day: 60.0 Years smoked: 30 Smoking pack-years: 90.00 Smoking status: Former smoker Tobacco type: cigarettes Second hand tobacco smoke exposure: Yes Smoking end date: 06/01/06 Alcohol intake: never Substance use: never Substance use type: does not use Lack of Transportation: No Lack of Food: Never True Current Housing: I Have Housing Concerned About Future Housing: No Difficulty Paying Gas/Electric Bills: No Difficulty Paying for Meds: No Currently Unemployed: No Living arrangements: other Additional living arrangements comments: with sp Gender identity (if verbalized by the patient): Male Spiritual care concerns: No Exam 2 Narrative: GENERAL: Well-appearing, well-nourished, and in no acute distress. HEAD: Normocephalic, atraumatic. ENT: Mucous membranes moist. CHEST: Clear to auscultation. No respiratory distress. HEART: Irregularly irregular rate and rhythm that is tachycardic. Normal peripheral pulses. ABDOMEN: Soft, nontender, nondistended. EXTREMITIES: Normal range of motion. No edema. SKIN: Warm, dry, no rash. NEURO: Alert and oriented x3. PSYCH: Normal mood and affect. Course Course Emergency Course: Labs with only mild anemia that is chronic. Troponin negative. AFib responded well to low-dose metoprolol. Discussed with heart care group Parisa Bowman NP. Recommends placing patient on Eliquis 5 mg twice a day as well as metoprolol succinate 25 mg daily. Follow-up with Dr. Dipak burnette. Vital Signs Vital signs: Vital Signs Temperature 97.9 F 11/22/24 08:26 Pulse Rate 101 H 11/22/24 08:26 Respiratory Rate 21 H 11/22/24 08:26 Blood Pressure 116/69 11/22/24 08:26 Pulse Oximetry 96 11/22/24 08:26 Oxygen Delivery Room Air 11/22/24 08:26 Temperature 97.9 F 11/22/24 08:26 Pulse Rate 80 11/22/24 10:17 Respiratory Rate 19 11/22/24 10:17 Blood Pressure 108/71 11/22/24 10:15 Pulse Oximetry 98 11/22/24 10:17 Oxygen Delivery Room Air 11/22/24 08:30 MDM - SOB/Dyspnea Lab Data 11/22/24 08:45 11/22/24 08:45 Labs: Lab Results 11/22/24 Range/Units 08:45 WBC 5.5 (4.5-10.0) K/mm3 RBC 3.62 L (4.6-6.20) M/mm3 Hgb 11.0 L (14.0-18.0) g/dL Hct 34.7 L (42.0-52.0) % MCV 95.9 (80-100) fl MCH 30.4 (26-34) pg MCHC 31.7 L (32-36) g/dl RDW 15.9 H (11.5-14.5) % Plt Count 71 L (150-375) k/mm3 MPV TNP Immature Gran % (Auto) Not Reportable Neut % (Auto) Not Reportable Lymph % (Auto) Not Reportable Nicholas % (Auto) Not Reportable Eos % (Auto) Not Reportable Baso % (Auto) Not Reportable Lymph # (Auto) Not Reportable Nicholas # (Auto) Not Reportable Eos # (Auto) Not Reportable Baso # (Auto) Not Reportable Abs Immat Gran (auto) Not Reportable Absolute Neuts (auto) Not Reportable Absolute Nucleated RBC Not Reportable Total Counted 100 Neutrophils % (Manual) 47 (46-73) % Band Neutrophils % 5 (0-6) % Lymphocytes % (Manual) 29 (18-44) % Monocytes % (Manual) 18 H (3-9) % Eosinophils % (Manual) 0 (0-4) % Basophils % (Manual) 1 (0-1) % Nucleated RBC % Not Reportable Abs Neuts (Manual) 2.86 (1.3-6.7) K/mm3 Abs Lymphs (Manual) 1.59 (1.1-4.5) K/mm3 Abs Monocytes (Manual) 0.99 H (0.1-0.90) K/mm3 Absolute Eos (Manual) 0.00 L (0.02-0.50) K/mm3 Abs Basophils (Manual) 0.05 (0.0-0.1) K/mm3 Atypical Lymphocytes Present Platelet Estimate Decreased (Adequate) Large Platelets Present Giant Platelets Present % Immature Plt Fraction 33.8 H (0.9-11.2) % Hypochromasia 1+ Anisocytosis 1+ Schistocytes None seen PT 15.2 H (11.1-14.7) Seconds INR 1.2 APTT 37.0 H (22.3-36.8) Seconds Sodium 141 (137-145) mmol/L Potassium 3.9 (3.4-5.0) mmol/L Chloride 110 H (98-107) mmol/L Carbon Dioxide 22 (22-30) mmol/L Anion Gap 9 (4-12) mmol/L BUN 29 H (9-20) mg/dL Creatinine 1.00 (0.7-1.3) mg/dL Estim Creat Clear Calc 64 ml/min Estimated GFR > 60 (59 - ) Glucose 137 H (65-110) mg/dL Calcium 8.7 (8.4-10.2) mg/dL Total Bilirubin 0.6 (0.2-1.3) mg/dL AST 37 (17-59) U/L ALT 32 (6-50) U/L Alkaline Phosphatase 88 (38-126) U/L Troponin I < 0.012 (0.000-0.034) ng/mL Total Protein 8.0 (6.3-8.2) g/dL Albumin 3.6 (3.5-5.1) g/dL Lipase 59 (23-300) U/L Imaging Data Radiologist's impression: ITS Impressions Chest X-Ray 11/22/24 08:45 IMPRESSION: No acute cardiopulmonary pathology. ECG Data EKG #1: ECG completion date: 11/22/24 ECG completion time: 08:27 EKG Interpretation: tachycardia (100), atrial fibrillation, non-specific ST changes, normal QRS and normal QT Discharge Plan Discharge Clinical Impression: New onset a-fib Patient Disposition: Home Condition: Stable Instructions: A-fib (Atrial Fibrillation) (ED) Additional Instructions: Please return to the emergency department if you develop severe and persistent chest pain, difficulty breathing, dizziness, leg swelling or if you are coughing up blood as these can be signs of a medical emergency. Please call your doctor for a follow up appointment to determine the need for further testing. Return ER if you are having dark black stools, you fall and strike her head, or have additional concerns. Avoid taking naproxen or ibuprofen. Patient Language: Prydeinig Prescriptions: New Eliquis 5 mg tablet 5 mg PO BID Qty: 30 0RF metoprolol succinate 25 mg tablet extended release 24 hr 25 mg PO DAILY Qty: 30 0RF No Action (DME) Home Nebulizer Machine See Rx Instructions .Route .MEDSUPPLY Qty: 1 0RF Rx Instructions: As directed aspirin [Adult Low Dose Aspirin] 81 mg tablet,delayed release (DR/EC) 81 mg PO DAILY naproxen [Naprosyn] 500 mg tablet 500 mg PO BID Qty: 20 0RF methocarbamol 750 mg tablet 750 mg PO TID Qty: 30 0RF albuterol sulfate 90 mcg/actuation HFA aerosol inhaler 2 puff INHALATION Q4H PRN (Reason: shortness of breath or wheezing) Qty: 8.5 1RF bupropion HCl 150 mg tablet extended release 24 hr See Rx Instructions .ROUTE .COMPLEX Qty: 90 1RF Dose Instruction: TAKE 1 TABLET BY MOUTH IN THE MORNING Rx Instructions: TAKE 1 TABLET BY MOUTH IN THE MORNING thiamine HCl (vitamin B1) 100 mg tablet 100 mg PO DAILY trazodone 100 mg tablet See Rx Instructions .ROUTE .COMPLEX Qty: 90 0RF Dose Instruction: TAKE 1 TO 3 TABLETS BY MOUTH EVERY DAY AT BEDTIME Rx Instructions: TAKE 1 TO 3 TABLETS BY MOUTH EVERY DAY AT BEDTIME Breztri Aerosphere 160-9-4.8 mcg/actuation HFA aerosol inhaler 2 inh inhalation BID Qty: 5.9 0RF clonazepam 0.5 mg tablet 0.5 mg PO BID PRN (Reason: anxiety) Qty: 60 1RF ibuprofen 800 mg tablet 800 mg PO TID PRN (Reason: pain) Qty: 30 2RF Follow-up/Referrals: Javier Syed MD [Primary Care Provider] - Tomasz Quesada MD [Physician] - 1 Week
--- NOTE | 2024-11-22 10:50 | PC.NURSE ---
eliquis not available in the pyxis, waiting for medication to be sent down from pharmacy
[2024-11-22] MEDS: APIXABAN 5 MG TABLET PO (11:11)
== END 2024-11-22 11:56 | disposition home or self-care (01) ==
PROVIDERS: Emergency Provider Emergency Medicine; PCP Internal Medicine
DX: I48.91 Unspecified atrial fibrillation (principal); Z87.891 Personal history of nicotine dependence
CPT/HCPCS: 36415; 71046; 80053; 83690; 84484; 85025; 85055; 85610; 85730; 93005; 96374; 99284; A9270

== ENCOUNTER 2024-11-29 12:13 | Emergency (ER) | payer MEDICARE, SELFPAY ==
[2024-11-29] VITALS (46 sets, daily range): BP systolic 93–126; BP diastolic 53–73; PULSE 57–82; RESP 10–21; TEMP 37.1–37.7; O2SAT 93–100
--- NOTE | ~2024-11-29 | CT_ITS ---
CTA chest PE protocol Ordering provider: Ricky Tolentino MD History: 74 years Male with . new afib, chest pain . Comparison: None. Technique: CT angiogram chest was performed following timed intravenous injection of contrast. Thin s lice axial images and reformatted coronal images were obtained. Three dimensional reformatted images of the chest were also obtained using a [employer] workstation. . Automated exposure control and iterati ve reconstruction technique were employed. The dose-length product was 604.80 mGy-cm. 100 mL Omnipaqu e 350 was given IV. Findings: PULMONARY ARTERIES: No pulmonary embolus. VISUALIZED THORACIC INLET: Normal. MEDIASTINUM: Aorta/coronary arteries: Mild atheromatous disease. Heart/other: The heart is not enlarged. Lymph nodes: No mediastinal or hilar adenopathy. Secretions are seen in the trachea. LUNGS: Fibrotic changes of the lungs with dependent atelectatic changes. No pulmonary nodules or masses. No infiltrates or effusions. No pneumothorax. VISUALIZED UPPER ABDOMEN: Fat infiltration of the liver. Bilateral renal cysts. Hypodensity seen in t he area of the head of the pancreas measuring 1.5 cm. Further evaluation advised. Otherwise, the visu alized upper abdomen is normal. MUSCULOSKELETAL: Soft tissues: The superficial soft tissues are normal. Bones: Age appropriate degenerative changes of the spine. Old healed rib fractures in both hemithorax . Old healed fracture of the right clavicle. IMPRESSION: 1. No pulmonary embolism. 2. No acute cardiopulmonary pathology. 3. Bilateral renal cysts. 4. Possible hypodensity in the head of the pancreas. Follow-up and further evaluation advised. Reviewed, dictated and finalized at location A. IMPRESSION: 1. No pulmonary embolism. 2. No acute cardiopulmonary pathology. 3. Bilateral renal cysts. 4. Possible hypodensity in the head of the pancreas. Follow-up and further gian luation advised.
--- NOTE | ~2024-11-29 | XR_ITS ---
EXAMINATION: XR chest 2V DATE: 11/29/2024 13:23 INDICATION: Chest pain and chills TECHNIQUE: PA and lateral views of the chest were obtained. COMPARISON: Chest radiograph dated 11/22/2024 FINDINGS: Similar pattern of thin linear and thicker bandlike opacities in the bilateral mid and lower lung zon es consistent with atelectasis/scarring. No new airspace opacities, pulmonary edema, pleural effusion or pneumothorax. Heart size is normal. Multiple old healed bilateral rib fractures. Plate-screw fixa tion for lower cervical anterior spinal fusion. Mild thoracic spondylosis with chronic mild anterior wedging of a couple lower thoracic vertebral bodies. IMPRESSION: 1. Old healed bilateral rib fractures with stable appearance of chronic atelectasis/scarring in the b ilateral mid and lower lung zones. No acute cardiopulmonary disease. Reviewed, dictated and finalized at location B. IMPRESSION: 1. Old healed bilateral rib fractures with stable appearance of chronic atelect asis/scarring in the bilateral mid and lower lung zones. No acute cardiopulmona ry disease.
--- NOTE | 2024-11-29 12:16 | ECG_ITS ---
Test Date: 2024-11-29 12:21:40 Measurements Intervals [place] Rate: 81 P: 95 NC: 148 QRS: -47 QRSD: 89 T: -3 QT: 389 QTc: 452 Interpretive Statements SINUS RHYTHM WITH OCCASIONAL SUPRAVENTRICULAR PREMATURE COMPLEXES MARKED LEFT AXIS DEVIATION [QRS AXIS < -30] POSSIBLE RIGHT VENTRICULAR CONDUCTION DELAY [RSR (QR) IN V1/V2] ANTEROSEPTAL MYOCARDIAL INFARCTION , PROBABLY OLD [40+ ms Q WAVE IN V1-V4] Compared to ECG 11/22/2024 08:27:40 Atrial fibrillation no longer present Incomplete right bundle-branch block no longer present Myocardial infarct finding still present Electronically Signed On 11-29-2024 18:08:02 CDT by Lazaro Harding
--- OUTSIDE RECORDS SUMMARY | 2024-11-29 12:17 | XMS_ITS | Clinical Summary ---
Author Organization [facility] al Address [address] [place] [address] Care Team Providers Care Intelligence Support Officer Name Role Phone Javier Syed MD Primary Care Provider [phone] Teo Pardo DO Unavailable [phone] Allergies Active Allergy Reactions Criticality Noted Date [...] on file Legal Sex Male 8:46 PM PALLET STONE POSITIONER Gender Identity Male 03/08/2018 10:31 AM CDT Sexual Orientation Not on file Obstetrics History Last Filed Vital Signs Vital Sign Reading Time Taken Comments Blood Pressure 111/71 04/08/2024 11:12 AM PALLET STONE POSITIONER Pulse 76 04/08/2024 11:12 AM PALLET STONE POSITIONER Temperature 36.5 C (97.7 F) 04/08/2024 11:12 AM PALLET STONE POSITIONER Respiratory Rate 18 04/08/2024 11:1 2 AM PALLET STONE POSITIONER Oxygen Saturation 93% 04/08/2024 11: 12 AM PALLET STONE POSITIONER Inhaled Oxygen Concentration - - Weight 90.6 kg (199 lb 11.8 oz) 024 11:12 AM PALLET STONE POSITIONER Height 180.3 cm (5' 11) 04/10/2023 1:09 PM PALLET STONE POSITIONER Body Mass Index 27.86 04/10/2023 1:09 PM PALLET STONE POSITIONER Plan of Treatment Health Maintenance Due Date [...] (3 - season) 01/31/202405/2021, 07/13/2020 Influenza Vaccine (#1) 2025 , 06/08/2018, 04/17/2016 DTaP/Tdap/Td Vaccine (2 - Td or Tdap) 10/21/2025 Insurance MEDICARE AET MEDICARE Care Teams Intelligence Support Officer Relationship Specialty Start Date End Date Javier Syed MD [address] [facility] [address] [facility] [address] [place] [address] PCP - General 07/24/16 Teo Pardo DO [address] [place] [id number] Medical Oncologist/Ediscovery Project Manager Hematology and Oncology 07/13/20
--- OUTSIDE RECORDS SUMMARY | 2024-11-29 12:17 | XMS_ITS | Encounter Summary ---
Author Organization [facility] Address [address] [place] [address] Care Team Providers Care Concrete Floater Name Role Phone Javier Syed MD Primary Care Provider [phone] Joanne Kaba RN Unavailable Unavailable Reason for Visit * Reason Onset Date Comments Refill Request 10/18/2024 Encounter Details Date Type Department Care Team (Late st Contact Info) Description 10/18/2024 Telephone [facility] - Pulmonology [address] [facility], [facility] [place] [address] Camilla Purvis MD [address] [place] [address] Refill Request Social History Tobacco Use Types Packs/Day Years Used Date Smoking Tobacco: Former Cigarettes 2 27 0 06/01/1969 - 06/01/1996 Smokeless Tobacco: Never Alcohol Use Standard Drinks/Week Comments Not Currently 0 (1 standard drink = 0.6 oz pur e alcohol) Sex and Gender Information Value Date Recorded Sex Assigned at Not on file Legal Sex Male 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 Drug type:[id number]-[id number]-[id number] ([employer] [employer]) Pharmacy:[facility] in [place], [place] Patient call back number: [phone] Patients JULITA : 09/20/24 Upcoming appointment scheduled for : 01/17/25 documented in this encounter Plan of Treatment Upcoming Encounters Date Type Department Care Team (Late st Contact Info) Description 01/17/2025 4:00 PM CDT Office Visit [facility] - Pulmonology [address] [facility], [place] [address] Camilla Purvis MD [address] [place] [address] documented as of this encounter Goals Goal [...] on filedocumented in this encounter Care Teams Concrete Floater Relationship Specialty Start Date End Date Javier Syed MD [address] [place] [phone] PCP - General 06/04/18 Joanne Kaba, RN Registered Nurse 11/01/19 documented as of this encounter
--- OUTSIDE RECORDS SUMMARY | 2024-11-29 12:17 | XMS_ITS | Referral Summary ---
Author Organization [facility] Address [address] [place] [address] Care Team Providers Care Grip Wrapper Name Role Phone Javier Syed MD Primary Care Provider [phone] Teo Pardo DO Unavailable [phone] Allergies Active Allergy Reactions Criticality Noted Date [...] on file Legal Sex Male 8:46 PM COKE CRUSHER OPERATOR Gender Identity Male 03/08/2018 10:31 AM CDT Sexual Orientation Not on file Last Filed Vital Signs Vital Sign Reading Time Taken Comments Blood Pressure 111/71 04/08/2024 11:12 AM COKE CRUSHER OPERATOR Pulse 76 04/08/2024 11:12 AM COKE CRUSHER OPERATOR Temperature 36.5 C (97.7 F) 04/08/2024 11:12 AM COKE CRUSHER OPERATOR Respiratory Rate 18 04/08/2024 11:1 2 AM COKE CRUSHER OPERATOR Oxygen Saturation 93% 04/08/2024 11: 12 AM COKE CRUSHER OPERATOR Inhaled Oxygen Concentration - - Weight 90.6 kg (199 lb 11.8 oz) 024 11:12 AM COKE CRUSHER OPERATOR Height 180.3 cm (5' 11) 04/10/2023 1:09 PM COKE CRUSHER OPERATOR Body Mass Index 27.86 04/10/2023 1:09 PM COKE CRUSHER OPERATOR Plan of Treatment Not on file Insurance MEDICARE AETNA MEDICARE Care Teams Grip Wrapper Relationship Specialty Start Date End Date Javier Syed MD [address] [facility] [address] [facility] [address] [place] [address] PCP - General 07/24/16 Teo Pardo DO [address] [place] [id number] Medical Oncologist/Storage Architect Hematology and Oncology 07/13/20
--- OUTSIDE RECORDS SUMMARY | 2024-11-29 12:17 | XMS_ITS | Encounter Summary ---
Author Organization [facility] Address [address] [place] [address] Care Team Providers Care Bleacher Operator Name Role Phone Javier Syed MD Primary Care Provider [phone] Joanne Kaba RN Unavailable Unavailable Reason for Visit * Reason Onset Date Comments Appointment 04/13/2023 Encounter Details Date Type Department Care Team (Late st Contact Info) Description 04/13/2023 Telephone [facility] - Pulmonology [address] [place] [address], [facility] [place] [phone] Alicia Herrera, DO [address] [place] [address] OF [facility] [place] [place] [address] Appointment Social History Tobacco Use Types Packs/Day Years Used Date Smoking Tobacco: Former Cigarettes 2 27 0 06/01/1969 - 06/01/1996 Smokeless Tobacco: Never Alcohol Use Standard Drinks/Week Comments Not Currently 0 (1 standard drink = 0.6 oz pur e alcohol) Sex and Gender Information Value Date Recorded Sex Assigned at Not on file Legal Sex Male 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 Patient Call Back number: [phone] ZENSHIP INSTRUCTOR documented in this encounter Plan of Treatment Upcoming Encounters Date Type Department Care Team (Late st Contact Info) Description 01/17/2025 4:00 PM CDT Office Visit [facility] - Pulmonology [address] [facility], [place] [address] Camilla Purvis MD [address] [place] [address] documented as of this encounter Goals Goal [...] on filedocumented in this encounter Care Teams Bleacher Operator Relationship Specialty Start Date End Date Javier Syed MD [address] [place] [phone] PCP - General 06/04/18 Joanne Kaba, RN Registered Nurse 11/01/19 documented as of this encounter
--- OUTSIDE RECORDS SUMMARY | 2024-11-29 12:17 | XMS_ITS | Clinical Summary ---
Author Organization [facility] Address [address] [place] [address] Care Team Providers Care Building Maintenance Technician Name Role Phone Javier Syed MD Primary Care Provider [phone] Joanne Kaba RN Unavailable Unavailable Source Comments [facility],non-owned Affiliates and Associated Physician Practices is amultiple site organization consisting of ambulatory clinics and hospital sitesin [place], [place], [place] and [place]. This disclosure is being madepursuant to the Care Everywhere program and may not contain all information available regarding this patient. 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 Overview (11/01/2019): SZ Elevated liver enzymes 11/01/2019 Resolved Problems Problem Noted Date Diagnosed Date Resolved Date Asthma-COPD overlap syndrome 07/23/2018 03/05/2021 Encounters Date Type Department Care Team Description 10/18/2024 Refill [facility] [address] [place] [address], [place] [address] Camilla Purvis MD MEDICATION REFILL 10/18/2024 Telephone [facility] - Pulmonology [address] [place] [address] Camilla Purvis MD Refill Request 10/17/2024 Orders Only [facility] - Pulmonology [address] [place] [address], [place] [address] Cherri Ontiveros RN 09/27/2024 Telephone [facility] - Pulmonology [address] [place] [address], [place] [address] Camilla Purvis MD Follow-up (pft) 09/20/2024 3:30 PM CDT Office Visit [facility] - Pulmonology [address] [place] [address], [place] [address] Camilla Purvis MD Dyspnea on exertion (Primary Dx); Mixed simple and mucopurulent chronic bronchitis (HCC); History of smoking; 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 09/20/2024 Travel from Last 3 [...] on file 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 Gender Identity Not on file Sexual Orientation [...] Visit [facility] - Pulmonology [address] [facility], [place] [address] Camilla Purvis MD [address] [place] [address] Health Maintenance Due Date Last Done Comments [...] 03/08/1969 ZOSTER VACCINE (1 of 2) 2001 AAA SCREENING 2016 COVID-19 VACCINE ( season) 2024 08/10/2020, 07/13/2020 DEPRESSION SCREENING 06/01/2024 INFLUENZA VACCINE (Season Ended) 2025 04/29/2023, 05/18/2019, 05/18/2019, Additional history exists DTAP/TDAP/TD VACCINES (2 - Td or Tdap) 10/21/2025 10/22/2015 Respiratory Syncytial Virus (RSV) Vaccine Pt: or over 60 yrs (1 - 1-dose 75+ series) 2026 PNEUMOCOCCAL VACCINE 50+ Completed 04/29/2023, 04/01 HEPATITIS [...] 020 1:35 PM CDT) No Joanne Kaba, RAND Note: Expected end date: ongoing Interventions: Take [...] in your room Insurance AETNA MEDICARE AETNA AETNA SELF PAY NO INSURANCE Member Subscriber Plan / Payer (Ef fective for All Dates) Name:Alyson Stevensarlene Mcallister Member ID:Not on file Relation to Subscriber:Not on file Name:KENNY,ANOOP K Subscriber ID:Not on file (Home) Address: [id number] [place] [id number] Payer ID:Not on file Group ID:Not on file Type:Self Pay Address: [place], [place] * Guarantor: ANOOP STEVENS Account Type Relation to Patient Date of Phone Billing Address Personal/Family Spouse Care Teams Building Maintenance Technician Relationship Specialty Start Date End Date Javier Syed MD [address] [place] [address] PCP - General 06/04/18 Joanne Kaba, RN Registered Nurse 11/01/19
--- OUTSIDE RECORDS SUMMARY | 2024-11-29 12:17 | XMS_ITS | Clinical Summary ---
Author Organization [facility] Address [address] [place] [address] Care Team Providers Care Vascular Ultrasound Technologist Name Role Phone Javier Syed MD Primary Care Provider [phone] Immunizations Immunization Administration Dates Next Due MODERNA [...] age to complete this topic Care Teams Vascular Ultrasound Technologist Relationship Specialty Start Date End Date Javier Syed MD [address] - [facility] [address] [place] [address] PCP - General INTERNAL MEDICINE 01/14/24
--- NOTE | 2024-11-29 12:18 | PC.NURSE ---
324mg aspirin administered by EMS.
--- NOTE | 2024-11-29 13:11 | ED_ITS ---
HPI - Chest Pain General Chief Complaint: Chest Pain Stated Complaint: chills, subjective fever, chest pressure Time Seen by Provider: 11/29/24 12:25 History of Present Illness HPI narrative: 74-year-old male with a past medical history including recently diagnosed atrial fibrillation currently on Eliquis and metoprolol for rate control. Patient has been seen numerous times over last few weeks to month with vague complaints of chest pain shortness a breath and now having new symptoms of AFib. He has not followed up with Cardiology since his recent discharge about 1 week prior. States he has been taking his medications. He states last night he was having difficulty breathing and chest pressure and throughout the night felt incredibly warm and feeling feverish with chills. Workup today feeling cold and shivering and still having difficulty in breathing. Patient found to be 88% on room air with no history of COPD or oxygen use at home. Placed on nasal cannula brought back to room for for resuscitation. Soft blood pressure 90/70, no tachycardia but tachypnea in the 20s to 30s, febrile at 37.7 and 95 on 2 L nasal cannula. Endorses chest pressure and shortness of breath, fever and chills, no nausea, vomiting, abdominal pain, back pain. States he potentially has a history of blood clots but is not aware of any DVT or PE. No recent surgical procedures. Related Data Home Medications ?Medication ?Instructions ?Recorded ?Confirmed ?Last Taken ?Type thiamine HCl (vitamin B1) 100 mg 100 mg PO DAILY 07/21/24 11/22/24 Unknown History tablet aspirin 81 mg tablet,delayed 81 mg PO DAILY 08/12/24 11/22/24 Unknown History release (Adult Low Dose Aspirin) Allergies Allergy/AdvReac Type Severity Reaction Status Date / Time neomycin AdvReac Unknown SLOWS Verified 11/22/24 07:44 HEALING, REDNESS PMFSH Past Medical History Medical History (Updated 11/29/24 @ 21:56 by Ricky Tolentino MD) Hospital discharge follow-up Left-sided chest pain DIAZ (dyspnea on exertion) BMI 27.0-27.9,adult Prostate cancer screening Fatigue Encounter for routine adult health examination without abnormal findings BMI 26.0-26.9,adult BMI 25.0-25.9,adult Encounter for Medicare annual wellness exam URI (upper respiratory infection) Fever Skin cancer of nose Myelodysplasia (myelodysplastic syndrome) Personal history of COVID-19 Hx of colonic polyps Elevated glucose Chronic low back pain Pancytopenia Hx of multiple trauma Anxiety Uses hearing aid Hearing loss Generalized weakness Acute kidney injury due to COVID-19 COVID-19 virus infection Thrush of mouth and esophagus Pneumonia due to COVID-19 virus Bigeminy Elevated liver enzymes Thrombocytopenia Normocytic anemia Leukocytosis Sepsis Sepsis Pneumonia Trigger finger, left ring finger Pain of finger of left hand Aneurysm of infrarenal abdominal aorta Bruit Hx of compression fracture of spine Chest pain Abnormal screening cardiac CT Abnormal finding of blood chemistry, unspecified COPD (chronic obstructive pulmonary disease) Diarrhea Thoracic spondylosis On senior care drug therapy Anxiety with depression Surgical History Surgical History Hx of hernia repair 06/02/2001. Hx of cholecystectomy Family History Family History Father Carcinoma of colon Social History Social History Smoking packs per day: 3 Smoking cigarettes per day: 60.0 Years smoked: 30 Smoking pack-years: 90.00 Smoking status: Former smoker Tobacco type: cigarettes Second hand tobacco smoke exposure: Yes Smoking end date: 06/01/06 Alcohol intake: never Substance use: never Substance use type: does not use Lack of Transportation: No Lack of Food: Never True Current Housing: I Have Housing Concerned About Future Housing: No Difficulty Paying Gas/Electric Bills: No Difficulty Paying for Meds: No Currently Unemployed: No Living arrangements: other Additional living arrangements comments: with sp Gender identity (if verbalized by the patient): Male Spiritual care concerns: No Course Vital Signs Vital signs: Vital Signs Temperature 37.7 C H 11/29/24 12:29 Pulse Rate 82 11/29/24 12:29 Respiratory Rate 15 11/29/24 12:29 Blood Pressure 101/61 11/29/24 12:29 Pulse Oximetry 95 11/29/24 12:29 Oxygen Delivery Nasal Cannula 11/29/24 12:29 Oxygen Flow Rate 2 11/29/24 12:29 Temperature 37.1 C 11/29/24 21:19 Pulse Rate 61 11/29/24 21:19 Respiratory Rate 16 11/29/24 21:19 Blood Pressure 98/65 L 11/29/24 21:19 Pulse Oximetry 98 11/29/24 21:19 Oxygen Delivery Nasal Cannula 11/29/24 13:02 Oxygen Flow Rate 2 11/29/24 13:02 MDM - Chest Pain MDM Narrative Medical decision making narrative: 74-year-old male with a past medical history including recently diagnosed atrial fibrillation currently on Eliquis and metoprolol for rate control. Patient has been seen numerous times over last few weeks to month with vague complaints of chest pain shortness a breath and now having new symptoms of AFib. He has not followed up with Cardiology since his recent discharge about 1 week prior. States he has been taking his medications. He states last night he was having difficulty breathing and chest pressure and throughout the night felt incredibly warm and feeling feverish with chills. Workup today feeling cold and shivering and still having difficulty in breathing. Patient found to be 88% on room air with no history of COPD or oxygen use at home. Placed on nasal cannula brought back to room for for resuscitation. Soft blood pressure 90/63, no tachycardia but tachypnea in the 20s to 30s, febrile at 37.7 and 95 on 2 L nasal cannula. Endorses chest pressure and shortness of breath, fever and chills, no nausea, vomiting, abdominal pain, back pain. States he potentially has a history of blood clots but is not aware of any DVT or PE. No recent surgical procedures. Patient is ill-appearing and febrile, on oxygen presently but awake alert oriented. Clear breath sounds with no appreciable new murmurs. No edema in the legs and no asymmetry to legs. Given his new symptoms of AFib as well as being febrile with shortness of breath today considerations for thromboembolic disease such as a PE are higher, other causes such as pneumonia, ACS, pericarditis, myocarditis or even endocarditis are higher. Blood cultures were obtained he was started on 30 cc/kg fluid resuscitation and started on vancomycin while workup is underway. CT angiography of the chest and echocardiogram with obtain. Laboratory studies and inflammatory markers ordered. Placed on cardiac monitoring telemetry. Workup shows leukocytosis of 49.3k with predominant monocytosis, hemoglobin of 10.6 around baseline, platelets 89 around baseline. His Rylan moist reaction verses leukocytosis verses leukemic reaction is all new compared to his previous labs 1 week ago. Like electrolytes show acute kidney injury. Glucose normal, LFTs normal, lactic acid normal. Troponin negative x2. Negative lipase. Urinalysis without infection. CT angiography shows no PE or acute cardiopulmonary pathology., possible hypodensity in the pancreatic head. Patient was re-evaluated and doing better with his fever controlled but still requiring oxygen at this time. Blood pressure remains soft but stable. At this time he requires transfer to a higher level of care for his significant leukocytosis and potentially new finding of leukemia or other significant hematological process given his CBC and differential. Discussed the case with the [employer] transfer system at the patient's request and [facility] was declining him for transfer as they do not take acute leukemia patients. [facility] transfer system was contacted and I spoke to the bone marrow transplant team in patient was accepted to Dr. Mckeon as a high priority transfer with recommendations to start allopurinol prophylaxis and order laboratory studies including uric acid, fibrinogen, phosphorus, LDH. Patient was comfortable the plan and ALS transfer range. Bed was assigned several hours later and patient left the department any further issue. Medical Records Data Attestation: I reviewed the patient's medical records. Lab Data Attestation: I reviewed the patient's lab results. 11/29/24 13:56 11/29/24 13:56 Labs: Lab Results 11/29/24 11/29/24 11/29/24 Range/Units 13:55 13:56 15:49 WBC 49.3 H (4.5-10.0) K/mm3 RBC 3.45 L (4.6-6.20) M/mm3 Hgb 10.6 L (14.0-18.0) g/dL Hct 33.3 L (42.0-52.0) % MCV 96.5 (80-100) fl MCH 30.7 (26-34) pg MCHC 31.8 L (32-36) g/dl RDW 16.7 H (11.5-14.5) % Plt Count 89 L (150-375) k/mm3 MPV Not Reportable Immature Gran % (Auto) Not Reportable Neut % (Auto) Not Reportable Lymph % (Auto) Not Reportable Thayer % (Auto) Not Reportable Eos % (Auto) Not Reportable Baso % (Auto) Not Reportable Lymph # (Auto) Not Reportable Thayer # (Auto) Not Reportable Eos # (Auto) Not Reportable Baso # (Auto) Not Reportable Abs Immat Gran (auto) Not Reportable Absolute Neuts (auto) Not Reportable Absolute Nucleated RBC Not Reportable Total Counted 100 Neutrophils % (Manual) 68 (46-73) % Band Neutrophils % 6 (0-6) % Lymphocytes % (Manual) 1 L (18-44) % Monocytes % (Manual) 25 H (3-9) % Nucleated RBC % Not Reportable Abs Neuts (Manual) 36.48 H (1.3-6.7) K/mm3 Abs Lymphs (Manual) 0.49 L (1.1-4.5) K/mm3 Abs Monocytes (Manual) 12.32 H (0.1-0.90) K/mm3 Smudge Cells Few Platelet Estimate Decreased (Adequate) % Immature Plt Fraction 30.2 H (0.9-11.2) % Anisocytosis 1+ Schistocytes None seen ESR 24 H (0-20) mm/hr PT 18.2 H (11.1-14.7) Seconds INR 1.5 APTT 37.2 H (22.3-36.8) Seconds Fibrinogen 323 (215-510) mg/dl Sodium 139 (137-145) mmol/L Potassium 4.4 (3.4-5.0) mmol/L Chloride 105 (98-107) mmol/L Carbon Dioxide 25 (22-30) mmol/L Anion Gap 9 (4-12) mmol/L BUN 21 H (9-20) mg/dL Creatinine 1.37 H (0.7-1.3) mg/dL Estim Creat Clear Calc 49 ml/min Estimated GFR 51 L (59 - ) Glucose 104 (65-110) mg/dL Lactic Acid 1.4 (0.7-2.0) mmol/L Uric Acid 5.8 (3.5-8.5) mg/dL Calcium 8.9 (8.4-10.2) mg/dL Phosphorus 3.3 (2.5-4.5) mg/dL Total Bilirubin 1.2 (0.2-1.3) mg/dL AST 38 (17-59) U/L ALT 45 (6-50) U/L Alkaline Phosphatase 101 (38-126) U/L Lactate Dehydrogenase 300 H (120-246) U/L Troponin I 0.016 0.014 (0.000-0.034) ng/mL C-Reactive Protein 1.8 H (<1.0) mg/dL Total Protein 7.6 (6.3-8.2) g/dL Albumin 3.6 (3.5-5.1) g/dL Lipase 32 (23-300) U/L Urine Color (Yellow) Urine Appearance (Clear) Urine pH (5.0-9.0) Ur Specific Austin (1.001-1.035) Urine Protein (Negative) mg/dL Urine Glucose (UA) (Negative) mg/dL Urine Ketones (Negative) mg/dL Ur Blood (Man) (Negative) Urine Nitrate (Negative) Urine Bilirubin (Negative) Urine Urobilinogen (<2.0) mg/dL Leukocyte Esterase Rfl (Negative) MARIBELL/UL Urine RBC (0-2) /hpf Urine WBC (0-3) /hpf Ur Squamous Epith Cells (Few) /hpf Urine Bacteria /hpf Urine Casts Influenza A (RT-PCR) Negative (Negative) Influenza B (RT-PCR) Negative (Negative) RSV (RT-PCR) Negative (Negative) SARS-CoV-2 RNA (RT-PCR) Negative (Negative) 11/29/24 Range/Units 19:02 WBC (4.5-10.0) K/mm3 RBC (4.6-6.20) M/mm3 Hgb (14.0-18.0) g/dL Hct (42.0-52.0) % MCV (80-100) fl MCH (26-34) pg MCHC (32-36) g/dl RDW (11.5-14.5) % Plt Count (150-375) k/mm3 MPV Immature Gran % (Auto) Neut % (Auto) Lymph % (Auto) Thayer % (Auto) Eos % (Auto) Baso % (Auto) Lymph # (Auto) Thayer # (Auto) Eos # (Auto) Baso # (Auto) Abs Immat Gran (auto) Absolute Neuts (auto) Absolute Nucleated RBC Total Counted Neutrophils % (Manual) (46-73) % Band Neutrophils % (0-6) % Lymphocytes % (Manual) (18-44) % Monocytes % (Manual) (3-9) % Nucleated RBC % Abs Neuts (Manual) (1.3-6.7) K/mm3 Abs Lymphs (Manual) (1.1-4.5) K/mm3 Abs Monocytes (Manual) (0.1-0.90) K/mm3 Smudge Cells Platelet Estimate (Adequate) % Immature Plt Fraction (0.9-11.2) % Anisocytosis Schistocytes ESR (0-20) mm/hr PT (11.1-14.7) Seconds INR APTT (22.3-36.8) Seconds Fibrinogen (215-510) mg/dl Sodium (137-145) mmol/L Potassium (3.4-5.0) mmol/L Chloride (98-107) mmol/L Carbon Dioxide (22-30) mmol/L Anion Gap (4-12) mmol/L BUN (9-20) mg/dL Creatinine (0.7-1.3) mg/dL Estim Creat Clear Calc ml/min Estimated GFR (59 - ) Glucose (65-110) mg/dL Lactic Acid (0.7-2.0) mmol/L Uric Acid (3.5-8.5) mg/dL Calcium (8.4-10.2) mg/dL Phosphorus (2.5-4.5) mg/dL Total Bilirubin (0.2-1.3) mg/dL AST (17-59) U/L ALT (6-50) U/L Alkaline Phosphatase (38-126) U/L Lactate Dehydrogenase (120-246) U/L Troponin I (0.000-0.034) ng/mL C-Reactive Protein (<1.0) mg/dL Total Protein (6.3-8.2) g/dL Albumin (3.5-5.1) g/dL Lipase (23-300) U/L Urine Color Dark yellow (Yellow) Urine Appearance Clear (Clear) Urine pH 6.0 (5.0-9.0) Ur Specific Austin > 1.045 H (1.001-1.035) Urine Protein Trace (Negative) mg/dL Urine Glucose (UA) Negative (Negative) mg/dL Urine Ketones Trace H (Negative) mg/dL Ur Blood (Man) Negative (Negative) Urine Nitrate Negative (Negative) Urine Bilirubin Negative (Negative) Urine Urobilinogen 1.0 (<2.0) mg/dL Leukocyte Esterase Rfl Negative (Negative) MARIBELL/UL Urine RBC 0-2 (0-2) /hpf Urine WBC 0-5 (0-3) /hpf Ur Squamous Epith Cells None seen (Few) /hpf Urine Bacteria None seen /hpf Urine Casts 0-2 Influenza A (RT-PCR) (Negative) Influenza B (RT-PCR) (Negative) RSV (RT-PCR) (Negative) SARS-CoV-2 RNA (RT-PCR) (Negative) Imaging Data Attestation: I personally reviewed and interpreted this imaging study as follows: My impression: Impressions Chest X-Ray 11/29/24 13:24 IMPRESSION: 1. Old healed bilateral rib fractures with stable appearance of chronic atelectasis/scarring in the bilateral mid and lower lung zones. No acute cardiopulmonary disease. Chest CTA 11/29/24 15:13 IMPRESSION: 1. No pulmonary embolism. 2. No acute cardiopulmonary pathology. 3. Bilateral renal cysts. 4. Possible hypodensity in the head of the pancreas. Follow-up and further evaluation advised. Critical Care Time Critical Care Time Critical Care Time: Yes Total Critical Care Time: 75 Discharge Plan Discharge Clinical Impression: Sepsis, Monocytic leukemoid reaction, Acute hypoxic respiratory failure Patient Disposition: Acute Care Hospital Condition: Guarded Prognosis Patient Language: Romanian Prescriptions: No Action (DME) Home Nebulizer Machine See Rx Instructions .Route .MEDSUPPLY Qty: 1 0RF Rx Instructions: As directed aspirin [Adult Low Dose Aspirin] 81 mg tablet,delayed release (DR/EC) 81 mg PO DAILY naproxen [Naprosyn] 500 mg tablet 500 mg PO BID Qty: 20 0RF methocarbamol 750 mg tablet 750 mg PO TID Qty: 30 0RF Eliquis 5 mg tablet 5 mg PO BID Qty: 30 0RF metoprolol succinate 25 mg tablet extended release 24 hr 25 mg PO DAILY Qty: 30 0RF albuterol sulfate 90 mcg/actuation HFA aerosol inhaler 2 puff INHALATION Q4H PRN (Reason: shortness of breath or wheezing) Qty: 8.5 1RF bupropion HCl 150 mg tablet extended release 24 hr See Rx Instructions .ROUTE .COMPLEX Qty: 90 1RF Dose Instruction: TAKE 1 TABLET BY MOUTH IN THE MORNING Rx Instructions: TAKE 1 TABLET BY MOUTH IN THE MORNING thiamine HCl (vitamin B1) 100 mg tablet 100 mg PO DAILY trazodone 100 mg tablet See Rx Instructions .ROUTE .COMPLEX Qty: 90 0RF Dose Instruction: TAKE 1 TO 3 TABLETS BY MOUTH EVERY DAY AT BEDTIME Rx Instructions: TAKE 1 TO 3 TABLETS BY MOUTH EVERY DAY AT BEDTIME Breztri Aerosphere 160-9-4.8 mcg/actuation HFA aerosol inhaler 2 inh inhalation BID Qty: 5.9 0RF clonazepam 0.5 mg tablet 0.5 mg PO BID PRN (Reason: anxiety) Qty: 60 1RF ibuprofen 800 mg tablet 800 mg PO TID PRN (Reason: pain) Qty: 30 2RF Follow-up/Referrals: Javier Syed MD [Primary Care Provider] -
[2024-11-29] MEDS: LACTATED RINGERS 800 ML 999 ML IV CONT (13:55)
[2024-11-29] MEDS: LACTATED RINGERS 1,000 ML 999 ML IV CONT ×2 (13:55)
--- NOTE | 2024-11-29 13:56 | CONSULT_PTH ---
PATIENT: Mendoza Stevens LOC: [facility]#:[id number] AGE/SX: 74/M ROOM: RE11/29/[address]: Ricky Tolentino MD : 1950 BED: DIS: 11/29/2024 SPEC #: [id number] RECD: 11/29/24 14:39 STATUS: CELSA REQ #: [id number] DARRIN: 11/29/24 13:[address]: Ricky Tolentino DEPT: [facility] Consult RECD BY: Akash Potter MLT, ([facility]) ENTERED: 11/29/24 14:40 SP TYPE: Consult OTHR DR: Javier Syed MD Tissues: A - Peripheral Smear Procedures: Hematology Consult
--- OUTSIDE RECORDS SUMMARY | 2024-11-29 14:08 | XMS_ITS | Clinical Summary ---
Author Organization [facility] Address [address] [place] [address] Care Team Providers Care Laminating Machine Operator Helper Name Role Phone Javier Syed MD Primary Care Provider [phone] Immunizations Immunization Administration Dates Next Due MODERNA [...] age to complete this topic Care Teams Laminating Machine Operator Helper Relationship Specialty Start Date End Date Javier Syed MD [address] - [facility] [address] [place] [address] PCP - General INTERNAL MEDICINE 01/14/24
--- OUTSIDE RECORDS SUMMARY | 2024-11-29 14:08 | XMS_ITS | Clinical Summary ---
Author Organization [facility] Address [address] [place] [address] Care Team Providers Care Elevator Operator Freight Name Role Phone Javier Syed MD Primary Care Provider [phone] Joanne Kaba RN Unavailable Unavailable Source Comments [facility],non-owned Affiliates and Associated Physician Practices is amultiple site organization consisting of ambulatory clinics and hospital sitesin [place], [place], [place] and [place]. This disclosure is being madepursuant to the Care Everywhere program and may not contain all information available regarding this patient. Last updated 18.[facility] Allergies Active Allergy Reactions Criticality Noted Date [...] respiratory disease due to COVID-19 virus 05/03/2020 Pvigd-6-lohgccrdyud deficiency carrier 0 Overview (11/01/2019): SZ Elevated liver enzymes 11/01/2019 Resolved Problems Problem Noted Date Diagnosed Date Resolved Date Asthma-COPD overlap syndrome 07/23/2018 03/05/2021 Encounters Date Type Department Care Team Description 10/18/[address] [facility] [address] [place] [address], [place] [address] Camilla Purvis MD MEDICATION REFILL 10/18/2024 Telephone [facility] - Pulmonology [address] [place] [phone] Camilla Purvis MD Refill Request 10/17/2024 Orders Only [facility] - Pulmonology [address] [place] [address], [place] [address] Cherri Ontiveros RN 09/27/2024 Telephone [facility] - Pulmonology [address] [place] [address], [place] [address] Camilla Purvis MD Follow-up (pft) 09/20/2024 3:30 PM CDT Office Visit 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 Gender Identity Not on file Sexual Orientation [...] Visit [facility] - Pulmonology [address] [facility] [place] [address] Camilla Purvis MD [address] [place] [address] Health Maintenance Due Date Last Done Comments [...] K Subscriber ID:Not on file (Home) Address: [id number] [place] [id number] Payer ID:Not on file Group ID:Not on file Type:Self Pay Address: [place], [place] * Guarantor: ANOOP STEVENS Account Type Relation to Patient Date of Phone Billing Address Personal/Family Spouse Care Teams Elevator Operator Freight Relationship Specialty Start Date End Date Javier Syed MD [address] [place] [address] PCP - General 06/04/18 Joanne Kaba, RN Registered Nurse 11/01/19
--- OUTSIDE RECORDS SUMMARY | 2024-11-29 14:08 | XMS_ITS | Clinical Summary ---
Author Organization [facility] Address [address] [place] [address] Care Team Providers Care Tailor Apprentice Name Role Phone Javier Syed MD Primary Care Provider [phone] Teo Pardo DO Unavailable Allergies Active Allergy [...] on file Legal Sex Male 8:46 PM TALENT ANALYST Gender Identity Male 03/08/2018 10:31 AM CDT Sexual Orientation Not on file Obstetrics History Last Filed Vital Signs Vital Sign Reading Time Taken Comments Blood Pressure 111/71 04/08/2024 11:12 AM TALENT ANALYST Pulse 76 04/08/2024 11:12 AM TALENT ANALYST Temperature 36.5 C (97.7 F) 04/08/2024 11:12 AM TALENT ANALYST Respiratory Rate 18 04/08/2024 11:1 2 AM TALENT ANALYST Oxygen Saturation 93% 04/08/2024 11: 12 AM TALENT ANALYST Inhaled Oxygen Concentration - - Weight 90.6 kg (199 lb 11.8 oz) 024 11:12 AM TALENT ANALYST Height 180.3 cm (5' 11) 04/10/2023 1:09 PM TALENT ANALYST Body Mass Index 27.86 04/10/2023 1:09 PM TALENT ANALYST Plan of Treatment Health Maintenance Due Date [...] 10/21/2025 Insurance MEDICARE AET MEDICARE Care Teams Tailor Apprentice Relationship Specialty Start Date End Date Javier Syed MD [address] [facility] [address] [facility] [address] [place] [address] PCP - General 07/24/16 Teo Pardo DO [address] [place] [id number] Medical Oncologist/Content Producer Hematology and Oncology 07/13/20
--- OUTSIDE RECORDS SUMMARY | 2024-11-29 14:08 | XMS_ITS | Encounter Summary ---
Author Organization [facility] Address [address] [place] [address] Care Team Providers Care Automatic Spinning Lathe Operator Name Role Phone Javier Syed MD Primary Care Provider [phone] Joanne Kaba RN Unavailable Unavailable Reason for Visit * Reason Onset Date Comments Refill Request 10/18/2024 Encounter Details Date Type Department Care Team (Late st Contact Info) Description 10/18/2024 Telephone [facility] - Pulmonology [address] [facility] [place] [phone] Camilla Purvis MD [address] [place] [address] Refill Request Social History Tobacco Use Types Packs/Day Years Used Date Smoking Tobacco: Former Cigarettes 2 27 0 06/01/1969 - 06/01/1996 Smokeless Tobacco: Never Alcohol Use Standard Drinks/Week Comments Not Currently 0 (1 standard drink = 0.6 oz pur e alcohol) Sex and Gender Information Value Date Recorded Sex Assigned at Not on file Legal Sex Male 5:25 AM EDGE STRIPPER Gender Identity Not on file Sexual Orientation Not on file documented as of this encounter Miscellaneous Notes * Telephone Encounter - Aubree Davies - 10/18/2024 10:20 AM CDT Patient called in requesting a Med refill. Drug type:ssxbnwu-[id number]-[id number] (Breztri Aerosphere) Pharmacy:[facility] in [place], [place] Patient call back number: [phone] Patients JULITA : 09/20/24 Upcoming appointment scheduled for : 01/17/25 documented in this encounter Plan of Treatment Upcoming Encounters Date Type Department Care Team (Late st Contact Info) Description 01/17/2025 4:00 PM CDT Office Visit [facility] - Pulmonology [address] [facility] [place] [address] Camilla Purvis MD [address] [place] [address] documented as of this encounter Goals Goal [...] on filedocumented in this encounter Care Teams Automatic Spinning Lathe Operator Relationship Specialty Start Date End Date Javier Syed MD [address] [place] [address] PCP - General 06/04/18 Joanne Kaba, RN Registered Nurse 11/01/19 documented as of this encounter
--- OUTSIDE RECORDS SUMMARY | 2024-11-29 14:08 | XMS_ITS | Encounter Summary ---
Author Organization [facility] Address [address] [place] [address] Care Team Providers Care Frame Carver Spindle Name Role Phone Javier Syed MD Primary Care Provider [phone] Joanne Kaba RN Unavailable Unavailable Reason for Visit * Reason Onset Date Comments Appointment 04/13/2023 Encounter Details Date Type Department Care Team (Late st Contact Info) Description 04/13/2023 Telephone [facility] - Pulmonology [address] [place] [address], [place] [id number] Alicia Herrera, DO [address] [place] [address] OF [facility] [place] [place] [address] Appointment Social History Tobacco Use Types Packs/Day Years Used Date Smoking Tobacco: Former Cigarettes 2 27 0 06/01/1969 - 06/01/1996 Smokeless Tobacco: Never Alcohol Use Standard Drinks/Week Comments Not Currently 0 (1 standard drink = 0.6 oz pur e alcohol) Sex and Gender Information Value Date Recorded Sex Assigned at Not on file Legal Sex Male 5:25 AM CYLINDER TESTER Gender Identity Not on file Sexual Orientation Not on file documented as of this encounter Miscellaneous Notes * Telephone Encounter - Maira Mathis - 04/13/2023 9:35 AM CST Current Provider name: Alicia Herrera Reason for call: Pt would like a call back regarding a sooner appt due to coughing up redish/brown del cid over the past week. Patient Call Back number: [phone] NDER TESTER documented in this encounter Plan of Treatment Upcoming Encounters Date Type Department Care Team (Late st Contact Info) Description 01/17/2025 4:00 PM CDT Office Visit [facility] - Pulmonology [address] [facility], [place] [address] Camilla Purvis MD [address] [place] [address] documented as of this encounter Goals Goal [...] on filedocumented in this encounter Care Teams Frame Carver Spindle Relationship Specialty Start Date End Date Javier Syed MD [address] [place] [id number] PCP - General 06/04/18 Joanne Kaba, RN Registered Nurse 11/01/19 documented as of this encounter
--- OUTSIDE RECORDS SUMMARY | 2024-11-29 14:08 | XMS_ITS | Referral Summary ---
Author Organization [facility] Address [address] [place] [address] Care Team Providers Care Court Usher Name Role Phone Javier Syed MD Primary Care Provider [phone] Teo Pardo DO Unavailable [phone] Allergies Active Allergy Reactions Criticality Noted Date [...] on file Legal Sex Male 8:46 PM WILDLIFE FORENSIC GENETICIST Gender Identity Male 03/08/2018 10:31 AM CDT Sexual Orientation Not on file Last Filed Vital Signs Vital Sign Reading Time Taken Comments Blood Pressure 111/71 04/08/2024 11:12 AM WILDLIFE FORENSIC GENETICIST Pulse 76 04/08/2024 11:12 AM WILDLIFE FORENSIC GENETICIST Temperature 36.5 C (97.7 F) 04/08/2024 11:12 AM WILDLIFE FORENSIC GENETICIST Respiratory Rate 18 04/08/2024 11:1 2 AM WILDLIFE FORENSIC GENETICIST Oxygen Saturation 93% 04/08/2024 11: 12 AM WILDLIFE FORENSIC GENETICIST Inhaled Oxygen Concentration - - Weight 90.6 kg (199 lb 11.8 oz) 024 11:12 AM WILDLIFE FORENSIC GENETICIST Height 180.3 cm (5' 11) 04/10/2023 1:09 PM WILDLIFE FORENSIC GENETICIST Body Mass Index 27.86 04/10/2023 1:09 PM WILDLIFE FORENSIC GENETICIST Plan of Treatment Not on file Insurance MEDICARE [employer] MEDICARE Care Teams Court Usher Relationship Specialty Start Date End Date Javier Syde MD [address] [facility] [address] [facility] [address] [place] [address] PCP - General 07/24/16 Teo Pardo DO [address] [place] [id number] Medical Oncologist/Pipe Bender Hematology and Oncology 07/13/20
[2024-11-29 14:12] LABS: Hematocrit 33.3 % (42.0-52.0); Hemoglobin 10.6 g/dL (14.0-18.0); Immature Platelet Fraction Pct 30.2 % (0.9-11.2); Mean Corpuscular HGB Conc 31.8 g/dl (32-36); Mean Corpuscular Hemoglobin 30.7 pg (26-34); Mean Corpuscular Volume 96.5 fl (80-100); Platelet Count Result 89 k/mm3 (150-375); Red Blood Count 3.45 M/mm3 (4.6-6.20); White Blood Count 49.3 K/mm3 (4.5-10.0)
[2024-11-29 14:22] LABS: Alanine Aminotransferase 45 U/L (6-50); Albumin Level 3.6 g/dL (3.5-5.1); Alkaline Phosphatase 101 U/L (38-126); Anion Gap 9 mmol/L (4-12); Aspartate Amino Transferase 38 U/L (17-59); Bilirubin,Total 1.2 mg/dL (0.2-1.3); Blood Urea Nitrogen 21 mg/dL (9-20); Calcium 8.9 mg/dL (8.4-10.2); Carbon Dioxide 25 mmol/L (22-30); Chloride 105 mmol/L (98-107); Estimated CRCL calculation 49 ml/min; Estimated Glomerular Filt Rate 51; Glucose 104 mg/dL (65-110); Lipase 32 U/L (23-300); Potassium 4.4 mmol/L (3.4-5.0); Sodium 139 mmol/L (137-145); Total Protein 7.6 g/dL (6.3-8.2)
[2024-11-29 14:23] LABS: INR 1.5; Partial Thromboplastin Time 37.2 Seconds (22.3-36.8); Prothrombin Time 18.2 Seconds (11.1-14.7)
[2024-11-29 14:24] LABS: CRP 1.8 mg/dL (<1.0)
[2024-11-29 14:34] LABS: Troponin I 0.016 ng/mL (0.000-0.034)
[2024-11-29 14:35] LABS: Band Neutrophils Percent 6 % (0-6); Lymphocytes Absolute Manual 0.49 K/mm3 (1.1-4.5); Lymphocytes Percent Manual 1 % (18-44); Monocytes Absolute Manual 12.32 K/mm3 (0.1-0.90); Monocytes Percent Manual 25 % (3-9); Neutrophils Absolute Manual 36.48 K/mm3 (1.3-6.7); Neutrophils Percent Manual 68 % (46-73); Total Cells Counted 100
[2024-11-29 14:36] LABS: Anisocytosis 1+; Schistocytes None Seen
[2024-11-29 14:38] LABS: Smudge Cells FEW
[2024-11-29 14:50] LABS: Influenza A QL RT-PCR Negative (Negative); Influenza B QL RT-PCR Negative (Negative); RSV RNA, RT-PCR Negative (Negative); SARS-CoV-2 RNA PCR Negative (Negative)
--- NOTE | 2024-11-29 15:19 | PC.NURSE ---
a total of three sets of blood cultures were sent to lab per Dr Tolentino for rule out endocarditis
[2024-11-29] MEDS: CEFEPIME 2 GM/NS 50 ML 2 GM/50 ML BAG IVPB (15:24)
--- NOTE | 2024-11-29 15:45 | ECG_ITS ---
Test Date: 2024-11-29 15:47:12 Measurements Intervals [place] Rate: 72 P: 93 WV: 165 QRS: -50 QRSD: 87 T: -5 QT: 410 QTc: 450 Interpretive Statements SINUS RHYTHM WITH OCCASIONAL SUPRAVENTRICULAR PREMATURE COMPLEXES LEFT AXIS DEVIATION [QRS AXIS < -30] POSSIBLE RIGHT VENTRICULAR CONDUCTION DELAY [RSR (QR) IN V1/V2] ANTEROSEPTAL MYOCARDIAL INFARCTION , OF INDETERMINATE AGE [40+ ms Q WAVE IN V1-V4] Compared to ECG 11/29/2024 12:21:40 No significant changes Electronically Signed On 11-29-2024 18:14:34 CDT by Lazaro Harding
[2024-11-29] MEDS: VANCOMYCIN 1,250 MG/NS 250 ML 1,250 MG/250 ML BAG 166.67 MG IVPB (16:25)
[2024-11-29 16:36] LABS: Fibrinogen 323 mg/dl (215-510)
[2024-11-29 16:50] LABS: Uric Acid 5.8 mg/dL (3.5-8.5)
[2024-11-29 17:09] LABS: Troponin I 0.014 ng/mL (0.000-0.034)
[2024-11-29] MEDS: VANCOMYCIN 1,000 MG/NS 250 ML 1,000 MG/250 ML BAG 250 MG IVPB (18:01)
[2024-11-29] MEDS: ACETAMINOPHEN 500 MG TABLET 1000 MG PO (18:23)
[2024-11-29 19:10] LABS: Add Urine Microscopic? YES; Appearance Urine Clear (Clear); Glucose Urine UA Negative (Negative); Leukocyte Esterase Ur Negative LEU/UL (Negative); Nitrate Urine Negative (Negative); Non Pathogenic Casts 0-2; Specific Grav Ur > 1.045 (1.001-1.035)
--- NOTE | 2024-11-29 19:50 | PC.NURSE ---
vrbo 1LNS bolus
[2024-11-29] MEDS: SODIUM CHLORIDE 0.9% IV 1,000 ML 999 ML IV CONT (19:54)
[2024-11-29] MEDS: ONDANSETRON INJ 4 MG/2 ML VIAL (21:18)
--- NOTE | 2024-11-29 21:20 | PC.NURSE ---
angelito rn lyn shah gave rn to rn report to nestor crespo @ [id number]
== END 2024-11-29 21:20 | disposition short-term general hospital (02) ==
PROVIDERS: Emergency Medicine; Emergency Provider Student in an Organized Health Care Education/Training Program; PCP Internal Medicine
DX: A41.9 Sepsis, unspecified organism (principal); J96.01 Acute respiratory failure with hypoxia; D72.823 Leukemoid reaction; Z20.822 Contact with and (suspected) exposure to COVID-19; J44.9 Chronic obstructive pulmonary disease, unspecified; F41.8 Other specified anxiety disorders; Z86.16 Personal history of COVID-19; Z87.01 Personal history of pneumonia (recurrent); Z85.828 Personal history of other malignant neoplasm of skin; Z87.891 Personal history of nicotine dependence; Z90.49 Acquired absence of other specified parts of digestive tract; N28.1 Cyst of kidney, acquired
CPT/HCPCS: 36415; 71046; 71275; 80053; 81001; 83605; 83615; 83690; 84100; 84484; 84550; 85025; 85055; 85384; 85610; 85652; 85730; 86140; 87040; 87637; 93005; 96361; 96365; 96366; 96367; 96375; 99291; A9270; J0692; J2405; J3373; J7030; J7120; Q9967

== ENCOUNTER 2025-04-22 06:58 | Outpatient (CLI) | payer MEDICARE, SELFPAY ==
--- NOTE | ~2025-04-22 | MR_ITS ---
EXAMINATION: MR MRCP DATE: 04/22/2025 07:56 INDICATION: Cyst of pancreas. TECHNIQUE: Magnetic resonance imaging (MRI) of the abdomen was performed without intravenous contrast. Sequences included coronal T2-weighted FS FSE, coronal T2- weighted FSE, axial T1-weighted LAVA, coronal FS FIESTA, axial dual-echo T1- weighted SPGR, coronal lava-FLEX, sagittal T2-weighted FSE, axial T2-weighted FSE, and axial DWI. Thick-slab T2-weighted FSE images were obtained for magnetic resonance cholangiopancreatography (MRCP). Maximum intensity projection 3-D reconstructions of the volumetric data were created by the technologist. COMPARISON: Chest CT 11/29/2024 FINDINGS: ABDOMEN MRI: There are cysts in the liver measuring up to 8 mm . The gallbladder is absent. The spleen is normal. There are approximately 9 cystic lesions of the pancreas measuring up to 2.1 cm, most of which communicate with the pancreatic ducts. The main pancreatic duct is normal in caliber. There are cysts in the kidneys measuring up to 6.1 cm on the left. There are no dilated loops of bowel. There are no pathologically enlarged lymph nodes. There is no ascites. 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 ABDOMEN MRCP: The common duct is normal in caliber. The pancreatic duct is normal in caliber. IMPRESSION: 1. Low-risk cystic lesions of the pancreas measuring up to 2.1 cm. Consider abdomen MRI without and with contrast in 6 months. Reviewed, dictated and finalized at location E. HOP IMPRESSION: 1. Low-risk cystic lesions of the pancreas measuring up to 2.1 cm. Consider abd omen MRI without and with contrast in 6 months.
--- OUTSIDE RECORDS SUMMARY | 2025-04-22 07:01 | XMS_ITS | Clinical Summary ---
Author Organization [facility] Address [address] [place] [address] Care Team Providers Care Thread Marker Name Role Phone Javier Syed MD Primary Care Provider [phone] Teo Pardo DO Unavailable [phone] Lang Pinto MD Unavailable Allergies Active Allergy Reactions Criticality Noted Date Comments Neomycin Other (See comments) 03/21/2021 Reaction: EXFOLIATIVE DERMAT, Medications buPROPion XL (WELLBUTRIN XL) 150 mg 24 hr tablet TK 1 T PO QD 3 8 Active albuterol HFA (PROVENTIL HFA,VENTOLIN HFA,PROAIR HFA) 90 mcg/actuation inhaler Inhale 2 puffs every 6 (six) hours as needed 0 Active clonazePAM (KlonoPIN) 0.5 mg tablet TAKE 1 TABLET BY MOUTH EVERY DAY NEEDED FOR ANXIETY 0 Active traZODone (DESYREL) 100 mg tablet Take 1 tablet (100 mg total) by mouth 2 (two) times a day 0 Active umeclidinium-vi lanteroL (ANORO ELLIPTA) 62.5-25 mcg/actuation blister with device Inhale 1 puff daily 3 Active aspirin 81 mg chewable tablet Take 1 tablet (81 mg total) by mouth daily 30 tablet 11 5 12/15/19 26 Active atorvastatin (LIPITOR) 40 mg tablet Take 1 tablet (40 mg total) by mouth daily 30 tablet 12/15/19 Active Additional Information Patient not taking.Reported on 02/16/2025 fludrocortisone 0.1 mg tablet Take 1 tablet (0.1 mg total) by mouth daily 30 tablet 12/15/19 Active miconazole 2 % cream Apply topically 2 (two) times a day 28.35 g Active Additional Information Patient not taking.Reported on 02/16/2025 thiamine (VITAMIN B1) 100 mg tablet Take 1 tablet (100 mg total) by mouth daily 30 tablet 12/15/19 Active ibuprofen (ADVIL,MOTRIN) 800 mg tablet Take 1 tablet (800 mg total) by mouth 3 (three) times a day as needed for pain Active metoprolol XL (TOPROL-XL) 25 mg extended release tablet Take 1 tablet (25 mg total) by mouth daily Active Trelegy Ellipta 100-62.5-25 mcg inhalerIndicati ons: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) 1 puff daily Active Active Problems Problem Noted Date Diagnosed Date Orthostatic hypotension 12/11/2024 Assessment & Plan (12/13/2024 6:00 PM CDT): Positive orthostatic vitals on 12/10, 12/11 and on 12/12 -multiple IVFs -Compression stockings -Fludrocortisone 0.1mg daily started on 12/12 -AM cortisol level on 12/13 12.8, ACTH stim normal Assessment & Plan (12/12/2024 11:22 AM CDT): Positive orthostatic vitals on 12/10, 12/11 and on 12/12 -multiple IVFs -Compression stockings -Fludrocortisone 0.1mg daily started on 12/12 -AM cortisol level on 12/13 Assessment & Plan (12/11/2024 12:05 PM CDT): Positive orthostatic vitals on 12/10 and 12/11 -multiple IVFs -Compression stockings 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 Skin lesion 12/04/2024 Assessment & Plan (12/13/2024 6:00 PM CDT): - R hdez lesion--patient noted increased swelling in lesion, area marked, not significantly erythematous - Watch for clinical improvement with antibiotics, marked with marker Assessment & Plan (12/12/2024 9:47 AM CDT): - R hdez lesion--patient noted increased swelling in lesion, area marked, not significantly erythematous - Watch for clinical improvement with antibiotics, marked with marker Assessment & Plan (12/11/2024 8:15 AM CDT): - R hdez lesion--patient noted increased swelling in lesion, area marked, not significantly erythematous - Watch for clinical improvement with antibiotics, marked with marker Assessment & Plan (12/10/2024 8:36 AM CDT): - R hdez lesion--patient noted increased swelling in lesion, area marked, not significantly erythematous - Watch for clinical improvement with antibiotics, marked with marker Assessment & Plan (12/09/2024 7:46 AM CDT): - R hdez lesion--patient noted increased swelling in lesion, area marked, not significantly erythematous - Watch for clinical improvement with antibiotics, marked with marker Assessment & Plan (12/08/2024 11:37 AM CDT): - R hdez lesion--patient noted increased swelling in lesion, area marked, not significantly erythematous - Watch for clinical improvement with antibiotics, marked with marker Assessment & Plan (12/07/2024 11:45 AM CDT): - R hdez lesion--patient noted increased swelling in lesion, area marked, not significantly erythematous - Watch for clinical improvement with antibiotics, marked with marker Assessment & Plan (12/06/2024 2:04 PM CDT): - R hdez lesion--patient noted increased swelling in lesion, area marked, not significantly erythematous - Watch for clinical improvement with antibiotics, marked with marker Assessment & Plan (12/05/2024 3:18 PM CDT): - R hdez lesion--patient noted increased swelling in lesion, area marked, not significantly erythematous - Watch for clinical improvement with antibiotics, marked with marker Assessment & Plan (12/04/2024 11:58 AM CDT): - R hdez lesion--patient noted increased swelling in lesion, area marked, not significantly erythematous - Watch with antibiotics Cystic mass of pancreas 12/02/2024 Assessment & Plan (12/13/2024 6:00 PM CDT): - Upon CT review at our institution, found to have cystic lesion in pancreas, concerning for potential IPMN - MRCP on 12/06- 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 -Onc Jai flores consulted and per them it is usually benign lesions and will need outpatient PCP follow up. -Will need repeat MRI abdomen and MRCP as outpatient. 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 -Onc Jai flores consulted and per them it is usually benign lesions and will need outpatient PCP follow up. -Will need repeat MRI abdomen and MRCP as outpatient. 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 -Onc Jai flores consulted and per them it is usually benign lesions and will need outpatient PCP follow up. -Will need repeat MRI abdomen and MRCP as outpatient. 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 -Onc Jai flores consulted and per them it is usually benign lesions and will need outpatient PCP follow up. -Will need repeat MRI abdomen and MRCP as outpatient. 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 -Onc Jai flores consulted and per them it is usually benign lesions and will need outpatient PCP follow up. -Will need repeat MRI abdomen and MRCP as outpatient. 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 -Onc Jai flores consulted and per them it is usually benign lesions and will need outpatient PCP follow up. -Will need repeat MRI abdomen and MRCP as outpatient. 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 -Onc Jai flores consulted and per them it is usually benign lesions and will need outpatient PCP follow up. -Will need repeat MRI abdomen and MRCP as outpatient. 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 -Onc Jai flores consulted and per them it is usually benign lesions and will need outpatient PCP follow up. -Will need repeat MRI abdomen and MRCP as outpatient. Assessment & Plan (12/05/2024 7:36 AM CDT): - Upon CT review at our institution, found to have cystic lesion in pancreas, concerning for potential IPMN - We will need outpatient MRCP Assessment & Plan (12/04/2024 7:46 AM CDT): - Upon CT review at our institution, found to have cystic lesion in pancreas, concerning for potential IPMN - We will need outpatient MRCP Assessment & Plan (12/03/2024 7:45 AM CDT): - Upon CT review at our institution, found to have cystic lesion in pancreas, concerning for potential IPMN - We will need outpatient MRCP Assessment & Plan (12/02/2024 1:37 PM CDT): - Upon CT review at our institution, found to have cystic lesion in pancreas, concerning for potential IPMN - We will need outpatient MRCP Acute pulmonary edema 12/02/2024 Assessment & Plan (12/13/2024 6:00 PM CDT): - Increased work of breathing after IV fluids on 12/01, CT scan showed evidence of pulmonary edema - Back to baseline respiratory status Assessment & Plan (12/12/2024 9:47 AM CDT): - Increased work of breathing after IV fluids on 12/01, CT scan showed evidence of pulmonary edema - Back to baseline respiratory status Assessment & Plan (12/11/2024 8:15 AM CDT): - Increased work of breathing after IV fluids on 12/01, CT scan showed evidence of pulmonary edema - Back to baseline respiratory status Assessment & Plan (12/10/2024 8:36 AM CDT): - Increased work of breathing after IV fluids on 12/01, CT scan showed evidence of pulmonary edema - Back to baseline respiratory status Assessment & Plan (12/09/2024 7:46 AM CDT): - Increased work of breathing after IV fluids on 12/01, CT scan showed evidence of pulmonary edema - Back to baseline respiratory status Assessment & Plan (12/08/2024 11:37 AM CDT): - Increased work of breathing after IV fluids on 12/01, CT scan showed evidence of pulmonary edema - Back to baseline respiratory status Assessment & Plan (12/07/2024 11:45 AM CDT): - Increased work of breathing after IV fluids on 12/01, CT scan showed evidence of pulmonary edema - Back to baseline respiratory status Assessment & Plan (12/06/2024 2:04 PM CDT): - Increased work of breathing after IV fluids on 12/01, CT scan showed evidence of pulmonary edema - Back to baseline respiratory status Assessment & Plan (12/05/2024 7:36 AM CDT): - Increased work of breathing after IV fluids on 12/01, CT scan showed evidence of pulmonary edema - Back to baseline respiratory status Assessment & Plan (12/04/2024 7:46 AM CDT): - Increased work of breathing after IV fluids on 12/01, CT scan showed evidence of pulmonary edema - Back to baseline respiratory status Assessment & Plan (12/03/2024 3:10 PM CDT): - Increased work of breathing after IV fluids on 12/01, CT scan showed evidence of pulmonary edema - Back to baseline respiratory status Assessment & Plan (12/02/2024 1:38 PM CDT): - Increased work of breathing after IV fluids on 12/01, CT scan showed evidence of pulmonary edema - Responded well to IV Lasix dose, repeat dose today Fever 12/01/2024 Assessment & Plan (12/13/2024 6:00 PM CDT): - New fever 11/30 evening to 100.4F. Infectious workup include blood cx, neg RPP, CXR w/o clear PNA. WBC elevated. Denies URI symptoms, abdominal pain, dysuria, diarrhea. Does have recent tick exposure. - Ehrlichia negative - s/p 5 days of empiric cefepime from 12/01-12/05 - Stopped vancomycin (12/01-12/03) given low concern for MRSA pneumonia Assessment & Plan (12/12/2024 9:47 AM CDT): - New fever 11/30 evening to 100.4F. Infectious workup include blood cx, neg RPP, CXR w/o clear PNA. WBC elevated. Denies URI symptoms, abdominal pain, dysuria, diarrhea. Does have recent tick exposure. - Ehrlichia negative - s/p 5 days of empiric cefepime from 12/01-12/05 - Stopped vancomycin (12/01-12/03) given low concern for MRSA pneumonia Assessment & Plan (12/11/2024 8:15 AM CDT): - New fever 11/30 evening to 100.4F. Infectious workup include blood cx, neg RPP, CXR w/o clear PNA. WBC elevated. Denies URI symptoms, abdominal pain, dysuria, diarrhea. Does have recent tick exposure. - Ehrlichia negative - s/p 5 days of empiric cefepime from 12/01-12/05 - Stopped vancomycin (12/01-12/03) given low concern for MRSA pneumonia Assessment & Plan (12/10/2024 8:36 AM CDT): - New fever 7/ evening to 100.4F. Infectious workup include blood cx, neg RPP, CXR w/o clear PNA. WBC elevated. Denies URI symptoms, abdominal pain, dysuria, diarrhea. Does have recent tick exposure. - Ehrlichia negative - s/p 5 days of empiric cefepime from 12/01-12/05 - Stopped vancomycin (12/01-12/03) given low concern for MRSA pneumonia Assessment & Plan (12/09/2024 7:46 AM CDT): - New fever 7/ evening to 100.4F. Infectious workup include blood cx, neg RPP, CXR w/o clear PNA. WBC elevated. Denies URI symptoms, abdominal pain, dysuria, diarrhea. Does have recent tick exposure. - Ehrlichia negative - s/p 5 days of empiric cefepime from 12/01-12/05 - Stopped vancomycin (12/01-12/03) given low concern for MRSA pneumonia Assessment & Plan (12/08/2024 11:37 AM CDT): - New fever 7/2 evening to 100.4F. Infectious workup include blood cx, neg RPP, CXR w/o clear PNA. WBC elevated. Denies URI symptoms, abdominal pain, dysuria, diarrhea. Does have recent tick exposure. - Ehrlichia negative - s/p 5 days of empiric cefepime from 12/01-12/05 - Stopped vancomycin (12/01-12/03) given low concern for MRSA pneumonia Assessment & Plan (12/07/2024 11:45 AM CDT): - New fever 7/2 evening to 100.4F. Infectious workup include blood cx, neg RPP, CXR w/o clear PNA. WBC elevated. Denies URI symptoms, abdominal pain, dysuria, diarrhea. Does have recent tick exposure. - Ehrlichia negative - s/p 5 days of empiric cefepime from 12/01-12/05 - Stopped vancomycin (/5) given low concern for MRSA pneumonia Assessment & Plan (12/06/2024 2:04 PM CDT): - New fever 7 evening to 100.4F. Infectious workup include blood cx, neg RPP, CXR w/o clear PNA. WBC elevated. Denies URI symptoms, abdominal pain, dysuria, diarrhea. Does have recent tick exposure. - Ehrlichia negative - s/p 5 days of empiric cefepime from 12/01-12/05 - Stopped vancomycin (12/01-12/03) given low concern for MRSA pneumonia Assessment & Plan (12/05/2024 3:18 PM CDT): - New fever 7 evening to 100.4F. Infectious workup include blood cx, neg RPP, CXR w/o clear PNA. WBC elevated. Denies URI symptoms, abdominal pain, dysuria, diarrhea. Does have recent tick exposure. - Ehrlichia negative - Planning for 5 days of empiric cefepime from 12/01-12/05 - Stopped vancomycin (12/01-12/03) given low concern for MRSA pneumonia Assessment & Plan (12/04/2024 7:46 AM CDT): - New fever 7/ evening to 100.4F. Infectious workup include blood cx, neg RPP, CXR w/o clear PNA. WBC elevated. Denies URI symptoms, abdominal pain, dysuria, diarrhea. Does have recent tick exposure. - Ehrlichia negative - Planning for 5 days of empiric cefepime from 12/01-12/06 - Stopped vancomycin (12/01-12/03) given low concern for MRSA pneumonia Assessment & Plan (12/03/2024 3:10 PM CDT): - New fever 7/ evening to 100.4F. Infectious workup include blood cx, neg RPP, CXR w/o clear PNA. WBC elevated. Denies URI symptoms, abdominal pain, dysuria, diarrhea. Does have recent tick exposure. - Ehrlichia negative - Planning for 5 days of empiric cefepime from 12/01-7/8 - Stopped vancomycin (12/01-12/03) given low concern for MRSA pneumonia Assessment & Plan (12/02/2024 1:37 PM CDT): - New fever 7/2 evening to 100.4F. Infectious workup include blood cx, neg RPP, CXR w/o clear PNA. WBC elevated. Denies URI symptoms, abdominal pain, dysuria, diarrhea. Does have recent tick exposure. Blood cultures so far no growth today, started on vanc/cefepime (12/01-) - Plan for MRSA nares, hoping to stop vancomycin - Ehrlichia negative Assessment & Plan (12/01/2024 11:15 AM CDT): New fever 7/2 evening to 100.4F. Infectious workup include blood cx, neg RPP, CXR w/o clear PNA. WBC elevated. Denies URI symptoms, abdominal pain, dysuria, diarrhea. Does have recent tick exposure. - f/u blood cultures - f/u ehrlichia/anaplasma - started on vanc/cefe (12/01-) COPD (chronic obstructive pulmonary disease) 07/2024 Assessment & Plan (12/13/2024 6:00 PM CDT): - The patient follows with his machine stoppage frequency checker at [facility]. He was recently switched over to Bretezri from Anoro Ellipta which he feels like may have aggravated his shortness of breath - Continue with Anoro Ellipta 1 puff daily as inpatient - Continue albuterol PRN - The patient has also underlying history of alpha-1 antitrypsin deficiency heterozygous - walking O2 12/02 no drop in saturation on waling Assessment & Plan (12/12/2024 9:47 AM CDT): - The patient follows with his machine stoppage frequency checker at [facility]. He was recently switched over to Bretezri from Anoro Ellipta which he feels like may have aggravated his shortness of breath - Continue with Anoro Ellipta 1 puff daily as inpatient - Continue albuterol PRN - The patient has also underlying history of alpha-1 antitrypsin deficiency heterozygous - walking O2 ordered Assessment & Plan (12/11/2024 8:15 AM CDT): - The patient follows with his machine stoppage frequency checker at [facility]. He was recently switched over to Bretezri from Anoro Ellipta which he feels like may have aggravated his shortness of breath - Continue with Anoro Ellipta 1 puff daily as inpatient - Continue albuterol PRN - The patient has also underlying history of alpha-1 antitrypsin deficiency heterozygous - walking O2 ordered Assessment & Plan (12/10/2024 11:55 AM CDT): - The patient follows with his machine stoppage frequency checker at [facility]. He was recently switched over to Bretezri from Anoro Ellipta which he feels like may have aggravated his shortness of breath - Continue with Anoro Ellipta 1 puff daily as inpatient - Continue albuterol PRN - The patient has also underlying history of alpha-1 antitrypsin deficiency heterozygous - walking O2 ordered Assessment & Plan (12/09/2024 7:46 AM CDT): - The patient follows with his machine stoppage frequency checker at [facility]. He was recently switched over to Bretezri from Anoro Ellipta which he feels like may have aggravated his shortness of breath - Continue with Anoro Ellipta 1 puff daily as inpatient - Continue albuterol PRN - The patient has also underlying history of alpha-1 antitrypsin deficiency heterozygous - Anticipate need for walking O2 assessment prior to discharge Assessment & Plan (12/08/2024 11:37 AM CDT): - The patient follows with his machine stoppage frequency checker at [facility]. He was recently switched over to Bretezri from Anoro Ellipta which he feels like may have aggravated his shortness of breath - Continue with Anoro Ellipta 1 puff daily as inpatient - Continue albuterol PRN - The patient has also underlying history of alpha-1 antitrypsin deficiency heterozygous - Anticipate need for walking O2 assessment prior to discharge Assessment & Plan (12/07/2024 11:45 AM CDT): - The patient follows with his machine stoppage frequency checker at [facility]. He was recently switched over to Bretezri from Anoro Ellipta which he feels like may have aggravated his shortness of breath - Continue with Anoro Ellipta 1 puff daily as inpatient - Continue albuterol PRN - The patient has also underlying history of alpha-1 antitrypsin deficiency heterozygous - Anticipate need for walking O2 assessment prior to discharge Assessment & Plan (12/06/2024 2:04 PM CDT): - The patient follows with his machine stoppage frequency checker at [facility]. He was recently switched over to Bretezri from Anoro Ellipta which he feels like may have aggravated his shortness of breath - Continue with Anoro Ellipta 1 puff daily as inpatient - Continue albuterol PRN - The patient has also underlying history of alpha-1 antitrypsin deficiency heterozygous - Anticipate need for walking O2 assessment prior to discharge Assessment & Plan (12/05/2024 3:18 PM CDT): - The patient follows with his machine stoppage frequency checker at [facility]. He was recently switched over to Bretezri from Anoro Ellipta which he feels like may have aggravated his shortness of breath - Continue with Anoro Ellipta 1 puff daily as inpatient - Continue albuterol PRN - The patient has also underlying history of alpha-1 antitrypsin deficiency heterozygous - Anticipate need for walking O2 assessment prior to discharge Assessment & Plan (12/04/2024 11:58 AM CDT): - The patient follows with his machine stoppage frequency checker at [facility]. He was recently switched over to Bretezri from Anoro Ellipta which he feels like may have aggravated his shortness of breath - Continue with Anoro Ellipta 1 puff daily as inpatient - Continue albuterol PRN - The patient has also underlying history of alpha-1 antitrypsin deficiency heterozygous - Anticipate need for walking O2 assessment prior to discharge Assessment & Plan (12/03/2024 7:45 AM CDT): - The patient follows with his machine stoppage frequency checker at [facility]. He was recently switched over to Bretezri from Anoro Ellipta which he feels like may have aggravated his shortness of breath - Continue with Anoro Ellipta 1 puff daily as inpatient - Continue albuterol PRN - The patient has also underlying history of alpha-1 antitrypsin deficiency heterozygous Assessment & Plan (12/02/2024 1:37 PM CDT): - The patient follows with his machine stoppage frequency checker at [facility]. He was recently switched over to Bretezri from Anoro Ellipta which he feels like may have aggravated his shortness of breath - Continue with Anoro Ellipta 1 puff daily as inpatient - Continue albuterol PRN - The patient has also underlying history of alpha-1 antitrypsin deficiency heterozygous Assessment & Plan (12/01/2024 8:48 AM CDT): The patient follows with his machine stoppage frequency checker at [facility]. He was recently switched over to Bretezri from Anoro Ellipta which he feels like may have aggravated his shortness of breath - Continue with Anoro Ellipta 1 puff daily as inpatient - Continue albuterol PRN - The patient has also underlying history of alpha-1 antitrypsin deficiency heterozygous Assessment & Plan (11/30/2024 3:26 PM CDT): - The patient follows with his machine stoppage frequency checker at [facility] - He was recently switched over to Bretezri from Anoro Ellipta which he feels like may have aggravated his shortness of breath - Continue with Anoro Ellipta 1 puff daily as inpatient - Continue albuterol PRN - The patient has also underlying history of alpha-1 antitrypsin deficiency heterozygous - Uploaded imaging for review Assessment & Plan (11/30/2024 6:08 AM CDT): The patient follows with his machine stoppage frequency checker at [facility] He was recently switched over to Bretezri from Anoro Ellipta which he feels like may have aggravated his shortness of breath Continue with Anoro Ellipta 1 puff daily as inpatient Continue albuterol p.r.n. The patient has also underlying history of alpha-1 antitrypsin deficiency heterozygous No new oxygen requirement noted on admission CTA chest was not remarkable for any acute infectious process at OSH prior to the transfer JOE (acute kidney injury) 11/30/2024 Assessment & Plan (12/13/2024 6:00 PM CDT): Improved - On admission, BUN/Cr-21/1.42. Last known creatinine 1 in 2019. - Improved after IV fluids, renal dosing of medications Assessment & Plan (12/12/2024 9:47 AM CDT): Improved - On admission, BUN/Cr-21/1.42. Last known creatinine 1 in 2019. - Improved after IV fluids, renal dosing of medications Assessment & Plan (12/11/2024 8:15 AM CDT): Improved - On admission, BUN/Cr-21/1.42. Last known creatinine 1 in 2019. - Improved after IV fluids, renal dosing of medications Assessment & Plan (12/10/2024 8:36 AM CDT): Improved - On admission, BUN/Cr-21/1.42. Last known creatinine 1 in 2019. - Improved after IV fluids, renal dosing of medications Assessment & Plan (12/09/2024 7:46 AM CDT): Improved - On admission, BUN/Cr-21/1.42. Last known creatinine 1 in 2019. - Improved after IV fluids, renal dosing of medications Assessment & Plan (12/08/2024 11:37 AM CDT): Improved - On admission, BUN/Cr-21/1.42. Last known creatinine 1 in 2019. - Improved after IV fluids, renal dosing of medications Assessment & Plan (12/07/2024 11:45 AM CDT): - On admission, BUN/Cr-21/1.42. Last known creatinine 1 in 2019. - Improved after IV fluids, renal dosing of medications Assessment & Plan (12/06/2024 2:04 PM CDT): - On admission, BUN/Cr-21/1.42. Last known creatinine 1 in 2019. - Improved after IV fluids, renal dosing of medications Assessment & Plan (12/05/2024 7:36 AM CDT): - On admission, BUN/Cr-21/1.42. Last known creatinine 1 in 2019. - Improved after IV fluids, renal dosing of medications Assessment & Plan (12/04/2024 7:46 AM CDT): - On admission, BUN/Cr-21/1.42. Last known creatinine 1 in 2019. - Improved after IV fluids, renal dosing of medications Assessment & Plan (12/03/2024 7:45 AM CDT): - On admission, BUN/Cr-21/1.42. Last known creatinine 1 in 2019. - Improved after IV fluids, renal dosing of medications Assessment & Plan (12/02/2024 1:37 PM CDT): - On admission, BUN/Cr-21/1.42. Last known creatinine 1 in 2019. - Improved after IV fluids, renal dosing of medications Assessment & Plan (12/01/2024 8:48 AM CDT): On admission, BUN/Cr-21/1.42. Last known creatinine 1 in 2019. - Unclear baseline, bolus with fluids again given improvement Assessment & Plan (11/30/2024 3:26 PM CDT): - On admission, BUN/Cr-21/1.42 - Unclear baseline, bolus with fluids Assessment & Plan (11/30/2024 6:08 AM CDT): On admission,BUN/Cr-21/1.42 Unknown baseline Would obtain UA, urine lytes Follow-up BMP closely Chest pain 11/30/2024 Assessment & Plan (12/13/2024 6:00 PM CDT): - The patient presented with complaints of chest pain shortness a bed at OSH. 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 Initial cardiac workup with neg troponin and ST-T changes. Underwent TTE (11/30) w/o focal wall motion abnormalities - f/u A1c, lipid panel - CTA on 12/05- Three-vessel coronary artery atherosclerosis results up to moderate stenosis (50-70%) of the RCA and LAD. - FFR -No hemodynamically significant lesions. No lesions with FFR CT d 0.8. The low values in the left circumflex artery are associated with motion artifact and are not reliable. The right coronary artery could not be evaluated. -[facility] as inpatient on 12/09- no need for stent -Atorvastatin 40mg daily -ASA -Hold metop since had a bradycardic episode Assessment & Plan (12/12/2024 11:22 AM CDT): - The patient presented with complaints of chest pain shortness a bed at OSH. 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 Initial cardiac workup with neg troponin and ST-T changes. Underwent TTE (11/30) w/o focal wall motion abnormalities - f/u A1c, lipid panel - CTA on 12/05- Three-vessel coronary artery atherosclerosis results up to moderate stenosis (50-70%) of the RCA and LAD. - FFR -No hemodynamically significant lesions. No lesions with FFR CT d 0.8. The low values in the left circumflex artery are associated with motion artifact and are not reliable. The right coronary artery could not be evaluated. -[facility] as inpatient on 12/09- no need for stent -Atorvastatin 40mg daily -hold ASA since on apixaban -Hold metop since had a bradycardic episode Assessment & Plan (12/11/2024 12:05 PM CDT): - The patient presented with complaints of chest pain shortness a bed at OSH. 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 Initial cardiac workup with neg troponin and ST-T changes. Underwent TTE (11/30) w/o focal wall motion abnormalities - f/u A1c, lipid panel - CTA on 12/05- Three-vessel coronary artery atherosclerosis results up to moderate stenosis (50-70%) of the RCA and LAD. - FFR -No hemodynamically significant lesions. No lesions with FFR CT d 0.8. The low values in the left circumflex artery are associated with motion artifact and are not reliable. The right coronary artery could not be evaluated. -[facility] as inpatient on 12/09- no need for stent -Atorvastatin 40mg daily -hold ASA since on apixaban -Hold metop since had a bradycardic episode Assessment & Plan (12/10/2024 11:55 AM CDT): - The patient presented with complaints of chest pain shortness a bed at OSH. 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 Initial cardiac workup with neg troponin and ST-T changes. Underwent TTE (11/30) w/o focal wall motion abnormalities - f/u A1c, lipid panel - CTA on 12/05- Three-vessel coronary artery atherosclerosis results up to moderate stenosis (50-70%) of the RCA and LAD. - FFR -No hemodynamically significant lesions. No lesions with FFR CT d 0.8. The low values in the left circumflex artery are associated with motion artifact and are not reliable. The right coronary artery could not be evaluated. -[facility] as inpatient on 12/09- no need for stent, continue ASA and statin -Atorvastatin 40mg daily -Continue ASA -Hold metop since had a bradycardic episode Assessment & Plan (12/09/2024 1:35 PM CDT): - The patient presented with complaints of chest pain shortness a bed at OSH. 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 Initial cardiac workup with neg troponin and ST-T changes. Underwent TTE (11/30) w/o focal wall motion abnormalities - f/u A1c, lipid panel - CTA on 12/05- Three-vessel coronary artery atherosclerosis results up to moderate stenosis (50-70%) of the RCA and LAD. - FFR -No hemodynamically significant lesions. No lesions with FFR CT d 0.8. The low values in the left circumflex artery are associated with motion artifact and are not reliable. The right coronary artery could not be evaluated. -Cards following- planning [facility] as inpatient on 12/09 -Atorvastatin 40mg daily -Continue ASA -Hold metop since had a bradycardic episode Assessment & Plan (12/08/2024 11:37 AM CDT): - The patient presented with complaints of chest pain shortness a bed at OSH. 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 Initial cardiac workup with neg troponin and ST-T changes. Underwent TTE (11/30) w/o focal wall motion abnormalities - f/u A1c, lipid panel - CTA on 12/05- Three-vessel coronary artery atherosclerosis results up to moderate stenosis (50-70%) of the RCA and LAD. - FFR -No hemodynamically significant lesions. No lesions with FFR CT d 0.8. The low values in the left circumflex artery are associated with motion artifact and are not reliable. The right coronary artery could not be evaluated. -Cards following- planning [facility] as inpatient -Atorvastatin 40mg daily -Continue ASA -Hold metop since had a bradycardic episode Assessment & Plan (12/07/2024 11:45 AM CDT): - The patient presented with complaints of chest pain shortness a bed at OSH. 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 Initial cardiac workup with neg troponin and ST-T changes. Underwent TTE (11/30) w/o focal wall motion abnormalities - Unable to give ASA given severity of thrombocytopenia - f/u A1c, lipid panel - CTA on 12/05- Three-vessel coronary artery atherosclerosis results up to moderate stenosis (50-70%) of the RCA and LAD. - FFR -pending(might take 2-3 days for it to come back) -Cards following -Atorvastatin 40mg daily -start meto XL 12.5mg tomorrow, got 6.25 of tartrate today Assessment & Plan (12/06/2024 2:04 PM CDT): - The patient presented with complaints of chest pain shortness a bed at OSH. 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 Initial cardiac workup with neg troponin and ST-T changes. Underwent TTE (11/30) w/o focal wall motion abnormalities - Unable to give ASA given severity of thrombocytopenia - f/u A1c, lipid panel - CTA on 12/05- Three-vessel coronary artery atherosclerosis results up to moderate stenosis (50-70%) of the RCA and LAD. - FFR -pending Assessment & Plan (12/05/2024 3:18 PM CDT): - The patient presented with complaints of chest pain shortness a bed at OSH. 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 Initial cardiac workup with neg troponin and ST-T changes. Underwent TTE (11/30) w/o focal wall motion abnormalities - Unable to give ASA given severity of thrombocytopenia - f/u A1c, lipid panel - Given patient's exertional dyspnea could represent angina equivalent, plan for CTA coronary artery today Assessment & Plan (12/04/2024 11:58 AM CDT): - The patient presented with complaints of chest pain shortness a bed at OSH. 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 Initial cardiac workup with neg troponin and ST-T changes. Underwent TTE (11/30) w/o WMA. - Unable to give ASA given severity of thrombocytopenia - f/u A1c, lipid panel - Consider stress test vs. CTA Assessment & Plan (12/03/2024 3:10 PM CDT): - The patient presented with complaints of chest pain shortness a bed at OSH. 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 Initial cardiac workup with neg troponin and ST-T changes. Underwent TTE (11/30) w/o WMA. - continue daily aspirin - f/u A1c, lipid panel - Consider outpatient stress test vs. Coronary CTA Assessment & Plan (12/02/2024 1:37 PM CDT): - The patient presented with complaints of chest pain shortness a bed at OSH. 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 Initial cardiac workup with neg troponin and ST-T changes. Underwent TTE (11/30) w/o WMA. - continue daily aspirin - f/u A1c, lipid panel - Consider outpatient stress test pending workup Assessment & Plan (12/01/2024 8:48 AM CDT): The patient presented with complaints of chest pain shortness a bed at OSH. 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 Initial cardiac workup with neg troponin and ST-T changes. Underwent TTE (11/30) w/o WMA. - continue daily aspirin - f/u A1c, lipid panel - will likely need outpatient stress test vs CTA coronary given elevated calcium score (1073) Assessment & Plan (11/30/2024 3:26 PM CDT): - Concern for ACS - The patient presented with complaints of chest pain shortness a bed at OSH - Based on medical records, the patient does have suspected coronary disease as the patient's coronary calcium score in 12/2023 1073.34. This implies extensive atherosclerotic plaque with high likelihood of at least one significant coronary narrowing. - No ST-T changes noted on the EKG on admission - Telemetry - Troponin negative - TTE without any focal wall motion abnormalities - Can consider Cardiology consultation during this admission for further workup including NST/ Coronary CTA - Aspirin 81 mg p.o. every day - Check A1c, lipid panel Assessment & Plan (11/30/2024 6:08 AM CDT): Concern for ACS The patient presented with complaints of chest pain shortness a bed at OSH Based on medical records, the patient does have suspected coronary disease as the patient's coronary calcium score in 12/2023 1073.34. This implies extensive atherosclerotic plaque with high likelihood of at least one significant coronary narrowing. No ST-T changes noted on the EKG on admission Plan to monitor closely on telemetry Troponin negative on admission Pending TTE Can consider Cardiology consultation during this admission for further workup including NST/ Coronary CTA The patient does endorse improvement with aspirin Plan to continue with aspirin 81 mg p.o. every day Pending HGB A1c and lipid panel Atrial fibrillation 11/30/2024 Assessment & Plan (12/13/2024 6:00 PM CDT): - Hx of afib which was on metoprolol for rate control for time period. No longer on any medication for rate control. - Monitor on telemetry - s/p heparin gtt - DC apixaban as likely risk more than benefit given positive orthostatics and thrombocytopenia, outpatient cardiology follow-up Assessment & Plan (12/12/2024 11:22 AM CDT): - Hx of afib which was on metoprolol for rate control for time period. No longer on any medication for rate control. - Monitor on telemetry - s/p heparin gtt - DC apixaban and switch to ASA Assessment & Plan (12/11/2024 12:05 PM CDT): - Hx of afib which was on metoprolol for rate control for time period. No longer on any medication for rate control. - Monitor on telemetry - s/p heparin gtt - continue apixaban(but if PLT <40 switch to ASA 81mg) Assessment & Plan (12/10/2024 11:55 AM CDT): - Hx of afib which was on metoprolol for rate control for time period. No longer on any medication for rate control. - Monitor on telemetry - s/p heparin gtt - Cards to comment about apixaban continuation Assessment & Plan (12/09/2024 7:46 AM CDT): - Hx of afib which was on metoprolol for rate control for time period. No longer on any medication for rate control. - Monitor on telemetry - heparin gtt per cards and ordered Assessment & Plan (12/08/2024 11:37 AM CDT): - Hx of afib which was on metoprolol for rate control for time period. No longer on any medication for rate control. - Monitor on telemetry - heparin gtt per cards and ordered Assessment & Plan (12/07/2024 11:45 AM CDT): - Hx of afib which was on metoprolol for rate control for time period. No longer on any medication for rate control. - Monitor on telemetry - heparin gtt per cards and ordered Assessment & Plan (12/06/2024 2:04 PM CDT): - Hx of afib which was on metoprolol for rate control for time period. No longer on any medication for rate control. - Monitor on telemetry - Holding Eliquis in setting of thrombocytopenia--will need to discuss final anticoagulation with cardiology Assessment & Plan (12/05/2024 3:18 PM CDT): - Hx of afib which was on metoprolol for rate control for time period. No longer on any medication for rate control. - Monitor on telemetry - Holding Eliquis in setting of thrombocytopenia--will need to discuss final anticoagulation with multidisciplinary team Assessment & Plan (12/04/2024 7:46 AM CDT): - Hx of afib which was on metoprolol for rate control for time period. No longer on any medication for rate control. - Monitor on telemetry - Holding Eliquis in setting of thrombocytopenia Assessment & Plan (12/03/2024 7:45 AM CDT): - Hx of afib which was on metoprolol for rate control for time period. No longer on any medication for rate control. - Monitor on telemetry - Holding Eliquis in setting of thrombocytopenia Assessment & Plan (12/02/2024 1:37 PM CDT): - Hx of afib which was on metoprolol for rate control for time period. No longer on any medication for rate control. - Monitor on telemetry - Holding Eliquis in setting of thrombocytopenia Assessment & Plan (12/01/2024 8:48 AM CDT): Hx of afib which was on metoprolol for rate control for time period. No longer on any medication for rate control. - Monitor on telemetry - hold eliquis in setting of thrombocytopenia Assessment & Plan (11/30/2024 3:26 PM CDT): - The patient has recent history of atrial fibrillation for which he was supposedly started on metoprolol for rate control - Currently is not on any rate control medications - Noted to be NSR on the EKG on admission - Monitor on telemetry Assessment & Plan (11/30/2024 6:08 AM CDT): The patient has recent history of atrial fibrillation for which he was supposedly started on metoprolol for rate control Currently is not on any rate control medications Noted to be NSR on the EKG on admission Monitor on telemetry History of pulmonary embolism 11/30/2024 Assessment & Plan (12/13/2024 6:00 PM CDT): single post-surgical event about 9 years ago, had not been on anti-coagulation at home until recent ED visit (at [facility]? Records not available in our system) for AFIb 1 week prior to admission and sent home on metoprolol and new Eliquis start. Discussed with BMT, no need for AC as it was remote and provoked. Assessment & Plan (12/12/2024 11:22 AM CDT): - hold home Eliquis due to thrombocytopenia and was switched to ASA Assessment & Plan (12/11/2024 12:05 PM CDT): - continue home Eliquis Assessment & Plan (12/10/2024 11:55 AM CDT): - Holding home Eliquis Assessment & Plan (12/09/2024 7:46 AM CDT): - Holding home Eliquis - heparin gtt Assessment & Plan (12/08/2024 11:37 AM CDT): - Holding home Eliquis - heparin gtt Assessment & Plan (12/07/2024 11:45 AM CDT): - Holding home Eliquis - heparin gtt Assessment & Plan (12/06/2024 2:04 PM CDT): - Holding home Eliquis due to thrombocytopenia Assessment & Plan (12/05/2024 7:36 AM CDT): - Hplding home Eliquis due to thrombocytopenia Assessment & Plan (12/04/2024 7:46 AM CDT): - Hplding home Eliquis due to thrombocytopenia Assessment & Plan (12/03/2024 7:45 AM CDT): - Hplding home Eliquis due to thrombocytopenia Assessment & Plan (12/02/2024 1:37 PM CDT): - Hplding home Eliquis due to thrombocytopenia Assessment & Plan (12/01/2024 8:48 AM CDT): - hold home eliquis due to thrombocytopenia Assessment & Plan (11/30/2024 3:26 PM CDT): - Remains on Eliquis 5 mg p.o. b.i.d. Assessment & Plan (11/30/2024 6:08 AM CDT): Has prior history of toe walk be secondary to surgery post trauma almost 9 years back Remains on Eliquis 5 mg p.o. b.i.d. Depression 11/30/2024 Assessment & Plan (12/13/2024 6:00 PM CDT): - Continue home trazodone on discharge - Continue bupropion XL 150 mg p.o. once daily Assessment & Plan (12/12/2024 9:47 AM CDT): - Continue trazodone 250mg qhs - Continue bupropion XL 150 mg p.o. once daily Assessment & Plan (12/11/2024 8:15 AM CDT): - Continue trazodone 250mg qhs - Continue bupropion XL 150 mg p.o. once daily Assessment & Plan (12/10/2024 8:36 AM CDT): - Continue trazodone 250mg qhs - Continue bupropion XL 150 mg p.o. once daily Assessment & Plan (12/09/2024 7:46 AM CDT): - Continue trazodone 250mg qhs - Continue bupropion XL 150 mg p.o. once daily Assessment & Plan (12/08/2024 11:37 AM CDT): - Continue trazodone 250mg qhs - Continue bupropion XL 150 mg p.o. once daily Assessment & Plan (12/07/2024 11:45 AM CDT): - Continue trazodone 250mg qhs - Continue bupropion XL 150 mg p.o. once daily Assessment & Plan (12/06/2024 2:04 PM CDT): - Continue trazodone 250mg qhs - Continue bupropion XL 150 mg p.o. once daily Assessment & Plan (12/05/2024 7:36 AM CDT): - Continue trazodone 250mg qhs - Continue bupropion XL 150 mg p.o. once daily Assessment & Plan (12/04/2024 7:46 AM CDT): - Continue trazodone 250mg qhs - Continue bupropion XL 150 mg p.o. once daily Assessment & Plan (12/03/2024 7:45 AM CDT): - Continue trazodone 250mg qhs - Continue bupropion XL 150 mg p.o. once daily Assessment & Plan (12/02/2024 7:31 AM CDT): - Continue trazodone 250mg qhs - Continue bupropion XL 150 mg p.o. once daily Assessment & Plan (12/01/2024 8:48 AM CDT): - Continue trazodone 250mg qhs - Continue bupropion XL 150 mg p.o. once daily Assessment & Plan (11/30/2024 3:26 PM CDT): - Continue trazodone 100 mg p.o. b.i.d. - Continue bupropion XL 150 mg p.o. once daily Assessment & Plan (11/30/2024 6:08 AM CDT): Continue trazodone 100 mg p.o. b.i.d. Continue bupropion XL 150 mg p.o. once daily Hypertension 11/30/2024 Assessment & Plan (12/13/2024 6:00 PM CDT): - Normotensive while inpatient Assessment & Plan (12/12/2024 9:47 AM CDT): - Normotensive while inpatient Assessment & Plan (12/11/2024 8:15 AM CDT): - Normotensive while inpatient Assessment & Plan (12/10/2024 8:36 AM CDT): - Normotensive while inpatient Assessment & Plan (12/09/2024 7:46 AM CDT): - Normotensive while inpatient Assessment & Plan (12/08/2024 11:37 AM CDT): - Normotensive while inpatient Assessment & Plan (12/07/2024 11:45 AM CDT): - Normotensive while inpatient Assessment & Plan (12/06/2024 2:04 PM CDT): - Normotensive while inpatient Assessment & Plan (12/05/2024 7:36 AM CDT): - Normotensive while inpatient Assessment & Plan (12/04/2024 7:46 AM CDT): - Normotensive while inpatient Assessment & Plan (12/03/2024 7:45 AM CDT): - Normotensive while inpatient Assessment & Plan (12/02/2024 7:31 AM CDT): - Normotensive while inpatient Assessment & Plan (12/01/2024 8:48 AM CDT): - Normotensive while inpatient Assessment & Plan (11/30/2024 3:26 PM CDT): - The patient was recently started on metoprolol as outpatient - Currently is not on any antihypertensive regimen otherwise Assessment & Plan (11/30/2024 6:08 AM CDT): The patient was recently started on metoprolol as outpatient Currently is not on any antihypertensive regimen otherwise COPD (chronic obstructive pulmonary disease) 06/2024 Leukocytosis 11/29/2024 Assessment & Plan (12/13/2024 6:00 PM CDT): Improved - Presented for working of progressive leukocytosis, generalized fatigue ongoing for about one month. Has had longstanding thrombocytopenia with last bone marrow biopsy in 2014. HIV, Hep panel, CMV, HSV neg. TLS, DIC labs neg. TTE (11/30) w/ nl LVEF, no significant abnormality . Underwent repeat BMBx 11/30. - Reviewed smear with mature-appearing WBC, no clear excess blasts - FISH negative for BCR/ABL, PML/DMITRY - BMB- MDS/MFP- outpatient follow up - Supportive transfusions per protocol for hemoglobin less than 8 or platelets less than 10 Assessment & Plan (12/12/2024 9:47 AM CDT): Improved - Presented for working of progressive leukocytosis, generalized fatigue ongoing for about one month. Has had longstanding thrombocytopenia with last bone marrow biopsy in 2014. HIV, Hep panel, CMV, HSV neg. TLS, DIC labs neg. TTE (11/30) w/ nl LVEF, no significant abnormality . Underwent repeat BMBx 11/30. - Reviewed smear with mature-appearing WBC, no clear excess blasts - FISH negative for BCR/ABL, PML/DMITRY - BMB- MDS/MFP- outpatient follow up - Supportive transfusions per protocol for hemoglobin less than 8 or platelets less than 10 Assessment & Plan (12/11/2024 12:05 PM CDT): Improved - Presented for working of progressive leukocytosis, generalized fatigue ongoing for about one month. Has had longstanding thrombocytopenia with last bone marrow biopsy in 2014. HIV, Hep panel, CMV, HSV neg. TLS, DIC labs neg. TTE (11/30) w/ nl LVEF, no significant abnormality . Underwent repeat BMBx 11/30. - Reviewed smear with mature-appearing WBC, no clear excess blasts - FISH negative for BCR/ABL, PML/DMITRY - BMB- MDS/MFP- outpatient follow up - Supportive transfusions per protocol for hemoglobin less than 8 or platelets less than 10 Assessment & Plan (12/10/2024 11:55 AM CDT): - Presented for working of progressive leukocytosis, generalized fatigue ongoing for about one month. Has had longstanding thrombocytopenia with last bone marrow biopsy in 2014. HIV, Hep panel, CMV, HSV neg. TLS, DIC labs neg. TTE (11/30) w/ nl LVEF, no significant abnormality . Underwent repeat BMBx 11/30. - Reviewed smear with mature-appearing WBC, no clear excess blasts - FISH negative for BCR/ABL, PML/DMITRY - BMB- MDS/MFP- outpatient follow up - Supportive transfusions per protocol for hemoglobin less than 8 or platelets less than 10 Assessment & Plan (12/09/2024 7:46 AM CDT): - Presented for working of progressive leukocytosis, generalized fatigue ongoing for about one month. Has had longstanding thrombocytopenia with last bone marrow biopsy in 2014. HIV, Hep panel, CMV, HSV neg. TLS, DIC labs neg. TTE (11/30) w/ nl LVEF, no significant abnormality . Underwent repeat BMBx 11/30. - Reviewed smear with mature-appearing WBC, no clear excess blasts - FISH negative for BCR/ABL, PML/DMITRY - BMB- MDS/MFP - Supportive transfusions per protocol for hemoglobin less than 8 or platelets less than 10 Assessment & Plan (12/08/2024 11:37 AM CDT): - Presented for working of progressive leukocytosis, generalized fatigue ongoing for about one month. Has had longstanding thrombocytopenia with last bone marrow biopsy in 2014. HIV, Hep panel, CMV, HSV neg. TLS, DIC labs neg. TTE (11/30) w/ nl LVEF, no significant abnormality . Underwent repeat BMBx 11/30. - Reviewed smear with mature-appearing WBC, no clear excess blasts - FISH negative for BCR/ABL, PML/DMITRY - BMB- MDS/MFP - Supportive transfusions per protocol for hemoglobin less than 8 or platelets less than 10 Assessment & Plan (12/07/2024 11:45 AM CDT): - Presented for working of progressive leukocytosis, generalized fatigue ongoing for about one month. Has had longstanding thrombocytopenia with last bone marrow biopsy in 2014. HIV, Hep panel, CMV, HSV neg. TLS, DIC labs neg. TTE (11/30) w/ nl LVEF, no significant abnormality . Underwent repeat BMBx 11/30. - Reviewed smear with mature-appearing WBC, no clear excess blasts - FISH negative for BCR/ABL, PML/DMITRY - BMB- MDS/MFP - Supportive transfusions per protocol for hemoglobin less than 8 or platelets less than 10 Assessment & Plan (12/06/2024 2:04 PM CDT): - Presented for working of progressive leukocytosis, generalized fatigue ongoing for about one month. Has had longstanding thrombocytopenia with last bone marrow biopsy in 2014. HIV, Hep panel, CMV, HSV neg. TLS, DIC labs neg. TTE (11/30) w/ nl LVEF, no significant abnormality . Underwent repeat BMBx 11/30. - Reviewed smear with mature-appearing WBC, no clear excess blasts - FISH negative for BCR/ABL, PML/DMITRY - BMB- MDS/MFP - Supportive transfusions per protocol for hemoglobin less than 8 or platelets less than 10 - Holding home Eliquis in setting of thrombocytopenia Assessment & Plan (12/05/2024 3:18 PM CDT): - Presented for working of progressive leukocytosis, generalized fatigue ongoing for about one month. Has had longstanding thrombocytopenia with last bone marrow biopsy in 2014. HIV, Hep panel, CMV, HSV neg. TLS, DIC labs neg. TTE (11/30) w/ nl LVEF, no significant abnormality . Underwent repeat BMBx 11/30. - Reviewed smear with mature-appearing WBC, no clear excess blasts - FISH negative for BCR/ABL, PML/DMITRY - Awaiting bone marrow biopsy results - Supportive transfusions per protocol for hemoglobin less than 8 or platelets less than 10 - Holding home Eliquis in setting ofthromboctyopenia Assessment & Plan (12/04/2024 11:58 AM CDT): - Presented for working of progressive leukocytosis, generalized fatigue ongoing for about one month. Has had longstanding thrombocytopenia with last bone marrow biopsy in 2014. HIV, Hep panel, CMV, HSV neg. TLS, DIC labs neg. TTE (11/30) w/ nl LVEF, no significant abnormality . Underwent repeat BMBx 11/30. - Reviewed smear with mature-appearing WBC, no clear excess blasts - FISH negative for BCR/ABL, PML/DMITRY - Awaiting bone marrow biopsy results tomorrow - Supportive transfusions per protocol for hemoglobin less than 8 or platelets less than 10 - Holding home Eliquis in setting of thrombocytopenia less than 50 Assessment & Plan (12/03/2024 3:10 PM CDT): - Presented for working of progressive leukocytosis, generalized fatigue ongoing for about one month. Has had longstanding thrombocytopenia with last bone marrow biopsy in 2014. HIV, Hep panel, CMV, HSV neg. TLS, DIC labs neg. TTE (11/30) w/ nl LVEF, no significant abnormality . Underwent repeat BMBx 11/30. - Reviewed smear with mature-appearing WBC, no clear excess blasts - FISH negative for BCR/ABL, PML/DMITRY - Expect bone marrow biopsy results will be back on Tuesday 12/05. - Supportive transfusions per protocol for hemoglobin less than 8 platelets <10) - Holding home Eliquis in setting of thrombocytopenia less than 50 Assessment & Plan (12/02/2024 1:37 PM CDT): - Presented for working of progressive leukocytosis, generalized fatigue ongoing for about one month. Has had longstanding thrombocytopenia with last bone marrow biopsy in 2014. HIV, Hep panel, CMV, HSV neg. TLS, DIC labs neg. TTE (11/30) w/ nl LVEF, no significant valvular abnl. Underwent repeat BMBx 11/30. - Reviewed smear with mature-appearing WBC, no clear excess blasts - FISH negative for BCR/ABL, PML/DMITRY - Bone marrow biopsy still pending, anticipate results next week - Supportive transfusions per protocol for hemoglobin less than 8 platelets <10 - Holding home eliquis in setting of thrombocytopenia less than 50 Assessment & Plan (12/01/2024 8:48 AM CDT): Presented for working of progressive leukocytosis, generalized fatigue ongoing for about one month. Has had longstanding thrombocytopenia with last bone marrow biopsy in 2014. HIV, Hep panel, CMV, HSV neg. TLS, DIC labs neg. TTE (11/30) w/ nl LVEF, no significant valvular abnl. Underwent repeat BMBx 11/30. - Reviewed smear with mature-appearing WBC, no clear excess blasts - f/u peripheral flow cytometry, cytogenetics for BCR/ABL, FLT3, PML/DMITRY - f/u BMBx results - Plan for supportive transfusions - Transfuse per BMT protocol: Hb>8, Plt>10 - hold home eliquis in setting of thrombocytopenia Assessment & Plan (11/30/2024 3:26 PM CDT): - Presented for working of progressive leukocytosis, generalized fatigue - Has had longstanding thrombocytopenia with last bone marrow biopsy in 2014 - Reviewed smear with mature-appearing WBC, no clear excess blasts - Plan for diagnostic evaluation with bone marrow biopsy, peripheral blood flow cytometry - Hep panel, HIV, CMV testing - Fibrinogen reassuring - Peripheral blood cytogenetics for BCR/ABL, FLT3, PML/DMITRY - Plan for supportive transfusions - Transfuse per BMT protocol: Hb>8, Plt>10 - TTE baseline with normal EF - The patient was started on IV vancomycin and cefepime at OSH but given lack off localizing symptoms we will defer any further antibiotics at this time - Follow-up blood cultures from OSH and repeat blood cultures on admission - RVP negative on admission Assessment & Plan (11/30/2024 6:08 AM CDT): The patient presented to OSH ED with complaint of chest pain. Initial lab work was remarkable for WBC count of 49.3 with no blasts noted on peripheral smear The patient has prior history of MDS for which she was mainly on surveillance with Hematology as outpatient Also noted to have anemia and thrombocytopenia Suspect leukemoid reaction versus acute leukemia TLS labs neg DIC panel neg Hepatitis panel, HIV, CMV Ab testing Type and screen Extra slide to review smear Peripheral blood cytogenetics for BCR/ABL, FLT3, PML/DMITRY Consider BmBx and send for BCR/ABL, FLT3, cytogenetics, NGS, Myeloseq Consult to IR for placement of CVC if indicated Transfuse per BMT protocol: Hb>8, Plt>10 Pending Echocardiogram Can consider LAP to rule out leukemoid reaction The patient was started on IV vancomycin and cefepime at OSH but given lack off localizing symptoms we will defer any further antibiotics at this time Follow-up blood cultures from OSH and repeat blood cultures on admission RVP negative on admission Follow-up BMT recommendations CAD (coronary artery disease) 11/29/2024 Assessment & Plan (12/13/2024 6:00 PM CDT): - The patient presented with complaints of chest pain shortness a bed at OSH. 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 Initial cardiac workup with neg troponin and ST-T changes. Underwent TTE (11/30) w/o focal wall motion abnormalities - f/u A1c, lipid panel - CTA on 12/05- Three-vessel coronary artery atherosclerosis results up to moderate stenosis (50-70%) of the RCA and LAD. - FFR -No hemodynamically significant lesions. No lesions with FFR CT d 0.8. The low values in the left circumflex artery are associated with motion artifact and are not reliable. The right coronary artery could not be evaluated. -[facility] as inpatient on 12/09- no need for stent -Atorvastatin 40mg daily -ASA -Hold metop since had a bradycardic episode Assessment & Plan (12/12/2024 11:22 AM CDT): - The patient presented with complaints of chest pain shortness a bed at OSH. 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 Initial cardiac workup with neg troponin and ST-T changes. Underwent TTE (11/30) w/o focal wall motion abnormalities - f/u A1c, lipid panel - CTA on 12/05- Three-vessel coronary artery atherosclerosis results up to moderate stenosis (50-70%) of the RCA and LAD. - FFR -No hemodynamically significant lesions. No lesions with FFR CT d 0.8. The low values in the left circumflex artery are associated with motion artifact and are not reliable. The right coronary artery could not be evaluated. -[facility] as inpatient on 12/09- no need for stent -Atorvastatin 40mg daily -hold ASA since on apixaban -Hold metop since had a bradycardic episode Assessment & Plan (12/11/2024 12:05 PM CDT): - The patient presented with complaints of chest pain shortness a bed at OSH. 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 Initial cardiac workup with neg troponin and ST-T changes. Underwent TTE (11/30) w/o focal wall motion abnormalities - f/u A1c, lipid panel - CTA on 12/05- Three-vessel coronary artery atherosclerosis results up to moderate stenosis (50-70%) of the RCA and LAD. - FFR -No hemodynamically significant lesions. No lesions with FFR CT d 0.8. The low values in the left circumflex artery are associated with motion artifact and are not reliable. The right coronary artery could not be evaluated. -[facility] as inpatient on 12/09- no need for stent -Atorvastatin 40mg daily -hold ASA since on apixaban -Hold metop since had a bradycardic episode Assessment & Plan (12/10/2024 11:55 AM CDT): - The patient presented with complaints of chest pain shortness a bed at OSH. 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 Initial cardiac workup with neg troponin and ST-T changes. Underwent TTE (11/30) w/o focal wall motion abnormalities - f/u A1c, lipid panel - CTA on 12/05- Three-vessel coronary artery atherosclerosis results up to moderate stenosis (50-70%) of the RCA and LAD. - FFR -No hemodynamically significant lesions. No lesions with FFR CT d 0.8. The low values in the left circumflex artery are associated with motion artifact and are not reliable. The right coronary artery could not be evaluated. -[facility] as inpatient on 12/09- no need for stent, continue ASA and statin -Atorvastatin 40mg daily -Continue ASA -Hold metop since had a bradycardic episode Assessment & Plan (12/09/2024 1:35 PM CDT): - The patient presented with complaints of chest pain shortness a bed at OSH. 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 Initial cardiac workup with neg troponin and ST-T changes. Underwent TTE (11/30) w/o focal wall motion abnormalities - f/u A1c, lipid panel - CTA on 12/05- Three-vessel coronary artery atherosclerosis results up to moderate stenosis (50-70%) of the RCA and LAD. - FFR -No hemodynamically significant lesions. No lesions with FFR CT d 0.8. The low values in the left circumflex artery are associated with motion artifact and are not reliable. The right coronary artery could not be evaluated. -Cards following- planning [facility] as inpatient on 12/09 -Atorvastatin 40mg daily -Continue ASA -Hold metop since had a bradycardic episode Anemia 04/17/2019 Assessment & Plan (12/13/2024 6:00 PM CDT): Improved - Presented for working of progressive leukocytosis, generalized fatigue ongoing for about one month. Has had longstanding thrombocytopenia with last bone marrow biopsy in 2014. HIV, Hep panel, CMV, HSV neg. TLS, DIC labs neg. TTE (11/30) w/ nl LVEF, no significant abnormality . Underwent repeat BMBx 11/30. - Reviewed smear with mature-appearing WBC, no clear excess blasts - FISH negative for BCR/ABL, PML/DMITRY - BMB- MDS/MFP- outpatient follow up - Supportive transfusions per protocol for hemoglobin less than 8 or platelets less than 10 Assessment & Plan (12/12/2024 9:47 AM CDT): Improved - Presented for working of progressive leukocytosis, generalized fatigue ongoing for about one month. Has had longstanding thrombocytopenia with last bone marrow biopsy in 2014. HIV, Hep panel, CMV, HSV neg. TLS, DIC labs neg. TTE (11/30) w/ nl LVEF, no significant abnormality . Underwent repeat BMBx 11/30. - Reviewed smear with mature-appearing WBC, no clear excess blasts - FISH negative for BCR/ABL, PML/DMITRY - BMB- MDS/MFP- outpatient follow up - Supportive transfusions per protocol for hemoglobin less than 8 or platelets less than 10 Assessment & Plan (12/11/2024 12:05 PM CDT): Improved - Presented for working of progressive leukocytosis, generalized fatigue ongoing for about one month. Has had longstanding thrombocytopenia with last bone marrow biopsy in 2014. HIV, Hep panel, CMV, HSV neg. TLS, DIC labs neg. TTE (11/30) w/ nl LVEF, no significant abnormality . Underwent repeat BMBx 11/30. - Reviewed smear with mature-appearing WBC, no clear excess blasts - FISH negative for BCR/ABL, PML/DMITRY - BMB- MDS/MFP- outpatient follow up - Supportive transfusions per protocol for hemoglobin less than 8 or platelets less than 10 Assessment & Plan (12/10/2024 11:55 AM CDT): - Presented for working of progressive leukocytosis, generalized fatigue ongoing for about one month. Has had longstanding thrombocytopenia with last bone marrow biopsy in 2014. HIV, Hep panel, CMV, HSV neg. TLS, DIC labs neg. TTE (11/30) w/ nl LVEF, no significant abnormality . Underwent repeat BMBx 11/30. - Reviewed smear with mature-appearing WBC, no clear excess blasts - FISH negative for BCR/ABL, PML/DMITRY - BMB- MDS/MFP- outpatient follow up - Supportive transfusions per protocol for hemoglobin less than 8 or platelets less than 10 Assessment & Plan (12/09/2024 7:46 AM CDT): - Presented for working of progressive leukocytosis, generalized fatigue ongoing for about one month. Has had longstanding thrombocytopenia with last bone marrow biopsy in 2014. HIV, Hep panel, CMV, HSV neg. TLS, DIC labs neg. TTE (11/30) w/ nl LVEF, no significant abnormality . Underwent repeat BMBx 11/30. - Reviewed smear with mature-appearing WBC, no clear excess blasts - FISH negative for BCR/ABL, PML/DMITRY - BMB- MDS/MFP - Supportive transfusions per protocol for hemoglobin less than 8 or platelets less than 10 Assessment & Plan (12/08/2024 11:37 AM CDT): - Presented for working of progressive leukocytosis, generalized fatigue ongoing for about one month. Has had longstanding thrombocytopenia with last bone marrow biopsy in 2014. HIV, Hep panel, CMV, HSV neg. TLS, DIC labs neg. TTE (11/30) w/ nl LVEF, no significant abnormality . Underwent repeat BMBx 11/30. - Reviewed smear with mature-appearing WBC, no clear excess blasts - FISH negative for BCR/ABL, PML/DMITRY - BMB- MDS/MFP - Supportive transfusions per protocol for hemoglobin less than 8 or platelets less than 10 Assessment & Plan (12/07/2024 11:45 AM CDT): - Presented for working of progressive leukocytosis, generalized fatigue ongoing for about one month. Has had longstanding thrombocytopenia with last bone marrow biopsy in 2014. HIV, Hep panel, CMV, HSV neg. TLS, DIC labs neg. TTE (11/30) w/ nl LVEF, no significant abnormality . Underwent repeat BMBx 11/30. - Reviewed smear with mature-appearing WBC, no clear excess blasts - FISH negative for BCR/ABL, PML/DMITRY - BMB- MDS/MFP - Supportive transfusions per protocol for hemoglobin less than 8 or platelets less than 10 Assessment & Plan (12/06/2024 2:04 PM CDT): - Presented for working of progressive leukocytosis, generalized fatigue ongoing for about one month. Has had longstanding thrombocytopenia with last bone marrow biopsy in 2014. HIV, Hep panel, CMV, HSV neg. TLS, DIC labs neg. TTE (11/30) w/ nl LVEF, no significant abnormality . Underwent repeat BMBx 11/30. - Reviewed smear with mature-appearing WBC, no clear excess blasts - FISH negative for BCR/ABL, PML/DMITRY - BMB- MDS/MFP - Supportive transfusions per protocol for hemoglobin less than 8 or platelets less than 10 - Holding home Eliquis in setting of thrombocytopenia Assessment & Plan (12/05/2024 3:18 PM CDT): - Presented for working of progressive leukocytosis, generalized fatigue ongoing for about one month. Has had longstanding thrombocytopenia with last bone marrow biopsy in 2014. HIV, Hep panel, CMV, HSV neg. TLS, DIC labs neg. TTE (11/30) w/ nl LVEF, no significant abnormality . Underwent repeat BMBx 11/30. - Reviewed smear with mature-appearing WBC, no clear excess blasts - FISH negative for BCR/ABL, PML/DMITRY - Awaiting bone marrow biopsy results - Supportive transfusions per protocol for hemoglobin less than 8 or platelets less than 10 - Holding home Eliquis in setting ofthromboctyopenia Assessment & Plan (12/04/2024 11:58 AM CDT): - Presented for working of progressive leukocytosis, generalized fatigue ongoing for about one month. Has had longstanding thrombocytopenia with last bone marrow biopsy in 2014. HIV, Hep panel, CMV, HSV neg. TLS, DIC labs neg. TTE (11/30) w/ nl LVEF, no significant abnormality . Underwent repeat BMBx 11/30. - Reviewed smear with mature-appearing WBC, no clear excess blasts - FISH negative for BCR/ABL, PML/DMITRY - Awaiting bone marrow biopsy results tomorrow - Supportive transfusions per protocol for hemoglobin less than 8 or platelets less than 10 - Holding home Eliquis in setting of thrombocytopenia less than 50 Assessment & Plan (12/03/2024 3:10 PM CDT): - Presented for working of progressive leukocytosis, generalized fatigue ongoing for about one month. Has had longstanding thrombocytopenia with last bone marrow biopsy in 2014. HIV, Hep panel, CMV, HSV neg. TLS, DIC labs neg. TTE (11/30) w/ nl LVEF, no significant abnormality . Underwent repeat BMBx 11/30. - Reviewed smear with mature-appearing WBC, no clear excess blasts - FISH negative for BCR/ABL, PML/DMITRY - Expect bone marrow biopsy results will be back on Tuesday 12/05. - Supportive transfusions per protocol for hemoglobin less than 8 platelets <10) - Holding home Eliquis in setting of thrombocytopenia less than 50 Assessment & Plan (12/02/2024 1:37 PM CDT): - Presented for working of progressive leukocytosis, generalized fatigue ongoing for about one month. Has had longstanding thrombocytopenia with last bone marrow biopsy in 2014. HIV, Hep panel, CMV, HSV neg. TLS, DIC labs neg. TTE (11/30) w/ nl LVEF, no significant valvular abnl. Underwent repeat BMBx 11/30. - Reviewed smear with mature-appearing WBC, no clear excess blasts - FISH negative for BCR/ABL, PML/DMITRY - Bone marrow biopsy still pending, anticipate results next week - Supportive transfusions per protocol for hemoglobin less than 8 platelets <10 - Holding home eliquis in setting of thrombocytopenia less than 50 Assessment & Plan (12/01/2024 8:48 AM CDT): Presented for working of progressive leukocytosis, generalized fatigue ongoing for about one month. Has had longstanding thrombocytopenia with last bone marrow biopsy in 2014. HIV, Hep panel, CMV, HSV neg. TLS, DIC labs neg. TTE (11/30) w/ nl LVEF, no significant valvular abnl. Underwent repeat BMBx 11/30. - Reviewed smear with mature-appearing WBC, no clear excess blasts - f/u peripheral flow cytometry, cytogenetics for BCR/ABL, FLT3, PML/DMITRY - f/u BMBx results - Plan for supportive transfusions - Transfuse per BMT protocol: Hb>8, Plt>10 - hold home eliquis in setting of thrombocytopenia Assessment & Plan (11/30/2024 3:26 PM CDT): - Transfuse per BMT protocol if indicated with goal HGB greater than 8.0 in the setting of suspected CAD Assessment & Plan (11/30/2024 6:08 AM CDT): Transfuse per BMT protocol if indicated with goal HGB greater than 8.0 in the setting of suspected CAD Other hemochromatosis 03/02/2018 Resolved Problems Problem Noted Date Diagnosed Date Resolved Date Thrombocytopenia 11/30/2024 12/07/2024 Assessment & Plan (12/07/2024 11:45 AM CDT): - Presented for working of progressive leukocytosis, generalized fatigue ongoing for about one month. Has had longstanding thrombocytopenia with last bone marrow biopsy in 2014. HIV, Hep panel, CMV, HSV neg. TLS, DIC labs neg. TTE (11/30) w/ nl LVEF, no significant abnormality . Underwent repeat BMBx 11/30. - Reviewed smear with mature-appearing WBC, no clear excess blasts - FISH negative for BCR/ABL, PML/DMITRY - BMB- MDS/MFP - Supportive transfusions per protocol for hemoglobin less than 8 or platelets less than 10 Assessment & Plan (12/06/2024 2:04 PM CDT): - Presented for working of progressive leukocytosis, generalized fatigue ongoing for about one month. Has had longstanding thrombocytopenia with last bone marrow biopsy in 2014. HIV, Hep panel, CMV, HSV neg. TLS, DIC labs neg. TTE (11/30) w/ nl LVEF, no significant abnormality . Underwent repeat BMBx 11/30. - Reviewed smear with mature-appearing WBC, no clear excess blasts - FISH negative for BCR/ABL, PML/DMITRY - BMB- MDS/MFP - Supportive transfusions per protocol for hemoglobin less than 8 or platelets less than 10 - Holding home Eliquis in setting of thrombocytopenia Assessment & Plan (12/05/2024 3:18 PM CDT): - Presented for working of progressive leukocytosis, generalized fatigue ongoing for about one month. Has had longstanding thrombocytopenia with last bone marrow biopsy in 2014. HIV, Hep panel, CMV, HSV neg. TLS, DIC labs neg. TTE (11/30) w/ nl LVEF, no significant abnormality . Underwent repeat BMBx 11/30. - Reviewed smear with mature-appearing WBC, no clear excess blasts - FISH negative for BCR/ABL, PML/DMITRY - Awaiting bone marrow biopsy results - Supportive transfusions per protocol for hemoglobin less than 8 or platelets less than 10 - Holding home Eliquis in setting ofthromboctyopenia Assessment & Plan (12/04/2024 11:58 AM CDT): - Presented for working of progressive leukocytosis, generalized fatigue ongoing for about one month. Has had longstanding thrombocytopenia with last bone marrow biopsy in 2014. HIV, Hep panel, CMV, HSV neg. TLS, DIC labs neg. TTE (11/30) w/ nl LVEF, no significant abnormality . Underwent repeat BMBx 11/30. - Reviewed smear with mature-appearing WBC, no clear excess blasts - FISH negative for BCR/ABL, PML/DMITRY - Awaiting bone marrow biopsy results tomorrow - Supportive transfusions per protocol for hemoglobin less than 8 or platelets less than 10 - Holding home Eliquis in setting of thrombocytopenia less than 50 Assessment & Plan (12/03/2024 3:10 PM CDT): - Presented for working of progressive leukocytosis, generalized fatigue ongoing for about one month. Has had longstanding thrombocytopenia with last bone marrow biopsy in 2014. HIV, Hep panel, CMV, HSV neg. TLS, DIC labs neg. TTE (11/30) w/ nl LVEF, no significant abnormality . Underwent repeat BMBx 11/30. - Reviewed smear with mature-appearing WBC, no clear excess blasts - FISH negative for BCR/ABL, PML/DMITRY - Expect bone marrow biopsy results will be back on Tuesday 12/05. - Supportive transfusions per protocol for hemoglobin less than 8 platelets <10) - Holding home Eliquis in setting of thrombocytopenia less than 50 Assessment & Plan (12/02/2024 1:37 PM CDT): - Presented for working of progressive leukocytosis, generalized fatigue ongoing for about one month. Has had longstanding thrombocytopenia with last bone marrow biopsy in 2014. HIV, Hep panel, CMV, HSV neg. TLS, DIC labs neg. TTE (11/30) w/ nl LVEF, no significant valvular abnl. Underwent repeat BMBx 11/30. - Reviewed smear with mature-appearing WBC, no clear excess blasts - FISH negative for BCR/ABL, PML/DMITRY - Bone marrow biopsy still pending, anticipate results next week - Supportive transfusions per protocol for hemoglobin less than 8 platelets <10 - Holding home eliquis in setting of thrombocytopenia less than 50 Assessment & Plan (12/01/2024 8:48 AM CDT): Presented for working of progressive leukocytosis, generalized fatigue ongoing for about one month. Has had longstanding thrombocytopenia with last bone marrow biopsy in 2014. HIV, Hep panel, CMV, HSV neg. TLS, DIC labs neg. TTE (11/30) w/ nl LVEF, no significant valvular abnl. Underwent repeat BMBx 11/30. - Reviewed smear with mature-appearing WBC, no clear excess blasts - f/u peripheral flow cytometry, cytogenetics for BCR/ABL, FLT3, PML/DMITRY - f/u BMBx results - Plan for supportive transfusions - Transfuse per BMT protocol: Hb>8, Plt>10 - hold home eliquis in setting of thrombocytopenia Assessment & Plan (11/30/2024 3:26 PM CDT): - Transfuse per BMT protocol - Holding Eliquis with planned for biopsy and potential line placement Assessment & Plan (11/30/2024 6:08 AM CDT): Transfuse per BMT protocol Continue Eliquis unless the PLT<50K Encounters Date Type Department Care Team Description 02/28/2025 3:40 PM CDT Office Visit [facility] Bone Marrow Transplant [address] [place] [address] Floor 6 [place] [address] Avril Mcknight NP MDS/MPN (myelodysplastic/mye loproliferative neoplasms) ([facility]) 02/28/2025 2:45 PM CDT Lab [facility] Medicine Oncology Lab [facility] Floor 6 [place] [address] MDS/MPN (myelodysplastic/mye loproliferative neoplasms) ([facility]) 02/28/2025 2:30 PM CDT Lab [facility] - Lab Collection [facility] Floor 5 [place] [address] MDS/MPN (myelodysplastic/mye loproliferative neoplasms) ([facility]) 02/21/2025 Telephone [facility] Bone Marrow Transplant [address] [place] [address] Floor 6 [place] [id number] Trevor Campbell RN 02/16/2025 1:45 PM CDT Office Visit [facility] Medical [facility] Cardiology [address] [place] [address] Tomasz Quesada MD Paroxysmal atrial fibrillation (HCC) (Primary Dx); Coronary artery disease involving [facility] coronary artery of [facility] heart without angina pectoris 02/09/2025 Telephone [facility] [address] [place] [address] Tomasz Quesada MD from Last 3 Months Immunizations Immunization Administration Dates Next Due Influenza, Trivalent, High D ose, Split, Preservative Free, Intramuscular 06/08/2018,04/17/2016 Moderna SARS-CoV-2 Monovalent Vaccination (12+ Y RS) 07/13/2020 Pneumococcal Polysaccharide PPV23 04/18/2016 Tdap 10/22/2015 Surgical History Surgery Date Site/Laterality Comments TRACHEOSTOMY CLOSURE CARDIAC CATHETERIZATION 12/09/2024 N/A Procedure: LEFT HEART CATHETERIZATION WITH CORONARY ANGIOGRAPHY AND WITH OR WITHOUT LEFT VENTRICULOGRAM [id number]; Surgeon: Herberth Morales MD; 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; Service: Cardiovascular; Laterality: N/A; Medical History Medical History Date Comments COPD (chronic obstructive pulmonary disease) Family History Medical History Relation Name Comments Cancer Father Family history of malignant neoplasm - (Added by Conv) Heart disease Father Family history of cardiac disorder - (Added by Conv) Prostate cancer Father Heart disease Mother Family history of cardiac disorder - (Added by Conv) Heart failure Mother Relation Name Status Comments Father Mother Social History Tobacco Use Types Packs/Day Years Used Date Smoking Tobacco: Former Smokeless Tobacco: Never [facility] Utilities Answer Date Recorded In the past 12 months has [employer], gas, oil, or water Postachio threatened to shut off services in your home? No 12/12/2024 Social Connection and Isolation Panel Answer Date Recorded In a typical week, how many times do you talk on the phone with family, friends, or neighbors? Twice a week 12/12/2024 How often do you get togethe r with friends or relatives? Three times a week 12/12/2024 How often do you attend [facility] or yarsani services? Never 12/12/2024 Do you belong to any clubs o r organizations such as anglican groups, unions, fraternal or athletic groups, or school groups? No 12/12/2024 How often do you attend meet ings of the clubs or organizations you belong to? Never 12/12/2024 Are you , , di vorced, , never , or living with a partner? 12/12/2024 AUDIT-C Answer Date Recorded Q1: How often do you have a drink containing alcohol? Never 12/09/2024 Q2: How many drinks containi ng alcohol do you have on a typical day when you are drinking? Patient does not drink Q3: How often do you have si x or more drinks on one occasion? Never 12/09/2024 Overall Financial Resource Strain (CARDIA) Answe r Date Recorded How hard is it for you to pa y for the very basics like food, housing, medical care, and heating? Not very hard 12/12/2024 PHQ-2 Answer Date Recorded PHQ-2 Total Score (If total score is 3 or more points, staff should administer the PHQ-9) 0 12/12/2024 Hunger Vital Sign Answer Date Recorded Within the past 12 months, y ou worried that your food would run out before you got the money to buy more. Never true 12/13/19 25 Within the past 12 months, t he food you bought just didn't last and you didn't have money to get more. Never true 12/12/2024 PRAPARE - Transportation Answer Date Re corded In the past 12 months, has l ack of transportation kept you from medical appointments or from getting medications? No 11/29 In the past 12 months, has l ack of transportation kept you from meetings, work, or from getting things needed for daily living? No 12/12/2024 Housing Stability Vital Sign Answer Sylvester e Recorded In the last 12 months, was t here a time when you were not able to pay the mortgage or rent on time? No 12/12/2024 In the past 12 months, how m any times have you moved where you were living? 0 12/12/2024 At any time in the past 12 m [facility], were you homeless or living in a detention (including now)? No 12/12/2024 Personal Safety Answer Date Recorded Have you ever been in or are you currently in a harmful physical or emotional relationship or is someone making you feel afraid or unsafe? 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 Gender Identity Male 03/08/2018 10:31 AM CDT Sexual Orientation Not on file Last Filed Vital Signs Vital Sign Reading Time Taken Comments Blood Pressure 103/63 02/28/2025 3:11 PM CDT Pulse 51 02/28/2025 3:11 PM CDT Temperature 36.5 C (97.7 F) 02/28/2025 3:11 PM CDT Respiratory Rate 18 02/28/2025 3:11 PM CDT Oxygen Saturation 98% 02/28/2025 3:11 PM CDT Inhaled Oxygen Concentration - - Weight 88.7 kg (195 lb 9.6 oz) 02/28/2025 3:11 P M CDT Height 182.9 cm (6') 02/16/2025 2:00 PM CDT Body Mass Index 26.53 02/16/2025 2:00 PM CDT Plan of Treatment Health Maintenance Due Date Last Done Comments Colon Cancer Screening-Colonoscopy 1950 Prostate Cancer Screening-PSA 1950 Hepatitis B Screening 1969 Zoster Vaccine (1 of 2) 1970 Abdominal Aortic Aneurysm (A AA) Screen 2016 10/22/2015 Well Visit 65+ 2016 Pneumococcal vaccine 65+ (2 of 2 - PCV) 04/18/2017 04/18/2016 Covid-19 Vaccine (3 - season) 01/30/202505/2021, 07/13/2020 Influenza Vaccine (#1) 2025 , 06/08/2018, 04/17/2016 DTaP/Tdap/Td Vaccine (2 - Td or Tdap) 10/21/2025 Depression Screening 11/29/2025 11/29/2024 Fall Risk Assessment 12/13/2025 12/13/2024 Hepatitis C Screening Completed 11/30/2024 Procedures Procedure Name Priority Date/Time Associated Diagnosis Comments LACTATE DEHYDROGENASE Routine 03/09/2025 10:59 AM CDT MDS/MPN (myelodysplastic/m yeloproliferative neoplasms) (HCC) COMPREHENSIVE METABOLIC PANEL Routine 03/09/2025 10:59 AM CDT MDS/MPN (myelodysplastic/m yeloproliferative neoplasms) (HCC) CBC WITH AUTO DIFFERENTIAL Routine 03/09/2025 10:59 AM CDT MDS/MPN (myelodysplastic/m yeloproliferative neoplasms) (HCC) EGFR Routine 02/28/2025 2:32 PM CDT MDS/MPN (myelodysplastic/m yeloproliferative neoplasms) (HCC) DIFFERENTIAL AUTO Routine 02/28/2025 2:3 2 PM CDT MDS/MPN (myelodysplastic/m yeloproliferative neoplasms) (HCC) CBC WITH AUTO DIFFERENTIAL Routine 02/28/2025 2:32 PM CDT MDS/MPN (myelodysplastic/m yeloproliferative neoplasms) (HCC) COMPREHENSIVE METABOLIC PANEL Routine 02/28/2025 2:32 PM CDT MDS/MPN (myelodysplastic/m yeloproliferative neoplasms) (HCC) LACTATE DEHYDROGENASE Routine 02/28/2025 2:32 PM CDT MDS/MPN (myelodysplastic/m yeloproliferative neoplasms) (HCC) TYPE AND SCREEN Routine 02/28/2025 2:32 PM CDT MDS/MPN (myelodysplastic/m yeloproliferative neoplasms) (HCC) CBC WITH AUTO DIFFERENTIAL Routine 02/08/2025 4:20 PM CDT MDS/MPN (myelodysplastic/m yeloproliferative neoplasms) (HCC) COMPREHENSIVE METABOLIC PANEL Routine 02/08/2025 4:20 PM CDT MDS/MPN (myelodysplastic/m yeloproliferative neoplasms) (HCC) HEPATITIS PANEL, ACUTE Routine 12:28 AM CDT from Last 3 Months or Most Recently Relevant to Health Maintenance Results * (ABNORMAL) CBC with auto differential (03/09/2025 10:59 AM CDT) WBC 4.3 3.4 - 10.8 x10E3/uL [facility] - 01 RBC 3.77(L) 4.14 - 5.80 x10E6/uL [facility] - 01 Hgb 11.8(L) 13.0 - 17.7 g/dL [facility] - 01 Hct 36.1(L) 37.5 - 51.0 % [facility] - 01 MCV 96 79 - 97 fL [facility] - 01 MCH 31.3 26.6 - 33.0 pg [facility] - 01 MCHC 32.7 31.5 - 35.7 g/dL [facility] - 01 Rdw 14.9 11.6 - 15.4 % [facility] - 01 Platelets 56(LL) 150 - 450 x10E3/uL [facility] - 01 Comment: Large platelets were observed. Platelet count verified by examination of peripheral blood smear. Neutrophils pct 39 Not Estab. % [facility] - 01 Lymphs pct 26 Not Estab. % [facility] - 01 Monocytes pct 29 Not Estab. % [facility] - 01 Eosinophils pct 2 Not Estab. % [facility] - 01 Basophil pct 4 Not Estab. % [facility] - 01 Neutrophil abs 1.7 1.4 - 7.0 x10E3/uL [facility] - 01 Lymphs (Absolute) 1.1 0.7 - 3.1 x10E3/uL [facility] - 01 Monocyte abs 1.2(H) 0.1 - 0.9 x10E3/uL [facility] - 01 Eosinophils, abs 0.1 0.0 - 0.4 x10E3/uL [facility] - 01 Basophils, abs 0.2 0.0 - 0.2 x10E3/uL [facility] - 01 Immature Granulocytes 0 Not Estab. % [facility] - 01 Immature Grans (Abs) 0.0 0.0 - 0.1 x10E3/uL [facility] - 01 Hematology Comments: Note: [facility] - 01 Comment: CBC met reflex criteria for review of peripheral smear by medical laboratory professional. Automated results were confirmed by smear review. Blood 03/09/2025 10:5 9 AM CDT 03/09/2025 Narrative [facility] - 03/10/2025 10:36 AM CDT Performed at: [address] [place] [address] [id number] Aspnet Developer: Marcelo Vieira PhD, Phone: [phone] Lang Lombardi MD LAB BLOOD OR DERABLES Final Result Performing Organization Address [facility] Co de Phone Number [facility] - 01 * Lactate dehydrogenase (LD) (03/09/2025 10:59 AM CDT) [facility] Lactate dehydrogenase (LDH) 219 121 - 224 IU/L [facility] - 01 Blood 03/09/2025 10:5 9 AM CDT 03/09/2025 Narrative [facility] - 03/10/2025 8:36 AM CDT Performed at: [address] [place] [address] [id number] Aspnet Developer: Marcelo Vieira PhD, Phone: [phone] Lang Lombardi MD LAB BLOOD OR DERABLES Final Result Performing Organization Address [facility] Co de Phone Number [facility] - 01 * Comprehensive metabolic panel (03/09/2025 10:59 AM CDT) [facility] Glucose 88 70 - 99 mg/dL [facility] - 01 BUN 22 8 - 27 mg/dL [facility] - 01 Creatinine, Serum 1.14 0.76 - 1.27 mg/dL [facility] - 01 eGFR 68 >59 mL/min/1.73 [facility] - 01 BUN/creat ratio 19 10 - 24 [facility] - 01 Sodium 140 134 - 144 mmol/L [facility] - 01 Potassium, sr 5.0 3.5 - 5.2 mmol/L [facility] - 01 Chloride 105 96 - 106 mmol/L [facility] - 01 CO2 23 20 - 29 mmol/L [facility] - 01 Calcium 8.9 8.6 - 10.2 mg/dL [facility] - 01 Protein, sr 7.7 6.0 - 8.5 g/dL [facility] - 01 Albumin 4.2 3.8 - 4.8 g/dL [facility] - 01 Globulin, Total 3.5 1.5 - 4.5 g/dL [facility] - 01 Bilirubin, Total 0.6 0.0 - 1.2 mg/dL [facility] - 01 Alk phos 107 47 - 123 IU/L [facility] - 01 AST 17 0 - 40 IU/L [facility] - 01 ALT 16 0 - 44 IU/L [facility] - 01 Blood 03/09/2025 10:5 9 AM CDT 03/09/2025 Narrative [facility] - 03/10/2025 8:36 AM CDT Performed at: 01 - [address] [id number] Aspnet Developer: Marcelo Vieira PhD, Phone: [phone] Lang Lombardi MD LAB BLOOD OR DERABLES Final Result [facility] - 01 * eGFR (02/28/2025 2:32 PM CDT) [facility] eGFR 67 >=60 mL/min/1. 73 m2 Comment: Interpretive Data Reference Interval Normal >/= 90 mL/min/1.73m2 Mildly decreased* 60 - 89 mL/min/1.73m2 Mildly to moderately decreased 45 - 59 mL/min/1.73m2 Moderately to severely decreased 30 - 44 mL/min/1.73m2 Severely decreased 15 - 29 mL/min/1.73m2 Kidney Failure < 15 mL/min/1.73m2 *Relative to young adult level Estimated glomerular filtration rate is determined by the 2020 CKD-EPI equation recommended by the National Kidney Foundation (A Unifying Approach to GFR Estimation: Recommendations of the NKF-ASK Task Force on Reassessing the Inclusion of Race in Diagnosing Kidney Disease, JASN 2020). The CKD-EPI equation should not be used for patients with unstable renal function and has not been validated in children and those over 70. Current interpretive data was last reviewed 2021. Blood 02/28/2025 2:32 PM CDT 02/28/2025 2:40 PM CDT Lang Lombardi MD LAB BLOOD OR DERABLES Final Result [facility] Department [place] [address] * (ABNORMAL) Differential, auto (02/28/2025 2:32 PM CDT) Neutrophil abs 1.34(L) 1.50 - 6.50 K/cumm Comment:Testing performed by : [facility], [address] [place], [place] [phone] Lymphocyte abs 1.17 0.80 - 3.30 K/cumm CERNER [facility] Comment:Testing performed by : [facility], [address] [place] [phone] Monocyte abs 0.82(H) 0.20 - 0.80 K/cumm CERNER BJ Comment:Testing performed by : [facility], [address] [place] [phone] Eosinophil abs 0.06 0.00 - 0.50 K/cumm CERNER BJ Comment:Testing performed by : [facility], [address] [place] [phone] Basophil abs 0.21(H) 0.00 - 0.10 K/cumm CERNER BJ Comment:Testing performed by : [facility], [address] [place] [phone] Neutrophil pct 37.2 % CERNER [facility] Comment: Interpretive Data Percent cell count reference ranges are not reported, since discordance with absolute values may lead to misinterpretation of CBC data. Current Interpretive Data was last revised on 2017. Testing performed by: [facility], [address] [place] [phone] Lymphocyte pct 32.7 % MURALI [facility] Comment: Interpretive Data Percent cell count reference ranges are not reported, since discordance with absolute values may lead to misinterpretation of CBC data. Current Interpretive Data was last revised on 2017. Testing performed by: [facility], [address] [place] [phone] Monocyte pct 22.8 % MURALI JETER Comment: Interpretive Data Percent cell count reference ranges are not reported, since discordance with absolute values may lead to misinterpretation of CBC data. Current Interpretive Data was last revised on 2017. Testing performed by: [facility], [address] [place] [phone] Eosinophil pct 1.5 % MURALI JETER Comment: Interpretive Data Percent cell count reference ranges are not reported, since discordance with absolute values may lead to misinterpretation of CBC data. Current Interpretive Data was last revised on 2017. Testing performed by: [facility], [address] [place] [phone] Basophil pct 5.8 % MURALI [facility] Comment: Interpretive Data Percent cell count reference ranges are not reported, since discordance with absolute values may lead to misinterpretation of CBC data. Current Interpretive Data was last revised on 2017. Testing performed by: [facility], [address] [place] [phone] Blood 02/28/2025 2:32 PM CDT 02/28/2025 2:35 PM CDT Lang Lombardi MD LAB BLOOD OR DERABLES Final Result [facility] Department [place] [address] * (ABNORMAL) CBC with auto differential (02/28/2025 2:32 PM CDT) WBC 3.59(L) 3.80 - 9.90 K/cumm Comment:Testing performed by : [facility], [address] [place] [address] Hgb 11.1(L) 13.0 - 17.5 g/dL CERNER BJ Comment:Testing performed by : [facility], [address] [place], [place] [phone] Hct 32.9(L) 38.9 - 50.3 % CERNER BJ Comment:Testing performed by : [facility], [address] [place], [place] [phone] Plt 41(L) 150 - 400 K/cumm CERNER BJ Comment:Testing performed by : [facility], [address] [place], [place] [phone] MPV 11.0(H) 6.8 - 10.4 fL [facility] BJ Comment:Testing performed by : [facility], [address] [place], [place] [phone] RBC 3.54(L) 4.30 - 5.80 M/cumm CERNER BJ Comment:Testing performed by : [facility], [address] [place], [place] [phone] MCV 92.9 81.3 - 96.4 fL C[facility] BJ Comment:Testing performed by : [facility], [address] [place], [place] [phone] MCH 31.5 27.1 - 33.3 pg C[facility]ER BJ Comment:Testing performed by : [facility], [address] [place] [address] MCHC 33.9 32.3 - 35.7 g/dL CERNER BJ Comment:Testing performed by : [facility], [address] [place] [address] RDW CV 17.3(H) 11.1 - 14.9 % CERNER BJ Comment:Testing performed by : [facility], [address] [place] [address] NRBC abs 0.00 0.00 - 0.01 K/cumm CERNER BJ Comment:Testing performed by : [facility], [address] [place] [address] Blood 02/28/2025 2:32 PM CDT 02/28/2025 2:35 PM CDT Lang Lombardi MD LAB BLOOD OR DERABLES Final Result Performing Organization Address [facility] Co de Phone Number [facility] [place] [address] * Type and screen (02/28/2025 2:32 PM CDT) Pathologist [facility] Minda, indirect Negative ABO Rh O Positive [facility] Blood 02/28/2025 2:32 PM CDT 02/28/2025 2:51 PM CDT Lang Lombardi MD LAB BLOOD BA NK TEST ORDERABLES Final Result Performing Organization Address [facility] Co de Phone Number [facility] Department [place] [address] * Lactate dehydrogenase (LD) (02/28/2025 2:32 PM CDT) [facility] Lactate dehydrogenase (LDH) 214 100 - 250 Units/L Blood 02/28/2025 2:32 PM CDT 02/28/2025 2:37 PM CDT Lang Lombardi MD LAB BLOOD OR DERABLES Final Result Performing Organization Address [facility] Co de Phone Number [facility] [place] [address] * (ABNORMAL) Comprehensive metabolic panel (02/28/2025 2:32 PM CDT) [facility] Sodium 139 135 - 145 mmol/L Potassium, pl 4.4 3.3 - 4.9 mmol/L [facility] Chloride 106 97 - 110 mmol/L [facility] CO2 25 22 - 32 mmol/L [facility] Anion gap 8 2 - 15 mmol/L [facility] BUN 27(H) 6 - 25 mg/dL [facility] Creatinine 1.16 0.80 - 1.30 mg/dL [facility] Glucose 174 70 - 199 mg/dL [facility] Comment: Interpretive Data Fasting glucose >/= 126 mg/dl is diagnostic for diabetes. Fasting is defined as no caloric intake for at least 8 hours. Fasting glucose between 100 mg/dl to 125 mg/dl is diagnostic of prediabetes. In a patient with classic symptoms of hyperglycemia or hyperglycemic crisis, a random glucose >/= 200 mg/dl is diagnostic for diabetes. In the absence of unequivocal hyperglycemia, results should be confirmed by repeat testing. The classification and Diagnosis of Diabetes Diabetes Care 202; 46: S19-S40. Current interpretive data was last revised 2022. Calcium 8.8 8.5 - 10.3 mg/dL [facility] Bilirubin, total 0.6 0.1 - 1.2 mg/dL [facility] Protein, pl 7.8 6.5 - 8.5 g/dL [facility] Albumin 3.9 3.5 - 5.0 g/dL [facility] Alk phos 100 40 - 130 Units/L [facility] ALT 19 7 - 55 Units/L [facility] AST 26 10 - 50 Units/L [facility] Blood 02/28/2025 2:32 PM CDT 02/28/2025 2:37 PM CDT Lang Lombardi MD LAB BLOOD OR DERABLES Final Result [facility] Department [place] [address] * (ABNORMAL) CBC with auto differential (02/08/2025 4:20 PM CDT) [facility] WBC 4.0 3.4 - 10.8 x10E3/uL [facility] - 01 RBC 3.61(L) 4.14 - 5.80 x10E6/uL [facility] - 01 Hgb 11.2(L) 13.0 - 17.7 g/dL [facility] - 01 Hct 34.4(L) 37.5 - 51.0 % [facility] - 01 MCV 95 79 - 97 fL [facility] - 01 MCH 31.0 26.6 - 33.0 pg [facility] - 01 MCHC 32.6 31.5 - 35.7 g/dL [facility] - 01 Rdw 15.3 11.6 - 15.4 % [facility] - 01 Platelets 45(LL) 150 - 450 x10E3/uL [facility] - 01 Comment: Large platelets were observed. Platelet count verified by examination of peripheral blood smear. Neutrophils pct 38 Not Estab. % [facility] - 01 Lymphs pct 37 Not Estab. % [facility] - 01 Monocytes pct 19 Not Estab. % [facility] - 01 Eosinophils pct 2 Not Estab. % [facility] - 01 Basophil pct 4 Not Estab. % [facility] - 01 Neutrophil abs 1.5 1.4 - 7.0 x10E3/uL [facility] - 01 Lymphs (Absolute) 1.5 0.7 - 3.1 x10E3/uL [facility] - 01 Monocyte abs 0.8 0.1 - 0.9 x10E3/uL [facility] - 01 Eosinophils, abs 0.1 0.0 - 0.4 x10E3/uL [facility] - 01 Basophils, abs 0.1 0.0 - 0.2 x10E3/uL [facility] - 01 Immature Granulocytes 0 Not Estab. % [facility] - 01 Immature Grans (Abs) 0.0 0.0 - 0.1 x10E3/uL [facility] - 01 Hematology Comments: Note: [facility] - 01 Comment: CBC met reflex criteria for review of peripheral smear by medical laboratory professional. Automated results were confirmed by smear review. Blood 02/08/2025 4:20 PM CDT 02/08/2025 Narrative [facility] - 02/09/2025 12:36 PM CDT Performed at: - [facility] [address] [id number] Aspnet Developer: Marcelo Vieira PhD, Phone: [phone] Lang Lombardi MD LAB BLOOD OR DERABLES Final Result [facility] 01 * (ABNORMAL) Comprehensive metabolic panel (02/08/2025 4:20 PM CDT) Glucose 140(H) 70 - 99 mg/dL [facility] - 01 BUN 27 8 - 27 mg/dL [facility] - 01 Creatinine, Serum 0.99 0.76 - 1.27 mg/dL [facility] - 01 eGFR 80 >59 mL/min/1.7 3 [facility] - 01 BUN/creat ratio 27(H) 10 - 24 [facility] - 01 Sodium 137 134 - 144 mmol/L [facility] - 01 Potassium, sr 3.8 3.5 - 5.2 mmol/L [facility] - 01 Chloride 104 96 - 106 mmol/L [facility] - 01 CO2 21 20 - 29 mmol/L [facility] - 01 Calcium 8.7 8.6 - 10.2 mg/dL [facility] - 01 Protein, sr 7.2 6.0 - 8.5 g/dL [facility] - 01 Albumin 3.9 3.8 - 4.8 g/dL [facility] - 01 Globulin, Total 3.3 1.5 - 4.5 g/dL [facility] - 01 Bilirubin, Total 0.5 0.0 - 1.2 mg/dL [facility] - 01 Alk phos 95 44 - 121 IU/L [facility] - 01 Comment: Effective February 13, 2025 Alkaline Phosphatase reference interval will be changing to: Age Male Female 0 - 5 days 47 - 127 47 - 127 6 - 10 days 29 - 242 29 - 242 11 - 20 days 109 - 357 109 - 357 21 - 30 days 94 - 494 94 - 494 1 - 2 months 149 - 539 149 - 539 3 - 6 months 131 - 452 131 - 452 7 - 11 months 117 - 401 117 - 401 12 months - 6 years 158 - 369 158 - 369 7 - 12 years 150 - 409 150 - 409 13 years 156 - 435 78 - 227 14 years 114 - 375 64 - 161 15 years 88 - 279 56 - 134 16 years 74 - 207 51 - 121 17 years 63 - 161 47 - 113 18 - 20 years 51 - 125 42 - 106 21 - 50 years 47 - 123 41 - 116 51 - 80 years 49 - 135 51 - 125 >80 years 48 - 129 48 - 129 AST 16 0 - 40 IU/L [facility] - 01 ALT 14 0 - 44 IU/L [facility] - 01 Blood 02/08/2025 4:20 PM CDT 02/08/2025 Narrative [facility] - 02/09/2025 7:37 AM CDT Performed at: - [address] [id number] Aspnet Developer: Marcelo Vieira PhD, Phone: [phone] Lang Lombardi MD LAB BLOOD OR DERABLES Final Result Performing Organization Address City/[facility]/ZIP Co de Phone Number [facility] - 01 * Hepatitis panel, acute Blood (11/30/2024 12:28 AM CDT) [facility] Hep A IgM Nonreactive Nonreactive Hep B core IgM Nonreactive Nonreactive [facility] Hep C Ab Nonreactive Nonreactive [facility] Comment:Antibodies to HCV no t detected. Does NOT exclude the possibility of recent exposure to HCV. Current interpretive data was last revised on 22 HepBsAg Nonreactive Nonreactive [facility] Blood 11/30/2024 12:2 8 AM CDT 11/30/2024 1:09 AM CDT us Bill Tubbs MD LAB MICROBIOLOGY - GENERAL ORDERABLES Final Result [facility] [place] [address] from Last 3 Months or Most Recently Relevant to Health Maintenance Insurance MEDICARE AETNA SENIOR SUPPLEMENT MEDICARE MEDICARE AETNA SENIOR SUPPLEMENT Advance Directives For more information, please contact: [phone] * Full Code (Latest Code Status on File) Date Activated Date Inactivated Comments 11/29/2024 10:12 PM 12/13/2024 9:07 PM Care Teams Thread Marker Relationship Specialty Start Date End Date Javier Syed MD PCP - General 07/24/16 Teo Pardo DO [address] [place] [address] Medical Oncologist/Med Care Manager Hematology and Oncology 07/13/20 Lang Pinto MD [address] [facility] [address] [place] [address] Medical Oncologist/Med Care Manager Internal Medicine 12/09/24
--- OUTSIDE RECORDS SUMMARY | 2025-04-22 07:01 | XMS_ITS | Encounter Summary ---
Author Organization [facility] Address [address] [place] [address] Care Team Providers Care Reactor Kettle Operator Name Role Phone Javier Syed MD Primary Care Provider [phone] Joanne Kaba RN Unavailable Unavailable Reason for Visit * Reason Onset Date Comments Refill Request 10/18/2024 Encounter Details Date Type Department Care Team (Late st Contact Info) Description 10/18/2024 Telephone [facility] - Pulmonology [address] 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 Drug type:[id number]-kaekhnfzbci-jrhnhlxvaz (Breztri Aerosphere) Pharmacy:[facility] in [place], [place] Patient call back number: [phone] Patients JULITA : 09/20/24 Upcoming appointment scheduled for : 01/17/25 documented in this encounter Plan of Treatment Upcoming Encounters Date Type Department Care Team (Late st Contact Info) Description 06/07/2025 1:45 PM SENIOR ACCOUNTS PAYABLE CLERK Office [facility] Surgery [address], [address] [phone] Burt Pemberton MD [address] [place] [address] 10/09/2025 2:00 PM CDT Office Visit [facility] Pulmonology [address] [place] [phone] Prakash Neves MD [address] [place] [address] 10/09/2025 3:30 PM CDT Office Visit [facility] Pulmonology [address] [place] [phone] Prakash Neves MD [address] [place] [phone] documented as of this encounter Goals Goal [...] on filedocumented in this encounter Care Teams Reactor Kettle Operator Relationship Specialty Start Date End Date Javier Syed MD [address] [place] [address] PCP - General 06/04/18 Joanne Kaba, RN Registered Nurse 11/01/19 documented as of this encounter
--- OUTSIDE RECORDS SUMMARY | 2025-04-22 07:01 | XMS_ITS | Clinical Summary ---
Author Organization [facility] Address [address] [place] [address] Care Team Providers Care Wreath Machine Tender Name Role Phone Javier Syed MD Primary Care Provider [phone] Immunizations Immunization Administration Dates Next Due MODERNA [...] of 2) 2001 COVID-19 Vaccine ( season) 2025 08/10/2020, 07/13/2020 Influenza Adult (#1) 2025 04/29/2023, 05/18/2019, 06/08/2018, Additional history exists DTaP, Tdap and Td Vaccines (2 - Td or Tdap) 10/21/2025 10/22/2015 RSV Immunization or 60+ Years (1 - 1-dose 75+ series) 2026 Pneumococcal Vaccine: 50+ Years Completed 04/29/2023, 04/18/2016 Hepatitis A Vaccines Aged Out No long er eligible based on patient's age to complete this topic Meningococcal B Vaccine Aged Out No l onger eligible based on patient's age to complete this topic Meningococcal Vaccine Aged Out No miroslava sridhar eligible based on patient's age to complete this topic RSV Immunizations Under 20 Months Aged Out No longer eligible based on patient's age to complete this topic Care Teams Wreath Machine Tender Relationship Specialty Start Date End Date Javier Syed MD [address] [facility] [address] [place] [phone] PCP - General INTERNAL MEDICINE 01/14/24
--- OUTSIDE RECORDS SUMMARY | 2025-04-22 07:01 | XMS_ITS | Clinical Summary ---
Author Organization [facility] Address [address] [place] [address] Care Team Providers Care O And M Supervisor Name Role Phone Javier Syed MD Primary Care Provider [phone] Joanne Kaba RN Unavailable Unavailable Source Comments [facility],non-owned Affiliates and Associated Physician Practices is amultiple site organization consisting of ambulatory clinics and hospital sitesin [place], [place]. This disclosure is being madepursuant to the Care Everywhere program and may not contain all information available regarding this patient. Last updated 18.[facility] Allergies Active Allergy Reactions Criticality Noted Date Comments Neomycin Swelling 06/08/2018 Medications * Be aware that medications may not be up to date on this document. Alwaysverify current medications with the patient. buPROPion XL 24hr (WELLBUTRIN-XL) 150 MG tablet Take 1 (one) tablet by mouth once daily 1 8 Active clonazePAM (KLONOPIN) 0.5 MG tablet 1 (one) tablet 2 times daily as needed 0 Active traZODone (DESYREL) 50 MG tablet TAKE 1 TO 3 TABLETS BY MOUTH AT BEDTIME 1 Active ibuprofen (MOTRIN) 600 MG tablet Take 1 (one) tablet by mouth as needed 1 Active albuterol HFA (Proventil; Ventolin; Proair) 108 (90 Base) MCG/ACT inhaler Inhale 2 (two) puffs by mouth every 6 hours as needed 18 g 11 5 Active fluticasone-umec lidinium-vilante rol (Trelegy Ellipta) 100-62.5-25 MCG/ACT inhalerIndicatio ns:Chronic obstructive pulmonary disease, unspecified COPD type (HCC) Inhale 1 (one) puff by mouth once daily 1 Each 5 Active Ensifentrine 3 MG/2.5ML SUSPIndications: Chronic obstructive pulmonary disease, unspecified COPD type (HCC) Inhale 3 mg by mouth once daily 75 mL 11 5 Active Additional Information Patient not taking.Reported on 04/10/2025 albuterol (Proventil;Valerie edinson) (2.5 MG/3ML) 0.083% nebulizer solutionIndicati ons:Chronic obstructive pulmonary disease, unspecified COPD type (HCC) Inhale 2.5 (two and one-half) mg by mouth every 4 hours as needed for Shortness of Breath or Wheezing 540 mL 5 Active aspirin (Aspirin) 81 MG chew tablet Take 1 (one) tablet by mouth once daily 5 12/15/19 26 Active metoprolol succinate XL 24hr (Toprol XL) 25 MG tablet Take 1 (one) tablet by mouth once daily 5 Active thiamine (Vitamin B-1) 100 MG tablet Take 1 (one) tablet by mouth once daily 5 12/15/19 26 Active ibuprofen (Motrin) 800 MG tablet Take 1 (one) tablet by mouth 3 times daily as needed For pain. 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 0 Overview (11/01/2019): SZ Elevated liver enzymes 11/01/2019 Resolved Problems Problem Noted Date Diagnosed Date Resolved Date Asthma-COPD overlap syndrome 07/23/2018 03/05/2021 Encounters Date Type Department Care Team Description 04/10/2025 3:30 PM HANDLING TECH Office Visit [facility] - Pulmonology [address] [facility] [place] [address] Prakash Neves MD Mixed simple and mucopurulent chronic bronchitis (HCC) (Primary Dx); Pdqzs-1-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 04/10/2025 Travel 04/05/2025 10:30 AM HANDLING TECH Office Visit [facility] - Orthopedic Surgery [address] [place] [phone] Burt Pemberton MD Chronic midline low back pain without sciatica (Primary Dx) 04/05/2025 9:52 AM HANDLING TECH - 04/05/2025 11:59 PM HANDLING TECH Hospital Encounter [facility] - Radiology [address] [place] [address] Burt Pemberton MD Discharge Disposition: Home or Self Care 04/05/2025 Travel 04/03/2025 Orders Only [facility] - Orthopedic Surgery [address] [place] [address] Burt Pemberton MD Lumbar spine pain 02/16/2025 Refill [facility] - Pulmonology [address] [facility] [place] [phone] Prakash Neves MD MEDICATION REFILL from Last 3 Months Immunizations Immunization Administration [...] drink = 0.6 oz pur e alcohol) PHQ-2 Answer Date Recorded Patient Health Questionnaire-2 Score 3 04/05/2025 Sex and Gender Information Value Date Recorded Sex Assigned at Not on file Legal Sex Male 5:25 AM HANDLING TECH Gender Identity Not on file Sexual Orientation Not on file Last Filed Vital Signs Vital Sign Reading Time Taken Comments Blood Pressure 138/76 04/10/2025 3:03 PM HANDLING TECH Pulse 63 04/10/2025 3:03 PM HANDLING TECH Temperature 36.6 C (97.8 F) 03/05/2021 2:21 PM CDT Respiratory Rate 17 04/10/2025 3:03 PM HANDLING TECH Oxygen Saturation 95% 04/10/2025 3:03 PM HANDLING TECH Inhaled Oxygen Concentration - - Weight 92.3 kg (203 lb 6.4 oz) 04/10/2025 3:03 P M HANDLING TECH Height 182.9 cm (6') 04/10/2025 3:03 PM HANDLING TECH Body Mass Index 27.59 04/10/2025 3:03 PM HANDLING TECH Plan of Treatment Upcoming Encounters Date Type Department Care Team (Late st Contact Info) Description 06/07/2025 1:45 PM HANDLING TECH Office Visit [facility] - Orthopedic Surgery [address] [phone] Burt Pemberton MD [address] [place] [address] 10/09/2025 2:00 PM CDT Office Visit [facility] - Pulmonology [address] [place] [phone] Prakash Neves MD [address] [place] [address] 10/09/2025 3:30 PM CDT Office Visit [facility] - Pulmonology [address] [place] [phone] Prakash Neves MD [address] [place] [address] Health Maintenance Due Date Last Done Comments COLOGUARD (AGES 45-75) - COLON CA SCREENING 1951 COLON MONITORING 1951 COLONOSCOPY - COLON CA SCREENING 1951 CT COLONOGRAPHY - COLON CA SCREENING 1950 Colorectal Cancer Screening 1950 FIT - COLON CA SCREENING 1950 FLEX SIG - COLON CA SCREENING 1950 LIPID TESTING 1950 MEDICARE AWV 12 MONTHS 1950 HEPATITIS C SCREENING 03/08/1969 Respiratory Syncytial Virus (RSV) Vaccine Pt: or over 60 yrs (1 - Risk 50-74 years 1-dose series) 2001 ZOSTER VACCINE (1 of 2) 2001 AAA SCREENING 2016 DEPRESSION SCREENING 06/01/2024 COVID-19 VACCINE (2024- season) 2025 05/21/2021, 08/10/2020, 07/13/2020 INFLUENZA VACCINE (#1) 2025 , 05/28/2022, 05/18/2019, Additional history exists DTAP/TDAP/TD VACCINES (2 [...] some light at night in your room Procedures Procedure Name Priority Date/Time Associated Diagnosis Comments XR LUMBAR SPINE 2 OR 3VW Routine 04/05/2025 9:55 AM HANDLING TECH Lumbar spine pain from Last 3 Months Results * XR Lumbar Spine 2 or 3Vw (04/05/2025 9:55 AM HANDLING TECH) Anatomical Region Laterality Modality Spine Computed Radiogr aphy 04/05/2025 10:3 0 AM HANDLING TECH Impressions 04/05/2025 11:08 AM HANDLING TECH IMPRESSION: 1.Degenerative changes. 2.Postoperative changes. Edited by Jewell Dey on 04/05/2025 11:07 AM > Interpreting Provider: Augie Cordero MD on 04/05/2025 11:08 AM Narrative 04/05/2025 11:08 AM HANDLING TECH PROCEDURE: XR LUMBAR SPINE 2 OR 3VW DATE/TIME OF EXAM: 04/05/2025 9:56 AM CLINICAL INFORMATION: None relevant/not provided if blank. Indication: M54.50: Lumbar spine pain. Additional History: COMPARISON: 10/22/2021. FINDINGS: Stabilization screw overlies the left sacroiliac joint into the sacrum. There are degenerative changes of the lumbar spine. Endplate degenerative changes of the lumbar spine are also present. There is intervertebral disc space narrowing L2-3. Procedure Note Augie Cordero MD - 04/05/2025 PROCEDURE: XR LUMBAR SPINE 2 OR 3VW DATE/TIME OF EXAM: 04/05/2025 9:56 AM CLINICAL INFORMATION: None relevant/not provided if blank. Indication: M54.50: Lumbar spine pain. Additional History: COMPARISON: 10/22/2021. FINDINGS: Stabilization screw overlies the left sacroiliac joint into the sacrum. There are degenerative changes of the lumbar spine. Endplatedegenerative changes of the lumbar spine are also present. There is intervertebraldisc space narrowing L2-3. IMPRESSION: 1.Degenerative changes. 2.Postoperative changes. Edited by Jewell Dey on 04/05/2025 11:07 AM > Interpreting Provider: Augie Cordero MD on 04/05/2025 11:08 AM Burt Pemberton MD DIAGNOSTIC IMAGING ORDERABLES Fi nal Result from Last 3 Months Insurance AETNA MEDICARE AETNA * Guarantor: ANOOP STEVENS Account Type Relation to Patient Date of Phone Billing Address Personal/Family Spouse Care Teams O And M Supervisor Relationship Specialty Start Date End Date Javier Syed MD [address] [place] [phone] PCP - General 06/04/18 Joanne Kaba, RN Registered Nurse 11/01/19
--- OUTSIDE RECORDS SUMMARY | 2025-04-22 07:01 | XMS_ITS | Encounter Summary ---
Author Organization [facility] Address [address] [facility] [place] [address] Care Team Providers Care Career Resource Specialist Name Role Phone Javier Syed MD Primary Care Provider [phone] Joanne Kaba RN Unavailable Unavailable Reason for Visit * Reason Onset Date Comments Appointment 04/13/2023 Encounter Details Date Type Department Care Team (Late st Contact Info) Description 04/13/2023 Telephone [facility] - Pulmonology [address] [place] [address], [facility] [place] [phone] Alicia Herrera, DO [address] [place] [address] OF [facility] [place] [address] Appointment Social History Tobacco Use Types Packs/Day Years Used Date Smoking Tobacco: Former Cigarettes 2 27 0 06/01/1969 - 06/01/1996 Smokeless Tobacco: Never Alcohol Use Standard Drinks/Week Comments Not Currently 0 (1 standard drink = 0.6 oz pur e alcohol) Sex and Gender Information Value Date Recorded Sex Assigned at Not on file Legal Sex Male 5:25 AM LABORER PIPELINES Gender Identity Not on file Sexual Orientation Not on file documented as of this encounter Miscellaneous Notes * Telephone Encounter - Maira Mathis - 04/13/2023 9:35 AM CST Current Provider name: Alicia Herrera Reason for call: Pt would like a call back regarding a sooner appt due to coughing up redish/brown del cid over the past week. Patient Call Back number: [phone] RER PIPELINES documented in this encounter Plan of Treatment Upcoming Encounters Date Type Department Care Team (Late st Contact Info) Description 06/07/2025 1:45 PM LABORER PIPELINES Office Visit [facility] - Orthopedic Surgery [address], [address] [place] [phone] Burt Pemberton MD [address] [place] [address] 10/09/2025 2:00 PM CDT Office Visit [facility] - Pulmonology [address] [place] [phone] Prakash Neves MD [address] [place] [address] 10/09/2025 3:30 PM CDT Office Visit [facility] - Pulmonology [address] [place] [phone] Prakash Neves MD [address] [place] [address] documented as of this encounter Goals Goal Patient Goal Type Associated Problems Recent Progress Patient-Stated? Author Medication Management General On track( 1:35 PM CDT) Joanne Lemos, RAND Note: Expected end date: ongoing Interventions: Take all medications as prescribed Let your doctor know right away about any changes in your medications Make sure to request a refill of your medication at least one week prior to your last dose Safety General On track( 1:35 PM CDT) Joanne Lemos, RAND Note: Expected end date: ongoing Interventions: [...] on filedocumented in this encounter Care Teams Career Resource Specialist Relationship Specialty Start Date End Date Javier Syed MD [address] [place] [phone] PCP - General 06/04/18 Joanne Kaba, RN Registered Nurse 11/01/19 documented as of this encounter
== END 2025-04-22 06:59 | disposition home or self-care (01) ==
LOC: CHSIMG 07:00
PROVIDERS: PCP Internal Medicine; Visit Provider Internal Medicine
DX: K86.9 Disease of pancreas, unspecified (principal); K86.2 Cyst of pancreas
CPT/HCPCS: 74181; 74183